=== PATIENT | male | born 1965 | race Caucasian/White ===

== ENCOUNTER 2017-03-09 18:27 | Emergency (ER) | payer SELFPAY ==
[~2017-03-09] VITALS: Ht 180.3 cm; Wt 82.6 kg
[2017-03-09] MEDS ORDERED: DOXY100T2 PO (20:11)
--- NOTE | 2017-03-09 20:11 | ED Integumentary General ---
General Chief Complaint: Skin/Wound Problems Stated Complaint: POSS INSECT BITE ON BACK Nursing Triage Note: PT TO ED W/ C/O POSS BITE W/ LOCALIZED ERYTHEMA TO BACK. PT REPORTS HE WAS SEEN AT HIS PCP TODAY ET DX W/ FLU B BUT DENIES HAVING SITE EVALUATED AT THAT TIME. STATES HE THOUGHT IT WAS MUSCULAR IN NATURE. NOTICED THE AREA OF IRRITATION THIS AFTERNOON. NO OTHER C/O VOICED Source: patient Exam Limitations: no limitations History of Present Illness Time seen by provider: 20:00 Initial Comments This 51-year-old gentleman presents to the emergency room with complaints of a lesion on the back that is painful and ecchymotic. He tested positive for influenza earlier in the day and is febrile as a result. He did not have his back evaluated when he was in the clinic for influenza screening. He does not recall being bitten by anything but the lesion has the appearance of a spider bite. Allergies and Home Medications Allergies Coded Allergies: No Known Drug Allergies (Unverified , 03/09/17) Home Medications Doxycycline Hyclate 100 Mg Tablet, 100 MG PO BID, #20 Prescribed by: TOM JIMENEZ on 03/09/172010 Constitutional: see HPI EENTM: see HPI Respiratory: see HPI Cardiovascular: no symptoms reported Gastrointestinal: vomiting Genitourinary: no symptoms reported Musculoskeletal: no symptoms reported Skin: see HPI Psychiatric/Neurological: No Symptoms Reported Past Qojfizn-Qhchsg-Dbgjmk Hx Patient Social History Alcohol Use: Occasionally Uses Recreational Drug Use: No Smoking Status: Never a Smoker 2nd Hand Smoke Exposure: No Recent Foreign Travel: No Contact w/Someone Who Travel: No Recent Infectious Disease Expo: No Recent Hopitalizations: No Seasonal Allergies Seasonal Allergies: No Surgeries HX Surgeries: No Respiratory Hx Respiratory Disorders: No Cardiovascular Hx Cardiac Disorders: Yes Cardiac Disorders: Hypertension Neurological Hx Neurological Disorders: No Reproductive System Hx Reproductive Disorders: No Genitourinary Hx Genitourinary Disorders: Yes (chronic urinary frequency) Gastrointestinal Hx Gastrointestinal Disorders: No Musculoskeletal Hx Musculoskeletal Disorders: No Endocrine Hx Endocrine Disorders: Yes Endocrine Disorders: Diabetes, Non-Insulin dep HEENT HX ENT Disorders: No Cancer Hx Cancer: No Psychosocial Hx Psychiatric Problems: No Integumentary HX Skin/Integumentary Disorder: No Blood Transfusions Hx Blood Disorders: No Physical Exam Vital Signs Vital Sign - Last 12Hours 03/09/17 19:38 Temp 101.1 Pulse 110 Resp 20 B/P (MAP) 127/90 Pulse Ox 97 O2 Delivery Room Air Capillary Refill : Less Than 3 Seconds General Appearance: WD/WN, no apparent distress HEENT: PERRL/EOMI, normal ENT inspection Neck: normal inspection Cardiovascular: no edema, no murmur, tachycardia Respiratory: lungs clear, normal breath sounds, no respiratory distress, no accessory muscle use Neurologic/Psychiatric: 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, no motor/sensory deficits, alert, normal mood/affect, oriented x 3 Skin: warm/dry, other (there is a blistering lesion on the left upper back with a dusky ecchymotic center and petechial erythema surrounding.) Progress/Results/Core Measures Results/Orders My Orders Orders - TOM GUADARRAMA MD Doxycycline Hyclate Tablet (Vibramycin T (03/09/17 20:15) Rx-Ondansetron Po (Rx-Zofran Po) (03/09/17 20:15) Medications Given in ED Current Medications Medications Dose Ordered Sig/Josi Route Start Time Stop Time Status Last Admin Dose Admin Doxycycline Hyclate 100 mg ONCE ONCE PO 03/09/17 20:15 03/09/17 20:16 DC 03/09/17 20:20 100 MG Ondansetron HCl 4 mg Q4HR PRN SL 03/09/17 20:15 03/09/17 20:21 DC 03/09/17 20:20 4 MG Vital Signs/I&O Vital Sign - Last 12Hours 03/09/17 03/09/17 19:38 20:23 Temp 101.1 100.0 Pulse 110 101 Resp 20 20 B/P (MAP) 127/90 Pulse Ox 97 98 O2 Delivery Room Air Blood Pressure Mean: 102 Progress Note : Progress Note Lesion was cleaned with alcohol. Blister was ruptured with a scalpel. Wound culture was collected. Patient was started on doxycycline. Margins of the erythema were marked with a skin marker. A take-home packet of Zofran was dispensed for nausea related to the influenza B. Departure Impression Impression: Primary Impression: Spider bite Qualified Codes: T63.301A - Toxic effect of unspecified spider venom, accidental (unintentional), initial encounter Additional Impression: Influenza B Disposition: 01 HOME, SELF-CARE Condition: Improved Departure-Patient Inst. Decision time for Depature: 20:09 Referrals: [facility] (PCP/Family) Primary Care Physician Patient Instructions: Spider Bites Add. Discharge Instructions: Drink plenty of clear liquids. You may take Tylenol and/or ibuprofen for pain and fever. Monitor the progression of the wound on your back with a skin marker and daily digital photography. Follow-up with your primary care provider toward the end of this week. Wound culture should be resulted in about 48 hours. Return to care if symptoms worsen. Complete your antibiotics as prescribed. All discharge instructions reviewed with patient and/or family. Voiced understanding. Scripts Doxycycline Hyclate (Doxycycline Hyclate) 100 Mg Tablet 100 MG PO BID, #20 TAB Prov: TOM GUADARRAMA MD 03/09/17 TOM GUADARRAMA MD Mar 09, 2017 20:11
[2017-03-09] MEDS ORDERED: DOXYCYCLINE 100 MG (VIBRAMYCIN) TABLET PO ONE (20:15)
[2017-03-09] MEDS ORDERED: RX-ONDANSETRON 4 MG ODT (ZOFRAN) PPK #4 SL PRN (20:15)
[2017-03-09 20:23] VITALS: BP 120/87
== END 2017-03-09 20:21 | disposition home or self-care (01) ==
LOC: ER 18:30
DX: T63.391A Toxic effect of venom of other spider, accidental (unintentional), initial encounter (principal); J10.1 Influenza due to other identified influenza virus with other respiratory manifestations; I10 Essential (primary) hypertension; E11.9 Type 2 diabetes mellitus without complications
CPT/HCPCS: 87070; 87205; 99283

== ENCOUNTER 2017-04-02 21:24 | Emergency (ER) | payer SELFPAY ==
[~2017-04-02] VITALS: Ht 180.3 cm; Wt 79.4 kg
[~2017-04-02 21:24] MED LIST: DOXY100T2 PO
--- NOTE | 2017-04-02 21:43 | ED Upper Extremity ---
General Stated Complaint: R SHOULDER PAIN Source: patient Exam Limitations: no limitations History of Present Illness Time seen by provider: 21:42 Initial Comments To ER with right shoulder pain. The pain is in the anterior portion of the right shoulder and chest worsened by adducting the right arm at the shoulder. 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 Pain is brought about by any movement that brings the hand from outward inward position. 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 He states that he was not going to come to the emergency room but his and son insisted. Pain is been intermittent for one month and is relieved by taking IBProfen and rest. Tonight while the pain was so severe he was unable to abduct the arm at the shoulder Onset: just prior to arrival Severity: moderate Pain/Injury Location: right shoulder Method of Injury: other Modifying Factors: Worse With Movement Allergies and Home Medications Allergies Coded Allergies: No Known Drug Allergies (Unverified , 03/09/17) Home Medications Doxycycline Hyclate 100 Mg Tablet, 100 MG PO BID, #20 Prescribed by: TOM JIMENEZ on 03/09/172010 Constitutional: see HPI EENTM: see HPI Respiratory: no symptoms reported Cardiovascular: no symptoms reported Genitourinary: no symptoms reported Musculoskeletal: no symptoms reported Skin: no symptoms reported Past Vbbylnf-Pxzoqd-Arcoyn Hx Patient Social History 2nd Hand Smoke Exposure: No Recent Foreign Travel: No Contact w/Someone Who Travel: No Recent Hopitalizations: No Seasonal Allergies Seasonal Allergies: No Surgeries HX Surgeries: No Respiratory Hx Respiratory Disorders: No Cardiovascular Hx Cardiac Disorders: Yes Cardiac Disorders: Hypertension Neurological Hx Neurological Disorders: No Reproductive System Hx Reproductive Disorders: No Genitourinary Hx Genitourinary Disorders: Yes (chronic urinary frequency) Gastrointestinal Hx Gastrointestinal Disorders: No Musculoskeletal Hx Musculoskeletal Disorders: No Endocrine Hx Endocrine Disorders: Yes Endocrine Disorders: Diabetes, Non-Insulin dep HEENT HX ENT Disorders: No Cancer Hx Cancer: No Psychosocial Hx Psychiatric Problems: No Integumentary HX Skin/Integumentary Disorder: No Blood Transfusions Hx Blood Disorders: No Physical Exam Vital Signs Capillary Refill : General Appearance: WD/WN, no apparent distress HEENT: PERRL/EOMI, normal ENT inspection Neck: non-tender, full range of motion Cardiovascular: regular rate, rhythm, no murmur Respiratory: lungs clear, normal breath sounds, no respiratory distress, no accessory muscle use Gastrointestinal: normal bowel sounds, non tender, soft Shoulder: normal inspection, limited ROM, soft tissue tenderness (there is minimal soft tissue tenderness over the pectoralis muscle over the anterior shoulder and lateral chest. Shoulder joint itself is without deformity erythema or ecchymosis.) Elbow/Forearm: normal inspection, non-tender, Right Wrist: Yes normal inspection, Yes non-tender Departure Impression Impression: Primary Impression: Pectoralis muscle strain Disposition: 01 HOME, SELF-CARE Condition: Stable Departure-Patient Inst. Decision time for Depature: 21:45 Referrals: [facility] (PCP/Family) Primary Care Physician Patient Instructions: Muscle Strain Add. Discharge Instructions: 1. Return to ER for any concerns 2. Follow-up with occupational health 3. Scripts Cyclobenzaprine HCl (Cyclobenzaprine HCl) 5 Mg Tablet 5 MG PO TID Y for PAIN-MODERATE, #20 TAB Prov: CECY WOLFF APRN 04/02/17 CECY WOLFF APRN April 02, 2017 21:43
[2017-04-02] MEDS ORDERED: CYCL5TAB PO (21:46)
[2017-04-02 21:54] VITALS: BP 138/87
== END 2017-04-02 21:49 | disposition home or self-care (01) ==
LOC: EDUNIT# 21:24 → ER 21:26
DX: S46.901A Unspecified injury of unspecified muscle, fascia and tendon at shoulder and upper arm level, right arm, initial encounter (principal); E11.9 Type 2 diabetes mellitus without complications; I10 Essential (primary) hypertension; X50.0XXA Overexertion from strenuous movement or load, initial encounter; Y92.69 Other specified industrial and construction area as the place of occurrence of the external cause; Y99.0 Civilian activity done for income or pay
CPT/HCPCS: 99282

== ENCOUNTER 2019-02-12 01:17 | Emergency (ER) | payer SELFPAY ==
[~2019-02-12] VITALS: Ht 177.8 cm; Wt 88.5 kg
[~2019-02-12 01:17] MED LIST changes: +CYCL5TAB PO
[2019-02-12] MEDS ORDERED: RX-HYDROXYZINE PAMOATE 25 MG CAP #4 PO STA (01:35)
[2019-02-12] MEDS ORDERED: METF-397 PO (01:36)
[2019-02-12] MEDS ORDERED: LISI10TA2 PO (01:36)
--- NOTE | 2019-02-12 01:42 | ED General ---
General Chief Complaint: Psych/Social Disorder Stated Complaint: SOB Source of Information: Patient Exam Limitations: No Limitations History of Present Illness Date Seen by Provider: Feb 12, 2019 Time Seen by Provider: 01:26 Initial Comments The patient presents to ER by private conveyance with chief complaint of shortness of breath when he lays down flat to sleep. He says when he gets back up it's okay. When he lays down though he is doing okay just starts thinking about all problems of the day including his xpwjnt-nq-dwz recently and he's been working to get her house cleaned out and is trying to get his father to move back in with him. His definition of shortness of breath as he says he just takes big deep breaths but is not panting. He says his heart is not racing denies any chest pain nausea vomiting fevers chills cough. Does not smoke cigarettes has no history of COPD or asthma. Does not have stridor or wheezing. He does have a history of prediabetes on metformin and lisinopril for blood pressure. He says he is not very good about remembering to take his medications and was wondering if maybe by missing his medicines of those are hurting to his shortness of breath. This is the first night it's happened. He denies any swelling around his hands or feet or history of heart failure/heart attack. Allergies and Home Medications Allergies Coded Allergies: No Known Drug Allergies (Unverified , 03/09/17) Home Medications Cyclobenzaprine HCl 5 Mg Tablet, 5 MG PO TID PRN for PAIN-MODERATE Prescribed by: CECY WOLFF on 04/02/172145 Doxycycline Hyclate 100 Mg Tablet, 100 MG PO BID Prescribed by: TOM JIMENEZ on 03/09/172010 Patient Home Medication List Home Medication List Reviewed: Yes Review of Systems Review of Systems Constitutional: No chills, No diaphoresis EENTM: No ear discharge, No ear pain Respiratory: No cough, No hemoptysis, No phlegm; short of breath (not presently ); No wheezing Cardiovascular: No chest pain, No edema, No Hx of Intervention, No palpitations , No syncope, No vascular heart diseas Gastrointestinal: No abdominal pain, No constipation, No diarrhea, No nausea, No vomiting Genitourinary: No discharge, No dysuria Musculoskeletal: No back pain, No joint pain Past Itsnkxw-Xxdxco-Zegfra Hx Patient Social History Alcohol Use: Denies Use Recreational Drug Use: No Smoking Status: Never a Smoker 2nd Hand Smoke Exposure: No Recent Foreign Travel: No Contact w/Someone Who Travel: No Recent Hopitalizations: No Seasonal Allergies Seasonal Allergies: No Past Medical History Hypertension Reproductive Disorders: No Diabetes, Non-Insulin dep Physical Exam Vital Signs Capillary Refill : Height, Weight, BMI Height: 5'11.00" Weight: 175lbs. oz. 79.538976qd; BMI Method:Stated General Appearance: No Apparent Distress, WD/WN, Anxious Eyes: Bilateral Eye Normal Inspection, Bilateral Eye PERRL, Bilateral Eye EOMI HEENT: PERRL/EOMI, TMs Normal, Normal ENT Inspection, Pharynx Normal, Moist Mucous Membranes Neck: Full Range of Motion, Normal Inspection, Non Tender, Supple; No JVD Respiratory: Chest Non Tender, Lungs Clear, Normal Breath Sounds, No Accessory Muscle Use, No Respiratory Distress Cardiovascular: Regular Rate, Rhythm, No Edema, No Gallop, No JVD, No Murmur, Normal Peripheral Pulses Gastrointestinal: Normal Bowel Sounds, Non Tender, Soft Extremity: Normal Capillary Refill, Normal Inspection, Non Tender, No Pedal Edema Neurologic/Psychiatric: Alert, Oriented x3, No Motor/Sensory Deficits Skin: Normal Color, Warm/Dry Progress/Results/Core Measures Suspected Sepsis SIRS Temperature: Pulse: Respiratory Rate: Blood Pressure / Mean: Results/Orders My Orders Orders - TABITHA DERAS Rx-Hydroxyzine Pamoate (Rx-Vistaril) (02/12/19 01:35) Vital Signs/I&O Capillary Refill : Progress Note : Time: 01:40 Progress Note The patient's sister describes orthopnea however his description of shortness of breath sounds most like he is just yawning or gasping and his affect and demeanor is more of anxiety. His clinical exam is unremarkable and there is no evidence of any heart failure, fluid overload, COPD or asthma. His heart rate is in the 80s to 90s and his oxygen saturation is 100% which would make a pulmonary embolism unlikely. He is not having any chest pain. We've offered to do an EKG, chest x-ray and blood but he has declined. We've offered us trial some Vistaril to see if this is more anxiety related and follow up Juan with his primary care provider and he would prefer to do that. He says he just wanted to come in to make sure that missing a few doses of his metformin and lisinopril was not the source of his shortness of breath. I don't see any connection with his missing medications and his shortness of breath however what he describes as shortness of breath does not appear to be classic short of breath. He says he short of breath now but has no clinical examination consistent with being objectively short of breath. No increased work of breathing, retractions, accessory muscle use, etc. Departure Impression Primary Impression: Anxiety Additional Impression: Shortness of breath at rest Disposition: HOME, SELF-CARE Condition: Stable Departure-Patient Inst. Decision time for Depature: 01:42 Referrals: [facility]/ (PCP/Family) Primary Care Physician Patient Instructions: Anxiety, Adult (DC) Add. Discharge Instructions: Take a dose of Vistaril 1 tablet every 6 hours as needed for anxiety-like symptoms such as feeling short of breath. If this does not improve your symptoms then you should follow-up with your primary care doctor on Thursday. If you're having significant chest pain or other worrisome symptoms you can return to the ER for further evaluation. All discharge instructions reviewed with patient and/or family. Voiced understanding. Scripts Hydroxyzine Pamoate (Vistaril) 25 Mg Capsule 25 MG PO Q6H PRN for ANXIETY, #20 CAP 0 Refills Prov: TABITHA DERAS 02/12/19 TABITHA DERAS Feb 12, 2019 01:42
[2019-02-12] MEDS ORDERED: HYDR25CA PO (01:44)
--- OUTSIDE RECORDS SUMMARY | 2019-02-12 01:44 | XMS REPORT ---
Author Author FRIEDA CORONA Organization [facility] Address [address] [place] [address] Care Team Providers Care Community Relations Liaison Name Role Phone FRIEDA CORONA Unavailable PROBLEMS Type Condition ICD9-CM Code TXV53-HC Code Onset Dates Condition Status SNOMED Code Problem Essential hypertension I10 Active 69137055 Problem Diabetes E11.9 Active 917566903 Problem Hypertriglyceridemia E78.1 Active 677727055 Problem Eye exam normal Z01.00 Active 366060693 ALLERGIES No Known Allergies ENCOUNTERS Encounter Location Date Diagnosis [place] [id number] [address] Jun, Hypertriglyceridemia E78.1 and Diabetes E11.9 [facility] [address] [address] Jun, Diabetes E11.9 ; Essential hypertension I10 ; Cough R05 ; Nocturia R35.1 ; Hypertriglyceridemia E78.1 and Snores R06.[address] [address] March, [facility] [address] [address] Jan, Acute bronchitis, unspecified organism J20.9 and Acute effusion of both middle ears H65.193 [facility] [address] [address] Dec, Viral URI J06.9 [facility] [address] [address] Dec, Gastroenteritis K52.[address] [address] 28 Jul, 2017 Acute pain of right shoulder M25.511 [facility] [address] [address] 20 Jul, 2017 Essential hypertension I10 [place] [address] [address] 18 Jun, 2017 Hypertriglyceridemia E78.1 [place] [address] [address] 16 Jun, 2017 Diabetes E11.9 ; Essential hypertension I10 and Acute pain of right shoulder M25.511 [place] [address] [address] 13 Feb, 2017 Brown magdielluse spider bite, accidental or unintentional, initial encounter T63.331A [place] [address] [address] Feb, Cough R05 and Influenza B J10.1 [place] [address] [address] Nov, Diabetes E11.9 and Essential hypertension I10 [place] [address] [address] Oct, [place] [address] [address] Oct, [place] [address] [address] Apr, Diabetes E11.9 [facility] [address] [address] Apr, Diabetes E11.9 and Nocturia R35.1 [place] [address] [address] 06 Mar, 2016 [facility] [address] [address] 14 Jan, 2016 Fever R50.9 and Influenza J11.1 [place] [address] [address] 10 Oct, 2015 Diabetes E11.9 [facility] [address] [place] [id number] [place] [address], [place] [address] 11 Sep, 2015 Encounter for immunization Z23 [facility] [address] [address] 03 Apr, 2015 Sports physical V70.3 [facility] [address] [facility] [id number] [place] [address] 14 Feb, 2015 [facility] [address] [place] [id number] [place] [address] Feb, [facility] [id number] [place] [address] Jan, [facility] [id number] [place] [address] Jan, [facility] [address], [place] [address] Jan, [facility] [address], [place] [address] Jan, [facility] [address], [place] [address] Jan, [facility] [address], [place] [address] Jan, [facility] [address], [place] [address] Dec, [facility] [address] [place] [id number] [address] Dec, [facility] [address] [address] Sep, [facility] [address], [place] [address] Sep, [facility] [address] [place] [id number] [place] [address] Aug, [facility] [place] [facility] [address] [id number] [place] [address] Aug, [facility] [place] [facility] [address] [id number] [place] [address] Aug, [facility] [place] [facility] [address] [id number] [place] [address] Aug, [facility] [place] [facility] [address] [id number] [place] [address] Jun, [facility] [place] [facility] [address] [id number] [place] [address] Jun, [facility] [place] [facility] [address] [id number] [place] [address] May, [facility] [place] [facility] [address] [id number] [place] [address] May, [facility] [place] [facility] [address] [id number] [place] [address] March, [facility] [place] [facility] [address] [id number] [place] [address] March, [facility] [place] [facility] [address] [id number] [place] [address] Feb, [facility] [place] [facility] [address] [id number] [place] [address] Feb, [facility] [place] [facility] [address] [id number] [place] [address] Jan, [facility] [place] [facility] [address] [id number] [place] [address] Jan, [facility] [place] [facility] [address] [id number] [place] [address] Jan, [facility] [place] [facility] [address] [id number] [place] [address] Jan, [facility] [address] [facility] [id number] [address] Jan, [facility] [address] [facility] [id number], [place] [address] Jan, [facility] [address] [facility] [id number], [place] [address] Dec, [facility] [address] [place] [id number] [address] Dec, [facility] [address] [facility] [id number], [place] [address] Nov, [facility] [address] [facility] [id number] Nov, IMMUNIZATIONS No Known Immunizations SOCIAL HISTORY Never Assessed REASON FOR VISIT Diabetes-PHYLICIA crandall PLAN OF CARE Activity Details Follow Up 3 Months Reason:DM VITAL SIGNS Height 70 in 2018-07-05 Weight 189.4 lbs 2018-07-05 Temperature 97.4 degrees Fahrenheit 2018-07-05 Heart Rate 92 bpm 2018-07-05 Respiratory Rate 20 2018-07-05 Oximetry on room air:98 % 2018-07-05 BMI 27.17 kg/m2 2018-07-05 Blood pressure systolic 110 mmHg 2018-07-05 Blood pressure diastolic 82 mmHg 2018-07-05 MEDICATIONS Medication Instructions Dosage Frequency Start Date End Date Duration Status MetFORMIN HCl ER 500 mg Orally Once a day TAKE ONE TABLET BY MOUTH ONCE DAILY WITH A MEAL 24h 90 Active Cardura 1 MG Orally Once a day at hs 1 tablet Apr, Active Lisinopril 20 MG Orally Once a day 1 tablet 24h 90 days Active RESULTS Name Result Date Reference Range A1C (IN HOUSE) 2018-07-05 A1C IN HOUSE 6.4 4.3 - 5.6 % Previous A1c 6.2 Lot [id number] Exp date 01/2020 MICROALBUMIN, URINE (IN HOUSE) 2018-07-05 MICROALBUMIN normal Lot # [id number] Exp date 02/2019 Clarity clear Color yellow ALB 30 CRE 300 A:C (IN HOUSE) <30 Control + Control Lot # Exp date PROCEDURES Procedure Date Ordered Result Body Site GLYCATED HEMOGLOBIN TEST Jul 05, 2018 MICROALBUMIN, SEMIQUANT Jul 05, 2018 INSTRUCTIONS MEDICATIONS ADMINISTERED No Known Medications MEDICAL (GENERAL) HISTORY Type Description Date Medical History Hypertension Medical History Diabetes Mellitus type 2
--- OUTSIDE RECORDS SUMMARY | 2019-02-12 01:44 | XMS REPORT ---
Author Author FRIEDA CORONA Organization [facility] Address [address] [place] [address] Care Team Providers Care Room Designer Name Role Phone FRIEDA CORONA Unavailable PROBLEMS Type Condition ICD9-CM Code HDH83-UN Code Onset Dates Condition Status SNOMED Code Problem Essential hypertension I10 Active 77201993 Problem Diabetes E11.9 Active 319084353 Problem Hypertriglyceridemia E78.1 Active 990125206 Problem Eye exam normal Z01.00 Active 235660780 ALLERGIES No Information ENCOUNTERS Encounter Location Date Diagnosis [place] [id number] [address] Jun, Hypertriglyceridemia E78.1 and Diabetes E11.9 [facility] [address] [address]- 3[address] Jun, Diabetes E11.9 ; Essential hypertension I10 ; Cough R05 ; Nocturia R35.1 ; Hypertriglyceridemia E78.1 and Snores R06.83 [place] [id number] [place] [address]84- 3083 March, [facility] [address] [place] [id number] [place] [address] 7[address]32 -6838 Jan, Acute bronchitis, unspecified organism J20.9 and Acute effusion of both middle ears H65.193 [facility] [address] [address] Dec, Viral URI J06.9 [facility] [place] [id number] [place] [address]85 -8515 Dec, Gastroenteritis K52.[address] [address]- [address]48 28 Jul, 2017 Acute pain of right shoulder M25.511 [facility] [address] 822[address]- 0966 20 Jul, 2017 Essential hypertension I10 [facility] [address] 31597- 7090 18 Jun, 2017 Hypertriglyceridemia E78.1 [place] [address] [address]- 2977 16 Jun, 2017 Diabetes E11.9 ; Essential hypertension I10 and Acute pain of right shoulder M25.511 [place] [address] 84480- 5137 13 Feb, 2017 Brown magdiellu spider bite, accidental or unintentional, initial encounter T63.331A [place] [address] 39192- 8635 Feb, Cough R05 and Influenza B J10.1 [place] [address] 60072- 2427 Nov, Diabetes E11.9 and Essential hypertension I10 [place] [address] 13366- 3264 Oct, [place] [address] 48516- 6448 Oct, [place] [address] 46220- 5275 Apr, Diabetes E11.9 [facility] [address] [place] [id number] [place] [address] 95047- 9501 Apr, Diabetes E11.9 and Nocturia R35.1 [place] [address] 787[address]- 7566 March, [facility] [address] [place] [id number] [place] [address] 70264 -1046 14 Jan, 2016 Fever R50.9 and Influenza J11.1 [facility] [address] [address] 0212 10 Oct, 2015 Diabetes E11.9 [facility] [address] [place] [id number] [place] [address] 95783- 1130 11 Sep, 2015 Encounter for immunization Z23 [facility] [address] [address]- 7178 03 Apr, 2015 Sports physical V70.3 [facility] [address] [place] [id number] [place] [address] 25605- 7452 14 Feb, 2015 [facility] [address] [place] [address] 74531- 1911 Feb, [facility] [address] [place] [address] 67904- 4165 Jan, [facility] [address], [place] [address]- 3547 Jan, [facility] [address], [place] [address]- 5608 Jan, [facility] [address], [place] [address]- 7698 Jan, [facility] [address], [place] [address]- 8225 Jan, [facility] [address], [place] [address]- 3204 Jan, [facility] [address], [place] [address]- 2192 Dec, [facility] [address] [place] [id number] [address]- 4933 Dec, [facility] [address], [place] [address]- 4635 Sep, [facility] [address], [place] [address]- 4542 Sep, [facility] [address] [place] [address] 8751 Aug, [facility] [address] [id number] [place] [address]- 5308 Aug, [facility] [place] [facility] [address] [id number] [place] [address]- 6506 Aug, [facility] [place] [facility] [address] [id number] [place] [address]- 4216 Aug, [facility] [place] [facility] [address] [id number] [place] [address]- 2460 Jun, [facility] [place] [facility] [address] [id number] [place] [address]- 1782 Jun, [facility] [place] [facility] [address] [id number] [place] [address]- 8274 May, [facility] [place] [facility] [address] [id number] [place] [address]- 5657 May, [facility] [place] [facility] [address] [id number] [place] [address]- 6910 March, [facility] [place] [facility] [address] [id number] [place] [address]- 3407 March, [facility] [place] [facility] [address] [facility] [id number] [place] [address]- 9049 Feb, [facility] [place] [facility] [address] [id number] [place] [address]- 7662 Feb, [facility] [place] [facility] [address] [id number] [place] [address]- 5889 Jan, [facility] [place] [facility] [address] [id number] [place] [address]- 5589 Jan, [facility] [place] [facility] [address] [id number] [place] [address]- 7567 Jan, [facility] [place] [facility] [address] [id number] [place] [address]- 7275 Jan, [facility] [address] [facility] [id number], [place] [address]- 4028 Jan, [facility] [address] [facility] [id number], [place] [address]- 8990 Jan, [facility] [address] [facility] [id number], [place] [address]- 6053 Dec, [facility] [address] [place] [id number] [address]- 0566 Dec, [facility] [address] [place] [id number] [address]- 2155 Nov, [facility] [address] [place] [id number] [address]- 5432 Nov, IMMUNIZATIONS No Known Immunizations SOCIAL HISTORY Never Assessed REASON FOR VISIT Lab (walk-in) PLAN OF CARE VITAL SIGNS MEDICATIONS Unknown Medications RESULTS No Results PROCEDURES Procedure Date Ordered Result Body Site LIPID PANEL Jul 06, 2018 COMPREHEN METABOLIC PANEL Jul 06, 2018 VENIPUNCT, ROUTINE* Jul 06, 2018 INSTRUCTIONS MEDICATIONS ADMINISTERED No Known Medications MEDICAL (GENERAL) HISTORY Type Description Date Medical History Hypertension Medical History Diabetes Mellitus type 2
--- OUTSIDE RECORDS SUMMARY | 2019-02-12 01:45 | XMS REPORT ---
Author Author FRIEDA CORONA Organization [facility] Address [address] [place] [address] Care Team Providers Care Microbiology Instructor Name Role Phone FRIEDA CORONA Unavailable PROBLEMS Type Condition ICD9-CM Code UXS19-NL Code Onset Dates Condition Status SNOMED Code Problem Essential hypertension I10 Active 85998743 Problem Diabetes E11.9 Active 228172355 Problem Hypertriglyceridemia E78.1 Active 886190295 Problem Eye exam normal Z01.00 Active 214238984 ALLERGIES No Information ENCOUNTERS Encounter Location Date Diagnosis [place] [address] [address] Jun, Hypertriglyceridemia E78.1 and Diabetes E11.9 [facility] [address] [address]- 0284 Jun, Diabetes E11.9 ; Essential hypertension I10 ; Cough R05 ; Nocturia R35.1 ; Hypertriglyceridemia E78.1 and Snores R06.83 [place] [id number] [place] [address]172- 3106 March, [facility] [address] [place] [id number] [place] [address] 94973 -4259 Jan, Acute bronchitis, unspecified organism J20.9 and Acute effusion of both middle ears H65.193 [facility] [address] [address]83 Dec, Viral URI J06.9 [facility] [place] [id number] [place] [address]334 -6832 Dec, Gastroenteritis K52.[address] 64858- 0666 28 Jul, 2017 Acute pain of right shoulder M25.511 [facility] [address] 27769- 9666 20 Jul, 2017 Essential hypertension I10 [facility] [address] 12990- 1211 18 Jun, 2017 Hypertriglyceridemia E78.1 [place] [address] 38243- 9736 16 Jun, 2017 Diabetes E11.9 ; Essential hypertension I10 and Acute pain of right shoulder M25.511 [place] [address] 71312- 6952 13 Feb, 2017 Brown magdiellu spider bite, accidental or unintentional, initial encounter T63.331A [place] [address] 65158- 5986 Feb, Cough R05 and Influenza B J10.1 [place] [address] 60682- 4962 Nov, Diabetes E11.9 and Essential hypertension I10 [place] [address] 68554- 9988 Oct, [place] [address] 44868- 6092 Oct, [place] [address] 15336- 5037 Apr, Diabetes E11.9 [facility] [address] [place] [id number] [place] [address] 91169- 9651 Apr, Diabetes E11.9 and Nocturia R35.1 [place] [address] 33090- 6386 March, [facility] [address] [place] [id number] [place] [address] 12155 -4149 14 Jan, 2016 Fever R50.9 and Influenza J11.1 [facility] [address] [address]- 1892 10 Oct, 2015 Diabetes E11.9 [facility] [address] [place] [id number] [place] [address] 70470- 4423 11 Sep, 2015 Encounter for immunization Z23 [facility] [address] [address]- 5510 03 Apr, 2015 Sports physical V70.3 [facility] [address] [place] [id number] [place] [address] 05705- 6918 14 Feb, 2015 [facility] [id number] [place] [address] 33308- 6996 Feb, [facility] [id number] [place] [address] 49770- 6510 Jan, [facility] [address] [address]- 3722 Jan, [facility] [address], [place] [address]- 1209 Jan, [facility] [address] [address]- 3005 Jan, [facility] [address], [place] [address]- 9137 Jan, [facility] [address], [place] [address]- 8726 Jan, [facility] [address], [place] [address]- 7471 Dec, [facility] [address] [place] [id number] [address]- 8993 Dec, [facility] [address] [address]- 5412 Sep, [facility] [address], [place] [address]- 8001 Sep, [facility] [address] [place] [address]- 0199 Aug, [facility] [address] [id number] [place] [address]- 7904 Aug, [facility] [place] [facility] [address] [id number] [place] [address]- 4146 Aug, [facility] [place] [facility] [address] [id number] [place] [address]- 3506 Aug, [facility] [place] [facility] [address] [id number] [place] [address]- 4972 Jun, [facility] [place] [facility] [address] [id number] [place] [address]- 7918 Jun, [facility] [place] [facility] [address] [id number] [place] [address]- 9507 May, [facility] [place] [facility] [address] [id number] [place] [address]- 9201 May, [facility] [place] [facility] [address] [id number] [place] [address]- 5162 March, [facility] [place] [facility] [address] [id number] [place] [address]- 1102 March, [facility] [place] [facility] [address] [facility] [id number] [place] [address]- 5413 Feb, [facility] [place] [facility] [address] [id number] [place] [address]- 5861 Feb, [facility] [place] [facility] [address] [id number] [place] [address]- 3921 Jan, [facility] [place] [facility] [address] [id number] [place] [address]- 6659 Jan, [facility] [place] [facility] [address] [id number] [place] [address]- 2801 Jan, [facility] [place] [facility] [address] [id number] [place] [address]- 4372 Jan, [facility] [address] [facility] [id number] [address]- 4167 Jan, [facility] [address] [place] [id number] [address]- 8769 Jan, [facility] [address] [place] [id number] [address]- 4729 Dec, [facility] [address] [place] [id number], [place] [address]- 4727 Dec, [facility] [address] [place] [id number] [address]- 3417 Nov, [facility] [address] [place] [id number] 6189 Nov, IMMUNIZATIONS No Known Immunizations SOCIAL HISTORY Never Assessed REASON FOR VISIT eye exam PLAN OF CARE VITAL SIGNS MEDICATIONS Unknown Medications RESULTS No Results PROCEDURES No Known procedures INSTRUCTIONS MEDICATIONS ADMINISTERED No Known Medications MEDICAL (GENERAL) HISTORY Type Description Date Medical History Hypertension Medical History Diabetes Mellitus type 2
--- OUTSIDE RECORDS SUMMARY | 2019-02-12 01:45 | XMS REPORT ---
Author Author MAYRA BABCOCK Organization [facility] Address [address] [place] [address] Care Team Providers Care Sales Representative Adding Machines Name Role Phone MAYRA BABCOCK Unavailable PROBLEMS Type Condition ICD9-CM Code LDL51-GP Code Onset Dates Condition Status SNOMED Code Problem Essential hypertension I10 Active 59377109 Problem Diabetes E11.9 Active 046368473 Problem Hypertriglyceridemia E78.1 Active 428005752 Problem Eye exam normal Z01.00 Active 687404567 ALLERGIES No Known Allergies ENCOUNTERS Encounter Location Date Diagnosis [place] [address] [address]- [address]308 Jun, [facility] [address] [address]- 4722 March, [facility] [address] [address]54 -0184 Jan, Acute bronchitis, unspecified organism J20.9 and Acute effusion of both middle ears H65.193 [facility] [address] [place] [id number] [place] [address]750 -1254 17 Dec, 2017 Viral URI J06.9 [facility] [address] [address] -3097 Dec, Gastroenteritis K52.9 [facility] [address] 58237- 1168 Jul, Acute pain of right shoulder M25.511 [place] [address] 28007- 9572 Jul, Essential hypertension I10 [place] [address] 70920- 1097 Jun, Hypertriglyceridemia E78.1 [facility] [address] [place] [id number] [place] [address] 99749- 8549 16 Jun, 2017 Diabetes E11.9 ; Essential hypertension I10 and Acute pain of right shoulder M25.511 [place] [address] 53973- 1015 13 Feb, 2017 Brown recluse spider bite, accidental or unintentional, initial encounter T63.331A [place] [address] 31017- 8417 Feb, Cough R05 and Influenza B J10.1 [place] [address] 40085- 5268 23 Nov, 2016 Diabetes E11.9 and Essential hypertension I10 [place] [address] 56328- 3072 30 Oct, 2016 [place] [address] 54557- 5190 Oct, [place] [address] 34163- 6283 24 Apr, 2016 Diabetes E11.9 [place] [address] 24512- 4733 Apr, Diabetes E11.9 and Nocturia R35.1 [place] [address] 54652- 3648 06 Mar, 2016 [facility] [address] 27919 -5543 14 Jan, 2016 Fever R50.9 and Influenza J11.1 [place] [address] 37563- 0493 10 Oct, 2015 Diabetes E11.9 [facility] [address] 75[address]- 7735 11 Sep, 2015 Encounter for immunization Z23 [place] [address] [place] [facility] [address]- 6581 Apr, Sports physical V70.3 [facility] [place] [facility] [address] [id number] [place] [address]- 1956 14 Feb, 2015 [facility] [place] [facility] [address] [id number] [place] [address]- 2809 Feb, [facility] [place] [facility] [address] [id number] [place] [address]- 1047 Jan, [facility] [place] [facility] [address] [id number] [place] [address]- 6008 Jan, [facility] [place] [facility] [address] [id number] [place] [address]- 4407 Jan, [facility] [place] [facility] [address] [facility] [id number] [place] [address]- 2112 Jan, [facility] [place] [facility] [address] [facility] [id number] [place] [address]- 0797 Jan, [facility] [place] [facility] [address] [facility] [id number] [place] [address]- 7970 Jan, [facility] [place] [facility] [address] [facility] [id number] [place] [address]- 2764 Dec, [facility] [place] [facility] [address] [facility] [id number] [place] [address]- 8425 Dec, [facility] [place] [facility] [address] [facility] [id number] [address]- 9600 Sep, [facility] [place] [facility] [address] [facility] [id number] [place] 0135 Sep, [facility] [place] [facility] [address] [facility] [id number] [place] [address]- 0939 Aug, [facility] [place] [facility] [address] [facility] [id number] [place] [address]- 9088 Aug, [facility] [place] [facility] [address] [facility] [id number] [address]- 0088 Aug, [facility] [place] [facility] [address] [id number] [place] [address]- 2183 Aug, [facility] [place] [facility] [address] [id number] [place] [address]- 8396 Jun, [facility] [place] [facility] [address] [id number] [place] [address]- 6586 Jun, [facility] [place] [facility] [address] [id number] [place] [address]- 2196 May, [facility] [place] [facility] [address] [id number] [place] [address]- 5243 May, [facility] [place] [facility] [address] [id number] [place] [address]- 8442 March, [facility] [place] [facility] [address] [id number] [place] [address]- 1719 March, [facility] [place] [facility] [address] [id number] [place] [address]- 1697 Feb, [facility] [place] [facility] [address] [id number] [place] [address]- 7190 Feb, [facility] [place] [facility] [address] [id number] [place] [address]- 5601 Jan, [facility] [place] [facility] [address] [id number] [address]- 9463 Jan, [facility] [place] [facility] [address] [id number] [address]- 2352 Jan, [facility] [place] [facility] [address] [id number] [place] [address]- 5900 Jan, [facility] [place] [facility] [address] [id number] [place] [address]- 8406 Jan, [facility] [place] [facility] [address] [id number] [place] [address]- 2659 Jan, [facility] [place] [facility] [address] [facility] [id number] [place] [address]- 5148 Dec, [facility] [address] [facility] [id number] [address]- 7969 Dec, [facility] [address] [facility] [id number] [place] 2843 Nov, [facility] [address] [facility] [id number] [address]- 0824 Nov, IMMUNIZATIONS No Known Immunizations SOCIAL HISTORY Never Assessed REASON FOR VISIT cough/sore throat for 3 days. mireille pt was in here last thursday for stomach ache. states he missed a lot of work. PLAN OF CARE Activity Details Follow Up prn Reason: VITAL SIGNS Height 70 in 2018-01-16 Weight 192.4 lbs 2018-01-16 Temperature 98.4 degrees Fahrenheit 2018-01-16 Heart Rate 88 bpm 2018-01-16 Respiratory Rate 20 2018-01-16 BMI 27.60 kg/m2 2018-01-16 Blood pressure systolic 126 mmHg 2018-01-16 Blood pressure diastolic 74 mmHg 2018-01-16 MEDICATIONS Medication Instructions Dosage Frequency Start Date End Date Duration Status Benzonatate 200 MG Orally Three times a day 1 capsule 8h Dec, Dec, 7 days Active Cardura 1 MG Orally Once a day at hs 1 tablet Apr, Active Lisinopril 20 MG Orally Once a day 1 tablet 24h 90 days Active MetFORMIN HCl ER 500 MG TAKE ONE TABLET BY MOUTH ONCE DAILY WITH A MEAL 90 Active RESULTS No Results PROCEDURES No Known procedures INSTRUCTIONS MEDICATIONS ADMINISTERED No Known Medications MEDICAL (GENERAL) HISTORY Type Description Date Medical History Hypertension Medical History Diabetes Mellitus type 2
--- OUTSIDE RECORDS SUMMARY | 2019-02-12 01:45 | XMS REPORT ---
Author Author FRIEDA CORONA Organization [facility] Address [address] [place] [address] Care Team Providers Care Crap Game Box Person Name Role Phone FRIEDA CORONA Unavailable PROBLEMS Type Condition ICD9-CM Code [id number] Code Onset Dates Condition Status SNOMED Code Problem Essential hypertension I10 Active 71072446 Problem Diabetes E11.9 Active 357609990 Problem Hypertriglyceridemia E78.1 Active 680831469 Problem Eye exam normal Z01.00 Active 796306283 ALLERGIES No Information ENCOUNTERS Encounter Location Date Diagnosis [place] [id number] [address] March, [facility] [address] [address] Jan, Acute bronchitis, unspecified organism J20.9 and Acute effusion of both middle ears H65.193 [facility] [address] [place] [address] 17 Dec, 2017 Viral URI J06.9 [facility] [address] [place] [address] Dec, Gastroenteritis K52.9 [facility] [address] [address] Jul, Acute pain of right shoulder M25.[address] [address] Jul, Essential hypertension I10 [place] [address] [address] Jun, Hypertriglyceridemia E78.1 [facility] [address] [address] Jun, Diabetes E11.9 ; Essential hypertension I10 and Acute pain of right shoulder M25.511 [place] [address] [place] [id number] [place] [address]- 2474 13 Feb, 2017 Brown magdiellu spider bite, accidental or unintentional, initial encounter T63.331A [place] [address] [address] Feb, Cough R05 and Influenza B J10.1 [place] [address] [address] Nov, Diabetes E11.9 and Essential hypertension I10 [place] [address] [address]- [address] 30 Oct, 2016 [place] [address] [address]- [address] Oct, [place] [address] [address]- 2416 24 Apr, 2016 Diabetes E11.9 [place] [address] [place] [id number] [place] [address]- 9474 Apr, Diabetes E11.9 and Nocturia R35.1 [place] [address] [place] [id number] [place] [address]69- [address]698 March, [facility] [address] [place] [id number] [place] [address]2441 14 Jan, 2016 Fever R50.9 and Influenza J11.1 [facility] [address] [place] [id number] [place] [address]45- 8246 10 Oct, 2015 Diabetes E11.9 [place] [address] [place] [id number] [place] [address]- 3215 11 Sep, 2015 Encounter for immunization Z23 [place] [address] [place] [id number] [place] [address]2350- 1118 03 Apr, 2015 Sports physical V70.3 [facility] [place] [facility] [address] [id number] [place] [address] 7501 14 Feb, 2015 [facility] [place] [facility] [address] [id number] [place] [address]- 8208 13 Feb, 2015 [facility] [place] [facility] [address] [id number] [place] [address]- 3723 27 Jan, 2015 [facility] [place] [facility] [address] [id number] [place] [address]- 1229 Jan, [facility] [place] [facility] [address] [id number] [place] [address]- 2009 Jan, [facility] [place] [facility] [address] [id number] [place] [address]- 4736 Jan, [facility] [place] [facility] [address] [id number] [place] [address]- 0879 Jan, [facility] [place] [facility] [address] [id number] [place] [address]- 0655 Jan, [facility] [place] [facility] [address] [id number] [place] [address]- 8133 Dec, [facility] [place] [facility] [address] [id number] [place] [address]- 7240 Dec, [facility] [place] [facility] [address] [id number] [place] [address]- 1677 Sep, [facility] [place] [facility] [address] [id number] [place] [address]- 0094 Sep, [facility] [place] [facility] [address] [id number] [place] [address] Aug, [facility] [place] [facility] [address] [id number] [place] [address]- 1581 Aug, [facility] [place] [facility] [address] [id number] [place] [address]- 6077 Aug, [facility] [place] [facility] [address] [id number] [place] [address]- 4039 Aug, [facility] [place] [facility] [address] [id number] [place] [address]- 3532 Jun, [facility] [place] [facility] [address] [id number] [place] [address]- 4686 Jun, [facility] [place] [facility] [address] [id number] [place] [address]- 3821 May, [facility] [place] [facility] [address] [id number] [place] [address]- 1277 May, [facility] [place] [facility] [address] [id number] [place] [address]- 9535 March, [facility] [place] [facility] [address] [id number] [place] [address]- 1734 March, [facility] [place] [facility] [address] [id number] [place] [address]- 8794 Feb, [facility] [place] [facility] [address] [id number] [place] [address]- 2700 Feb, [facility] [place] [facility] [address] [id number] [place] [address]- 9875 Jan, [facility] [place] [facility] [address] [id number] [place] [address]- 5476 Jan, [facility] [place] [facility] [address] [id number] [place] [address]- 4884 Jan, [facility] [place] [facility] [address] [id number] [place] [address]- 4558 Jan, [facility] [place] [facility] [address] [id number] [place] [address]- 9373 Jan, [facility] [place] [facility] [address] [id number] [place] [address]- 1223 Jan, [facility] [place] [facility] [address] [id number] [place] [address]- 3161 Dec, [facility] [place] [facility] [address] [facility] [id number] [place] [address]- 7822 Dec, [facility] [address] [facility] [id number] [place] [address]- 2779 Nov, [facility] [address] [facility] [id number] [place] [id number] [address] Nov, IMMUNIZATIONS No Known Immunizations SOCIAL HISTORY Never Assessed REASON FOR VISIT Lisinopril Clarification and Refill PLAN OF CARE VITAL SIGNS MEDICATIONS Medication Instructions Dosage Frequency Start Date End Date Duration Status Lisinopril 20 MG Orally Once a day 1 tablet 24h 90 days Active RESULTS No Results PROCEDURES No Known procedures INSTRUCTIONS MEDICATIONS ADMINISTERED No Known Medications MEDICAL (GENERAL) HISTORY Type Description Date Medical History Hypertension Medical History Diabetes Mellitus type 2
--- OUTSIDE RECORDS SUMMARY | 2019-02-12 01:45 | XMS REPORT ---
Author Author RAMONA VICKERS Organization [facility] Address [address] [place] [address] Care Team Providers Care Setter Helper Name Role Phone RAMONA VICKESR Unavailable PROBLEMS Type Condition ICD9-CM Code URP91-AU Code Onset Dates Condition Status SNOMED Code Problem Essential hypertension I10 Active 35713145 Problem Diabetes E11.9 Active 539699538 Problem Hypertriglyceridemia E78.1 Active 298519449 Problem Eye exam normal Z01.00 Active 138421159 ALLERGIES No Information ENCOUNTERS Encounter Location Date Diagnosis [place] [address] [address] Apr, [address] [address] March, [facility] [address] [address] Jan, Acute bronchitis, unspecified organism J20.9 and Acute effusion of both middle ears H65.193 [facility] [address] [address] 17 Dec, 2017 Viral URI J06.9 [facility] [address] [address] Dec, Gastroenteritis K52.9 [facility] [address] [address]- [address] Jul, Acute pain of right shoulder M25.511 [place] [address] [address] Jul, Essential hypertension I10 [place] [address] [address] 27[address] Jun, Hypertriglyceridemia E78.1 [facility] [address] [address]- 9977 16 Jun, 2017 Diabetes E11.9 ; Essential hypertension I10 and Acute pain of right shoulder M25.511 [facility] [address] [address]- 5158 13 Feb, 2017 Brown recluse spider bite, accidental or unintentional, initial encounter T63.331A [place] [address] [address]- 6772 10 Feb, 2017 Cough R05 and Influenza B J10.1 [place] [address] [address]- 3403 23 Nov, 2016 Diabetes E11.9 and Essential hypertension I10 [place] [address] [address]- 0794 30 Oct, 2016 [facility] [address] [address]- 49[address] Oct, [place] [address] [address]- 9578 24 Apr, 2016 Diabetes E11.9 [place] [address] [address]89- 9060 Apr, Diabetes E11.9 and Nocturia R35.1 [place] [address] [address]74- 6[address] 06 Mar, 2016 [facility] [address] [address] 14 Jan, 2016 Fever R50.9 and Influenza J11.1 [place] [address] [address]53- 9511 10 Oct, 2015 Diabetes E11.9 [facility] [address] 18[address]- 9130 11 Sep, 2015 Encounter for immunization Z23 [place] [address] [place] [address]- 7798 Apr, Sports physical V70.3 [facility] [address] [id number] [place] [address]- 4647 14 Feb, 2015 [facility] [place] [facility] [address] [id number] [place] [address]- 8743 Feb, [facility] [address] [id number] [place] [address]- 2500 Jan, [facility] [place] [facility] [address] [id number] [place] [address]- 2843 Jan, [facility] [address] [id number] [place] [address] Jan, [facility] [place] [facility] [address] [facility] [id number] [place] [address]- 5496 Jan, [facility] [address] [facility] [id number] [place] [address]- 5571 Jan, [facility] [address] [id number] [place] [address]- 5712 Jan, [facility] [address] [facility] [id number] [place] [address]- 8546 Dec, [facility] [address] [facility] [id number] [place] [address]- 1441 Dec, [facility] [place] [facility] [address] [facility] [id number] [place] [address]- 1439 Sep, [facility] [place] [facility] [address] [id number] [place] [address]- 1368 Sep, [facility] [place] [facility] [address] [facility] [id number] [place] [address]- 3240 Aug, [facility] [place] [facility] [address] [facility] [id number] [place] [address]- 2546 Aug, [facility] [place] [facility] [address] [facility] [id number], [place] [address]- 2611 Aug, [facility] [place] [facility] [address] [id number] [place] [address]- 0835 Aug, [facility] [place] [facility] [address] [id number] [place] [address]- 3357 Jun, [facility] [place] [facility] [address] [id number] [place] [address]- 7465 Jun, [facility] [place] [facility] [address] [id number] [place] [address]- 7202 May, [facility] [place] [facility] [address] [id number] [place] [address]- 8693 May, [facility] [place] [facility] [address] [id number] [place] [address]- 7616 March, [facility] [place] [facility] [address] [id number] [place] [address]- 7923 March, [facility] [place] [facility] [address] [id number] [place] [address]- 3653 Feb, [facility] [place] [facility] [address] [id number] [place] [address]- 1791 Feb, [facility] [place] [facility] [address] [id number] [place] [address]- 7160 Jan, [facility] [place] [facility] [address] [id number] [place] [address]- 8149 Jan, [facility] [place] [facility] [address] [id number], [place] [address]- 9151 Jan, [facility] [place] [facility] [address] [id number] [place] [address]- 9902 Jan, [facility] [place] [facility] [address] [id number] [place] [address]- 7595 Jan, [facility] [place] [facility] [address] [id number] [place] [address]- 1648 Jan, [facility] [place] [facility] [address] [facility] [id number] [place] [address]- 7467 Dec, [facility] [address] [facility] [id number], [place] [address]- 1180 Dec, [facility] [address] [facility] [id number], [place] [address]- 4598 Nov, [facility] [address] [facility] [id number], [place] [address]- 8121 Nov, IMMUNIZATIONS No Known Immunizations SOCIAL HISTORY Never Assessed REASON FOR VISIT right shoulder pain-xray done. Consult Ramona Vickers;Wendy RT(R) PLAN OF CARE Activity Details Follow Up prn Reason: VITAL SIGNS Height 70 in 2017-08-27 Blood pressure systolic 124 mmHg 2017-08-27 Blood pressure diastolic 76 mmHg 2017-08-27 MEDICATIONS Unknown Medications RESULTS No Results PROCEDURES No Known procedures INSTRUCTIONS MEDICATIONS ADMINISTERED No Known Medications MEDICAL (GENERAL) HISTORY Type Description Date Medical History Hypertension Medical History Diabetes Mellitus type 2
--- OUTSIDE RECORDS SUMMARY | 2019-02-12 01:45 | XMS REPORT ---
Author Author FRIEDA CORONA [facility] Address [address] [place] [address] Care Team Providers Care Account [employer] Name Role Phone FRIEDA CORONA Unavailable PROBLEMS Type Condition ICD9-CM Code GME38-EV Code Onset Dates Condition Status SNOMED Code Problem Essential hypertension I10 Active 73350962 Problem Diabetes E11.9 Active 489473461 Problem Eye exam normal Z01.00 Active 849018373 Problem Hypertriglyceridemia E78.1 Active 010546749 ALLERGIES Unknown Allergies SOCIAL HISTORY No smoking Hx information available PLAN OF CARE VITAL SIGNS MEDICATIONS Unknown Medications RESULTS No Results PROCEDURES No Known procedures IMMUNIZATIONS No Known Immunizations
--- OUTSIDE RECORDS SUMMARY | 2019-02-12 01:45 | XMS REPORT ---
Author Author ROMERO SAWYER [facility] Address [address] [place] [address] Care Team Providers Care Autocad Name Role Phone SAWYERROMERO Unavailable PROBLEMS Type Condition ICD9-CM Code WCT24-FV Code Onset Dates Condition Status SNOMED Code Problem Essential hypertension I10 Active 07845019 Problem Diabetes E11.9 Active 779707751 Problem Hypertriglyceridemia E78.1 Active 992323793 Problem Eye exam normal Z01.00 Active 505607064 ALLERGIES No Known Allergies ENCOUNTERS Encounter Location Date Diagnosis [place] [address] [address] Jun, [place] [address] [address] March, [facility] [address] [address] Jan, Acute bronchitis, unspecified organism J20.9 and Acute effusion of both middle ears H65.193 [facility] [place] [address] [address] 17 Dec, 2017 Viral URI J06.9 [facility] [address] [address] Dec, Gastroenteritis K52.9 [place] [address] [address] Jul, Acute pain of right shoulder M25.511 [place] [address] [address] Jul, Essential hypertension I10 [place] [address] [address]- 9520 Jun, Hypertriglyceridemia E78.1 [facility] [address] [place] [id number] [place] [address]- 5535 16 Jun, 2017 Diabetes E11.9 ; Essential hypertension I10 and Acute pain of right shoulder M25.511 [facility] [address] [address]- 6[address] 13 Feb, 2017 Brown recluse spider bite, accidental or unintentional, initial encounter T63.331A [place] [address] [address]- 6430 Feb, Cough R05 and Influenza B J10.1 [place] [address] [address]- 20[address] 23 Nov, 2016 Diabetes E11.9 and Essential hypertension I10 [place] [address] [address]- 5583 30 Oct, 2016 [place] [address] [address]- 56[address] Oct, [place] [address] 699[address]- 4351 24 Apr, 2016 Diabetes E11.9 [place] [address] [address]- 4313 Apr, Diabetes E11.9 and Nocturia R35.1 [place] [address] [address]- [address] March, [facility] [address] [address] 14 Jan, 2016 Fever R50.9 and Influenza J11.1 [place] [address] [address]- 30[address] 10 Oct, 2015 Diabetes E11.9 [place] [address] [address]- 5202 11 Sep, 2015 Encounter for immunization Z23 [place] [address] [address]- 9969 Apr, Sports physical V70.3 [facility] [address] [id number] [place] [address]- 5096 14 Feb, 2015 [facility] [address] [id number] [place] [address]- 3389 Feb, [facility] [address] [id number], [place] [address]- 7917 Jan, [facility] [place] [facility] [address] [id number] [place] [address]- 8999 Jan, [facility] [address] [facility] [id number] [place] [address]- 0458 Jan, [facility] [address] [facility] [id number] [place] [address]- 0061 Jan, [facility] [address] [facility] [id number] [place] [address]- 7602 Jan, [facility] [address] [facility] [id number], [place] [address]- 3153 Jan, [facility] [address] [facility] [id number] [place] [address]- 9708 Dec, [facility] [address] [facility] [id number], [place] [address]- 5677 Dec, [facility] [address] [facility] [id number], [place] [address]- 6720 Sep, [facility] [address] [facility] [id number][place] 8595 Sep, [facility] [place] [facility] [address] [facility] [id number] [place] [address]- 8047 Aug, [facility] [place] [facility] [address] [facility] [id number] [place] [address] Aug, [facility] [address] [facility] [id number], [place] [address]- 5786 Aug, [facility] [place] [facility] [address] [id number] [place] [address]- 2545 Aug, [facility] [place] [facility] [address] [id number] [place] [address]- 6956 Jun, [facility] [place] [facility] [address] [id number] [place] [address]- 5740 Jun, [facility] [place] [facility] [address] [id number] [place] [address]- 8452 May, [facility] [place] [facility] [address] [id number] [place] [address]- 4399 May, [facility] [place] [facility] [address] [id number] [place] [address]- 4744 March, [facility] [place] [facility] [address] [id number] [place] [address]- 6977 March, [facility] [place] [facility] [address] [id number] [place] [address]- 7259 Feb, [facility] [place] [facility] [address] [id number] [place] [address]- 3761 Feb, [facility] [place] [facility] [address] [id number] [place] [address]- 7699 Jan, [facility] [place] [facility] [address] [id number] [place] [address]- 1005 Jan, [facility] [place] [facility] [address] [id number], [place] [address]- 1376 Jan, [facility] [place] [facility] [address] [id number] [place] [address]- 4771 Jan, [facility] [place] [facility] [address] [id number] [place] [address]- 2496 Jan, [facility] [place] [facility] [address] [id number] [place] [address]- 9906 Jan, [facility] [place] [facility] [address] [id number] [place] [address]- 5316 Dec, [facility] [address] [facility] [id number] [place] [address]- 8306 Dec, [facility] [address] [facility] [id number], [place] [address]- 5836 Nov, [facility] [address] [facility] [id number] [place] [address]- 0916 Nov, IMMUNIZATIONS No Known Immunizations SOCIAL HISTORY Never Assessed REASON FOR VISIT Nausea, fatigue and vomiting started yesterday JStrasserRN PLAN OF CARE Activity Details Follow Up prn Reason: VITAL SIGNS Height 70 in 2018-01-11 Weight 196 lbs 2018-01-11 Temperature 98.3 degrees Fahrenheit 2018-01-11 Heart Rate 116 bpm 2018-01-11 Respiratory Rate 18 2018-01-11 BMI 28.12 kg/m2 2018-01-11 Blood pressure systolic 110 mmHg 2018-01-11 Blood pressure diastolic 70 mmHg 2018-01-11 MEDICATIONS Medication Instructions Dosage Frequency Start Date End Date Duration Status Cardura 1 MG Orally Once a day at hs 1 tablet Apr, Active MetFORMIN HCl ER 500 MG TAKE ONE TABLET BY MOUTH ONCE DAILY WITH A MEAL 90 Active Lisinopril 20 MG Orally Once a day 1 tablet 24h 90 days Active RESULTS No Results PROCEDURES No Known procedures INSTRUCTIONS MEDICATIONS ADMINISTERED No Known Medications MEDICAL (GENERAL) HISTORY Type Description Date Medical History Hypertension Medical History Diabetes Mellitus type 2
--- OUTSIDE RECORDS SUMMARY | 2019-02-12 01:45 | XMS REPORT ---
Author Author MAYRA BABCOCK Organization [facility] Address [address] [place] [address] Care Team Providers Care Last Putter Away Name Role Phone MAYRA BABCOCK Unavailable PROBLEMS Type Condition ICD9-CM Code TYP00-EQ Code Onset Dates Condition Status SNOMED Code Problem Essential hypertension I10 Active 05946725 Problem Diabetes E11.9 Active 171476912 Problem Hypertriglyceridemia E78.1 Active 598474926 Problem Eye exam normal Z01.00 Active 882438498 ALLERGIES No Known Allergies ENCOUNTERS Encounter Location Date Diagnosis [place] [id number] [address] Jun, [facility] [address] [address] March, [facility] [address] [address] Jan, Acute bronchitis, unspecified organism J20.9 and Acute effusion of both middle ears H65.193 [facility] [address] [place] [id number] [place] [address] 17 Dec, 2017 Viral URI J06.9 [facility] [address] [address] Dec, Gastroenteritis K52.9 [facility] [address] [address] Jul, Acute pain of right shoulder M25.511 [place] [address] [address] Jul, Essential hypertension I10 [place] [address] [address] Jun, Hypertriglyceridemia E78.1 [facility] [address] [place] [id number] [place] [address] 16 Jun, 2017 Diabetes E11.9 ; Essential hypertension I10 and Acute pain of right shoulder M25.511 [place] [address] [address] 13 Feb, 2017 Brown recluse spider bite, accidental or unintentional, initial encounter T63.331A [place] [address] [address] Feb, Cough R05 and Influenza B J10.1 [place] [address] [address] 23 Nov, 2016 Diabetes E11.9 and Essential hypertension I10 [place] [address] [address] 30 Oct, 2016 [place] [address] [address] Oct, [place] [address] [address] 24 Apr, 2016 Diabetes E11.9 [place] [address] [address] Apr, Diabetes E11.9 and Nocturia R35.1 [place] [address] [address] 06 Mar, 2016 [facility] [address] [address] 14 Jan, 2016 Fever R50.9 and Influenza J11.1 [place] [address] [address] 10 Oct, 2015 Diabetes E11.9 [facility] [address] [address] 11 Sep, 2015 Encounter for immunization Z23 [place] [address] [address] [place] [address] [place] [address] Apr, Sports physical V70.3 [facility] [place] [facility] [address] [id number] [place] [address] 14 Feb, 2015 [facility] [place] [facility] [address] [id number] [place] [address] Feb, [facility] [place] [facility] [address] [id number] [place] [address] Jan, [facility] [place] [facility] [address] [id number] [place] [address] Jan, [facility] [place] [facility] [address] [id number] [place] [address] Jan, [facility] [place] [facility] [address] [facility] [id number] [place] [address] Jan, [facility] [place] [facility] [address] [facility] [id number] [place] [address] Jan, [facility] [place] [facility] [address] [facility] [id number] [place] [address] Jan, [facility] [place] [facility] [address] [facility] [id number] [place] [address] Dec, [facility] [place] [facility] [address] [facility] [id number] [place] [address] Dec, [facility] [place] [facility] [address] [facility] [id number], [place] [address] Sep, [facility] [place] [facility] [address] [facility] [id number] [place] Sep, [facility] [place] [facility] [address] [facility] [id number] [place] [address] Aug, [facility] [place] [facility] [address] [facility] [id number] [place] [address] Aug, [facility] [place] [facility] [address] [facility] [id number], [place] [address] Aug, [facility] [place] [facility] [address] [id number] [place] [address] Aug, [facility] [place] [facility] [address] [id number] [place] [address] Jun, [facility] [place] [facility] [address] [id number] [place] [address] Jun, [facility] [place] [facility] [address] [id number] [place] [address] May, [facility] [place] [facility] [address] [id number] [place] [address] May, [facility] [place] [facility] [address] [id number] [place] [address] March, [facility] [place] [facility] [address] [id number] [place] [address] March, [facility] [place] [facility] [address] [id number] [place] [address] Feb, [facility] [place] [facility] [address] [id number] [place] [address] Feb, [facility] [place] [facility] [address] [id number] [place] [address] Jan, [facility] [place] [facility] [address] [id number], [place] [address] Jan, [facility] [place] [facility] [address] [id number], [place] [address] Jan, [facility] [place] [facility] [address] [id number] [place] [address] Jan, [facility] [place] [facility] [address] [id number] [place] [address] Jan, [facility] [place] [facility] [address] [id number] [place] [address] Jan, [facility] [place] [facility] [address] [facility] [id number] [place] [address] Dec, [facility] [address] [facility] [id number], [place] [address] Dec, [facility] [address] [facility] [id number], [place] [address] Nov, [facility] [address] [facility] [id number], [place] [address] Nov, IMMUNIZATIONS No Known Immunizations SOCIAL HISTORY Never Assessed REASON FOR VISIT cough/congestion JStrasserRN PLAN OF CARE Activity Details Follow Up prn Reason: VITAL SIGNS Height 70 in 2018-02-18 Weight 183.4 lbs 2018-02-18 Temperature 98.5 degrees Fahrenheit 2018-02-18 Heart Rate 80 bpm 2018-02-18 Respiratory Rate 20 2018-02-18 BMI 26.31 kg/m2 2018-02-18 Blood pressure systolic 100 mmHg 2018-02-18 Blood pressure diastolic 60 mmHg 2018-02-18 MEDICATIONS Medication Instructions Dosage Frequency Start Date End Date Duration Status Lisinopril 20 MG Orally Once a day 1 tablet 24h 90 days Active PredniSONE 20 MG Orally Once a day 2 tablet 24h Jan, Jan, 5 days Active MetFORMIN HCl ER 500 MG TAKE ONE TABLET BY MOUTH ONCE DAILY WITH A MEAL 90 Active Flonase 50 MCG/ACT Nasally Once a day 1 spray in each nostril 24h Jan, 30 day(s) Active Cardura 1 MG Orally Once a day at hs 1 tablet Apr, Active ProAir HFA 108 (90 Base) MCG/ACT Inhalation every 6 hrs 2 puffs as needed 6h Jan, 7 days Active Zyrtec Allergy 10 MG Orally Once a day 1 tablet 24h Jan, Feb, 30 day(s) Active RESULTS No Results PROCEDURES No Known procedures INSTRUCTIONS MEDICATIONS ADMINISTERED No Known Medications MEDICAL (GENERAL) HISTORY Type Description Date Medical History Hypertension Medical History Diabetes Mellitus type 2
--- OUTSIDE RECORDS SUMMARY | 2019-02-12 01:46 | XMS REPORT ---
Author Author FRIEDA CORONA [facility] Address [address] [place] [address] Care Team Providers Care Anesthetic Assistant Name Role Phone FRIEDA CORONA Unavailable PROBLEMS Type Condition ICD9-CM Code OEV51-PH Code Onset Dates Condition Status SNOMED Code Problem Essential hypertension I10 Active 20018791 Problem Diabetes E11.9 Active 490251749 Problem Hypertriglyceridemia E78.1 Active 109048647 Problem Eye exam normal Z01.00 Active 422536639 ALLERGIES Substance Reaction Event Type Date Status N.K.D.A. Unknown Non Drug Allergy Nov, Unknown SOCIAL HISTORY No smoking Hx information available PLAN OF CARE Activity Details Follow Up 6 Months Reason:BP and fasting labs VITAL SIGNS Height 70 in 2016-12-22 Weight 176.8 lbs 2016-12-22 Temperature 97.8 degrees Fahrenheit 2016-12-22 Heart Rate 82 bpm 2016-12-22 Respiratory Rate 20 2016-12-22 BMI 25.37 kg/m2 2016-12-22 Blood pressure systolic 130 mmHg 2016-12-22 Blood pressure diastolic 96 mmHg 2016-12-22 MEDICATIONS Medication Instructions Dosage Frequency Start Date End Date Duration Status Lisinopril 5 MG Orally Once a day 1 tablet 24h Active Cardura 1 MG Orally Once a day at hs 1 tablet Apr, Active MetFORMIN HCl ER 500 MG Orally Once a day 1 tablet with meals 24h Feb, Active RESULTS Name Result Date Reference Range A1C (IN HOUSE) 2016-12-22 A1C IN HOUSE 5.2 4.3 - 5.6 % Previous A1c 5.3 Lot [id number] Exp date 09/2018 MICROALBUMIN, URINE (IN HOUSE) 2016-12-22 MICROALBUMIN normal Lot # [id number] Exp date 11/2017 Clarity clear Color yellow ALB 10 CRE 200 A:C (IN HOUSE) <30 Control + Control Lot # Exp date PROCEDURES Procedure Date Ordered Related Diagnosis Body Site GLYCATED HEMOGLOBIN TEST Dec 22, 2016 MICROALBUMIN, SEMIQUANT Dec 22, 2016 Office Visit, Est Pt., Level 3 Dec 22, 2016 IMMUNIZATIONS No Known Immunizations
[2019-02-12 01:48] VITALS: BP 117/92
== END 2019-02-12 01:47 | disposition home or self-care (01) ==
LOC: EDUNIT# 01:17 → ER 01:20
DX: F41.9 Anxiety disorder, unspecified (principal); R06.02 Shortness of breath; I10 Essential (primary) hypertension; E11.9 Type 2 diabetes mellitus without complications; Z79.84 Long term (current) use of oral hypoglycemic drugs
CPT/HCPCS: 99283

== ENCOUNTER 2019-04-25 10:43 | Emergency (ER) | payer SELFPAY ==
[~2019-04-25] VITALS: Ht 180.3 cm; Wt 89.4 kg
[~2019-04-25 10:43] MED LIST changes: +HYDR25CA PO; +LISI10TA2 PO; +METF-397 PO
--- NOTE | 2019-04-25 11:15 | ED General ---
General Chief Complaint: Chest Wall Stated Complaint: FALL/RIB PAIN Nursing Triage Note: PT AMB TO RM 3 WITH COMPLAINT OF LEFT SIDED RIB PAIN. STATES HE TRIPPED OFF SIDEWALK AND LANDED ON LEFT SIDE. STATES PAIN HAS INCREASED OVER THE LAST FEW DAYS. Nursing Sepsis Screen: No Definite Risk Source of Information: Patient Exam Limitations: No Limitations History of Present Illness Date Seen by Provider: April 25, 2019 Time Seen by Provider: 11:00 Initial Comments 53-year-old male who presents to the emergency room with complaints of left- sided rib pain after tripping and falling on the sidewalk landing onto his left side 2 days ago. He reports increasing pain over the past 2 days. Denies loss of consciousness or hitting his head with the fall. Timing/Duration: 2-3 Days Associated Systoms: Denies Symptoms Allergies and Home Medications Allergies Coded Allergies: No Known Drug Allergies (Unverified , 03/09/17) Home Medications Hydroxyzine Pamoate 25 Mg Capsule, 25 MG PO Q6H PRN for ANXIETY Prescribed by: TABITHA DERAS on 02/12/19 0144 Lisinopril 10 Mg Tablet, Unknown Dose PO DAILY, (Reported) Patient Home Medication List Home Medication List Reviewed: Yes Review of Systems Review of Systems Constitutional: see HPI; No chills, No fever Musculoskeletal: see HPI, other (left-sided rib pain) All Other Systems Reviewed Negative Unless Noted: Yes Past Xlalqrj-Rnmtru-Zjynot Hx Past Med/Social Hx: Reviewed Nursing Past Med/Soc Hx Patient Social History Alcohol Use: Denies Use Recreational Drug Use: No Smoking Status: Never a Smoker 2nd Hand Smoke Exposure: No Recent Foreign Travel: No Contact w/Someone Who Travel: No Recent Infectious Disease Expo: No Recent Hopitalizations: No Immunizations Up To Date Tetanus Booster (TDap): Unknown Seasonal Allergies Seasonal Allergies: No Past Medical History Surgeries: No Respiratory: No Cardiac: Yes Hypertension Neurological: No Reproductive Disorders: No Genitourinary: No Gastrointestinal: No Musculoskeletal: No Endocrine: Yes Diabetes, Non-Insulin dep HEENT: No Cancer: No Psychosocial: No Integumentary: No Blood Disorders: No Family Medical History Reviewed Nursing Family Hx Physical Exam Vital Signs Vital Signs - First Documented 04/25/19 10:51 Temp 98.6 Pulse 107 Resp 20 B/P (MAP) 131/103 (112) Pulse Ox 96 O2 Delivery Room Air Capillary Refill : Less Than 3 Seconds Height, Weight, BMI Height: 5'11.00" Weight: 197lbs. oz. 89.348759ty; BMI Method:Stated General Appearance: No Apparent Distress, WD/WN Neck: Full Range of Motion, Normal Inspection, Non Tender, Supple Respiratory: Lungs Clear, Normal Breath Sounds, No Accessory Muscle Use, No Respiratory Distress, Other (left-sided chest wall tenderness no ecchymosis noted.) Cardiovascular: Regular Rate, Rhythm, No Edema, No Gallop, No JVD, No Murmur, Normal Peripheral Pulses Neurologic/Psychiatric: Alert, Oriented x3, Normal Mood/Affect Skin: Normal Color, Warm/Dry Progress/Results/Core Measures Suspected Sepsis Recent Fever Within 48 Hours: No Infection Criteria Present: None New/Unexplained Altered Menta: No Sepsis Screen: No Definite Risk SIRS Temperature:98.6 Pulse: 107 Respiratory Rate: 20 Blood Pressure 131 /103 Mean: 112 Results/Orders My Orders Orders - DONYA MCCABE Ribs/Unilateral With Chest (04/25/19 11:04) Vital Signs/I&O 04/25/19 10:51 Temp 98.6 Pulse 107 Resp 20 B/P (MAP) 131/103 (112) Pulse Ox 96 O2 Delivery Room Air Capillary Refill : Less Than 3 Seconds Blood Pressure Mean: 112 Diagnostic Imaging Diagonstic Imaging: Xray Plain Films/CT/US/NM/MRI: chest Comments NAME: SHITAL SMITH [facility] REC#: [id number] PT STATUS: REG ER : 1965 PHYSICIAN: DONYA MCCABE [facility] ADMIT DATE: 04/25/19/ER Signed Date of Exam: 04/25/19 RIBS/UNILATERAL WITH CHEST INDICATION: Fall, left rib injury. COMPARISON: None. FINDINGS: Single view of the chest and multiple views of the left ribs demonstrate no osseous lesion or fracture. There is no pneumothorax or effusion. There is no pulmonary infiltrate. IMPRESSION: Negative chest and left rib series. Dictated by: Dictated on workstation # [id number] Dict: 04/25/19 1128 Trans: 04/25/19 1142 Interpreted by: GONZALEZ VASQUEZ Electronically signed by: GONZALEZ VASQUEZ 04/25/19 1142 Departure Impression Primary Impression: Chest wall contusion Disposition: 01 HOME, SELF-CARE Condition: Stable/Unchanged Departure-Patient Inst. Decision time for Depature: 11:44 Referrals: [facility] (PCP/Family) Primary Care Physician Patient Instructions: Bruised Rib (DC) Add. Discharge Instructions: Ice to the sore areas at 20 minute intervals. You may use ibuprofen and Tylenol as directed by the bottle for pain relief. Be sure that you are taking frequent deep breaths to help expand her lungs all the way and prevent pneumonia. Return back to the emergency room for worsening symptoms or concerns as needed. Follow- up with your primary care provider within 1 week if no improvement. All discharge instructions reviewed with patient and/or family. Voiced understanding. DONYA MCCABE April 25, 2019 11:15
--- NOTE | 2019-04-25 11:31 | Diagnostic Imaging Report ---
INDICATION: Fall, left rib injury. COMPARISON: None. FINDINGS: Single view of the chest and multiple views of the left ribs demonstrate no osseous lesion or fracture. There is no pneumothorax or effusion. There is no pulmonary infiltrate. IMPRESSION: Negative chest and left rib series. Dictated by: Dictated on workstation # [id number]
[2019-04-25 11:57] VITALS: BP 112/88
== END 2019-04-25 11:57 | disposition home or self-care (01) ==
LOC: EDUNIT# 10:43 → ER 10:44
DX: S20.212A Contusion of left front wall of thorax, initial encounter (principal); I10 Essential (primary) hypertension; E11.9 Type 2 diabetes mellitus without complications; W01.0XXA Fall on same level from slipping, tripping and stumbling without subsequent striking against object, initial encounter; Y92.480 Sidewalk as the place of occurrence of the external cause
CPT/HCPCS: 71101

== ENCOUNTER 2019-05-09 20:06 | Inpatient (IN) | payer SELFPAY ==
[~2019-05-09] VITALS: Ht 180.3 cm; Wt 81.3 kg
--- NOTE | 2019-05-09 20:10 | NUR ---
lungs were anterially.
--- NOTE | 2019-05-09 20:10 | NUR ---
pt here with per . pt alert gcs 15. pt relates been here few times recently for same c/o sob. in [place] pt same time. pt has had recent in family this yr. skin joseph/ pale warm dry. pt relates dyspnea since beginning of the yr. pt appears anxious and is loud voice and hyper talkative. says hes been having "anxiety attacks". pt curently denies chest and abd pain. pt does describe nonspecific pain as " panic attacks". none now. pt relates n/v last week none since and denies diarrhea. lungs equal cta bilaterally. abd soft nonditended neg pain with palpation neg pulsating massess. tele applied by me shows sr 92. tech doing ekg. another nurse doing iv and labs. done aliyah pt at 2018.
--- NOTE | 2019-05-09 20:10 | NUR ---
pt with no acute sighns of dyspnea noted. no accessory muscle use noted. no duskiness or cyanosis noted.
[2019-05-09] MEDS ORDERED: ASPIRIN 81 MG CHEW (CHILDREN'S ASA) PO ONE (20:15)
[2019-05-09] MEDS ORDERED: LORazepam INJ 2 MG/ML (ATIVAN) VIAL IVP PRN (20:15)
--- NOTE | 2019-05-09 20:21 | ED Dyspnea ---
General Stated Complaint: SOB Source of Information: Patient Exam Limitations: No Limitations History of Present Illness Date Seen by Provider: May 09, 2019 Time Seen by Provider: 20:17 Initial Comments To ER with reports of shortness of breath. States that he was unable to sleep last night because he was anxious and felt like the room was "closing in on me." He denies chest pain. These episodes of anxiety and shortness of breath for been ongoing beginning of this year. He's been here in the emergency room 3 times for similar symptoms. He is scheduled to see his primary care provider on the of this month. He relates this to anxiety secondary to the of his mother and father earlier this year. Has had intermittent uncontrollable twitching of the right leg for several months as well. Timing/Duration: Waxing and Waning Severity: Moderate Associated Symptoms: Anxiety Allergies and Home Medications Allergies Coded Allergies: No Known Drug Allergies (Unverified , 03/09/17) Home Medications Hydroxyzine Pamoate 25 Mg Capsule, 25 MG PO Q6H PRN for ANXIETY Prescribed by: TABITHA DERAS on 02/12/19 0144 Lisinopril 10 Mg Tablet, Unknown Dose PO DAILY, (Reported) Patient Home Medication List Home Medication List Reviewed: Yes Review of Systems Review of Systems Constitutional: see HPI; No chills, No diaphoresis, No dizziness, No fever, No weakness EENTM: see HPI Respiratory: see HPI; No cough, No dyspnea on exertion, No hemoptysis, No orthopnea, No phlegm; short of breath Cardiovascular: no symptoms reported Genitourinary: no symptoms reported Musculoskeletal: no symptoms reported Skin: no symptoms reported Psychiatric/Neurological: No Symptoms Reported Endocrine: No Symptoms Reported Hematologic/Lymphatic: No Symptoms Reported Past Dzqohjc-Tkqrpd-Qmtktq Hx Patient Social History 2nd Hand Smoke Exposure: No Recent Foreign Travel: No Contact w/Someone Who Travel: No Recent Hopitalizations: No Immunizations Up To Date Tetanus Booster (TDap): Unknown Seasonal Allergies Seasonal Allergies: No Past Medical History Surgeries: No Respiratory: No Cardiac: Yes Hypertension Neurological: No Reproductive Disorders: No Genitourinary: No Gastrointestinal: No Musculoskeletal: No Endocrine: Yes Diabetes, Non-Insulin dep HEENT: No Cancer: No Psychosocial: No Integumentary: No Blood Disorders: No Physical Exam Vital Signs Vital Signs - First Documented 05/09/19 05/09/19 20:10 21:13 Temp 97.7 Pulse 92 Resp 20 B/P (MAP) 122/100 (107) Pulse Ox 100 O2 Delivery Room Air O2 Flow Rate 3.00 Capillary Refill : Height, Weight, BMI Height: 5'11.00" Weight: 197lbs. oz. 89.051284gd; BMI Method:Stated General Appearance: No Apparent Distress, WD/WN, Anxious (talks extensively and continuously.) HEENT: PERRL/EOMI, TMs Normal Neck: Full Range of Motion, Normal Inspection, JVD Respiratory: Normal Breath Sounds, No Accessory Muscle Use, No Respiratory Distress Cardiovascular: Regular Rate, Rhythm, No Edema, Normal Peripheral Pulses Gastrointestinal: Normal Bowel Sounds, Non Tender, Soft Neurologic/Psychiatric: Alert, Oriented x3 Skin: Normal Color, Warm/Dry Progress/Results/Core Measures Results/Orders Lab Results Laboratory Tests Test 05/09/19 20:20 Range/Units White Blood Count 11.0 4.3-11.0 10^3/uL Red Blood Count 5.36 4.35-5.85 10^6/uL Hemoglobin 16.9 13.3-17.7 G/DL Hematocrit 48 40-54 % Mean Corpuscular Volume 90 80-99 FL Mean Corpuscular Hemoglobin 32 25-34 PG Mean Corpuscular Hemoglobin Concent 35 32-36 G/DL Red Cell Distribution Width 14.4 10.0-14.5 % Platelet Count 243 130-400 10^3/uL Mean Platelet Volume 9.3 7.4-10.4 FL Neutrophils (%) (Auto) 80 H 42-75 % Lymphocytes (%) (Auto) 13 12-44 % Monocytes (%) (Auto) 6 0-12 % Eosinophils (%) (Auto) 1 0-10 % Basophils (%) (Auto) 0 0-10 % Neutrophils # (Auto) 8.8 H 1.8-7.8 X 10^3 Lymphocytes # (Auto) 1.4 1.0-4.0 X 10^3 Monocytes # (Auto) 0.7 0.0-1.0 X 10^3 Eosinophils # (Auto) 0.1 0.0-0.3 10^3/uL Basophils # (Auto) 0.0 0.0-0.1 10^3/uL D-Dimer 4.25 H 0.00-0.49 UG/ML Sodium Level 137 135-145 MMOL/L Potassium Level 4.1 3.6-5.0 MMOL/L Chloride Level 101 98-107 MMOL/L Carbon Dioxide Level 22 21-32 MMOL/L Anion Gap 14 5-14 MMOL/L Blood Urea Nitrogen 22 H 7-18 MG/DL Creatinine 1.27 0.60-1.30 MG/DL Estimat Glomerular Filtration Rate 59 BUN/Creatinine Ratio 17 Glucose Level 137 H 70-105 MG/DL Calcium Level 9.0 8.5-10.1 MG/DL Corrected Calcium 8.9 8.5-10.1 MG/DL Total Bilirubin 2.3 H 0.1-1.0 MG/DL Aspartate Amino Transf (AST/SGOT) 45 H 5-34 U/L Alanine Aminotransferase (ALT/SGPT) 80 H 0-55 U/L Alkaline Phosphatase 128 40-136 U/L Troponin I 0.060 H <0.028 NG/ML B-Type Natriuretic Peptide 1850.1 H <100.0 PG/ML Total Protein 6.9 6.4-8.2 GM/DL Albumin 4.1 3.2-4.5 GM/DL My Orders Orders - CECY WOLFF APRN Cbc With Automated Diff (05/09/19 20:14) Comprehensive Metabolic Panel (05/09/19 20:14) Fibrin Degradation Products (05/09/19 20:14) Troponin I (05/09/19 20:14) BNP (05/09/19 20:14) Chest 1 View, Ap/Pa Only (05/09/19 20:14) Ed Iv/Invasive Line Start (05/09/19 20:14) Ekg Tracing (05/09/19 20:14) Continuous Ekg Monitoring (05/09/19 20:14) Lorazepam Injection (Ativan Injection) (05/09/19 20:15) Aspirin Chewable Tablet (Baby Aspirin Ch (05/09/19 20:15) Ct Angio Chest W (05/09/19 20:59) Furosemide Injection (Lasix Injection) (05/09/19 21:00) Ct Head Wo (05/09/19 21:12) Iohexol Injection (Omnipaque 350 Mg/Ml 1 (05/09/19 21:30) Received Contrast (Hold Metformin- Contr (05/09/19 21:30) Ns (Ivpb) (Sodium Chloride 0.9% Ivpb Bag (05/09/19 21:30) Medications Given in ED Current Medications Medications Dose Ordered Sig/Josi Route Start Time Stop Time Status Last Admin Dose Admin Aspirin 324 mg ONCE ONCE PO 05/09/19 20:15 05/09/19 20:17 DC 05/09/19 20:24 324 MG Furosemide 40 mg ONCE ONCE IVP 05/09/19 21:00 05/09/19 21:01 DC 05/09/19 21:08 40 MG Iohexol 100 ml ONCE ONCE IV 05/09/19 21:30 05/09/19 21:31 DC 05/09/19 21:31 100 ML Lorazepam 1 mg ONCE PRN IVP 05/09/19 20:15 05/09/19 20:25 1 MG Sodium Chloride 100 ml ONCE ONCE IV 05/09/19 21:30 05/09/19 21:31 DC 05/09/19 21:31 80 ML Vital Signs/I&O 05/09/19 05/09/19 05/09/19 20:10 21:13 21:41 Temp 97.7 97.8 97.7 Pulse 92 100 104 Resp 20 16 28 B/P (MAP) 122/100 (107) 116/94 (101) 108/95 (99) Pulse Ox 100 97 99 O2 Delivery Room Air Nasal Cannula Nasal Cannula O2 Flow Rate 3.00 3.00 Diagnostic Imaging Diagonstic Imaging: Xray Plain Films/CT/US/NM/MRI: chest Comments NAME: [facility]ITAL [facility] REC#: [id number] PT STATUS: REG ER : 1965 PHYSICIAN: CECY WOLFF APRN ADMIT DATE: 05/09/19/ER Draft Date of Exam:05/09/19 CHEST 1 VIEW, AP/PA ONLY INDICATION: Dyspnea. TECHNIQUE: Single view chest 8:33 PM. CORRELATION STUDY: Chest radiograph 04/25/2019 FINDINGS: Heart size remains enlarged. Vasculature overall within normal limits. No definitive consolidating infiltrate. IMPRESSION: 1. Cardiac enlargement without evidence for overt failure. Dictated on workstation # [id number] Dict: 05/09/192048 Trans: 05/09/192051 [id number] Interpreted by: THEODORA FIGUEREDO DO Electronically signed by: Departure Communication (Admissions) Time/Spoke to Admitting Phy: 22:[address] Silva. We will admit, consult cardiology. N spoke with Dr. Gresham. Agrees to consult. We will do treatment dose Lovenox until the venous ultrasound lower extremity in the morning, depending on the results of this will either continue treatment dose Lovenox or switch to prophylactic dose Lovenox. Continue with Lasix 40 mg twice a day 1-blood pressure is 108/95. Heart rate is 96 sinus no ectopy oxygen sa turation is 95% on 2 L. 2 L of oxygen was applied because of the administration of lorazepam he went to sleep and oxygen saturation dropped. He is currently sitting up on the edge of the bed talking to his in no respiratory distress. Impression Primary Impression: CHF exacerbation Additional Impression: Dyspnea Qualified Codes: R06.00 - Dyspnea, unspecified Disposition: ADMITTED INPATIENT Condition: Stable Admissions Decision to Admit Reason: Admit from ER (General) Decision to Admit/Date: May 09, 2019 Time/Decision to Admit Time: 22:01 Departure-Patient Inst. Referrals: [facility] (PCP/Family) Primary Care Physician CECY WOLFF APRN May 09, 2019 20:21
[2019-05-09 20:28] LABS: BASOPHILS % (AUTO) 0 % (0-10); EOSINOPHILS # (AUTO) 0.1 10^3/uL (0.0-0.3); EOSINOPHILS % (AUTO) 1 % (0-10); HEMATOCRIT 48 % (40-54); HEMOGLOBIN 16.9 G/DL (13.3-17.7); LYMPHOCYTES # (AUTO) 1.4 X 10^3 (1.0-4.0); LYMPHOCYTES % (AUTO) 13 % (12-44); MEAN CORPUSCULAR HEMOGLOBIN 32 PG (25-34); MEAN CORPUSCULAR HGB CONC 35 G/DL (32-36); MEAN CORPUSCULAR VOLUME 90 FL (80-99); MEAN PLATELET VOLUME 9.3 FL (7.4-10.4); MONOCYTES # (AUTO) 0.7 X 10^3 (0.0-1.0); MONOCYTES % (AUTO) 6 % (0-12); NEUTROPHILS # (AUTO) 8.8 X 10^3 (1.8-7.8); NEUTROPHILS % (AUTO) 80 % (42-75); PLATELET COUNT 243 10^3/uL (130-400); RED CELL DISTRIBUTION WIDTH 14.4 % (10.0-14.5)
--- NOTE | 2019-05-09 20:42 | NUR ---
p ox 87 r/a. good tracing. pt dozing. awoke gcs 15, no acute sighns of dyspnea noted. applied 3/n/c v/o
[2019-05-09 20:51] LABS: POTASSIUM 4.1 MMOL/L (3.6-5.0)
[2019-05-09 20:52] LABS: ALBUMIN 4.1 GM/DL (3.2-4.5); BILIRUBIN,TOTAL 2.3 MG/DL (0.1-1.0); TOTAL PROTEIN 6.9 GM/DL (6.4-8.2)
--- NOTE | 2019-05-09 20:52 | NUR ---
p ox 96 3/n/c. pt snoring/ sleeping.
--- NOTE | 2019-05-09 20:52 | Diagnostic Imaging Report ---
INDICATION: Dyspnea. TECHNIQUE: Single view chest 8:33 PM. CORRELATION STUDY: Chest radiograph 04/25/2019 FINDINGS: Heart size remains enlarged. Vasculature overall within normal limits. No definitive consolidating infiltrate. IMPRESSION: 1. Cardiac enlargement without evidence for overt failure. Dictated by: Dictated on workstation # [id number]
[2019-05-09] MEDS ORDERED: FUROSEMIDE 40 MG/4 ML INJ (LASIX) IVP ONE (21:00)
[2019-05-09 21:11] LABS: CREATININE SERUM 1.27 MG/DL (0.60-1.30)
[2019-05-09 21:13] VITALS: BP 116/94
--- NOTE | 2019-05-09 21:13 | NUR ---
pt remains alert gcs 15. remains in the room. pt denies chest pain. c/o legs shaking. denies abd pain. denies nausea and no v/d noted in er visit thus far. despite pt denies dyspnea pt no longer appears anxious and now i see pt appears dyspneic with resp shallow nonlabored. pt only able to say few words then needs to take breath. skin unchanged. no new acute sighns of dyspnea noted. tele shows sr 98.
--- NOTE | 2019-05-09 21:17 | NUR ---
pt to ct
[2019-05-09] MEDS ORDERED: NS 100 ML (IVPB) BAG IV ONE (21:30)
[2019-05-09] MEDS ORDERED: HOLD METFORMIN - RECEIVED CONTRAST 20 ML VIAL IV SCH (21:30)
[2019-05-09] MEDS ORDERED: IOHEXOL 350 MG/ML 100 ML (OMNIPAQUE 350) VIAL IV ONE (21:30)
[2019-05-09 21:41] VITALS: BP 108/95
--- NOTE | 2019-05-09 21:42 | NUR ---
pt back from ct. alert gcs 15. in the room. resp now shallow nonlabored to shallow slightly labored with slight use accessory muscles. no duskiness or cyanosis. skin dry. tele shows st 104. lungs posterially decreased aeration [place] with crackles right base.
--- NOTE | 2019-05-09 21:43 | Diagnostic Imaging Report ---
PROCEDURE: CT head without contrast. TECHNIQUE: Multiple contiguous axial images were obtained through the brain without the use of intravenous contrast. Auto Exposure Controls were utilized during the CT exam to meet ALARA standards for radiation dose reduction. INDICATION: Dyspnea, right leg twitching. COMPARISON: None FINDINGS: There is no midline shift or mass effect. The ventricles and sulci are unremarkable. No evidence for acute intracranial hemorrhage, abnormal extra-axial fluid collections or cerebral edema is present. The basilar cisterns are unremarkable. The bony calvarium is intact. The visualized paranasal sinuses and mastoid air cells are clear. There is suggestion very slight asymmetric thinning of the inferior right frontal sinus wall. IMPRESSION: Negative appearing noncontrast CT of the head. Dictated by: Dictated on workstation # [id number]
--- NOTE | 2019-05-09 21:45 | NUR ---
i let know of pt. condition.
--- NOTE | 2019-05-09 22:04 | Diagnostic Imaging Report ---
PROCEDURE: CT angiography of the chest with contrast. TECHNIQUE: Multiple contiguous axial images were obtained through the chest after uneventful bolus administration of intravenous contrast. 2D reconstructed CTA MIP acquisitions were also performed. Auto Exposure Controls were utilized during the CT exam to meet ALARA standards for radiation dose reduction. INDICATION: Dyspnea. CORRELATION STUDY: None FINDINGS: Rather marked severity cardiac enlargement. No disproportionate right heart strain. The pulmonary arteries demonstrate no definitive filling defect to suggest pulmonary embolism. The more peripheral branches are somewhat suboptimally opacified. The thoracic aorta is relatively normal in contour. There is significant reflux of contrast into the inferior vena cava and hepatic veins suggesting right heart failure or perhaps tricuspid insufficiency. No definitive pathologically enlarged mediastinal or hilar lymph nodes with a few shotty lymph nodes present. Gastroesophageal junction with very small hiatal hernia. There is presence of trace pleural effusions. Slight groundglass opacities suggest mild edema. Additionally, there is mildly prominent interstitial markings. Visualized portion of the upper abdomen demonstrate no definitive acute abnormality. Osseous structures without acute findings. IMPRESSION: 1. No CTA evidence for pulmonary embolism. 2. Rather significant severity cardiac enlargement. Reflux of contrast into the inferior vena cava and hepatic veins likely owing to right heart failure or perhaps tricuspid insufficiency. Given the severity of cardiac dilatation, if not recently performed, consideration for echocardiography would be recommended. 3. Likely component of underlying fluid overload or failure. Trace effusions. Dictated by: Dictated on workstation # [id number]
--- OUTSIDE RECORDS SUMMARY | 2019-05-09 22:25 | XMS REPORT ---
Author Author Migration, Doctor Organization [facility] Address Unknown Phone Unavailable Care Team Providers Care Archaeology Professor Name Role Phone Migration, Doctor Unavailable Unavailable PROBLEMS Type Condition ICD9-CM Code [id number] Code Onset Dates Condition Status SNOMED Code Problem Diabetes E11.9 Active 187435278 Problem Essential hypertension I10 Active 57941930 Problem Eye exam normal Z01.00 Active 210924435 Problem Hypertriglyceridemia E78.1 Active 047340346 ALLERGIES No Information ENCOUNTERS Encounter Location Date Diagnosis [place] [address] [address] Apr, [address] [address] Jun, Hypertriglyceridemia E78.1 and Diabetes E11.[address] [address] Jun, Diabetes E11.9 ; Essential hypertension I10 ; Cough R05 ; Nocturia R35.1 ; Hypertriglyceridemia E78.1 and Snores R06.83 [place] [address] [address] March, [facility] [address] [place] [address] Jan, Acute bronchitis, unspecified organism J20.9 and Acute effusion of both middle ears H65.193 [facility] [address] [address] Dec, Viral URI J06.9 [facility] [address] [address] Dec, Gastroenteritis K52.9 [place] [address] [address] 28 Jul, 2017 Acute pain of right shoulder M25.511 [place] [id number] [address] 20 Jul, 2017 Essential hypertension I10 [place] [address] [address] 18 Jun, 2017 Hypertriglyceridemia E78.1 [place] [address] [address] 16 Jun, 2017 Diabetes E11.9 ; Essential hypertension I10 and Acute pain of right shoulder M25.511 [place] [address] [address] 13 Feb, 2017 Brown magdielluse spider bite, accidental or unintentional, initial encounter T63.331A [place] [address] [address] 10 Feb, 2017 Cough R05 and Influenza B J10.1 [place] [address] [address] Nov, Diabetes E11.9 and Essential hypertension I10 [place] [address] [address] 30 Oct, 2016 [place] [address] [address] Oct, [place] [address] [address] Apr, Diabetes E11.9 [place] [address] [address] Apr, Diabetes E11.9 and Nocturia R35.1 [place] [address] [address] 06 Mar, 2016 [facility] [address] [address] 14 Jan, 2016 Fever R50.9 and Influenza J11.1 [place] [address], [place] [address] 10 Oct, 2015 Diabetes E11.9 [facility] [address] [place] [id number] [place] [address] 11 Sep, 2015 Encounter for immunization Z23 [facility] [address], [place] [address] 03 Apr, 2015 Sports physical V70.3 [facility] [address] [place] [id number] [place] [address] 14 Feb, 2015 [facility] [address] [place] [address] Feb, [facility] [address] [place] [address] Jan, [facility] [address] [place] [id number] [place] [address] Jan, [facility] [address], [place] [address] Jan, [facility] [address], [place] [address] Jan, [facility] [address], [place] [address] Jan, [facility] [address], [place] [address] Jan, [facility] [address], [place] [address] Dec, [facility] [address], [place] [address] Dec, [facility] [address], [place] [address] Sep, [facility] [address], [place] [address] Sep, [facility] [place] [facility] [address] [place] [id number] [place] [address] Aug, [facility] [place] [facility] [address] [id number] [place] [address] Aug, [facility] [place] [facility] [address] [id number] [place] [address] Aug, [facility] [place] [facility] [address] [id number] [place] [address] Aug, [facility] [place] [facility] [address] [id number] [place] [address] Jun, [facility] [place] [facility] [address] [id number] [place] [address] Jun, [facility] [place] [facility] [address] [id number] [place] [address] May, [facility] [place] [facility] [address] [id number] [place] [address] May, [facility] [place] [facility] [address] [id number] [place] [address] March, [facility] [place] [facility] [address] [id number] [place] [address] March, [facility] [place] [facility] [address] [id number] [place] [address] Feb, [facility] [place] [facility] [address] [id number] [place] [address] Feb, [facility] [place] [facility] [address] [id number] [place] [address] Jan, [facility] [place] [facility] [address] [id number] [place] [address] Jan, [facility] [place] [facility] [address] [id number] [place] [address] Jan, [facility] [place] [facility] [address] [id number] [place] [address] Jan, [facility] [address] [facility] [id number] [address] Jan, [facility] [address], [place] [address] Jan, [facility] [address], [place] [address] Dec, [facility] [address], [place] [address] Dec, [facility] [address] [place] [id number], [place] [address] Nov, [facility] [address] [place] [id number] [address] Nov, IMMUNIZATIONS No Known Immunizations SOCIAL HISTORY Never Assessed REASON FOR VISIT [facility] PLAN OF CARE VITAL SIGNS MEDICATIONS Unknown Medications RESULTS No Results PROCEDURES No Known procedures INSTRUCTIONS MEDICATIONS ADMINISTERED No Known Medications MEDICAL (GENERAL) HISTORY Type Description Date Medical History Hypertension Medical History Diabetes Mellitus type 2
--- OUTSIDE RECORDS SUMMARY | 2019-05-09 22:25 | XMS REPORT ---
Author Author Migration, Doctor Organization [facility] Address Unknown Phone Unavailable Care Team Providers Care Vegetable Canner Name Role Phone Migration, Doctor Unavailable Unavailable PROBLEMS Type Condition ICD9-CM Code [id number] Code Onset Dates Condition Status SNOMED Code Problem Diabetes E11.9 Active 427825527 Problem Essential hypertension I10 Active 98532872 Problem Eye exam normal Z01.00 Active 923692971 Problem Hypertriglyceridemia E78.1 Active 627240073 ALLERGIES No Information ENCOUNTERS Encounter Location Date Diagnosis [place] [address] [address] Jun, Hypertriglyceridemia E78.1 and Diabetes E11.9 [place] [address] [address] Jun, Diabetes E11.9 ; Essential hypertension I10 ; Cough R05 ; Nocturia R35.1 ; Hypertriglyceridemia E78.1 and Snores R06.83 [place] [address] [address] March, [facility] [place] [address] [address] Jan, Acute bronchitis, unspecified organism J20.9 and Acute effusion of both middle ears H65.193 [facility] [address] [address] Dec, Viral URI J06.9 [facility] [place] [address] [address] Dec, Gastroenteritis K52.9 [place] [address] [address] Jul, Acute pain of right shoulder M25.511 [place] [address] [address] 20 Jul, 2017 Essential hypertension I10 [place] [address] [address] Jun, Hypertriglyceridemia E78.1 [place] [address] [address] 16 Jun, 2017 Diabetes E11.9 ; Essential hypertension I10 and Acute pain of right shoulder M25.511 [place] [address] [address] 13 Feb, 2017 Brown magdiellu spider bite, accidental or unintentional, initial encounter T63.331A [place] [address] [address] Feb, Cough R05 and Influenza B J10.1 [place] [address] [address] Nov, Diabetes E11.9 and Essential hypertension I10 [place] [address] [address] 30 Oct, 2016 [place] [address] [address] Oct, [place] [address] [address] 24 Apr, 2016 Diabetes E11.9 [place] [address] [address] Apr, Diabetes E11.9 and Nocturia R35.1 [place] [address] [address] March, [facility] [address] [address] 14 Jan, 2016 Fever R50.9 and Influenza J11.1 [place] [address] [address] 10 Oct, [address] [facility] [address] [place] [id number] [address] 11 Sep, 2015 Encounter for immunization Z23 [facility] [address] [place] [id number] [place] [address] Apr, Sports physical V70.3 [facility] [address] [address] [address], [address] [facility] [address] [place] [id number] [place] [address] Feb, [facility] [address] [address] Jan, [facility] [address] [place] [address] Jan, [facility] [address] [place] [id number] [place] [address] Jan, [facility] [address] [place] [address] Jan, [facility] [address]65[address] [address] Jan, [facility] [address]65[address] [address] Jan, [facility] [address]65[address] [address] Dec, [facility] [address]65[address] [address] Dec, [facility] [address]65[address] [address] Sep, [facility] [address], [place] [address] Sep, [facility] [address], [place] [address] Aug, [facility] [place] [facility] [address] [place] [id number] [place] [address] Aug, [facility] [place] [facility] [address] [id number] [place] [address] Aug, [facility] [place] [facility] [address] [id number] [place] [address] Aug, [facility] [place] [facility] [address] [id number] [place] [address] Jun, [facility] [place] [facility] [address] [id number] [place] [address] Jun, [facility] [place] [facility] [address] [id number] [place] [address] May, [facility] [place] [facility] [address] [id number] [place] [address] May, [facility] [place] [facility] [address] [id number] [place] [address] March, [facility] [place] [facility] [address] [id number] [place] [address] March, [facility] [place] [facility] [address] [id number] [place] [address] Feb, [facility] [place] [facility] [address] [id number] [place] [address] Feb, [facility] [place] [facility] [address] [id number] [place] [address] Jan, [facility] [place] [facility] [address] [id number] [place] [address] Jan, [facility] [place] [facility] [address] [id number] [place] [address] Jan, [facility] [place] [facility] [address] [id number] [place] [address] Jan, [facility] [place] [facility] [address] [id number] [place] [address] Jan, [facility] [address] [facility] [id number] [address] Jan, [facility] [address] [facility] [id number] [address] Dec, [facility] [address] [facility] [id number] [address] Dec, [facility] [address], [place] [address] Nov, [facility] [address] [facility] [id number] [address] Nov, IMMUNIZATIONS No Known Immunizations SOCIAL HISTORY Never Assessed REASON FOR VISIT [facility] PLAN OF CARE VITAL SIGNS MEDICATIONS Medication Instructions Dosage Frequency Start Date End Date Duration Status metformin 500 mg 1 Tablet by Oral route 2 times per day LAST REFILL PT MUST HAVE AN APPT Jan, Active RESULTS No Results PROCEDURES No Known procedures INSTRUCTIONS MEDICATIONS ADMINISTERED No Known Medications MEDICAL (GENERAL) HISTORY Type Description Date Medical History Hypertension Medical History Diabetes Mellitus type 2
--- OUTSIDE RECORDS SUMMARY | 2019-05-09 22:26 | XMS REPORT | Continuity of Care Document ---
Author Organization Unknown Address Unknown Allergies Active Description Code Type Severity Reaction Onset Reported/Identified Relationship to Patient Clinical Status Yes No Known Drug Allergies [id number] Drug Allergy Unknown N/A 03/09/2017 Medications There is no data. Problems Date Dx Coded Attending Type Code Diagnosis Diagnosed By 12/20/2013 NOEL MUIR DO V04.81 FLU SHOT 12/20/2013 LUCIEN CORONA APRNA S V04.81 FLU SHOT 12/20/2013 LUCIEN CORONA APRNA S V04.81 FLU SHOT 12/20/2013 V04.81 FLU SHOT 12/20/2013 LUCIEN CORONA APRNA S V04.81 FLU SHOT 12/20/2013 LUCIEN CORONA APRNA S V04.81 FLU SHOT 01/25/2014 LUCIEN CORONA APRNA S 401.1 HYPERTENSION, BENIGN ESSENTIAL 01/25/2014 LUCIEN CORONA APRNA S 788.43 NOCTURIA 01/25/2014 LUCIEN CORONA APRNA S V18.0 FAMILY HISTORY OF DIABETES MELLITUS 01/25/2014 LUCIEN CORONA APRNA S V70.0 EXAM - ROUTINE H&P 01/25/2014 LUCIEN CORONA APRNA S 401.1 HYPERTENSION, BENIGN ESSENTIAL 01/25/2014 BRENDA CORONA APRNNDA S 788.43 NOCTURIA 01/25/2014 BRENDA CORONA APRNNDA S V18.0 FAMILY HISTORY OF DIABETES MELLITUS 01/25/2014 LUCIEN CORONA APRNA S V70.0 EXAM - ROUTINE H&P 01/25/2014 401.1 HYPERTENSION, BENIGN ESSENTIAL 01/25/2014 788.43 NOCTURIA 01/25/2014 V18.0 FAMILY HISTORY OF DIABETES MELLITUS 01/25/2014 V70.0 EXAM - ROUTINE H&P 01/25/2014 LUCIEN CORONA APRNA S 401.1 HYPERTENSION, BENIGN ESSENTIAL 01/25/2014 CJ WHELAN, FRIEDA S 788.43 NOCTURIA 01/25/2014 CJ WHELAN, FRIEDA S V18.0 FAMILY HISTORY OF DIABETES MELLITUS 01/25/2014 CJ NIN, FRIEDA S V70.0 EXAM - ROUTINE H&P 01/25/2014 CJ NIN, FRIEDA S 401.1 HYPERTENSION, BENIGN ESSENTIAL 01/25/2014 CJ NIN, FRIEDA S 788.43 NOCTURIA 01/25/2014 CJ NIN, FRIEDA S V18.0 FAMILY HISTORY OF DIABETES MELLITUS 01/25/2014 CJ NIN, FRIEDA S V70.0 EXAM - ROUTINE H&P 06/06/2014 CJ WHELAN, FRIEDA S 250.00 DIABETES II CONTROLLED (UNCOMPLICATED) 06/06/2014 250.00 DIABETES II CONTROLLED (UNCOMPLICATED) 06/06/2014 CJSHAD NIDiane FRIEDA S 250.00 DIABETES II CONTROLLED (UNCOMPLICATED) 06/06/2014 CJSHAD NIDiane FRIEDA S 250.00 DIABETES II CONTROLLED (UNCOMPLICATED) 03/09/2017 TOM GUADARRAMA MD Ot E11.9 TYPE 2 DIABETES MELLITUS WITHOUT COMPLIC 03/09/2017 TOM GUADARRAMA MD Ot I10 ESSENTIAL (PRIMARY) HYPERTENSION 03/09/2017 TOM GUADARRAMA MD Ot J10.1 FLU DUE TO OTH IDENT INFLUENZA VIRUS W O 03/09/2017 TOM GUADARRAMA MD Ot T63.391A TOXIC EFFECT OF VENOM OF SPIDER, ACCIDEN 03/12/2017 TOM GUADARRAMA MD Ot E11.9 TYPE 2 DIABETES MELLITUS WITHOUT COMPLIC 03/12/2017 TOM GUADARRAMA MD Ot I10 ESSENTIAL (PRIMARY) HYPERTENSION 03/12/2017 TOM GUADARRAMA MD Ot J10.1 FLU DUE TO OTH IDENT INFLUENZA VIRUS W O 03/12/2017 TOM GUADARRAMA MD Ot T63.391A TOXIC EFFECT OF VENOM OF SPIDER, ACCIDEN 04/02/2017 CECY WOLFF APRN Ot E11.9 TYPE 2 DIABETES MELLITUS WITHOUT COMPLIC 04/02/2017 WOLFF, PETER J WEB PRESS OPERATOR HELPER OFFSET Ot I10 ESSENTIAL (PRIMARY) HYPERTENSION 04/02/2017 CECY WOLFF WEB PRESS OPERATOR HELPER OFFSET Ot M25.511 PAIN IN RIGHT SHOULDER 04/02/2017 CECY WOLFF WEB PRESS OPERATOR HELPER OFFSET Ot S46.901A UNSP INJ UNSP MUSC/FASC/TEND AT SHLDR/UP 04/02/2017 CECY WOLFF WEB PRESS OPERATOR HELPER OFFSET Ot X50.0XXA OVEREXERTION FROM STRENUOUS MOVEMENT OR 04/02/2017 CECY WOLFF WEB PRESS OPERATOR HELPER OFFSET Ot Y92.69 OTH INDUSTRIAL AND CONSTRUCTION AREA 04/02/2017 CECY WOLFF APRN Ot Y99.0 CIVILIAN ACTIVITY DONE FOR INCOME OR PAY Procedures Code [place] [address] ROUTINE VENIPUNCTURE 01/25/2014 88935 A1C (IN-HOUSE) 01/25/2014 48512 UA LONG DIP 01/25/2014 64562 CBC 01/25/2014 71736 CMP 01/25/2014 23764 LIPID PANEL 01/25/2014 6798966 GFR CALC (RESULT ONLY) 01/25/2014 66972 TSH 01/25/2014 94176 A1C (IN-HOUSE) 06/06/2014 39237 MICRO ALBUMIN-IN HOUSE 06/06/2014 03944 A1C (IN-HOUSE) 02/15/2015 52106 A1C (IN-HOUSE) 02/15/2015 07998 ROUTINE VENIPUNCTURE 02/23/2015 66314 CBC 02/23/2015 6750608 GFR CALC (RESULT ONLY) 02/23/2015 93769 CMP 02/23/2015 57618 LIPID PANEL 02/23/2015 Results Test Result Range Gram stain microscopy - 03/09/17 19:58 GRAM STAIN RESULT FEW WBC'S, NO BACTERIA OBSERVED NRG Bacteria identification in wound by culture - 03/09/17 19:58 Bacteria identification in wound by culture [id number] NRG FREE TEXT EXTERNAL NO FURTHER TESTING UNLESS REQUESTED NRG QUANTITY OF GROWTH Moderate Growth NRG [facility] - 07/06/18 10:26 GLUCOSE 109 mg/dL 65-99 UREA NITROGEN (BUN) 12 mg/dL 7-25 CREATININE 1.16 mg/dL 0.70-1.33 eGFR NON-AFR. SAMMARINESE 72 mL/min/1.73m2 > OR=60 eGFR 83 mL/min/1.73m2 > OR=60 BUN/CREATININE RATIO NOT APPLICABLE (calc) 6-22 SODIUM 142 mmol/L 135-146 POTASSIUM 4.0 mmol/L 3.5-5.3 CHLORIDE 106 mmol/L 98-110 CARBON DIOXIDE 27 mmol/L 20-32 CALCIUM 9.1 mg/dL 8.6-10.3 PROTEIN, TOTAL 7.2 g/dL 6.1-8.1 ALBUMIN 4.4 g/dL 3.6-5.1 GLOBULIN 2.8 g/dL (calc) 1.9-3.7 ALBUMIN/GLOBULIN RATIO 1.6 (calc) 1.0-2.5 BILIRUBIN, TOTAL 1.1 mg/dL 0.2-1.2 ALKALINE PHOSPHATASE 74 U/L 40-115 AST 21 U/L 10-35 ALT 21 U/L - CMP - 05/03/19 17:26 GLUCOSE 130 mg/dL 65-99 UREA NITROGEN (BUN) 19 mg/dL 7-25 CREATININE 1.38 mg/dL 0.70-1.33 eGFR NON-AFR. SAMMARINESE 58 mL/min/1.73m2 > OR=60 eGFR 67 mL/min/1.73m2 > OR=60 BUN/CREATININE RATIO 14 (calc) 6-22 SODIUM 140 mmol/L 135-146 POTASSIUM 4.6 mmol/L 3.5-5.3 CHLORIDE 103 mmol/L 98-110 CARBON DIOXIDE 26 mmol/L 20-32 CALCIUM 9.6 mg/dL 8.6-10.3 PROTEIN, TOTAL 6.9 g/dL 6.1-8.1 ALBUMIN 4.6 g/dL 3.6-5.1 GLOBULIN 2.3 g/dL (calc) 1.9-3.7 ALBUMIN/GLOBULIN RATIO 2.0 (calc) 1.0-2.5 BILIRUBIN, TOTAL 2.2 mg/dL 0.2-1.2 ALKALINE PHOSPHATASE 91 U/L 40-115 AST 25 U/L 10-35 ALT 29 U/L - CBC - 05/03/19 17:26 WHITE BLOOD CELL COUNT 11.9 Thousand/uL 3.8-10.8 RED BLOOD CELL COUNT 5.64 Million/uL 4.20-5.80 HEMOGLOBIN 17.5 g/dL 13.2-17.1 HEMATOCRIT 52.1 % 38.5-50.0 MCV 92.4 fL 80.0-100.0 MCH 31.0 pg 27.0-33.0 MCHC 33.6 g/dL 32.0-36.0 RDW 12.9 % 11.0-15.0 PLATELET COUNT 299 Thousand/uL 140-400 MPV 9.2 fL 7.5-12.5 ABSOLUTE NEUTROPHILS 8354 cells/uL 8540-0462 ABSOLUTE LYMPHOCYTES 2666 cells/uL 850-3900 ABSOLUTE MONOCYTES 714 cells/uL 200-950 ABSOLUTE EOSINOPHILS 95 cells/uL 15-500 ABSOLUTE BASOPHILS 71 cells/uL 0-200 NEUTROPHILS 70.2 % NRG LYMPHOCYTES 22.4 % NRG MONOCYTES 6.0 % NRG EOSINOPHILS 0.8 % NRG BASOPHILS 0.6 % NRG BNP - 05/03/19 17:26 B TYPE NATRIURETIC PEPTIDE (BNP) 1446 pg/mL <100 Complete blood count (CBC) with automated white blood cell (WBC) differential - 05/09/19 20:20 Blood leukocytes automated count (number/volume) 11.0 10*3/uL 4.3-11.0 Blood erythrocytes automated count (number/volume) 5.36 10*6/uL 4.35-5.85 Venous blood hemoglobin measurement (mass/volume) 16.9 g/dL 13.3-17.7 Blood hematocrit (volume fraction) 48 % 40-54 Automated erythrocyte mean corpuscular volume 90 [foz_us] 80-99 Automated erythrocyte mean corpuscular hemoglobin (mass per erythrocyte) 32 pg 25-34 Automated erythrocyte mean corpuscular hemoglobin concentration measurement (mass/volume) 35 g/dL 32-36 Automated erythrocyte distribution width ratio 14.4 % 10.0- 14.5 Automated blood platelet count (count/volume) 243 10*3/uL 130-400 Automated blood platelet mean volume measurement 9.3 [foz_us] 7.4-10.4 Automated blood neutrophils/100 leukocytes 80 % 42-75 Automated blood lymphocytes/100 leukocytes 13 % 12-44 Blood monocytes/100 leukocytes 6 % 0-12 Automated blood eosinophils/100 leukocytes 1 % 0-10 Automated blood basophils/100 leukocytes 0 % 0-10 Blood neutrophils automated count (number/volume) 8.8 10*3 1.8-7.8 Blood lymphocytes automated count (number/volume) 1.4 10*3 1.0-4.0 Blood monocytes automated count (number/volume) 0.7 10*3 0.0- 1.0 Automated eosinophil count 0.1 10*3/uL 0.0-0.3 Automated blood basophil count (count/volume) 0.0 10*3/uL 0.0-0.1 Comprehensive metabolic panel - 05/09/19 20:20 Serum or plasma sodium measurement (moles/volume) 137 mmol/L 135-145 Serum or plasma potassium measurement (moles/volume) 4.1 mmol/L 3.6-5.0 Serum or plasma chloride measurement (moles/volume) 101 mmol/L 98-107 Carbon dioxide 22 mmol/L 21-32 Serum or plasma anion gap determination (moles/volume) 14 mmol/L 5-14 Serum or plasma urea nitrogen measurement (mass/volume) 22 mg/dL 7-18 Serum or plasma creatinine measurement (mass/volume) 1.27 mg/dL 0.60-1.30 Serum or plasma urea nitrogen/creatinine mass ratio 17 NRG Serum or plasma creatinine measurement with calculation of estimated glomerular filtration rate 59 NRG Serum or plasma glucose measurement (mass/volume) 137 mg/dL 70-105 Serum or plasma calcium measurement (mass/volume) 9.0 mg/dL 8.5-10.1 Serum or plasma total bilirubin measurement (mass/volume) 2.3 mg/dL 0.1-1.0 Serum or plasma alkaline phosphatase measurement (enzymatic activity/volume) 128 U/L 40-136 Serum or plasma aspartate aminotransferase measurement (enzymatic activity/volume) 45 U/L 5-34 Serum or plasma alanine aminotransferase measurement (enzymatic activity/volume) 80 U/L 0-55 Serum or plasma protein measurement (mass/volume) 6.9 g/dL 6.4-8.2 Serum or plasma albumin measurement (mass/volume) 4.1 g/dL 3.2-4.5 CALCIUM CORRECTED 8.9 mg/dL 8.5-10.1 Fibrin D-dimer FEU measurement in platelet poor plasma (mass/volume) - 05/09/19 20:20 Fibrin D-dimer FEU measurement in platelet poor plasma (mass/volume) 4.25 ug/mL 0.00-0.49 Serum or plasma troponin i.cardiac measurement (mass/volume) - 05/09/19 20:20 Serum or plasma troponin i.cardiac measurement (mass/volume) 0.060 ng/mL <0.028 Serum or plasma lithium measurement (moles/volume) - 05/09/19 20:20 BNP level 1850.1 pg/mL <100.0 Encounters ACCT No. Visit Date/Time Discharge Status Pt. Type Provider Facility Loc./Unit Complaint [id number] 02/23/2015 10:55:00 02/23/2015 23:59:59 CLS Outpatient FRIEDA CROONA APRN [id number] 02/15/2015 15:45:00 02/15/2015 23:59:59 CLS Outpatient FRIEDA CORONA APRN [id number] 08/30/2014 00:00:00 08/30/2014 23:59:59 CLS Outpatient [id number] 06/06/2014 15:49:00 06/06/2014 23:59:59 CLS Outpatient FRIEDA CORONA APRN [id number] 01/25/2014 10:55:00 01/25/2014 23:59:59 CLS Outpatient FRIEDA CORONA APRN [id number] 12/20/2013 18:08:00 12/20/2013 23:59:59 CLS Outpatient NOEL MUIR DO [id number] 04/25/2019 10:44:00 04/25/2019 11:57:00 DIS Emergency DONYA MCCABE [facility] ER FALL/RIB PAIN [id number] 02/12/2019 01:20:00 02/12/2019 01:47:00 DIS Emergency TABITHA DERAS MD [facility] ER SOB [id number] 04/02/2017 21:26:00 04/02/2017 21:49:00 DIS Emergency CECY WOLFF WEB PRESS OPERATOR HELPER OFFSET [facility] ER R SHOULDER PAIN [id number] 03/09/2017 18:30:00 03/09/2017 20:21:00 DIS Emergency CHIARA FRIAS, TOM Hughse [facility] ER POSS INSECT BITE ON BACK [id number] 05/09/2019 22:12:00 ACT Inpatient RUTHIE FRIAS, NATHANIEL Mabry [facility] [address] [id number] 05/03/2019 16:10:00 05/03/2019 23:59:59 CLS Outpatient FRIEDA CORONA APRN [facility] [id number] 05/03/2019 16:10:00 Document Registration [id number] 07/06/2018 10:00:00 Document Registration
--- NOTE | 2019-05-09 22:32 | NUR ---
pt remains alert gcs 15. remains in the room. pt denies chest pain. denies dyspnea and no acute sighns of dyspnea noted. resp shallow nonlabored. tele shows sr 91. bp machine is 120/98 ausc hr 96 reg ausc resp 28. recheck temp 98.2 p ox 3/n/c is 96. pt has 550 output after lasix thus far.
--- NOTE | 2019-05-09 22:50 | NUR ---
i tried to call report to admit nurse bobbi. no answer.
--- NOTE | 2019-05-09 23:04 | NUR ---
i just called report to admit nurse bobbi. she says admit is coming to er to see pt 1st. i or someone will take pt to admit room mauro. o2 will continue to floor.
--- NOTE | 2019-05-09 23:12 | NUR ---
i am taking pt to admit room now.
--- NOTE | 2019-05-09 23:18 | Consultation-Cardiology ---
HPI-Cardiology Cardiology Consultation Date of Consultation 05/09/19 Date of Admission Time Seen by Provider: 23:14 Indication: shortness of breath HPI 53 years old gentleman with history of diabetes mellitus, hypertension. Was in his usual state of health until about 5 months ago when he started having increasing shortness of breath, reporting worsening orthopnea, felt like anxiety that he is unable to lay down, having episode of PND and orthopnea which has been worsening, has been in the emergency room multiple times over the past month, currently came in for increasing shortness of breath and noted to be in congestive heart failure. He denied any chest pain. Denied any palpitation, syncope or near syncopal episodes. No claudications. Home Medications & Allergies Allergies: Coded Allergies: No Known Drug Allergies (Unverified , 03/09/17) Home Medication List Reviewed: Yes NDL-Hhrkxq-Uhprtl Hx Patient Social History Marital Status: Employed/Student: employed Alcohol Use: Denies Use Recreational Drug Use: No Smoking Status: Never a Smoker 2nd Hand Smoke Exposure: No Recent Foreign Travel: No Recent Infectious Disease Expo: No Recent Hopitalizations: No Immunizations Up To Date Tetanus Booster (TDap): Unknown Past Medical History discussed below Family Medical History Family Medical Hx strong family history of heart disease and diabetes Review of Systems-General Review of Systems Constitutional: see HPI; No chills, No diaphoresis, No dizziness, No fever; malaise; No weakness EENTM: no symptoms reported Respiratory: see HPI; No cough; dyspnea on exertion; No hemoptysis; orthopnea; No phlegm; short of breath Cardiovascular: see HPI; No chest pain, No edema, No Hx of Intervention, No palpitations, No syncope, No vascular heart diseas, No other Gastrointestinal: no symptoms reported, see HPI Genitourinary: see HPI Musculoskeletal: see HPI Skin: see HPI Psychiatric/Neurological: See HPI, Anxiety Reviewed Test Results Reviewed Test Results Lab Laboratory Tests Test 05/09/19 20:20 Range/Units White Blood Count 11.0 4.3-11.0 10^3/uL Red Blood Count 5.36 4.35-5.85 10^6/uL Hemoglobin 16.9 13.3-17.7 G/DL Hematocrit 48 40-54 % Mean Corpuscular Volume 90 80-99 FL Mean Corpuscular Hemoglobin 32 25-34 PG Mean Corpuscular Hemoglobin Concent 35 32-36 G/DL Red Cell Distribution Width 14.4 10.0-14.5 % Platelet Count 243 130-400 10^3/uL Mean Platelet Volume 9.3 7.4-10.4 FL Neutrophils (%) (Auto) 80 H 42-75 % Lymphocytes (%) (Auto) 13 12-44 % Monocytes (%) (Auto) 6 0-12 % Eosinophils (%) (Auto) 1 0-10 % Basophils (%) (Auto) 0 0-10 % Neutrophils # (Auto) 8.8 H 1.8-7.8 X 10^3 Lymphocytes # (Auto) 1.4 1.0-4.0 X 10^3 Monocytes # (Auto) 0.7 0.0-1.0 X 10^3 Eosinophils # (Auto) 0.1 0.0-0.3 10^3/uL Basophils # (Auto) 0.0 0.0-0.1 10^3/uL D-Dimer 4.25 H 0.00-0.49 UG/ML Sodium Level 137 135-145 MMOL/L Potassium Level 4.1 3.6-5.0 MMOL/L Chloride Level 101 98-107 MMOL/L Carbon Dioxide Level 22 21-32 MMOL/L Anion Gap 14 5-14 MMOL/L Blood Urea Nitrogen 22 H 7-18 MG/DL Creatinine 1.27 0.60-1.30 MG/DL Estimat Glomerular Filtration Rate 59 BUN/Creatinine Ratio 17 Glucose Level 137 H 70-105 MG/DL Calcium Level 9.0 8.5-10.1 MG/DL Corrected Calcium 8.9 8.5-10.1 MG/DL Total Bilirubin 2.3 H 0.1-1.0 MG/DL Aspartate Amino Transf (AST/SGOT) 45 H 5-34 U/L Alanine Aminotransferase (ALT/SGPT) 80 H 0-55 U/L Alkaline Phosphatase 128 40-136 U/L Troponin I 0.060 H <0.028 NG/ML B-Type Natriuretic Peptide 1850.1 H <100.0 PG/ML Total Protein 6.9 6.4-8.2 GM/DL Albumin 4.1 3.2-4.5 GM/DL Physical Exam Physical Exam Vital Signs Vital Signs - First Documented 05/09/19 05/09/19 20:10 21:13 Temp 97.7 Pulse 92 Resp 20 B/P (MAP) 122/100 (107) Pulse Ox 100 O2 Delivery Room Air O2 Flow Rate 3.00 Capillary Refill : Less Than 3 Seconds Height, Weight, BMI Height: 5'11.00" Weight: 200lbs. oz. 90.377722pg; BMI Method:Stated General Appearance: WD/WN, Anxious (talks extensively and continuously.), Mild Distress HEENT: PERRL/EOMI, TMs Normal Neck: Full Range of Motion, Normal Inspection, JVD Respiratory: No Accessory Muscle Use, No Respiratory Distress, Crackles, Decreased Breath Sounds Cardiovascular: Regular Rate, Rhythm, No Edema, Normal Peripheral Pulses, Systolic Murmur (at the left sternal border), Gallop/S3 Gastrointestinal: Normal Bowel Sounds, Non Tender, Soft Back: Normal Inspection Extremity: Normal Capillary Refill, Normal Inspection, No Pedal Edema Neurologic/Psychiatric: Alert, Oriented x3 Skin: Normal Color, Warm/Dry A/P-Cardiology Admission Diagnosis Congestive heart failure Hypertension Diabetes mellitus Shortness of breath Assessment/Plan Congestive heart failure, acute episode, appear to be acute left ventricular systolic dysfunction, could be ischemic in nature, patient is admitted to telemetry and started on IV Lasix in addition to aspirin and Lovenox. Will monitor cardiac enzymes and evaluate 2-D echocardiogram Hypertension, maintained on lisinopril, monitor blood pressure Passive hepatic congestion with elevated liver enzymes. Continue to monitor Diabetes mellitus, followed and managed by primary care physician TRACE Munson MD May 09, 2019 23:18
[2019-05-09 23:20] VITALS: BP 110/79
--- NOTE | 2019-05-09 23:20 | NUR ---
SHITAL SMITH admitted to room 404-1, with an admitting diagnosis of CHF EXACERBATION, on 05/09/19 from ED via , accompanied by ED STAFF.SHITAL SMITH introduced to surroundings, call light, bed controls, phone, TV, temperature control, lights, meal times, smoking policy, visitor policy, side rail policy, bathrooms and showers. Patient Rights given to patient in the handbook.SHITAL SMITH verbalizes understanding that [facility] is not responsible for the loss or damage to any personal effects or valuables that are kept in the patients posession during their hospitalization.
--- NOTE | 2019-05-09 23:24 | NUR ---
TECH TAKING PT TO ADMIT ROOM AND PT HAD ANOTHER 400 URINAKL OUTPUT FOR TOTAL OF 950. TECH WILL TELL ADMIT NURSE.
[2019-05-10] VITALS (13 sets, daily range): BP systolic 107–128; BP diastolic 72–97
[2019-05-10] MEDS: ENOXAPARIN 100 MG/1 ML (LOVENOX) SYR SC SCH ×3 (00:34→16:55)
[2019-05-10] MEDS: FUROSEMIDE 40 MG/4 ML INJ (LASIX) IVP SCH ×2 (06:30→18:22)
[2019-05-10 06:36] LABS: BASOPHILS % (AUTO) 0 % (0-10); EOSINOPHILS % (AUTO) 0 % (0-10); HEMATOCRIT 47 % (40-54); HEMOGLOBIN 16.4 G/DL (13.3-17.7); LYMPHOCYTES # (AUTO) 2.1 X 10^3 (1.0-4.0); LYMPHOCYTES % (AUTO) 18 % (12-44); MEAN CORPUSCULAR HEMOGLOBIN 31 PG (25-34); MEAN CORPUSCULAR HGB CONC 35 G/DL (32-36); MEAN CORPUSCULAR VOLUME 91 FL (80-99); MEAN PLATELET VOLUME 9.5 FL (7.4-10.4); MONOCYTES # (AUTO) 0.8 X 10^3 (0.0-1.0); MONOCYTES % (AUTO) 7 % (0-12); NEUTROPHILS # (AUTO) 9.2 X 10^3 (1.8-7.8); NEUTROPHILS % (AUTO) 76 % (42-75); PLATELET COUNT 229 10^3/uL (130-400); RED CELL DISTRIBUTION WIDTH 14.3 % (10.0-14.5); WHITE BLOOD COUNT 12.2 10^3/uL (4.3-11.0)
[2019-05-10 07:03] LABS: ALANINE AMINOTRANSFERASE 73 U/L (0-55); ALBUMIN 3.9 GM/DL (3.2-4.5); ALKALINE PHOSPHATASE 132 U/L (40-136); BILIRUBIN,TOTAL 2.7 MG/DL (0.1-1.0); BUN/CREATININE RATIO 16; CALCIUM 8.7 MG/DL (8.5-10.1); CARBON DIOXIDE 25 MMOL/L (21-32); CHLORIDE 99 MMOL/L (98-107); CHOLESTEROL 107 MG/DL (< 200); CREATININE SERUM 1.24 MG/DL (0.60-1.30); GFR ESTIMATED > 60; GLUCOSE 97 MG/DL (70-105); HDL CHOLESTEROL 26 MG/DL (40-60); SODIUM 139 MMOL/L (135-145); TOTAL PROTEIN 6.6 GM/DL (6.4-8.2); TRIGLYCERIDES 67 MG/DL (<150); VLDL CHOLESTEROL 13 MG/DL (5-40)
[2019-05-10] MEDS: ASPIRIN E.C. 81 MG (ECOTRIN) TAB PO SCH (08:10)
[2019-05-10] MEDS ORDERED: METF-478 PO (09:24)
[2019-05-10] MEDS ORDERED: LISI-552 PO (09:24)
--- NOTE | 2019-05-10 09:25 | NUR ---
PATIENT STATES HE TAKES LISINOPRIL AND METFORMIN ONCE DAILY IN THE MORNING HOWEVER HE DOES NOT KNOW THE STRENGTHS. HE DOES NOT TAKE ANYTHING OTC. HE WAS PRESCRIBED HYDROXYZINE FROM THE ED IN JANUARY HOWEVER IT WAS NOT PICKED UP. [facility] FILLED: 04-11-19 METFORMIN ER 500MG DAILY 02-03-19 LISINOPRIL 20MG DAILY #90
--- NOTE | 2019-05-10 11:34 | History & Physicial (CHS) ---
HPI History of Present Illness: 53 yo M that presented with increasing shortness of breath. States that he has been having breathing problems on and off for the last year but he has not been to the doctor much because of alot of stress. States that he lost his step mother and father earlier this year. States that in the last few weeks it has become very difficult for him to ambulate due to shortness of breath. Denies any chest pain. States that he takes meds for PreDM and HTN only. Denies any other symptoms. Source: patient, spouse Exam Limitations: no limitations Date seen by provider: May 10, 2019 Time Seen by Provider: 09:40 Attending Physician Deann Silva MD PCP [facility] [place] Consult Date of Admission May 09, 2019 at 22:12 Home Medications Home Medications Reviewed patient Home Medication Reconciliation performed by pharmacy medication reconciliations bioinformatics technician and/or nursing. Patients Allergies have been reviewed. Allergies Coded Allergies: No Known Drug Allergies (Unverified , 03/09/17) [id number] Hx Patient Social History Marrital Status: Employed/Student: employed Alcohol Use: Denies Use Recreational Drug Use: No Smoking Status: Never a Smoker 2nd Hand Smoke Exposure: No Recent Foreign Travel: No Contact w/other who traveled: No Recent Hopitalizations: No Recent Infectious Disease Expo: No Physical Abuse Screen: No Sexual Abuse: No Immunizations Up To Date Tetanus Booster (TDap): Unknown Past Medical History Pre DM HTN Review of Systems (CHC) Constitutional: No chills, No fever; malaise, weakness EENTM: no symptoms reported Respiratory: cough, dyspnea on exertion, orthopnea, short of breath Cardiovascular: No chest pain; edema; No palpitations Gastrointestinal: no symptoms reported; No constipation, No diarrhea, No loss of appetite, No nausea, No vomiting Genitourinary: no symptoms reported Musculoskeletal: no symptoms reported Skin: no symptoms reported Psychiatric/Neurological: Anxiety Reviewed Test Results Reviewed Test Results Lab Laboratory Tests Test 05/09/19 20:20 05/10/19 05:28 Range/Units White Blood Count 11.0 12.2 H 4.3-11.0 10^3/uL Red Blood Count 5.36 5.22 4.35-5.85 10^6/uL Hemoglobin 16.9 16.4 13.3-17.7 G/DL Hematocrit 48 47 40-54 % Mean Corpuscular Volume 90 91 80-99 FL Mean Corpuscular Hemoglobin 32 31 25-34 PG Mean Corpuscular Hemoglobin Concent 35 35 32-36 G/DL Red Cell Distribution Width 14.4 14.3 10.0-14.5 % Platelet Count 243 229 130-400 10^3/uL Mean Platelet Volume 9.3 9.5 7.4-10.4 FL Neutrophils (%) (Auto) 80 H 76 H 42-75 % Lymphocytes (%) (Auto) 13 18 12-44 % Monocytes (%) (Auto) 6 7 0-12 % Eosinophils (%) (Auto) 1 0 0-10 % Basophils (%) (Auto) 0 0 0-10 % Neutrophils # (Auto) 8.8 H 9.2 H 1.8-7.8 X 10^3 Lymphocytes # (Auto) 1.4 2.1 1.0-4.0 X 10^3 Monocytes # (Auto) 0.7 0.8 0.0-1.0 X 10^3 Eosinophils # (Auto) 0.1 0.0 0.0-0.3 10^3/uL Basophils # (Auto) 0.0 0.0 0.0-0.1 10^3/uL D-Dimer 4.25 H 0.00-0.49 UG/ML Sodium Level 137 139 135-145 MMOL/L Potassium Level 4.1 4.0 3.6-5.0 MMOL/L Chloride Level 101 99 98-107 MMOL/L Carbon Dioxide Level 22 25 21-32 MMOL/L Anion Gap 14 15 H 5-14 MMOL/L Blood Urea Nitrogen 22 H 20 H 7-18 MG/DL Creatinine 1.27 1.24 0.60-1.30 MG/DL Estimat Glomerular Filtration Rate 59 > 60 BUN/Creatinine Ratio 17 16 Glucose Level 137 H 97 70-105 MG/DL Calcium Level 9.0 8.7 8.5-10.1 MG/DL Corrected Calcium 8.9 8.8 8.5-10.1 MG/DL Total Bilirubin 2.3 H 2.7 H 0.1-1.0 MG/DL Aspartate Amino Transf (AST/SGOT) 45 H 47 H 5-34 U/L Alanine Aminotransferase (ALT/SGPT) 80 H 73 H 0-55 U/L Alkaline Phosphatase 128 132 40-136 U/L Troponin I 0.060 H 0.112 H <0.028 NG/ML B-Type Natriuretic Peptide 1850.1 H <100.0 PG/ML Total Protein 6.9 6.6 6.4-8.2 GM/DL Albumin 4.1 3.9 3.2-4.5 GM/DL Triglycerides Level 67 <150 MG/DL Cholesterol Level 107 < 200 MG/DL LDL Cholesterol Direct 81 1-129 MG/DL VLDL Cholesterol 13 5-40 MG/DL HDL Cholesterol 26 L 40-60 MG/DL Thyroid Stimulating Hormone (TSH) 1.86 0.35-4.94 UIU/ML Physical Exam-(CHC) Physical Exam Vital Signs VS - Last 72 Hours, by Label 05/09/19 05/09/19 05/09/19 05/09/19 20:10 21:13 21:41 23:06 Temp 97.7 97.8 97.7 98.2 Pulse 92 100 104 96 Resp 20 16 28 28 B/P (MAP) 122/100 (107) 116/94 (101) 108/95 (99) 120/98 (105) Pulse Ox 100 97 99 96 O2 Delivery Room Air Nasal Cannula Nasal Cannula Nasal Cannula O2 Flow Rate 3.00 3.00 3.00 05/09/19 05/09/19 05/09/19 05/10/19 23:20 23:20 23:55 00:31 Temp 97.7 97.7 Pulse 92 92 84 Resp 18 18 B/P (MAP) 110/79 110/79 (89) Pulse Ox 95 95 O2 Delivery Nasal Cannula Nasal Cannula Nasal Cannula O2 Flow Rate 2.00 2.00 3.00 05/10/19 05/10/19 05/10/19 05/10/19 01:00 04:00 07:00 08:00 Temp 97.4 Pulse 101 89 93 Resp 16 B/P (MAP) 111/79 (90) Pulse Ox 93 96 O2 Delivery Nasal Cannula Room Air O2 Flow Rate 2.00 05/10/19 08:01 Temp 97.6 Pulse 99 Resp 22 B/P (MAP) 124/96 (105) Pulse Ox 96 O2 Delivery Room Air O2 Flow Rate 0.00 Capillary Refill : Less Than 3 Seconds General Appearance: WD/WN, no apparent distress HEENT: PERRL/EOMI Neck: non-tender, full range of motion, supple Respiratory: chest non-tender, lungs clear, normal breath sounds, no respirat ory distress, no accessory muscle use Cardiovascular: regular rate, rhythm, systolic murmur Gastrointestinal: normal bowel sounds, non tender, soft Back: no CVA tenderness, no vertebral tenderness Extremities: normal capillary refill, pedal edema (1+) Neurologic/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, no motor/sensory deficits, alert, normal mood/affect, oriented x 3 Skin: normal color, warm/dry Lymphatic: no adenopathy Assessment/Plan Assessment/Plan Admission Status: Inpatient Order (span 2 midnights) Reason for Inpatient Admission: New diag CHF (1) Acute CHF (congestive heart failure) Status: Acute Assessment & Plan: - Echo pending, Cardiology consulted, will likely go to chemistry laboratory technician, will likely need to be started on BB, statin and increased ACEI Qualifiers: Qualified Codes: I50.9 - Heart failure, unspecified (2) Cardiomegaly Status: Chronic (3) Pre-diabetes Status: Chronic Assessment & Plan: - A1c pending, Hold metformin (4) HTN (hypertension) Status: Chronic Assessment & Plan: - Ok to continue Lisinopril Qualifiers: Qualified Codes: I10 - Essential (primary) hypertension (5) DVT prophylaxis Status: Acute Clinical Quality Measures DVT/VTE Risk/Contraindication: Risk Factor Score Per Nursin RFS Level Per Nursing on Admit: 1=Low/No VTE PPX Copy Copies To 1: Brigette SALDVIAR APRN GAULT, HOLLY R MD May 10, 2019 11:34
--- NOTE | 2019-05-10 12:25 | Diagnostic Imaging Report ---
PROCEDURE: US Venous Lower Ext Gideon. TECHNIQUE: Multiple real-time grayscale images were obtained over the lower extremities in various projections, bilaterally. Additional duplex Doppler and color Doppler images were also obtained. INDICATION: Leg pain and swelling. There are no prior studies available for comparison. FINDINGS: There is generally good blood flow and compressibility at all levels of both lower extremities. There is no evidence for a deep venous thrombosis. IMPRESSION: There is no evidence for a deep venous thrombosis of either lower extremity. Dictated by: Dictated on workstation # [id number]
--- NOTE | 2019-05-10 12:26 | Cardiology Progress Note ---
Subjective Date Seen by Provider: May 10, 2019 Time Seen by Provider: 12:24 Subjective/Events-last exam patient is laying down in bed, still complaining of fatigue and loss of energy. No chest pain Review of Systems General: No Chills, No Night Sweats, No Fatigue, No Malaise, No Appetite, No Other HEENT: No Head Aches, No Visual Changes, No Eye Pain, No Ear Pain, No Dysphasia, No Sinus Congestion, No Post Nasal Drip, No Sore Throat, No Other Pulmonary: Dyspnea; No Cough, No Pleuritic Chest Pain, No Other Cardiovascular: No: Chest Pain, Palpitations, Orthopnea, Paroxysmal Noc. Dyspnea, Edema, Lt Headedness, Other Objective-Cardiology Exam Last Set of Vital Signs Vital Signs 05/10/19 05/10/19 08:01 12:00 Temp 97.6 Pulse 80 Resp 22 B/P (MAP) 124/96 (105) Pulse Ox 96 O2 Delivery Room Air O2 Flow Rate 0.00 Capillary Refill : Less Than 3 Seconds I&O Intake and Output 05/10/19 00:00 Daily Weight Change No General: Alert, Oriented X3, Cooperative HEENT: Atraumatic, PERRLA Neck: Supple, No JVD, No Thyromegaly Lungs: Clear to Auscultation, Normal Air Movement Heart: Regular Rate, Normal S1, Normal S2, No Murmurs, Other (S3 is present) Abdomen: Normal Bowel Sounds, Soft, No Tenderness, No Hepatosplenomegaly, No Masses Extremities: No Clubbing, No Cyanosis, No Edema, Normal Pulses, No Tendernes s/Swelling Skin: No Rashes, No Breakdown, No Significant Lesion Neuro: Normal Gait, Normal Speech, Strength at 5/5 X4 Ext, Normal Tone, Sensation Intact Psych/Mental Status: Mental Status NL, Mood NL Results Lab Laboratory Tests 05/09/19 20:20 05/10/19 05:28 A/P-Cardiology Admission Diagnosis Congestive heart failure Hypertension Diabetes mellitus Shortness of breath Assessment/Plan Congestive heart failure, acute left ventricular systolic dysfunction, severe cardiomyopathy with ejection fraction 10-15 percent, echogenic density in the left ventricle most probably representing a thrombus. I will proceed with coronary angiogram and evaluate his anatomy then maximize medical therapy and continue on aggressive anticoagulation Hypertension, maintained on lisinopril, monitor blood pressure Passive hepatic congestion with elevated liver enzymes. Continue to monitor Diabetes mellitus, followed and managed by primary care physician Anxiety Clinical Quality Measures DVT/VTE Risk/Contraindication: Risk Factor Score Per Nursin RFS Level Per Nursing on Admit: 1=Low/No VTE PPX TRACE BERMAN MD May 10, 2019 12:26
[2019-05-10] MEDS ORDERED: NS IV 1000 ML 1,000 ML IV SCH (12:30)
--- NOTE | 2019-05-10 12:49 | NUR ---
LOVENOX NOT GIVEN. PATIENT IS GOING FOR A HEART CATH AT 1600
--- NOTE | 2019-05-10 13:52 | NUR ---
Pt is [employer]an and declines sacraments but would like Fr Chiang contacted. Painter Bottom will make contact.
[2019-05-10] MEDS ORDERED: LIDOCAINE 1% INJ 20 ML 20 ML VIAL ONE (13:56)
[2019-05-10] MEDS ORDERED: MIDAZOLAM 5 MG/5 ML (VERSED) VIAL ONE (13:56)
[2019-05-10] MEDS ORDERED: NS IV 1000 ML 0 ML ONE (13:57)
[2019-05-10] MEDS ORDERED: fentaNYL INJECTION 100 MCG/2 ML AMP ONE (13:57)
[2019-05-10] MEDS ORDERED: HEParin (CATH LAB) 2,000 ML IV ONE (13:57)
--- NOTE | 2019-05-10 15:20 | NUR ---
PATIENT LEFT FLOOR VIA BED FOR HEART CATH
[2019-05-10] MEDS ORDERED: PATIENT MAY USE OWN MEDS, ALL PO SCH (16:00)
--- NOTE | 2019-05-10 16:07 | Cardiac Cath Report ---
Cardiac Cath Report Physician (s)/National Sales Representative (s) Physician TRACE BERMAN MD Pre-Procedure Diagnosis Pre-Procedure Diagnosis: CHF Post-Procedure Note Procedure Start Date: May 10, 2019 Name of Procedure: Coronary angiogram Findings/Procedure Note PROCEDURE NOTE: 53 years old gentleman admitted with congestive heart failure, has severe cardiomyopathy, apical infarction, thrombus on left anterior wall and lateral wall of the left ventricle. After explaining the procedure to the patient, all pros and cons were explained, all questions were answered. The patient signed the consent and then he was placed on the cardiac catheterization laboratory. Groin was prepped SL fashion local anesthesia was used. Sheath placed in the right femoral artery. Rebekah right and left catheter were used to access the coronary system. At the end of the procedure the sheath was removed. Closure device was used FINDINGS: Hemodynamics Aorta 101/79 mean of 64 ANATOMY: Left Main has no obstructive disease Left Anterior Descending is large artery totally occluded at its ostium, receiving collateral from the right system Left Circumflex has mild disease nonobstructive disease Right Coronory Artery is dominant artery giving collateral filling the LAD CONCLUSION: 1. Totally occluded LAD with collateral filling the LAD from the right coronary system,. To be chronic total occlusion 2. Mild disease in the circumflex artery nonobstructive disease 3. Patient is known to have severely dilated left ventricle with akinetic anterior wall and apex with ejection fraction 10-15 percent and thrombus on the anterior wall and lateral wall DISCUSSION AND RECOMMENDATION: continue with medical therapy, evaluate viability study, aggressive anticoagulation, start Coumadin today and continue on Lovenox and aspirin and initiate low-dose beta blockers and continue ELLIS inhibitor Anesthesia Type: Conscious Sedation Estimated blood loss (mL): 20 ml Contrast Amount: 29 ml Total Radiation Dose: 395 mGy Post-Procedure Diagnosis Post-operative diagnosis: Coronary artery disease Congestive heart failure Shortness of breath Hypertension TRACE BERMAN MD May 10, 2019 16:07
[2019-05-10] MEDS: NS IV 1000 ML 1,000 ML IV SCH (16:56)
--- NOTE | 2019-05-10 16:56 | NUR ---
LOVENOX HELD AT THIS TIME R/T POST CATH ET LARGE DOSE OF BLOOD THINNER GIVEN DURING CATH.
--- NOTE | 2019-05-10 17:31 | NUR ---
Support provided to pt's , brother in law, children, and a family friend in the consolation room. Pt's shared about multiple deaths in their family over the past 5 years, and in recent months. His expressed concerns for her 's recovery.
[2019-05-10] MEDS: warFARin 5 MG (COUMADIN) TAB PO SCH (18:26)
[2019-05-11] VITALS (9 sets, daily range): BP systolic 100–118; BP diastolic 70–93
[2019-05-11] MEDS: NS IV 1000 ML 1,000 ML IV SCH ×2 (02:09→13:30)
--- NOTE | 2019-05-11 02:39 | NUR ---
Patient having 10+ second periods of apnea while sleeping. Oxygen saturation level falling into the 70's. Improvement with oxygen saturation into the 90's when awake. Patient stated that he is like this every night and has very long periods of apnea. Patient stated that he has an appointment with his primary care provider on the of this month to address this issue.
[2019-05-11 03:55] LABS: BASOPHILS % (AUTO) 0 % (0-10); EOSINOPHILS % (AUTO) 0 % (0-10); HEMATOCRIT 50 % (40-54); HEMOGLOBIN 17.2 G/DL (13.3-17.7); LYMPHOCYTES # (AUTO) 1.6 X 10^3 (1.0-4.0); LYMPHOCYTES % (AUTO) 14 % (12-44); MEAN CORPUSCULAR HEMOGLOBIN 31 PG (25-34); MEAN CORPUSCULAR HGB CONC 34 G/DL (32-36); MEAN CORPUSCULAR VOLUME 89 FL (80-99); MEAN PLATELET VOLUME 9.3 FL (7.4-10.4); MONOCYTES # (AUTO) 0.9 X 10^3 (0.0-1.0); MONOCYTES % (AUTO) 7 % (0-12); NEUTROPHILS % (AUTO) 78 % (42-75); PLATELET COUNT 261 10^3/uL (130-400); RED CELL DISTRIBUTION WIDTH 14.4 % (10.0-14.5); WHITE BLOOD COUNT 11.5 10^3/uL (4.3-11.0)
[2019-05-11 04:18] LABS: BILIRUBIN,TOTAL 2.7 MG/DL (0.1-1.0); CALCIUM 8.7 MG/DL (8.5-10.1); CREATININE SERUM 1.25 MG/DL (0.60-1.30); POTASSIUM 3.7 MMOL/L (3.6-5.0)
[2019-05-11] MEDS: ENOXAPARIN 100 MG/1 ML (LOVENOX) SYR SC SCH ×2 (04:33→17:15)
[2019-05-11] MEDS: FUROSEMIDE 40 MG/4 ML INJ (LASIX) IVP SCH ×2 (07:00→17:15)
[2019-05-11] MEDS: ASPIRIN E.C. 81 MG (ECOTRIN) TAB PO SCH (08:03)
--- NOTE | 2019-05-11 08:14 | Cardiac Procedure Note-CS/ASA ---
Pre-Procedure Note Pre-Op Procedure Note H&P Reviewed The H&P was reviewed, patient examined and no changes noted. Date H&P Reviewed: May 10, 2019 Time H&P Reviewed: 13:00 Conscious Sedation Pre-Proced Time 13:00 ASA Score 3 For ASA 3 and 4: Consider anesthesia and medical clearance. Also, for patients with a history of failed moderate sedation consider anesthesia. Airway Lungs Heart ASA score ASA 1: a normal healthy patient ASA 2: a patient with a mild systemic disease (mid diabetes, controlled hypertension, obesity x ASA 3: a patient with a severe systemic disease that limits activity (angina, COPD, prior Myocardial infarction) ASA 4: a patient with an incapacitating disease that is a constant threat to life (CHF, renal failure) ASA 5: a moribund patient not expected to survive 24 hrs. (ruptured aneurysm) ASA 6: a declared brain- patient whose organs are being harvested. For emergent operations, add the letter E after the classification Mallampati Classification Grade 3 Sedation Plan Analgesia, Amnesia, Plan communicated to team members, Discussed options with patient/fam, Discussed risks with patient/fam The patient is an appropriate candidate to undergo the planned procedure, sedation, and anesthesia. The patient immediately re-assessed prior to indication. TRACE BERMAN MD May 11, 2019 08:14
--- NOTE | 2019-05-11 09:17 | Cardiology Progress Note ---
Subjective Date Seen by Provider: May 11, 2019 Time Seen by Provider: 09:16 Subjective/Events-last exam patient is laying down in bed, complaint of fatigue and loss of energy. No chest pain Review of Systems General: No Chills, No Night Sweats; Fatigue, Malaise; No Appetite, No Other HEENT: No Head Aches, No Visual Changes, No Eye Pain, No Ear Pain, No Dysphasia, No Sinus Congestion, No Post Nasal Drip, No Sore Throat, No Other Pulmonary: Dyspnea; No Cough, No Pleuritic Chest Pain, No Other Cardiovascular: No: Chest Pain, Palpitations, Orthopnea, Paroxysmal Noc. Dyspnea, Edema, Lt Headedness, Other Objective-Cardiology Exam Last Set of Vital Signs Vital Signs 05/11/19 07:45 Temp 97.2 Pulse 90 Resp 18 B/P (MAP) 116/93 (101) Pulse Ox 96 O2 Delivery Nasal Cannula O2 Flow Rate 2.00 Capillary Refill : Less Than 3 Seconds I&O Intake and Output 05/11/19 00:00 Intake Total 3245 ml Output Total 2675 ml Balance 570 ml Intake Oral 2245 ml IV Total 1000 ml Output Urine Total 2675 ml # Voids 1 # Bowel Movements 1 Daily Weight Change No General: Alert, Oriented X3, Cooperative HEENT: Atraumatic, PERRLA Neck: Supple, No JVD, No Thyromegaly Lungs: Clear to Auscultation, Normal Air Movement Heart: Regular Rate, Normal S1, Normal S2, No Murmurs, Other (S3 is present) Abdomen: Normal Bowel Sounds, Soft, No Tenderness, No Hepatosplenomegaly, No Masses Extremities: No Clubbing, No Cyanosis, No Edema, Normal Pulses, No Tenderness/Swelling Skin: No Rashes, No Breakdown, No Significant Lesion Neuro: Normal Gait, Normal Speech, Strength at 5/5 X4 Ext, Normal Tone, Sensation Intact Psych/Mental Status: Mental Status NL, Mood NL Results Lab Laboratory Tests 05/11/19 03:25 A/P-Cardiology Admission Diagnosis Congestive heart failure Hypertension Diabetes mellitus Shortness of breath Assessment/Plan Congestive heart failure, acute left ventricular systolic dysfunction, severe cardiomyopathy with ejection fraction 10-15 percent, echogenic density in the left ventricle most probably representing a thrombus. ischemic cardiomyopathy. Continue with maximizing medical therapy Thrombus in the left ventricle, large, aneurysmal apex and anterior wall, starting on Coumadin in addition to aspirin and monitor tolerance and response. Will evaluate viability study. Next Coronary artery disease, totally occluded LAD proximally, getting collaterals from the right system, I will evaluate viability study. Hypertension, maintained on lisinopril, monitor blood pressure Passive hepatic congestion with elevated liver enzymes. Continue to monitor Diabetes mellitus, followed and managed by primary care physician Anxiety Clinical Quality Measures DVT/VTE Risk/Contraindication: Risk Factor Score Per Nursin RFS Level Per Nursing on Admit: 1=Low/No VTE PPX TRACE BERMAN MD May 11, 2019 09:17
[2019-05-11] MEDS ORDERED: REGADENOSON 0.4 MG/5 ML SYR (LEXISCAN) IV ONE (09:30)
[2019-05-11] MEDS: warFARin 5 MG (COUMADIN) TAB PO SCH (17:15)
--- NOTE | 2019-05-11 18:20 | Progress Note (SOAP) ---
Subjective Subjective/Events-last exam Patient resting comfortably. denies any chest pain. tolerating ambulation and PO diet. Review of Systems Date Seen by Provider: May 11, 2019 Time Seen by Provider: 10:35 Pulmonary: Dyspnea, Cough Cardiovascular: No: Chest Pain, Palpitations Gastrointestinal: No: Nausea, Vomiting, Abdominal Pain Neurological: Weakness Objective Exam Last Set of Vital Signs Vital Signs Date Time Temp Pulse Resp B/P (MAP) Pulse Ox O2 Delivery O2 Flow Rate FiO2 05/11/19 16:25 96.8 89 20 109/76 (87) 92 Room Air 05/11/19 11:06 2.00 Capillary Refill : Less Than 3 Seconds I&O Intake and Output 05/11/19 00:00 Intake Total 3245 ml Output Total 2675 ml Balance 570 ml Intake Oral 2245 ml IV Total 1000 ml Output Urine Total 2675 ml # Voids 1 # Bowel Movements 1 Daily Weight Change No General: Alert, Oriented X3 Lungs: Clear to Auscultation, Normal Air Movement Heart: Regular Rate, Gallops, Other (systolic murmur) Abdomen: Normal Bowel Sounds, Soft, No Tenderness, No Masses Extremities: No Tenderness/Swelling, Other (1+ pitting) Results/Procedures Lab Laboratory Tests 05/11/19 03:25: White Blood Count 11.5H, Red Blood Count 5.60, Hemoglobin 17.2, Hematocrit 50, Mean Corpuscular Volume 89, Mean Corpuscular Hemoglobin 31, Mean Corpuscular Hemoglobin Concent 34, Red Cell Distribution Width 14.4, Platelet Count 261, Mean Platelet Volume 9.3, Neutrophils (%) (Auto) 78H, Lymphocytes (%) (Auto) 14, Monocytes (%) (Auto) 7, Eosinophils (%) (Auto) 0, Basophils (%) (Auto) 0, Neutrophils # (Auto) 9.0H, Lymphocytes # (Auto) 1.6, Monocytes # (Auto) 0.9, Eosinophils # (Auto) 0.0, Basophils # (Auto) 0.0, Sodium Level 138, Potassium Level 3.7, Chloride Level 97L, Carbon Dioxide Level 25, Anion Gap 16H, Blood Urea Nitrogen 20H, Creatinine 1.25, Estimat Glomerular Filtration Rate 60, BUN/Creatinine Ratio 16, Glucose Level 114H, Calcium Level 8.7, Corrected Calcium 8.7, Total Bilirubin 2.7H, Aspartate Amino Transf (AST/SGOT) 39H, Alanine Aminotransferase (ALT/SGPT) 69H, Alkaline Phosphatase 128, Total Protein 7.0, Albumin 4.0 Microbiology 05/10/19 MRSA Screen - Final, Complete MRSA not isolated Assessment/Plan Assessment/Plan (1) Acute CHF (congestive heart failure) Status: Acute Assessment & Plan: - Echo pending, Cardiology consulted, 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, will likely need to be started on BB, statin and increased ACEI 05/11: Echo 10-15%, cath w/o intervention, Will f/u with [facility], Will start entresto tomorrow and get lifevest Qualifiers: Qualified Codes: I50.21 - Acute systolic (congestive) heart failure (2) Cardiomegaly Status: Chronic (3) Pre-diabetes Status: Chronic Assessment & Plan: - A1c pending, Hold metformin 05/11 A1c 6.7, will restart metformin at discharge (4) HTN (hypertension) Status: Chronic Assessment & Plan: - Ok to continue Lisinopril 05/11: d/c ACEI, Will start entresto Qualifiers: Qualified Codes: I10 - Essential (primary) hypertension (5) DVT prophylaxis Status: Acute Clinical Quality Measures DVT/VTE Risk/Contraindication: Risk Factor Score Per Nursin RFS Level Per Nursing on Admit: 1=Low/No VTE PPX NATHANIEL HENDRICKS MD May 11, 2019 18:20
[2019-05-11] MEDS: CARVEDILOL 3.125 MG (COREG) TABLET PO SCH (21:00)
[2019-05-12] VITALS: BP 107/70
[2019-05-12 04:00] VITALS: BP 98/64
[2019-05-12] MEDS: NS IV 1000 ML 1,000 ML IV SCH ×2 (04:07→21:41)
[2019-05-12] MEDS: ENOXAPARIN 100 MG/1 ML (LOVENOX) SYR SC SCH ×2 (05:11→16:32)
[2019-05-12 06:04] LABS: BASOPHILS % (AUTO) 0 % (0-10); EOSINOPHILS # (AUTO) 0.1 10^3/uL (0.0-0.3); EOSINOPHILS % (AUTO) 1 % (0-10); HEMATOCRIT 50 % (40-54); HEMOGLOBIN 17.4 G/DL (13.3-17.7); LYMPHOCYTES # (AUTO) 1.8 X 10^3 (1.0-4.0); LYMPHOCYTES % (AUTO) 16 % (12-44); MEAN CORPUSCULAR HEMOGLOBIN 31 PG (25-34); MEAN CORPUSCULAR HGB CONC 35 G/DL (32-36); MEAN CORPUSCULAR VOLUME 89 FL (80-99); MEAN PLATELET VOLUME 9.5 FL (7.4-10.4); MONOCYTES # (AUTO) 0.8 X 10^3 (0.0-1.0); MONOCYTES % (AUTO) 7 % (0-12); NEUTROPHILS # (AUTO) 8.2 X 10^3 (1.8-7.8); NEUTROPHILS % (AUTO) 76 % (42-75); PLATELET COUNT 244 10^3/uL (130-400); RED CELL DISTRIBUTION WIDTH 14.1 % (10.0-14.5); WHITE BLOOD COUNT 10.9 10^3/uL (4.3-11.0)
[2019-05-12] MEDS: FUROSEMIDE 40 MG/4 ML INJ (LASIX) IVP SCH ×2 (06:13→17:14)
[2019-05-12 06:33] LABS: ALBUMIN 3.9 GM/DL (3.2-4.5); BILIRUBIN,TOTAL 2.6 MG/DL (0.1-1.0); CALCIUM 8.9 MG/DL (8.5-10.1); CREATININE SERUM 1.27 MG/DL (0.60-1.30); POTASSIUM 3.5 MMOL/L (3.6-5.0); TOTAL PROTEIN 6.9 GM/DL (6.4-8.2)
[2019-05-12 06:44] LABS: INR 1.2 (0.8-1.4); PROTHROMBIN TIME PATIENT 15.4 SEC (12.2-14.7)
[2019-05-12 07:56] VITALS: BP 102/75
[2019-05-12] MEDS: ASPIRIN E.C. 81 MG (ECOTRIN) TAB PO SCH (08:34)
[2019-05-12] MEDS: CARVEDILOL 3.125 MG (COREG) TABLET PO SCH ×2 (08:34→20:23)
--- NOTE | 2019-05-12 08:44 | Cardiology Progress Note ---
Subjective Date Seen by Provider: May 12, 2019 Time Seen by Provider: 08:41 Subjective/Events-last exam Patient is sitting up in chair, no new complaints. Denies any chest pain or dyspnea. Objective-Cardiology Exam Last Set of Vital Signs Vital Signs 05/11/19 05/12/19 11:06 07:56 Temp 98.8 Pulse 97 Resp 18 B/P (MAP) 102/75 (84) Pulse Ox 93 O2 Delivery Room Air O2 Flow Rate 2.00 Capillary Refill : Less Than 3 Seconds I&O Intake and Output 05/12/19 00:00 Intake Total 2400 ml Output Total 2575 ml Balance -175 ml Intake Oral 2400 ml Output Urine Total 2575 ml General: Alert, Oriented X3 HEENT: Atraumatic, PERRLA Neck: Supple, No JVD, No Thyromegaly Lungs: Clear to Auscultation, Normal Air Movement Heart: Regular Rate, Gallops, Other (systolic murmur) Abdomen: Normal Bowel Sounds, Soft, No Tenderness, No Masses Extremities: No Tenderness/Swelling, Other (1+ pitting) Skin: No Rashes, No Breakdown, No Significant Lesion Neuro: Normal Gait, Normal Speech, Strength at 5/5 X4 Ext, Normal Tone, Sensation Intact Psych/Mental Status: Mental Status NL, Mood NL Results Lab Laboratory Tests 05/12/19 05:22 A/P-Cardiology Admission Diagnosis Congestive heart failure Hypertension Diabetes mellitus Shortness of breath Assessment/Plan Congestive heart failure, acute left ventricular systolic dysfunction, severe cardiomyopathy with ejection fraction 10-15 percent, echogenic density in the left ventricle most probably representing a thrombus. ischemic cardiomyopathy. Continue with maximizing medical therapy Thrombus in the left ventricle, large, aneurysmal apex and anterior wall, starting on Coumadin in addition to aspirin and monitor tolerance and response. Will evaluate viability study. Coronary artery disease, totally occluded LAD proximally, getting collaterals from the right system, evaluate viability study. Hypertension, maintained on lisinopril, monitor blood pressure Passive hepatic congestion with elevated liver enzymes. Continue to monitor Diabetes mellitus, followed and managed by primary care physician Anxiety Clinical Quality Measures DVT/VTE Risk/Contraindication: Risk Factor Score Per Nursin RFS Level Per Nursing on Admit: 1=Low/No VTE PPX ARUN OREILLY May 12, 2019 08:44
--- NOTE | 2019-05-12 11:37 | NUR ---
Follow up visit with pt's , friend Juan Luis and pt. He said he anticipates being transferred to for cardiac care. Pt's encouraged him to also ask about his sleep apnea; he expressed not feeling inclined to do so because "it must not be that bad." e said no staff have mentioned sleep apnea as a problem, however his said a nurse in ICU recommended he have a sleep study. Pt is a member of the [facility]. He described strong supportive relationships with Fr. Chiang and Fr. Jin of [facility]. The pt met these priests when he lived in [place].
[2019-05-12 11:44] VITALS: BP 108/76
[2019-05-12 16:05] VITALS: BP 101/81
--- NOTE | 2019-05-12 16:16 | Progress Note (SOAP) ---
Subjective Subjective/Events-last exam Patient states that he is doing well this AM. He is very anxious. Denies any palpitations or chest pain. Review of Systems Date Seen by Provider: May 12, 2019 Time Seen by Provider: 09:45 Pulmonary: Dyspnea; No Cough Cardiovascular: Edema; No: Chest Pain, Palpitations, Orthopnea Gastrointestinal: No: Nausea, Vomiting Neurological: Weakness Objective Exam Last Set of Vital Signs Vital Signs Date Time Temp Pulse Resp B/P (MAP) Pulse Ox O2 Delivery O2 Flow Rate FiO2 05/12/19 16:05 97.6 89 20 101/81 (88) 97 Room Air 05/11/19 11:06 2.00 Capillary Refill : Less Than 3 Seconds I&O Intake and Output 05/12/19 00:00 Intake Total 2400 ml Output Total 2575 ml Balance -175 ml Intake Oral 2400 ml Output Urine Total 2575 ml General: Alert, Oriented X3, Cooperative, No Acute Distress HEENT: Mucous Memb Moist/[place] Lungs: Clear to Auscultation, Normal Air Movement Heart: Regular Rate, Other (systolic murmur) Abdomen: Normal Bowel Sounds, Soft, No Tenderness, No Masses Extremities: No Tenderness/Swelling, Other (1+ bilaterally) Skin: No Rashes, No Breakdown Neuro: Normal Speech, Strength at 5/5 X4 Ext, Sensation Intact, Cranial Nerves 3-12 NL Psych/Mental Status: Other (anxious) Results/Procedures Lab Laboratory Tests 05/12/19 05:22: White Blood Count 10.9, Red Blood Count 5.61, Hemoglobin 17.4, Hematocrit 50, Mean Corpuscular Volume 89, Mean Corpuscular Hemoglobin 31, Mean Corpuscular Hemoglobin Concent 35, Red Cell Distribution Width 14.1, Platelet Count 244, Mean Platelet Volume 9.5, Neutrophils (%) (Auto) 76H, Lymphocytes (%) (Auto) 16, Monocytes (%) (Auto) 7, Eosinophils (%) (Auto) 1, Basophils (%) (Auto) 0, Neutrophils # (Auto) 8.2H, Lymphocytes # (Auto) 1.8, Monocytes # (Auto) 0.8, Eosinophils # (Auto) 0.1, Basophils # (Auto) 0.0, Prothrombin Time 15.4H, INR C omment 1.2, Sodium Level 137, Potassium Level 3.5L, Chloride Level 94L, Carbon Dioxide Level 31, Anion Gap 12, Blood Urea Nitrogen 19H, Creatinine 1.27, Estimat Glomerular Filtration Rate 59, BUN/Creatinine Ratio 15, Glucose Level 89, Calcium Level 8.9, Corrected Calcium 9.0, Total Bilirubin 2.6H, Aspartate Amino Transf (AST/SGOT) 29, Alanine Aminotransferase (ALT/SGPT) 51, Alkaline Phosphatase 118, Total Protein 6.9, Albumin 3.9 Microbiology 05/10/19 MRSA Screen - Final, Complete MRSA not isolated Assessment/Plan Assessment/Plan (1) Acute CHF (congestive heart failure) Status: Acute Assessment & Plan: - Echo pending, Cardiology consulted, will likely go to laboratory asst, will likely need to be started on BB, statin and increased ACEI 05/11: Echo 10-15%, cath w/o intervention, Will f/u with [facility], Will sta rt entresto tomorrow and get lifevest 05/12: Viability study tomorrow then plan to d/c, will need lifevest at discharge Qualifiers: Qualified Codes: I50.21 - Acute systolic (congestive) heart failure (2) Left ventricular thrombosis Status: Acute Assessment & Plan: 05/12: Started on Coumadin, repeat PT/INR in AM (3) Cardiomegaly Status: Chronic (4) Pre-diabetes Status: Chronic Assessment & Plan: - A1c pending, Hold metformin 05/11 A1c 6.7, will restart metformin at discharge (5) HTN (hypertension) Status: Chronic Assessment & Plan: - Ok to continue Lisinopril 05/11: d/c ACEI, Will start entresto Qualifiers: Qualified Codes: I10 - Essential (primary) hypertension (6) DVT prophylaxis Status: Acute Clinical Quality Measures DVT/VTE Risk/Contraindication: Risk Factor Score Per Nursin RFS Level Per Nursing on Admit: 1=Low/No VTE PPX NATHANIEL HENDRICKS MD May 12, 2019 16:16
[2019-05-12] MEDS: warFARin 5 MG (COUMADIN) TAB PO SCH (17:14)
--- NOTE | 2019-05-12 17:28 | Cardiology Progress Note ---
Subjective Date Seen by Provider: May 12, 2019 Time Seen by Provider: 17:27 Subjective/Events-last exam patient is laying down in bed. Feeling better. No new complaint Review of Systems General: No Chills, No Night Sweats, No Fatigue, No Malaise, No Appetite, No Other HEENT: No Head Aches, No Visual Changes, No Eye Pain, No Ear Pain, No Dysphasia, No Sinus Congestion, No Post Nasal Drip, No Sore Throat, No Other Pulmonary: No Dyspnea, No Cough, No Pleuritic Chest Pain, No Other Cardiovascular: No: Chest Pain, Palpitations, Orthopnea, Paroxysmal Noc. Dyspnea, Edema, Lt Headedness, Other Objective-Cardiology Exam Last Set of Vital Signs Vital Signs 05/11/19 05/12/19 11:06 16:05 Temp 97.6 Pulse 89 Resp 20 B/P (MAP) 101/81 (88) Pulse Ox 97 O2 Delivery Room Air O2 Flow Rate 2.00 Capillary Refill : Less Than 3 Seconds I&O Intake and Output 05/12/19 00:00 Intake Total 2400 ml Output Total 2575 ml Balance -175 ml Intake Oral 2400 ml Output Urine Total 2575 ml General: Alert, Oriented X3, Cooperative, No Acute Distress HEENT: Mucous Memb Moist/[place] Neck: Supple, No JVD, No Thyromegaly Lungs: Clear to Auscultation, Normal Air Movement Heart: Regular Rate, Normal S1, Normal S2, Other (systolic murmur) Abdomen: Normal Bowel Sounds, Soft, No Tenderness, No Masses Extremities: No Tenderness/Swelling, Other (1+ bilaterally) Skin: No Rashes, No Breakdown Neuro: Normal Speech, Strength at 5/5 X4 Ext, Sensation Intact, Cranial Nerves 3-12 NL Psych/Mental Status: Other (anxious) Results Lab Laboratory Tests 05/12/19 05:22 A/P-Cardiology Admission Diagnosis Congestive heart failure Hypertension Diabetes mellitus Shortness of breath Assessment/Plan Congestive heart failure, acute left ventricular systolic dysfunction, severe cardiomyopathy with ejection fraction 10-15 percent, echogenic density in the left ventricle most probably representing a thrombus. ischemic cardiomyopathy. Continue with maximizing medical therapy Thrombus in the left ventricle, large, aneurysmal apex and anterior wall, starting on Coumadin in addition to aspirin and monitor tolerance and response, continue with viability study and evaluate tolerance and response Coronary artery disease, totally occluded LAD proximally, getting collaterals from the right system, evaluate viability study, discussed with Dr. Ernst at who will see him next week as an outpatient Hypertension, maintained on lisinopril, monitor blood pressure Passive hepatic congestion with elevated liver enzymes. Continue to monitor Diabetes mellitus, followed and managed by primary care physician Anxiety Clinical Quality Measures DVT/VTE Risk/Contraindication: Risk Factor Score Per Nursin RFS Level Per Nursing on Admit: 1=Low/No VTE PPX TRACE BERMAN MD May 12, 2019 17:28
[2019-05-12 19:43] VITALS: BP 104/74
[2019-05-13 00:05] VITALS: BP 101/77
[2019-05-13 04:41] VITALS: BP 102/70
[2019-05-13] MEDS: ENOXAPARIN 100 MG/1 ML (LOVENOX) SYR SC SCH ×2 (04:51→16:15)
[2019-05-13] MEDS: FUROSEMIDE 40 MG/4 ML INJ (LASIX) IVP SCH ×2 (05:45→17:13)
[2019-05-13 07:13] LABS: BASOPHILS % (AUTO) 0 % (0-10); EOSINOPHILS # (AUTO) 0.1 10^3/uL (0.0-0.3); EOSINOPHILS % (AUTO) 1 % (0-10); HEMATOCRIT 53 % (40-54); HEMOGLOBIN 18.9 G/DL (13.3-17.7); LYMPHOCYTES # (AUTO) 1.8 X 10^3 (1.0-4.0); LYMPHOCYTES % (AUTO) 17 % (12-44); MEAN CORPUSCULAR HEMOGLOBIN 31 PG (25-34); MEAN CORPUSCULAR HGB CONC 36 G/DL (32-36); MEAN CORPUSCULAR VOLUME 88 FL (80-99); MEAN PLATELET VOLUME 9.2 FL (7.4-10.4); MONOCYTES # (AUTO) 0.8 X 10^3 (0.0-1.0); MONOCYTES % (AUTO) 8 % (0-12); NEUTROPHILS # (AUTO) 7.9 X 10^3 (1.8-7.8); NEUTROPHILS % (AUTO) 74 % (42-75); PLATELET COUNT 278 10^3/uL (130-400); RED CELL DISTRIBUTION WIDTH 14.8 % (10.0-14.5); WHITE BLOOD COUNT 10.6 10^3/uL (4.3-11.0)
[2019-05-13 07:32] LABS: INR 1.2 (0.8-1.4); PROTHROMBIN TIME PATIENT 15.5 SEC (12.2-14.7)
[2019-05-13 07:40] LABS: ALANINE AMINOTRANSFERASE 40 U/L (0-55); ALKALINE PHOSPHATASE 108 U/L (40-136); BILIRUBIN,TOTAL 2.1 MG/DL (0.1-1.0); BUN/CREATININE RATIO 16; CARBON DIOXIDE 30 MMOL/L (21-32); CHLORIDE 94 MMOL/L (98-107); CREATININE SERUM 1.16 MG/DL (0.60-1.30); GFR ESTIMATED > 60; GLUCOSE 106 MG/DL (70-105); MAGNESIUM 2.1 MG/DL (1.8-2.4); POTASSIUM 3.4 MMOL/L (3.6-5.0); SODIUM 136 MMOL/L (135-145); TOTAL PROTEIN 7.2 GM/DL (6.4-8.2)
[2019-05-13 07:58] VITALS: BP 92/68
--- NOTE | 2019-05-13 08:42 | Cardiology Progress Note ---
Subjective Date Seen by Provider: May 13, 2019 Time Seen by Provider: 08:37 Subjective/Events-last exam patient is feeling better, had mild dyspnea but overall reporting improvement in his symptoms. Review of Systems General: No Chills, No Night Sweats, No Fatigue, No Malaise, No Appetite, No Other HEENT: No Head Aches, No Visual Changes, No Eye Pain, No Ear Pain, No Dysphasia, No Sinus Congestion, No Post Nasal Drip, No Sore Throat, No Other Pulmonary: Dyspnea; No Cough, No Pleuritic Chest Pain, No Other Cardiovascular: No: Chest Pain, Palpitations, Orthopnea, Paroxysmal Noc. Dyspnea, Edema, Lt Headedness, Other Objective-Cardiology Exam Last Set of Vital Signs Vital Signs 05/13/19 05/13/19 00:05 07:58 Temp 97.9 Pulse 94 Resp 18 B/P (MAP) 92/68 (76) Pulse Ox 96 O2 Delivery Room Air O2 Flow Rate 3.00 Capillary Refill : Less Than 3 Seconds I&O Intake and Output 05/13/19 00:00 Intake Total 1470 ml Output Total 2825 ml Balance -1355 ml Intake Oral 1470 ml Output Urine Total 2825 ml General: Alert, Oriented X3, Cooperative, No Acute Distress HEENT: Mucous Memb Moist/[place] Neck: Supple, No JVD, No Thyromegaly Lungs: Clear to Auscultation, Normal Air Movement Heart: Regular Rate, Normal S1, Normal S2, Other (systolic murmur) Abdomen: Normal Bowel Sounds, Soft, No Tenderness, No Masses Extremities: No Tenderness/Swelling, Other (1+ bilaterally) Skin: No Rashes, No Breakdown Neuro: Normal Speech, Strength at 5/5 X4 Ext, Sensation Intact, Cranial Nerves 3-12 NL Psych/Mental Status: Other (anxious) Results Lab Laboratory Tests 05/13/19 06:42 A/P-Cardiology Admission Diagnosis Congestive heart failure Hypertension Diabetes mellitus Shortness of breath Assessment/Plan Congestive heart failure, acute left ventricular systolic dysfunction, severe cardiomyopathy with ejection fraction 10-15 percent, echogenic density in the left ventricle most probably representing a thrombus. ischemic cardiomyopathy. Continue with maximizing medical therapy, maintained on Coreg, I will add Entresto High risk of sudden , planning to put the LifeVest Thrombus in the left ventricle, large, aneurysmal apex and anterior wall, continue on Lovenox and Coumadin until his INR is over 2 Coronary artery disease, totally occluded LAD proximally, getting collaterals from the right system, evaluate viability study, discussed with Dr. Ernst at who will see him next week as an outpatient Hypertension, was on lisinopril, it was stopped on admission, has been off ELLIS inhibitor for over 48 hours, will start Entresto Passive hepatic congestion with elevated liver enzymes. Continue to monitor Diabetes mellitus, followed and managed by primary care physician Anxiety Clinical Quality Measures DVT/VTE Risk/Contraindication: Risk Factor Score Per Nursin RFS Level Per Nursing on Admit: 1=Low/No VTE PPX TRACE BERMAN MD May 13, 2019 08:42
[2019-05-13] MEDS ORDERED: SACU1TAB PO (08:44)
[2019-05-13] MEDS ORDERED: WARF5TAB PO (08:44)
[2019-05-13] MEDS ORDERED: FURO-124 PO (08:44)
[2019-05-13] MEDS ORDERED: ASPI-983 PO (08:44)
[2019-05-13] MEDS ORDERED: CARV3.122 PO (08:44)
[2019-05-13] MEDS ORDERED: ENOX100D4 SC (08:44)
[2019-05-13] MEDS ORDERED: POTA10TA PO (08:44)
[2019-05-13] MEDS: ASPIRIN E.C. 81 MG (ECOTRIN) TAB PO SCH (09:29)
[2019-05-13] MEDS: CARVEDILOL 3.125 MG (COREG) TABLET PO SCH (09:29)
--- NOTE | 2019-05-13 10:45 | NUR ---
CM/SS spoke with [facility] Rep, they were inquiring about if patient would qualify for Medicaid. Attempted to check with our financial services and was referred to Financial services in [place]. They [facility] with [facility]
--- NOTE | 2019-05-13 11:16 | Discharge Summary ---
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, will likely need to be started on BB, statin and increased ACEI 05/11: Echo 10-15%, cath w/o intervention, Will f/u with [facility], Will start entresto tomorrow and get lifevest 05/12: Viability study tomorrow then plan to d/c, will need lifevest at discharge Qualifiers: Qualified Codes: I50.21 - Acute systolic (congestive) heart failure Status: Acute (2) Left ventricular thrombosis Assessment & Plan: 05/12: Started on Coumadin, repeat PT/INR in AM Status: Acute (3) Cardiomegaly Status: Chronic (4) Pre-diabetes Assessment & Plan: - A1c pending, Hold metformin 05/11 A1c 6.7, will restart metformin at discharge Status: Chronic (5) HTN (hypertension) Assessment & Plan: - Ok to continue Lisinopril 05/11: d/c ACEI, Will start entresto Qualifiers: Qualified Codes: I10 - Essential (primary) hypertension Status: Chronic (6) DVT prophylaxis Status: Acute Chief Complaint/HPI Chief Complaint/HPI 53 yo M that presented with increasing shortness of breath. States that he has been having breathing problems on and off for the last year but he has not been to the doctor much because of alot of stress. States that he lost his step mother and father earlier this year. States that in the last few weeks it has become very difficult for him to ambulate due to shortness of breath. Denies any chest pain. States that he takes meds for PreDM and HTN only. Denies any other symptoms. Discharge Summary-Simple/Stand Consultations Discharge Physical Examination Allergies: Coded Allergies: No Known Drug Allergies (Unverified , 03/09/17) Vitals & I&Os Vital Sign - Last 12Hours Date Time Temp Pulse Resp B/P (MAP) Pulse Ox O2 Delivery O2 Flow Rate FiO2 05/13/19 08:00 93 Room Air 05/13/19 07:58 97.9 94 18 92/68 (76) 05/13/19 00:05 3.00 Intake and Output 05/13/19 00:00 Intake Total 1470 ml Output Total 2525 ml Balance -1055 ml Hospital Course See final discharge diagnosis. Discharge Instructions to patient/family Please see electronic discharge instructions given to patient. Discharge Medications Reviewed and agree with Discharge Medication list on patient's Discharge Instruction sheet Clinical Quality Measures DVT/VTE Risk/Contraindication: Risk Factor Score Per Nursin RFS Level Per Nursing on Admit: 1=Low/No VTE PPX NATHANIEL HENDRICKS MD May 13, 2019 11:16
--- NOTE | 2019-05-13 11:26 | Discharge Instructions ---
Discharge Inst-[facility] Discharge Medications New, Converted or Re-Newed RX: Other (Some at repository and some at pharm) New Medications: PENDING: Furosemide (Lasix) 40 Mg Tablet 40 MG PO DAILY, #30 TAB 3 Refills PENDING: Potassium Chloride (K-Tab ER) 10 Meq Tablet.er 10 MEQ PO DAILY, #30 TAB 3 Refills PENDING: Sacubitril/Valsartan (Entresto 24 mg-26 mg Tablet) 1 Each Tablet 1 TAB PO BID, #60 TAB 2 Refills PENDING: Aspirin (Aspirin EC) 81 Mg Tablet.dr 81 MG PO DAILY, #100 TAB 2 Refills PENDING: Carvedilol (Carvedilol) 3.125 Mg Tablet 3.125 MG PO BID, #60 TAB 2 Refills PENDING: Enoxaparin Sodium (Enoxaparin Sodium) 100 Mg/1 Ml Syringe 90 MG SC Q12H, #10 SYRINGE PENDING: Warfarin Sodium (Coumadin) 5 Mg Tablet 5 MG PO DAILY@1800, #30 TAB 2 Refills Discontinued Medications: Lisinopril (Lisinopril) 20 Mg Tablet 20 MG PO DAILY, TAB Metformin HCl (Metformin HCl ER) 500 Mg Tab.er.24 500 MG PO DAILY, TAB Patient Instructions Goal/Follow Up Appt: You have a f.u appt with Brigette Tate on 05/18 @940 AM You need to come in to [facility] lab on Thursday for PT/INR Patient Instructions: - 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
[2019-05-13 11:40] VITALS: BP 111/82
--- NOTE | 2019-05-13 13:01 | NUR ---
CM/SS financial services did not feel that the patient would qualify for Medicaid. The [facility] will assist with the $500 down payment for the LifeVest. We will use the PALS program to help with the Lovenox cost as the [facility] does not have this medication.
[2019-05-13] MEDS ORDERED: ENOX120D SQ (13:16)
--- NOTE | 2019-05-13 15:28 | NUR ---
Pt shared that he began the year by cleaning out his step-mother's home, which was emotionally and physically taxing due to years of hoarding behaviors. During which time he was stressed and neglected his personal health. Pt describes some felt guilt about not taking care of himself better, sooner. Fr. Chiang blessed him with sacrament of the sick yesterday. Offered active listening for stressors, encouraged reflection and positive coping.
[2019-05-13 16:00] VITALS: BP 102/68
--- NOTE | 2019-05-13 16:05 | NUR ---
worked with dr granda on getting enoxaparin injections covered via PALS program. was able to get cost to $44 for a 5 day course at [facility] with PALS program. ok to do enoxaparin 1.5mg/kg sq daily (120mg) x 5 days.
--- NOTE | 2019-05-13 17:13 | STRESS TEST ---
DATE OF SERVICE: 05/12/2019 PROCEDURE: Viability study with thallium and 24-hour redistribution study. PROCEDURE NOTE: The patient was injected with 3.14 mCi of thallium-201 and the resting images were obtained, returned 24 hours later and a stress dose of 1.05 mCi of thallium-201 and redistribution images were acquired. The resting and redistribution images were acquired and reviewed in the short axis, horizontal long axis, and vertical long axis views. Review of the images showed significant lung uptake affecting the quality of the images. There is decreased uptake at the anterior wall, patchy uptake, slight improvement in the anterior wall suggestive of viable myocardium. CONCLUSION: 1. Overall, challenging study with increased pulmonary uptake and patchy uptake. 2. Questionable viable myocardium involving the anterior wall. 3. Dilated left ventricle. Job ID: [id number] DocumentID: [id number] Dictated Date: 05/13/2019 14:35:37 Termite Exterminator Helper Date: 05/13/2019 17:13:00 Dictated By: TRACE BERMAN MD
[2019-05-13 17:49] VITALS: BP 102/68
[2019-05-13] MEDS: warFARin 5 MG (COUMADIN) TAB PO SCH (17:59)
== END 2019-05-13 18:15 | disposition home or self-care (01) | DRG 286 ==
LOC: EDUNIT# 20:06 → ER 20:07 → 4TH 22:12 → ICU 05-10 16:15 → 4TH 05-11 11:05
PROVIDERS: ADMIT Family Medicine; ATTEND Family Medicine
PROC: B2111ZZ Fluoroscopy of Multiple Coronary Arteries using Low Osmolar Contrast (ICD-10-PCS; principal; 2019-05-10)
DX: I11.0 Hypertensive heart disease with heart failure (principal); I50.21 Acute systolic (congestive) heart failure; I24.0 Acute coronary thrombosis not resulting in myocardial infarction; I25.5 Ischemic cardiomyopathy; I25.10 Atherosclerotic heart disease of native coronary artery without angina pectoris; I25.82 Chronic total occlusion of coronary artery; R73.03 Prediabetes; K76.1 Chronic passive congestion of liver; F41.9 Anxiety disorder, unspecified; R25.3 Fasciculation
CPT/HCPCS: 36415; 70450; 71045; 71275; 78452; 80053; 80061; 83036; 83735; 83880; 84443; 84484; 85025; 85027; 85379; 85610; 87081; 93005; 93017; 93306; 93454; 93970; 94640; 96374; 96375

== ENCOUNTER 2019-12-21 07:48 | Day surgery (SDC) | payer MEDICAID ==
[2019-12-21] VITALS (15 sets, daily range): BP systolic 87–166; BP diastolic 60–85
[~2019-12-21] VITALS: Ht 177.8 cm; Wt 74.3 kg
[~2019-12-21 07:48] MED LIST changes: +ASPI-983 PO; +CARV3.122 PO; +ENOX100D4 SC; +ENOX120D SQ; +FURO-124 PO; +LISI-552 PO; +METF-478 PO; +POTA10TA PO; +SACU1TAB2 PO; +WARF5TAB PO
[2019-12-21] MEDS ORDERED: NS IV 1000 ML 1,000 ML IV ONE (07:50)
[2019-12-21] MEDS ORDERED: LIDOCAINE 1% INJ 20 ML 20 ML VIAL ONE (07:52)
[2019-12-21] MEDS ORDERED: NS IV 1000 ML 1,000 ML ONE (07:52)
[2019-12-21] MEDS ORDERED: HEParin (CATH LAB) 1,000 ML IV ONE (07:52)
[2019-12-21] MEDS ORDERED: ceFAZolin INJECTION 1,000 MG ONE (07:52)
[2019-12-21] MEDS ORDERED: BACITRACIN INJECTION 50,000 UNIT, SODIUM CHLORIDE 0.9% IRRIGATIO 500 ML IR ONE ×2 (08:00)
[2019-12-21] MEDS ORDERED: ceFAZolin INJECTION 1,000 MG VIAL IV ONE (08:00)
[2019-12-21 08:25] LABS: BILIRUBIN,URINE NEGATIVE (NEGATIVE); CLARITY,URINE CLEAR; COLOR,URINE YELLOW; GLUCOSE, URINE (UA) NEGATIVE (NEGATIVE); KETONES,URINE NEGATIVE (NEGATIVE); LEUKOCYTE ESTERASE ,URINE NEGATIVE (NEGATIVE); NITRITE,URINE NEGATIVE (NEGATIVE); PROTEIN,URINE NEGATIVE (NEGATIVE)
[2019-12-21 08:28] LABS: HEMOGLOBIN 15.2 G/DL (13.3-17.7); MEAN PLATELET VOLUME 9.3 FL (7.4-10.4); RED CELL DISTRIBUTION WIDTH 13.9 % (10.0-14.5); WHITE BLOOD COUNT 6.5 10^3/uL (4.3-11.0)
[2019-12-21 08:34] LABS: BACTERIA,URINE NEGATIVE /HPF; SQUAMOUS EPITHELIAL CELL,UR RARE /HPF
[2019-12-21 08:40] LABS: INR 1.8 (0.8-1.4); PROTHROMBIN TIME PATIENT 21.2 SEC (12.2-14.7)
[2019-12-21 08:45] LABS: ALANINE AMINOTRANSFERASE 12 U/L (0-55); ALBUMIN 4.5 GM/DL (3.2-4.5); ALKALINE PHOSPHATASE 72 U/L (40-136); BILIRUBIN,TOTAL 0.7 MG/DL (0.1-1.0); BUN/CREATININE RATIO 10; CALCIUM 9.6 MG/DL (8.5-10.1); CARBON DIOXIDE 25 MMOL/L (21-32); CHLORIDE 104 MMOL/L (98-107); CREATININE SERUM 1.13 MG/DL (0.60-1.30); GFR ESTIMATED > 60; GLUCOSE 79 MG/DL (70-105); POTASSIUM 4.2 MMOL/L (3.6-5.0); SODIUM 141 MMOL/L (135-145); TOTAL PROTEIN 7.4 GM/DL (6.4-8.2)
--- NOTE | 2019-12-21 08:48 | Diagnostic Imaging Report ---
INDICATION: Preop for ICD placement. TIME OF EXAM: 08:21 a.m. COMPARISON: Correlation is made with prior chest from 05/09/2019. FINDINGS: Heart is enlarged but stable. The lungs appear clear. No infiltrates are seen. There is no effusion or pneumothorax. IMPRESSION: No acute cardiopulmonary process is detected. Dictated by: Dictated on workstation # [id number]
[2019-12-21] MEDS ORDERED: METF500T19 PO (08:52)
[2019-12-21] MEDS ORDERED: LISI2.5T PO (08:52)
[2019-12-21] MEDS ORDERED: SPIR25TA PO (08:52)
[2019-12-21] MEDS ORDERED: WARF-48 PO (08:52)
[2019-12-21] MEDS ORDERED: POTA10CA43 PO (08:52)
[2019-12-21] MEDS ORDERED: MTP25TSR PO (08:52)
[2019-12-21] MEDS ORDERED: ASPI-999 PO (08:52)
[2019-12-21] MEDS ORDERED: FURO-125 PO (08:59)
--- NOTE | 2019-12-21 09:00 | NUR ---
SPOKE WITH THE PT (HE HAD HIS MED BOTTLES) WELL CALLING [facility] TO COMPLETE THE MED REC. PT WAS ABLE TO TELL ME ALL HIS MEDS WELL HOW/WHEN HE TAKES EACH. WARFARIN 5MG: PT SAID DUE TO HIS INR HIS DOSE WAS RECENTLY CHANGED, HE WAS TAKING 5MG DAILY BUT NOW IS TAKING 7.5MG EVERY OTHER DAY (HE TAKES 1 & OF A 5MG TAB) THE FOLLOWING ARE FILL DATES ACCORDING TO [facility]: 11-05-2019 FUROSEMIDE #30 11-05-2019 WARFARIN 5MG #30 11-12-2019 LISINOPRIL #30/30DS 11-18-2019 METFORMIN ER #60/30DS 11-19-2019 METOPROLOL ER 25MG #15/30DS 11-29-2019 SPIRONOLACTONE #30/30DS 12-05-2019 POTASSIUM #30/30DS OTC MEDS: ASPIRIN
[2019-12-21] MEDS ORDERED: fentaNYL INJECTION 100 MCG/2 ML AMP ONE (10:00)
[2019-12-21] MEDS ORDERED: MIDAZOLAM 5 MG/5 ML (VERSED) VIAL ONE (10:00)
--- NOTE | 2019-12-21 10:05 | Cardiac Procedure Note-CS/ASA ---
Pre-Procedure Note Pre-Op Procedure Note H&P Reviewed The H&P was reviewed, patient examined and no changes noted. Date H&P Reviewed: Dec 21, 2019 Time H&P Reviewed: 10:05 Conscious Sedation Pre-Proced Time 10:05 ASA Score 3 For ASA 3 and 4: Consider anesthesia and medical clearance. Also, for patients with a history of failed moderate sedation consider anesthesia. Airway Lungs Heart ASA score ASA 1: a normal healthy patient ASA 2: a patient with a mild systemic disease (mid diabetes, controlled hypertension, obesity x ASA 3: a patient with a severe systemic disease that limits activity (angina, COPD, prior Myocardial infarction) ASA 4: a patient with an incapacitating disease that is a constant threat to life (CHF, renal failure) ASA 5: a moribund patient not expected to survive 24 hrs. (ruptured aneurysm) ASA 6: a declared brain- patient whose organs are being harvested. For emergent operations, add the letter E after the classification Mallampati Classification Grade 3 Sedation Plan Analgesia, Amnesia, Plan communicated to team members, Discussed options with patient/fam, Discussed risks with patient/fam The patient is an appropriate candidate to undergo the planned procedure, sedation, and anesthesia. The patient immediately re-assessed prior to indication. TRACE BERMAN MD Dec 21, 2019 10:05
[2019-12-21] MEDS ORDERED: NS IV 1000 ML 1,000 ML IV SCH (11:50)
--- NOTE | 2019-12-21 11:50 | ICD Implantation ---
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 PROCEDURE PERFORMED: 1. Single-chamber ICD implantation. 2. Implantable loop recorder explantation. 3. Venogram. 4. DFT testing. COMPLICATIONS: None. ESTIMATED BLOOD LOSS: 20 mL. SPECIMENS: None. ANESTHESIA: Conscious sedation. ORAL ANTICOAGULATION: None. FLUOROSCOPY TIME: 2.12 FLUOROSCOPY DOSE: 12 mGy PROCEDURE DETAILS: After all the questions were answered, an informed consent was taken. All the risks and complication were explained in detail. The patient was brought to the EP lab. The patient's right and left chest was prepped and draped in the usual sterile fashion. A 2-inch horizontal incision was made 1 cm below the clavicle and dissection carried down to the pectoralis fascia. IV antibiotics were administered prior to first incision. Under fluoroscopic guidance, access was gained in the axillary vein and a regular J-wire was placed. We then introduced a sheath into the axillary vein. A ICD lead was inserted. This is a single- coiled ICD lead. The RV lead was inserted across the tricuspid valve to an apical septal portion of the RV. The lead position was checked in STARR and HURLEY view. The screw was deployed and lead connected to the clinical programmer. Good sensing and pacing thresholds were obtained. Diaphragmatic pacing was ruled out. The lead was secured with 2-0 Vicryl nonabsorbable sutures. The lead was secured to the underlying muscle and fascia. We then took an ICD generator and the lead was connected to the device in a hermetic fashion. The device and it was placed in the pocket. Aggressive irrigation with normal saline solution was done. Interrogation of the device revealed good integrity of the leads and connection. The wound was closed using 2 layers. The first layer was an interrupted 2-0 Vicryl. The second layer was an uninterrupted 4-0 Vicryl suture. Half inch Steri-Strips and a small dressing was then applied to the wound. No DFT testing was done due to to left ventricular apical thrombus. DEVICE INFORMATION: [employer] MRI Serial [id number] Lead Serial [id number] DEVICE INTERROGATION IMMEDIATELY POSTOP: R-wave 11.5 mV, pacing impedance 589, HVB impedance 63, HBX impedance 60, the pacing 0.5 V at 0.4 ms PLAN: The patient will be observed for 23 hours. We will continue with two more dosages of IV antibiotics. We will check a chest x-ray and interrogate the device in the morning. An EKG will be done as well. If everything checks out, the patient will be discharged tomorrow. CONCLUSION: Implantation of single chamber ICD with no complication No DFT testing due to left ventricular apical thrombus FINAL DIAGNOSIS: congestive heart failure, chronic compensated left ventricular systolic dysfunction, nonischemic cardiomyopathy TRACE GRESHAM MD Dec 21, 2019 11:50
[2019-12-21] MEDS ORDERED: PATIENT MAY USE OWN MEDS, ALL PO SCH (12:00)
--- NOTE | 2019-12-21 13:12 | Diagnostic Imaging Report ---
INDICATION: Post pacemaker. FINDINGS: Battery for the device overlies the left chest. There is no pneumothorax or pneumomediastinum. There is no failure pattern or pneumonia. IMPRESSION: Clear, well-expanded lungs. No pneumothorax, hemorrhage, or other pleural pathology. Dictated by: Dictated on workstation # [id number]
[2019-12-21] MEDS: ceFAZolin INJECTION 1,000 MG in WATER (STERILE) FOR INJECTION 10 ML IV SCH (17:23)
[2019-12-21] MEDS ORDERED: ACETAMINOPHEN 325 MG TABLET ONE (19:48)
[2019-12-21] MEDS ORDERED: ACETAMINOPHEN 325 MG TABLET PO PRN (20:00)
[2019-12-22] VITALS: BP 87/62
[2019-12-22] MEDS: ceFAZolin INJECTION 1,000 MG in WATER (STERILE) FOR INJECTION 10 ML IV SCH ×2 (02:55→08:48)
[2019-12-22 04:00] VITALS: BP 87/63
[2019-12-22 08:00] VITALS: BP 101/75
[2019-12-22] MEDS ORDERED: CEPH-507 PO (08:03)
--- NOTE | 2019-12-22 08:05 | Cardiology Progress Note ---
Subjective Date Seen by Provider: Dec 22, 2019 Time Seen by Provider: 08:04 Subjective/Events-last exam Patient is laying down in bed, no complaint Review of Systems General: No Chills, No Night Sweats, No Fatigue, No Malaise, No Appetite, No Other HEENT: No Head Aches, No Visual Changes, No Eye Pain, No Ear Pain, No Dysphasia, No Sinus Congestion, No Post Nasal Drip, No Sore Throat, No Other Pulmonary: No Dyspnea, No Cough, No Pleuritic Chest Pain, No Other Cardiovascular: No: Chest Pain, Palpitations, Orthopnea, Paroxysmal Noc. Dyspnea, Edema, Lt Headedness, Other Objective-Cardiology Exam Last Set of Vital Signs Vital Signs Capillary Refill : Less Than 3 Seconds I&O Intake and Output 12/22/19 00:00 Intake Total 1550 ml Output Total 900 ml Balance 650 ml Intake Oral 1550 ml Output Urine Total 900 ml Daily Weight Change No General: Alert, Oriented X3, Cooperative HEENT: Atraumatic, PERRLA Neck: Supple, No JVD, No Thyromegaly Lungs: Clear to Auscultation, Normal Air Movement Heart: Regular Rate, Normal S1, Normal S2, No Murmurs Abdomen: Normal Bowel Sounds, Soft, No Tenderness, No Hepatosplenomegaly, No Masses Extremities: No Clubbing, No Cyanosis, No Edema, Normal Pulses, No Tenderness/Swelling Skin: No Rashes, No Breakdown, No Significant Lesion Neuro: Normal Gait, Normal Speech, Strength at 5/5 X4 Ext, Normal Tone, Sensation Intact Psych/Mental Status: Mental Status NL, Mood NL Results Lab Laboratory Tests 12/21/19 08:16 A/P-Cardiology Admission Diagnosis Congestive heart failure, chronic compensated left ventricular systolic dysfunction, ischemic cardiomyopathy Coronary artery disease Cardiac pacemaker Hypotension Assessment/Plan Congestive heart failure, chronic compensated left ventricular systolic dysfunction, ischemic cardiomyopathy, ejection fraction 20 percent Status post single-chamber ICD implant for primary prevention Coronary artery disease, chronic total occlusion of the LAD Apical thrombus noted on echo Borderline hypotension secondary to medication Clinical Quality Measures DVT/VTE Risk/Contraindication: Risk Factor Score Per Nursin RFS Level Per Nursing on Admit: 4+=Very High TRACE BERMAN MD Dec 22, 2019 08:05
--- NOTE | 2019-12-22 08:10 | NUR ---
DR BERMAN ORDERED NURSE TO CHANGE PT ICD DRESSING BEFORE DC.
--- NOTE | 2019-12-22 10:45 | NUR ---
THIS NURSE EDUCATED PT AND FAMILY ON DISCHARGE INSTRUCTIONS AND HOME MEDICATION. PT AND FAMILY STATED UNDERSTANDING. PT TAKEN DOWN TO CAR VIA WHEELCHAIR WITH BELONGINGS.
[2019-12-22 11:38] VITALS: BP 101/75
== END 2019-12-22 11:00 | disposition home or self-care (01) ==
LOC: CATH 07:48 → ICU 12:43 → CATH 12-22 11:00
PROVIDERS: ATTEND Internal Medicine Cardiovascular Disease
DX: I11.0 Hypertensive heart disease with heart failure (principal); I50.22 Chronic systolic (congestive) heart failure; I42.8 Other cardiomyopathies; I08.1 Rheumatic disorders of both mitral and tricuspid valves; I25.10 Atherosclerotic heart disease of native coronary artery without angina pectoris; F41.9 Anxiety disorder, unspecified; E11.9 Type 2 diabetes mellitus without complications; Z79.899 Other long term (current) drug therapy; Z79.84 Long term (current) use of oral hypoglycemic drugs; Z83.3 Family history of diabetes mellitus; Z82.49 Family history of ischemic heart disease and other diseases of the circulatory system
CPT/HCPCS: 33249; 36415; 71045; 80053; 81000; 82962; 85027; 85610; 85730; 87081; 93005

== ENCOUNTER 2020-01-06 18:09 | Emergency (ER) | payer MEDICAID ==
[~2020-01-06] VITALS: Ht 167 cm; Wt 73.0 kg
[~2020-01-06 18:09] MED LIST changes: +ASPI-999 PO; +CEPH-507 PO; +FURO-125 PO; +LISI2.5T PO; +METF500T19 PO; +MTP25TSR PO; +POTA10CA43 PO; +SPIR25TA PO; +WARF-48 PO
--- NOTE | 2020-01-06 18:51 | ED Upper Extremity ---
General Chief Complaint: Upper Extremity Stated Complaint: LEFT SHOULDER PAIN Nursing Triage Note: patient states had an ICD implanted left side Nov. states last night slept on left side, now complaint of left shouder and left arm pain. Nursing Sepsis Screen: No Definite Risk Source: patient Exam Limitations: no limitations History of Present Illness Date Seen by Provider: Jan 06, 2020 Time Seen by Provider: 18:48 Initial Comments To ER with left shoulder pain, this began this morning upon awakening after he slept on his left side last night, he had an ICD placed a few weeks ago here by Dr. Gresham. He denies any shortness of breath or cough. Severity: moderate Pain/Injury Location: left shoulder Method of Injury: unknown Modifying Factors: Worse With Movement Allergies and Home Medications Allergies Coded Allergies: No Known Drug Allergies (Unverified , 03/09/17) Home Medications Aspirin 81 Mg Tab.chew, 81 MG PO DAILY, (Reported) Cephalexin 500 Mg Capsule, 500 MG PO BID Prescribed by: TRACE GRESHAM on 12/22/19 0803 Furosemide 20 Mg Tablet, 20 MG PO DAILY PRN for FLUID RETENTION , (Reported) USE IF THERE IS MORE THEN 2LB WEIGHT GAIN OVER 48 HOURS Lisinopril 2.5 Mg Tablet, 2.5 MG PO DAILY, (Reported) Metformin HCl 500 Mg Tab.er.24h, 500 MG PO BID, (Reported) Metoprolol Succinate 25 Mg Tab.er.24h, 12.5 MG PO DAILY, (Reported) TAKES OF A 25MG TAB Potassium Chloride 10 Meq Capsule.er, 10 MEQ PO DAILY, (Reported) Spironolactone 25 Mg Tablet, 25 MG PO DAILY, (Reported) Warfarin Sodium 5 Mg Tablet, 7.5 MG PO Q48H, (Reported) TAKES 1 & OF A 5MG TAB TO EQUAL 7.5MG EVERY 48 HOURS TAKES IN THE EVENING Patient Home Medication List Home Medication List Reviewed: Yes Review of Systems Constitutional: see HPI EENTM: see HPI Respiratory: no symptoms reported Cardiovascular: no symptoms reported Genitourinary: no symptoms reported Musculoskeletal: no symptoms reported Skin: no symptoms reported Past Qjregkq-Adtaem-Shzlgc Hx Patient Social History 2nd Hand Smoke Exposure: No Recent Foreign Travel: No Contact w/Someone Who Travel: No Recent Infectious Disease Expo: No Recent Hopitalizations: No Immunizations Up To Date Tetanus Booster (TDap): Unknown Date of Pneumonia Vaccine: Nov 04, 2019 Date of Influenza Vaccine: Oct 05, 2019 Seasonal Allergies Seasonal Allergies: No Past Medical History Surgeries: No Respiratory: No Cardiac: Yes Cardiomyopathy, Coronary Artery Disease Neurological: No Reproductive Disorders: No Genitourinary: No Gastrointestinal: No Musculoskeletal: No Endocrine: Yes Diabetes, Non-Insulin dep HEENT: No Cancer: No Psychosocial: No Integumentary: No Blood Disorders: No Adverse Reaction/Blood Tranf: No Physical Exam Vital Signs Vital Signs - First Documented 01/06/20 18:27 Temp 36.9 Pulse 85 Resp 20 B/P (MAP) 96/66 (76) Pulse Ox 100 Capillary Refill : Less Than 3 Seconds Height, Weight, BMI Height: 5'11.00" Weight: 179lbs. 5.0oz. 81.396577nj; 26.00 BMI Method:Stated General Appearance: WD/WN, no apparent distress HEENT: PERRL/EOMI, normal ENT inspection Respiratory: no respiratory distress, no accessory muscle use Gastrointestinal: normal bowel sounds Shoulder: normal inspection, no evidence of injury Elbow/Forearm: normal inspection, non-tender Neurologic/Psychiatric: alert, oriented x 3 Skin: normal color, warm/dry There is a dressing in place over the anterior left chest wall without surrounding cellulitis or erythema, there is some minor yellowish ecchymosis at the inferior aspect of the wound. His shoulder pain is worsened by certain positions and by movement. Progress/Results/Core Measures Results/Orders My Orders Orders - CECY WOLFF APRN Chest 1 View, Ap/Pa Only (01/06/20 18:46) Shoulder, Left, 3 Views (01/06/20 18:46) Vital Signs/I&O 01/06/20 18:27 Temp 36.9 Pulse 85 Resp 20 B/P (MAP) 96/66 (76) Pulse Ox 100 Blood Pressure Mean: 76 Departure Impression Primary Impression: Left shoulder pain Qualified Codes: M25.512 - Pain in left shoulder Disposition: 01 HOME, SELF-CARE Condition: Stable Departure-Patient Inst. Decision time for Depature: 18:50 Referrals: [facility] (PCP/Family) Primary Care Physician Patient Instructions: Shoulder Pain (DC) Add. Discharge Instructions: 1. Return to ER for any concerns 2. Follow-up with your doctor next week 3. All discharge instructions reviewed with patient and/or family. Voiced understanding. CECY WOLFF APRN Jan 06, 2020 18:50
--- NOTE | 2020-01-06 19:17 | Diagnostic Imaging Report ---
PA chest is compared with prior study from December 21, 2019. INDICATION: Left shoulder pain since pacemaker placement. FINDINGS: Positioning of the patient's implantable defibrillator appears appropriate and unchanged. There is no lead discontinuity. There are no findings of pneumothorax. Lungs are clear. There is no effusion. There is stable size of the cardiac silhouette with no current findings of failure. No suspicious osseous abnormality evident. IMPRESSION: Stable positioning of the patient's implantable cardiac defibrillator. No complicating features evident. Lungs clear. There is no pneumothorax. There is no pleural collection. No osseous abnormality is demonstrated. There are no findings to suggest edema or failure. Dictated by: Dictated on workstation # [id number]
--- NOTE | 2020-01-06 19:18 | Diagnostic Imaging Report ---
INDICATION: Shoulder pain after pacemaker placement. FINDINGS: Glenohumeral joint and acromioclavicular joint alignment appear appropriate. There are mild arthritic changes at the AC joint. There are no findings of an acute fracture or suspicious bone lesion. Visualized left lung clear without pneumothorax. IMPRESSION: Mild AC joint osteoarthritic changes. Otherwise negative radiographs of left shoulder. Patient's implantable defibrillator is noted. Visualized portion of left lung demonstrates no abnormality. Dictated by: Dictated on workstation # [id number]
[2020-01-06 19:20] VITALS: BP 96/66
== END 2020-01-06 19:20 | disposition home or self-care (01) ==
LOC: EDUNIT# 18:09 → ER 18:10
DX: M25.512 Pain in left shoulder (principal); I25.10 Atherosclerotic heart disease of native coronary artery without angina pectoris; E11.9 Type 2 diabetes mellitus without complications; Z79.82 Long term (current) use of aspirin; Z79.84 Long term (current) use of oral hypoglycemic drugs; Z79.01 Long term (current) use of anticoagulants
CPT/HCPCS: 71045; 73030

== ENCOUNTER 2020-01-10 13:46 | Inpatient (IN) | payer MEDICAID ==
[~2020-01-10] VITALS: Ht 177.8 cm; Wt 76.3 kg
[2020-01-10] VITALS (12 sets, daily range): BP systolic 88–101; BP diastolic 56–65
[2020-01-10] MEDS ORDERED: NS IV 1000 ML 1,000 ML ONE (13:53)
[2020-01-10] MEDS ORDERED: HEParin (CATH LAB) 1,000 ML IV ONE (13:53)
[2020-01-10] MEDS ORDERED: ceFAZolin INJECTION 1,000 MG ONE (13:53)
[2020-01-10] MEDS ORDERED: LIDOCAINE 1% INJ 20 ML 20 ML VIAL ONE (13:53)
[2020-01-10] MEDS ORDERED: NS (IVPB) 50 ML ONE (13:55)
[2020-01-10] MEDS ORDERED: ceFAZolin 1,000 MG/SWFI 10 ML IV PUSH IV SCH ×2 (14:00)
[2020-01-10] MEDS ORDERED: VANCOMYCIN 1 GM/NS 250 ML IVPB IV SCH ×2 (14:15)
[2020-01-10] MEDS ORDERED: CATHETER FLUSH 10 ML SYR IV PRN (14:15)
[2020-01-10] MEDS ORDERED: NS IV 1000 ML 1,000 ML IV SCH ×2 (14:15→16:07)
[2020-01-10] MEDS: NS IV 1000 ML 1,000 ML IV SCH (14:16)
[2020-01-10 14:33] LABS: HEMOGLOBIN 15.7 G/DL (13.3-17.7); MEAN PLATELET VOLUME 9.9 FL (7.4-10.4); RED CELL DISTRIBUTION WIDTH 14.3 % (10.0-14.5); WHITE BLOOD COUNT 10.6 10^3/uL (4.3-11.0)
[2020-01-10] MEDS ORDERED: WARF-48 PO (14:41)
--- NOTE | 2020-01-10 14:42 | NUR ---
SPOKE WITH THE AND CALLED [facility] TO COMPLETE THE MED REC. WARFARIN: PT ALTERNATES BETWEEN TAKING 5MG AND 7.5MG (HE TAKES 1 & TABS OF THE 5MG) THE FOLLOWING ARE FILL DATES FROM [facility]: 11-05-2019 LASIX 20MG #30/ONLY TAKES PRN 11-19-2019 METOPROLOL ER 25 #15/30DS (I NOTED THIS PAST DUE FILL ON THE MED REC) 12-05-2019 LISINOPRIL 2.5MG #30/30DS 12-26-2019 WARFARIN 5MG #30 12-26-2019 SPIRONOLACTONE 25MG #30/30DS 12-26-2019 METFORMIN ER 500 #60/30DS 01-09-2020 POTASSIUM CHLO 10 MEQ #30/30DS OTC MEDS: ASPIRIN 81MG
[2020-01-10 14:54] LABS: PROTHROMBIN TIME PATIENT 23.2 SEC (12.2-14.7)
[2020-01-10] MEDS ORDERED: fentaNYL INJECTION 100 MCG/2 ML AMP ONE (14:56)
[2020-01-10] MEDS ORDERED: MIDAZOLAM 5 MG/5 ML (VERSED) VIAL ONE (14:56)
[2020-01-10] MEDS ORDERED: BACITRACIN INJECTION 50,000 UNIT, SODIUM CHLORIDE 0.9% IRRIGATIO 500 ML IR ONE ×2 (15:00)
--- NOTE | 2020-01-10 15:00 | Cardiac Procedure Note-CS/ASA ---
Pre-Procedure Note Pre-Op Procedure Note H&P Reviewed The H&P was reviewed, patient examined and no changes noted. Date H&P Reviewed: Jan 10, 2020 Time H&P Reviewed: 15:00 Conscious Sedation Pre-Proced Time 15:00 ASA Score 3 For ASA 3 and 4: Consider anesthesia and medical clearance. Also, for patients with a history of failed moderate sedation consider anesthesia. Airway Lungs Heart ASA score ASA 1: a normal healthy patient ASA 2: a patient with a mild systemic disease (mid diabetes, controlled hypertension, obesity x ASA 3: a patient with a severe systemic disease that limits activity (angina, COPD, prior Myocardial infarction) ASA 4: a patient with an incapacitating disease that is a constant threat to life (CHF, renal failure) ASA 5: a moribund patient not expected to survive 24 hrs. (ruptured aneurysm) ASA 6: a declared brain- patient whose organs are being harvested. For emergent operations, add the letter E after the classification Mallampati Classification Grade 3 Sedation Plan Analgesia, Amnesia, Plan communicated to team members, Discussed options with patient/fam, Discussed risks with patient/fam The patient is an appropriate candidate to undergo the planned procedure, sedation, and anesthesia. The patient immediately re-assessed prior to indication. TRACE BERMAN MD Jan 10, 2020 3:00 pm
[2020-01-10 15:04] LABS: ALANINE AMINOTRANSFERASE 57 U/L (0-55); ALBUMIN 4.3 GM/DL (3.2-4.5); ALKALINE PHOSPHATASE 119 U/L (40-136); BILIRUBIN,TOTAL 2.2 MG/DL (0.1-1.0); BUN/CREATININE RATIO 14; CALCIUM 9.8 MG/DL (8.5-10.1); CARBON DIOXIDE 23 MMOL/L (21-32); CHLORIDE 96 MMOL/L (98-107); CHOLESTEROL 145 MG/DL (< 200); CREATININE SERUM 1.07 MG/DL (0.60-1.30); GFR ESTIMATED > 60; GLUCOSE 114 MG/DL (70-105); HDL CHOLESTEROL 48 MG/DL (40-60); POTASSIUM 3.7 MMOL/L (3.6-5.0); SODIUM 133 MMOL/L (135-145); TOTAL PROTEIN 8.2 GM/DL (6.4-8.2); TRIGLYCERIDES 94 MG/DL (<150); VLDL CHOLESTEROL 19 MG/DL (5-40)
[2020-01-10] MEDS ORDERED: BACITRACIN 50000 UNITS/500 ML NS IR ONE ×2 (15:15)
[2020-01-10] MEDS ORDERED: FUROSEMIDE 20 MG (LASIX) TAB PO PRN (16:15)
[2020-01-10] MEDS ORDERED: PATIENT MAY USE OWN MEDS, ALL PO SCH (16:15)
--- NOTE | 2020-01-10 16:15 | Cardiac Procedure Note ---
Cardiology Procedures Date of Procedure 01/10/20 extraction of single-chamber ICD and extraction of pacemaker lead 54 years old gentleman with history of severe cardiomyopathy, underwent single- chamber ICD implantation on December 21, 2019, return for office visit today and noted to have significant pain at the pacemaker site and there was pus discha rge. I decided to admit him immediately and started empiric antibiotic and proceeded with extraction of the device. After explaining the procedure to the patient on Prozac causes were explained patient was placed on the cardiac catheterization laboratory, conscious sedation achieved with Versed and fentanyl, local anesthesia applied and skin incision was made, significant amount of pus came out. I took a small piece of tissue and fluid from the pocket for culture then the [employer]onic device with serial num morales [id number] was removed and the lead with serial number [id number] were removed and sent for culture, the pocket was irrigated with antibiotic solution and antibiotic gauze was placed in the pocket then it was retrieved and repeat irrigation was made. Iodoform packing strip was placed in the pocket and the pocket was left open. Conclusion: Successful retrieval of single-chamber ICD and an ICD lead without complication Pocket packing with iodoform strip TRACE BERMAN MD Jan 10, 2020 16:14
--- NOTE | 2020-01-10 17:54 | Diagnostic Imaging Report ---
INDICATION: Infected ICD site, with the ICD removed. Defibrillator pads in place. EXAMINATION: Chest 01/10/2020 COMPARISON: 01/06/2020 FINDINGS: A single portable frontal view of the chest demonstrates a linear density overlying the left chest likely a defibrillator pad, as described. Correlate clinically. The previously noted left-sided pacemaker has been removed in the interval. There is a vague heterogeneity or densities with interposed lucencies in the region of the previous device, most likely along the overlying skin. A definite pneumothorax is not seen. No significant effusions. Right lung unremarkable. IMPRESSION: 1. Findings in the left upper chest which are described above, likely all postoperative in nature. Remaining chest unremarkable. Dictated by: Dictated on workstation # [id number]
[2020-01-10] MEDS: ACETAMINOPHEN 325 MG TABLET PO PRN (18:01)
[2020-01-10] MEDS: metFORMIN XR 500 MG (GLUCOPHAGE XR) TAB PO SCH (18:02)
[2020-01-10] MEDS: warFARin 5 MG (COUMADIN) TAB PO SCH (18:58)
--- NOTE | 2020-01-10 20:56 | Consultation - Surgery ---
History of Present Illness History of Present Illness Patient Consulted On(sandy/time) 01/10/20 20:51 Date Seen by Provider: Jan 10, 2020 Time Seen by Provider: 16:51 History of Present Illness Consult requested by Dr. Gresham for infected pacemaker. 54 years old male who underwent placement of pacemaker on December 21, 2019, saw Dr. Gresham today and noted to have significant pain at the pacemaker site and there was purulent discharge. Patient states pain at the site. No radiation of pain. Moderate pain. Notice to be red and purulent material coming from pocket. Nothing made better and nothing made worse. Patient went to chemical lab supervisor and had device and lead removed. Purulent material was cultured. He states he is feeling well. He has no other compliants at this time. Denies n/v fever sweats chills shortness of breath or chest pain. Allergies and Home Medications Allergies Coded Allergies: No Known Drug Allergies (Unverified , 03/09/17) Home Medications Aspirin 81 Mg Tab.chew, 81 MG PO DAILY, (Reported) Furosemide 20 Mg Tablet, 20 MG PO DAILY PRN for FLUID RETENTION , (Reported) USE IF THERE IS MORE THEN 2LB WEIGHT GAIN OVER 48 HOURS Lisinopril 2.5 Mg Tablet, 2.5 MG PO DAILY, (Reported) Metformin HCl 500 Mg Tab.er.24h, 500 MG PO BID, (Reported) Metoprolol Succinate 25 Mg Tab.er.24h, 12.5 MG PO DAILY, (Reported) TAKES OF A 25MG TAB LAST FILLED 11-19-2019 #15/ 30 DAY SUPPLY Potassium Chloride 10 Meq Capsule.er, 10 MEQ PO DAILY, (Reported) Spironolactone 25 Mg Tablet, 25 MG PO DAILY, (Reported) Warfarin Sodium 5 Mg Tablet, 5 MG PO Q48H, (Reported) ALTERNATES BETWEEN 5MG AND 7.5MG EVERY OTHER DAY Warfarin Sodium 5 Mg Tablet, 7.5 MG PO Q48H, (Reported) TAKES 1 & OF THE 5MG TO EQUAL 7.5MG EVERY OTHER DAY. ALTERNATES BETWEEN 5MG AND 7.5MG Patient Home Medication List Home Medication List Reviewed: Yes Past Apdghue-Ivykje-Vfkpyg Hx Patient Social History Alcohol Use: Denies Use Recreational Drug Use: No Smoking Status: Never a Smoker 2nd Hand Smoke Exposure: No Recent Foreign Travel: No Contact w/Someone Who Travel: No Recent Infectious Disease Expo: No Recent Hopitalizations: Yes (ICD 12/21/19) Physical Abuse Screen: No Sexual Abuse: No Immunizations Up To Date Tetanus Booster (TDap): Unknown PED Vaccines UTD: No Date of Pneumonia Vaccine: Oct 30, 2019 Date of Influenza Vaccine: Oct 05, 2019 Seasonal Allergies Seasonal Allergies: No Surgeries History of Surgeries: Yes Respiratory History of Respiratory Disorde: No Cardiovascular History of Cardiac Disorders: Yes Cardiac Disorders: Cardiomyopathy, Coronary Artery Disease Neurological History of Neurological Disord: No Reproductive System Hx Reproductive Disorders: No Sexually Transmitted Disease: No HIV/AIDS: No Genitourinary History of Genitourinary Disor: No Gastrointestinal History of Gastrointestinal Di: No Musculoskeletal History of Musculoskeletal Dis: No Endocrine History of Endocrine Disorders: Yes Endocrine Disorders: Diabetes, Non-Insulin dep HEENT History of HEENT Disorders: No Cancer History of Cancer: No Psychosocial History of Psychiatric Problem: No Integumentary History of Skin or Integumenta: No Blood Transfusions History of Blood Disorders: No Adverse Reaction to a Blood Tr: No Reviewed Nursing Assessment Reviewed/Agree w Nursing PMH: Yes Family Medical History Significant Family History: No Pertinent Family Hx Review of Systems-General Constitutional: No chills, No diaphoresis EENTM: No hearing loss, No blurred vision, No double vision Respiratory: No cough, No dyspnea on exertion Cardiovascular: chest pain (pacemaker site) Gastrointestinal: No abdominal pain, No constipation, No hematemesis Genitourinary: No decreased output, No discharge Musculoskeletal: No back pain, No joint pain Skin: change in color Psychiatric/Neurological: Denies Anxiety, Denies Depressed Physical Exam-General Problems Physical Exam Vital Signs Vital Signs - First Documented 01/10/20 14:03 Temp 39.0 Pulse 128 Resp 16 B/P (MAP) 101/57 (72) Pulse Ox 97 O2 Delivery Room Air Capillary Refill : General Appearance: no apparent distress HEENT: PERRL/EOMI Neck: supple, normal inspection Respiratory: chest non-tender, no respiratory distress, no accessory muscle use Cardiovascular: regular rate, rhythm Gastrointestinal: non tender, soft, no organomegaly Rectal: deferred Back: no CVA tenderness, no vertebral tenderness Extremities: non-tender, normal inspection Neurologic/Psychiatric: territory service representative II-XII nml as tested, no motor/sensory deficits, alert, normal mood/affect, oriented x 3 Skin: other (open pocket left upper chest, clean, packed with iodoform) Lymphatic: no adenopathy Data Review Labs Laboratory Tests 01/10/20 14:15: White Blood Count 10.6, Red Blood Count 5.07, Hemoglobin 15.7, Hematocrit 44, Mean Corpuscular Volume 87, Mean Corpuscular Hemoglobin 31, Mean Corpuscular Hemoglobin Concent 35, Red Cell Distribution Width 14.3, Platelet Count 287, Mean Platelet Volume 9.9, Erythrocyte Sedimentation Rate 27, Prothrombin Time 23.2H, INR Comment 2.0H, Activated Partial Thromboplast Time 44H, Sodium Level 133L, Potassium Level 3.7, Chloride Level 96L, Carbon Dioxide Level 23, Anion Gap 14, Blood Urea Nitrogen 15, Creatinine 1.07, Estimat Glomerular Filtration Rate > 60, BUN/Creatinine Ratio 14, Glucose Level 114H, Lactic Acid Level 2.89*H , Calcium Level 9.8, Corrected Calcium 9.6, Total Bilirubin 2.2H, Aspartate Amino Transf (AST/SGOT) 45H, Alanine Aminotransferase (ALT/SGPT) 57H, Alkaline Phosphatase 119, Total Protein 8.2, Albumin 4.3, Triglycerides Level 94, Cholesterol Level 145, LDL Cholesterol Direct 85, VLDL Cholesterol 19, HDL Cholesterol 48 01/10/20 19:53: Lactic Acid Level 1.01 Microbiology 01/10/20 Gram Stain, Resulted Pending 01/10/20 Anaerobic Culture, Resulted Pending 01/10/20 Surgical Culture - Preliminary, Resulted 01/10/20 Gram Stain, Resulted Pending 01/10/20 Anaerobic Culture, Resulted Pending 01/10/20 Surgical Culture - Preliminary, Resulted Assessment/Plan Assessment/Plan Assessment/Plan infected pacemaker pocket, s/p removal await cultures continue antibiotics irrigate and pack daily with iodoform guaze will follow. Clinical Quality Measures DVT/VTE Risk/Contraindication: Risk Factor Score Per Nursin RFS Level Per Nursing on Admit: 4+=Very High AURELIO LOVE DO Jan 10, 2020 20:56
[2020-01-10] MEDS: ceFAZolin INJECTION 1,000 MG in WATER (STERILE) FOR INJECTION 10 ML IV SCH (22:08)
[2020-01-11] VITALS: BP 96/73
[2020-01-11] MEDS: ACETAMINOPHEN 325 MG TABLET PO PRN (02:21)
[2020-01-11 04:00] VITALS: BP 96/67
[2020-01-11 04:01] LABS: HEMOGLOBIN 12.9 G/DL (13.3-17.7); MEAN PLATELET VOLUME 9.3 FL (7.4-10.4); RED CELL DISTRIBUTION WIDTH 14.5 % (10.0-14.5); WHITE BLOOD COUNT 8.1 10^3/uL (4.3-11.0)
[2020-01-11 04:18] LABS: INR 2.2 (0.8-1.4); PROTHROMBIN TIME PATIENT 25.3 SEC (12.2-14.7)
[2020-01-11 04:25] LABS: ALANINE AMINOTRANSFERASE 35 U/L (0-55); ALBUMIN 3.5 GM/DL (3.2-4.5); ALKALINE PHOSPHATASE 92 U/L (40-136); BILIRUBIN,TOTAL 1.3 MG/DL (0.1-1.0); BUN/CREATININE RATIO 17; CALCIUM 8.7 MG/DL (8.5-10.1); CARBON DIOXIDE 23 MMOL/L (21-32); CHLORIDE 102 MMOL/L (98-107); CREATININE SERUM 0.84 MG/DL (0.60-1.30); GFR ESTIMATED > 60; GLUCOSE 99 MG/DL (70-105); POTASSIUM 4.2 MMOL/L (3.6-5.0); SODIUM 135 MMOL/L (135-145); TOTAL PROTEIN 6.4 GM/DL (6.4-8.2)
[2020-01-11] MEDS: ceFAZolin INJECTION 1,000 MG in WATER (STERILE) FOR INJECTION 10 ML IV SCH (06:24)
[2020-01-11] MEDS: metFORMIN XR 500 MG (GLUCOPHAGE XR) TAB PO SCH ×2 (06:33→17:01)
[2020-01-11] MEDS: KCL 10 MEQ TAB (MICRO K) PO SCH (06:33)
[2020-01-11] MEDS ORDERED: GENTAMICIN 40 MG/ML 2 ML INJ SDV IV SCH (08:15)
--- NOTE | 2020-01-11 08:20 | NUR ---
PTD VANCOMYCIN AND GENTAMYCIN LABS: SCR 0.84 (CRCL ~ 100) CULTURES: STAPH PLAN: GENTAMICIN 1MG/KG IV Q 8 HOURS (SYNERGY DOSING) VANCOMYCIN 1,000MG IV Q 12 HOURS (NEXT DOSE @ 0900) FIRST DOSE GIVEN PREOP 01/10 @ 1400, PLAN FOR TROUGH LEVEL ON 01/12 @ 0800.
[2020-01-11 08:30] VITALS: BP 113/77
[2020-01-11] MEDS: SPIRONOLACTONE 25 MG (ALDACTONE) TAB PO SCH (08:43)
[2020-01-11] MEDS: lisINopril 5 MG (PRINIVIL) TABLET PO SCH (08:43)
[2020-01-11] MEDS: GENTAMICIN 80 MG/NS 100 ML IVPB IV SCH ×4 (08:43→17:01)
[2020-01-11] MEDS: ASPIRIN 81 MG CHEW (CHILDREN'S ASA) PO SCH (08:43)
[2020-01-11] MEDS ORDERED: VANCOMYCIN INJECTION 1,000 MG in NS (IVPB) 250 ML IV SCH (09:00)
[2020-01-11] MEDS ORDERED: NON-FORMULARY MEDICATION 1 EA EA (Lisinopril 2.5 MG) PO SCH (09:00)
[2020-01-11] MEDS ORDERED: NON-FORMULARY MEDICATION 1 EA EA (Potassium Chloride 10 MEQ) PO SCH (09:00)
--- NOTE | 2020-01-11 10:04 | Diagnostic Imaging Report ---
INDICATION: Pacemaker removal with staph infection. Comparison made with prior examination 01/10/2020. FINDINGS: There is mild cardiomegaly. Mediastinum is unremarkable. There is no pleural effusion or pneumothorax. There appears to be a surgical drain overlying the left chest. This is presumably in the subcutaneous tissues. IMPRESSION: No acute cardiopulmonary abnormality. Mild cardiomegaly. Surgical drain overlying the left upper chest presumably within subcutaneous tissues. Dictated by: Dictated on workstation # [id number]
[2020-01-11] MEDS: VANCOMYCIN INJECTION 1,000 MG in NS (IVPB) 250 ML IV SCH ×2 (10:18→21:46)
--- NOTE | 2020-01-11 12:53 | Progress Note - Surgery ---
Subjective Date Seen by a Provider: Jan 11, 2020 Time Seen by a Provider: 12:47 Subjective/Events-last exam No new complaints. No drainage. Pain minimal. Denies n/v fever sweats chills shortness of breath or chest pain. Focused Exam Lactate Level 01/10/20 14:15: Lactic Acid Level 2.89*H 01/10/20 19:53: Lactic Acid Level 1.01 Objective Exam Vital Signs Date Time Temp Pulse Resp B/P (MAP) Pulse Ox O2 Delivery O2 Flow Rate FiO2 01/11/20 08:30 37.2 114 16 113/77 (89) 99 Room Air 01/11/20 08:00 Room Air 01/11/20 08:00 Room Air 01/11/20 06:49 93 01/11/20 04:00 37.2 105 16 96/67 (77) 94 Room Air 01/11/20 04:00 92 Room Air 01/11/20 01:18 87 01/11/20 00:00 92 Room Air 01/11/20 00:00 36.6 85 16 96/73 (81) 97 Room Air 01/10/20 22:00 78 94/63 (73) 97 Room Air 01/10/20 21:00 92 Room Air 01/10/20 21:00 85 92/60 (71) 93 Room Air 01/10/20 20:00 36.7 99 16 89/56 (67) 91 Room Air 01/10/20 20:00 92 Room Air 01/10/20 19:21 36.8 01/10/20 19:03 101 01/10/20 18:45 98 18 92/57 (69) 96 Room Air 01/10/20 18:15 103 18 91/59 (70) 01/10/20 18:01 37.8 01/10/20 17:45 104 18 92/60 (71) 01/10/20 17:15 38.4 111 18 98/65 (76) 01/10/20 16:45 37.6 109 18 93/61 (72) 01/10/20 16:30 37.6 109 18 88/60 (69) 01/10/20 16:20 110 18 100/57 (71) 96 Room Air 01/10/20 16:05 114 18 98/65 (76) 94 Room Air 01/10/20 14:30 94 Room Air 01/10/20 14:03 39.0 128 16 101/57 (72) 97 Room Air I & O 01/11/20 07:00 Intake Total 1000 ml Output Total 1425 ml Balance -425 ml Capillary Refill : Less Than 3 Seconds General Appearance: No Apparent Distress, WD/WN HEENT: PERRL/EOMI, Normal ENT Inspection Neck: Full Range of Motion, Non Tender Respiratory: Chest Non Tender, No Accessory Muscle Use Cardiovascular: Regular Rate, Rhythm Gastrointestinal: non tender, soft, no organomegaly Extremity: Normal Capillary Refill, Normal Range of Motion, Non Tender, No Calf Tenderness Neurologic/Psychiatric: Alert, Oriented x3, loop tender II-XII Norm as Tested Skin: Warm/Dry (minimal erythema) Lymphatic: No Adenopathy Results Lab Laboratory Tests 01/10/20 14:15: White Blood Count 10.6, Red Blood Count 5.07, Hemoglobin 15.7, Hematocrit 44, Mean Corpuscular Volume 87, Mean Corpuscular Hemoglobin 31, Mean Corpuscular Hemoglobin Concent 35, Red Cell Distribution Width 14.3, Platelet Count 287, Mean Platelet Volume 9.9, Erythrocyte Sedimentation Rate 27, Prothrombin Time 23.2H, INR Comment 2.0H, Activated Partial Thromboplast Time 44H, Sodium Level 133L, Potassium Level 3.7, Chloride Level 96L, Carbon Dioxide Level 23, Anion Gap 14, Blood Urea Nitrogen 15, Creatinine 1.07, Estimat Glomerular Filtration Rate > 60, BUN/Creatinine Ratio 14, Glucose Level 114H, Lactic Acid Level 2.89*H , Calcium Level 9.8, Corrected Calcium 9.6, Total Bilirubin 2.2H, Aspartate Amino Transf (AST/SGOT) 45H, Alanine Aminotransferase (ALT/SGPT) 57H, Alkaline Phosphatase 119, Total Protein 8.2, Albumin 4.3, Triglycerides Level 94, Nelly sterol Level 145, LDL Cholesterol Direct 85, VLDL Cholesterol 19, HDL Cholesterol 48 01/10/20 19:53: Lactic Acid Level 1.01 01/11/20 03:50: White Blood Count 8.1, Red Blood Count 4.11L, Hemoglobin 12.9L, Hematocrit 37L, Mean Corpuscular Volume 89, Mean Corpuscular Hemoglobin 31, Mean Corpuscular Hemoglobin Concent 35, Red Cell Distribution Width 14.5, Platelet Count 183, Mean Platelet Volume 9.3, Prothrombin Time 25.3H, INR Comment 2.2H, Sodium Level 135, Potassium Level 4.2, Chloride Level 102, Carbon Dioxide Level 23, Anion Gap 10, Blood Urea Nitrogen 14, Creatinine 0.84, Estimat Glomerular Filtration Rate > 60, BUN/Creatinine Ratio 17, Glucose Level 99, Calcium Level 8.7, Corrected Calcium 9.1, Total Bilirubin 1.3H, Aspartate Amino Transf (AST/SGOT) 28, Alanine Aminotransferase (ALT/SGPT) 35, Alkaline Phosphatase 92, Total Protein 6.4, Albumin 3.5 Microbiology 01/10/20 Gram Stain, Resulted Pending 01/10/20 Anaerobic Culture, Resulted Pending 01/10/20 Surgical Culture - Preliminary, Resulted 01/10/20 Gram Stain, Resulted Pending 01/10/20 Anaerobic Culture, Resulted Pending 01/10/20 Surgical Culture - Preliminary, Resulted Staphylococcus aureus 01/10/20 Blood Culture - Preliminary, Resulted Staphylococcus aureus Assessment/Plan Assessment/Plan Assessment/Plan infected pacemaker pocket, s/p removal staph aureus- await sensitivities continue antibiotics irrigate and pack daily with iodoform guaze will follow. Clinical Quality Measures DVT/VTE Risk/Contraindication: Risk Factor Score Per Nursin RFS Level Per Nursing on Admit: 4+=Very High AURELIO LOVE DO Jan 11, 2020 12:53
[2020-01-11 13:00] VITALS: BP 132/81
--- NOTE | 2020-01-11 13:15 | Consultation - Hospitalist ---
JOSE CARLOS MUHAMMAD,MED STUDENT 01/11/20 1315: HPI History of Present Illness: HPI/Chief Complaint CC: Infected Pacemaker pocket HPI: Mr. Montoya is S/P placemaker placement on 12/21/19. He states he had an extensive cariac workup in October through [facility]. At that time he states his civil engineer helper there and Dr. Gresham decided an ICD placement was his best option until the patient could have an LVAD placed. He was previously wearing a lifevest since [facility]. Mr. Montoya states he developed pain on 01/06 at the pacemaker site. He was seen in the ER on that day. Xrays showed good placement of the device. He began to notice an increase in pain and some purulent discharge and blood from the site yesterday 01/10. He was seen in the office by Dr. Gresham and admitted to the hospital following the removal of the ICD and lead. Today, he states the pain is mostly located in his left upper chest and left arm. He denies any fevers, chills, nausea, vomiting, sweats, SOB, or other chest pain. Source: patient Exam Limitations: no limitations Date Seen 01/11/20 Attending Physician Adis Gresham MD PCP Center/[facility] Referring Physician Date of Admission Jan 10, 2020 at 13:48 Home Medications & Allergies Home Medications Reviewed patient Home Medication Reconciliation performed by pharmacy medication reconciliations lock technician and/or nursing. Patients Allergies have been reviewed. Allergies Allergies Coded Allergies No Known Drug Allergies (Unverified03/09/17) Past Vfgbluk-Pvtetz-Ctyuer Hx Patient Social History Marrital Status: Alcohol Use: Denies Use Recreational Drug Use: No Smoking Status: Never a Smoker 2nd Hand Smoke Exposure: No Physical Abuse Screen: No Sexual Abuse: No Recent Foreign Travel: No Contact w/other who traveled: No Recent Hopitalizations: Yes (ICD 12/21/19) Recent Infectious Disease Expo: No Immunizations Up To Date Tetanus Booster (TDap): Unknown Pediatric: No Date of Pneumonia Vaccine: Oct 30, 2019 Date of Influenza Vaccine: Oct 05, 2019 Seasonal Allergies Seasonal Allergies: No Past Medical History Currently Using CPAP: No Currently Using BIPAP: No Cardiac: Cardiomyopathy, Coronary Artery Disease, Hypertension Reproductive: No Sexually Transmitted Disease: No HIV/AIDS: No Endocrine: Diabetes, Non-Insulin dep Are Your Blood Sugars Over 250: No History of Blood Disorders: No Adverse Reaction to Blood Bravo: No Family History No Pertinent Family Hx Review of Systems Constitutional: No chills, No fever, No malaise EENTM: No blurred vision, No double vision Respiratory: No cough, No dyspnea on exertion, No short of breath Cardiovascular: chest pain (at area of pacemaker site); No palpitations, No syn cope Gastrointestinal: No nausea, No vomiting Genitourinary: No dysuria, No frequency Musculoskeletal: joint pain (left shoulder pain); No muscle pain Skin: other (open incision from pacemaker removal) Psychiatric/Neurological: Denies Headache, Denies Weakness Physical Exam Physical Exam Vital Signs Vital Signs - First Documented 01/10/20 14:03 Temp 39.0 Pulse 128 Resp 16 B/P (MAP) 101/57 (72) Pulse Ox 97 O2 Delivery Room Air Capillary Refill : Less Than 3 Seconds Height, Weight, BMI Height: 5'11.00" Weight: 179lbs. 5.0oz. 81.699309bs; 22.42 BMI Method:Stated General Appearance: No Apparent Distress, WD/WN Eyes: Bilateral Eye PERRL, Bilateral Eye EOMI HEENT: PERRL/EOMI, Normal ENT Inspection Neck: Full Range of Motion, Non Tender Respiratory: Chest Non Tender, Lungs Clear, Normal Breath Sounds, No Accessory Muscle Use, No Respiratory Distress Cardiovascular: Regular Rate, Rhythm, No Murmur Gastrointestinal: Normal Bowel Sounds, Non Tender, Soft Extremity: No Calf Tenderness, No Pedal Edema Neurologic/Psychiatric: Alert, Oriented x3 Skin: Warm/Dry, Other (dry, clean dressing over left chest) Lymphatic: No Adenopathy Results Results/Procedures Labs Laboratory Tests 01/10/20 14:15 01/11/20 03:50 Patient resulted labs reviewed. Imaging CXR 01/11/20 FINDINGS: There is mild cardiomegaly. Mediastinum is unremarkable. There is no pleural effusion or pneumothorax. There appears to be a surgical drain overlying the left chest. This is presumably in the subcutaneous tissues. IMPRESSION: No acute cardiopulmonary abnormality. Assessment/Plan Assessment and Plan Assess & Plan/Chief Complaint Assessment: Infected ICD pocket - S/P removal Bacteremia with Presumed Endocarditis CAD Plan: Continue IV antibiotics, course of 6 weeks with endocarditis presumed Discussed need for more permanent IV site due to duration of IV antibiotics needed Continue home medications Wound care daily as directed - irrigate and pack daily with iodoform final cultures pending Clinical Quality Measures DVT/VTE Risk/Contraindication: Risk Factor Score Per Nursin RFS Level Per Nursing on Admit: 4+=Very High SYLVIA RICCI DO 01/11/201920: HPI History of Present Illness: HPI/Chief Complaint CC: Staph bacteremia HPI: This is a 54yoWM known to me from prior hospital stay who has a low ejection fraction who had an ICD placed a few weeks ago, came in with pustular drainage from the area and ling-cultured, placed on Vancomycin and Ancef empirically and found to have bacteremia of Staph. I initiated a dose of Gentamicin combined with Vanc, discontinued the Ancef and noted that even the leads of the ICD was contaminated with staph. At this current time Pt denies any pain. Past Tplehfn-Ynxcyn-Wfcvjl Hx Past Med/Social Hx: Reviewed Nursing Past Med/Soc Hx, Reviewed and Corrections made Patient Social History Marrital Status: Employed/Student: unemployed Alcohol Use: Denies Use Smoking Status: Never a Smoker Past Medical History Cardiac: Cardiomyopathy, Coronary Artery Disease, Hypertension Review of Systems Constitutional: see HPI Cardiovascular: chest pain (at area of pacemaker site) Physical Exam Physical Exam General Appearance: No Apparent Distress, WD/WN, Chronically ill Eyes: Bilateral Eye Normal Inspection, Bilateral Eye PERRL HEENT: PERRL/EOMI, Normal ENT Inspection, Pharynx Normal Neck: Full Range of Motion, Normal Inspection, Non Tender, Supple, Carotid Bruit Respiratory: Chest Non Tender, Lungs Clear, Normal Breath Sounds, No Accessory Muscle Use, No Respiratory Distress Cardiovascular: Regular Rate, Rhythm, No Edema, No Gallop, No JVD, No Murmur, Normal Peripheral Pulses Gastrointestinal: Normal Bowel Sounds, No Organomegaly, No Pulsatile Mass, Non Tender, Soft Back: Normal Inspection, No CVA Tenderness, No Vertebral Tenderness Extremity: Normal Capillary Refill, Normal Inspection, Normal Range of Motion, Non Tender, No Calf Tenderness, No Pedal Edema Neurologic/Psychiatric: Alert, Oriented x3, No Motor/Sensory Deficits, Normal Mood/Affect Skin: Normal Color, Warm/Dry Lymphatic: No Adenopathy Assessment/Plan Assessment and Plan Assess & Plan/Chief Complaint Await sensitivity Empiric abx in meantime Diagnosis/Problems Diagnosis/Problems (1) Pacemaker infection (2) Cardiomyopathy (3) Bacteremia (4) History of Coumadin therapy (5) Diabetes Supervisory-Addendum Brief Verification & Attestation Participated in pt care: history, MDM, physical Personally performed: exam, history, MDM, supervision of care Care discussed with: Medical Student Procedures: n/a Results interpretation: Verified all documentation Verification and Attestation of Medical Student E/M Service A medical student performed and documented this service in my presence. I reviewed and verified all information documented by the medical student and made modifications to such information, when appropriate. I personally performed the physical exam and medical decision making. Sylvia Ricci, Jan 11, 2020,19:21 JOSE CARLOS MUHAMMAD MED STUDENT Jan 11, 2020 13:15 SYLVIA RICCI DO Jan 11, 2020 19:21
--- NOTE | 2020-01-11 14:34 | Cardiology History & Physical ---
HPI-Cardiology Cardiology Consultation Date of Consultation 01/11/20 Date of Admission Time Seen by Provider: 14:00 Indication: Infected ICD pocket HPI Patient is a 54 y/o male with history of ischemic cardiomyopathy with EF 10-15%. Underwent ICD implantation on 12/21/2019. Called to our office yesterday with c/o pain and discharge from implantation site. Upon seeing patient in clinic, he was noted to have purulent drainage from ICD implantation site. C/o associated generalized fatigue. Denies any F/C/NS. Upon seeing patient in our office, he was immediately admitted to hospital for retrieval of ICD. PMH-Cardiology Immunizations Up To Date Tetanus Booster (DTap): Unknown Date of Pneumonia Vaccine: Oct 30, 2019 Date of Influenza Vaccine: Oct 05, 2019 Seasonal Allergies Seasonal Allergies: No Surgeries Yes Respiratory No Cardiovascular Yes Heart Attack, Cardiomyopathy, Congestive Heart Failure Neurological No Reproductive System Hx Reproductive Disorders: No Sexually Transmitted Disease: No HIV/AIDS: No Genitourinary No Gastrointestinal No Musculoskeletal No Endocrine Yes Diabetes, Non-Insulin dep HEENT No Cancer No Psychosocial No Integumentary No Blood Transfusions No Adverse Rxn to Transfusion: No Social History Patient Social History Marrital Status: Alcohol Use: Denies Use Recreational Drug Use: No Recent Foreign Travel: No Contact w/other who traveled: No Recent Infectious Disease Expo: No Family Hx Significant Family History: No Pertinent Family Hx ROS-Cardiology Review of Systems General: No Chills, No Night Sweats; Fatigue, Malaise; No Appetite HEENT: No Head Aches, No Visual Changes, No Dysphasia, No Sore Throat Pulmonary: No Dyspnea, No Cough Cardiovascular: No: Chest Pain, Palpitations, Paroxysmal Noc. Dyspnea, Edema Gastrointestinal: No: Nausea, Vomiting, Abdominal Pain Genitourinary: No Dysuria, No Hematuria Musculoskeletal: shoulder pain (left shoulder pain); No: neck pain, back pain Neurological: No: Weakness, Numbness, Change in speech, Confusion Home Medications & Allergies Allergies: Coded Allergies: No Known Drug Allergies (Unverified , 03/09/17) Home Medication List Reviewed: Yes Exam-Cardiology Vital Signs Vital Signs Date Time Temp Pulse Resp B/P (MAP) Pulse Ox O2 Delivery O2 Flow Rate FiO2 01/11/20 16:00 Room Air 01/11/20 13:00 37.5 108 18 132/81 (98) 95 Exam General Appearance: Alert, Oriented X3, Cooperative, No Acute Distress HEENT: Atraumatic, PERRLA Respiratory: Clear to Auscultation, Normal Air Movement Cardiovascular: Regular Rate, Normal S1, Normal S2, No Murmurs Abdominal: Normal Bowel Sounds, Soft, No Tenderness, No Hepatosplenomegaly, No Masses Extremities: No Clubbing, No Cyanosis, No Edema, Normal Pulses, No Tenderness/Swelling Skin: Other (C/D/I dressing at ICD retrieval site) Neuro: Normal Speech, Cranial Nerves 3-12 NL Psych/Mental Status: Mental Status NL, Mood NL Results Labs Labs Laboratory Tests 01/10/20 19:53: Lactic Acid Level 1.01 01/11/20 03:50: White Blood Count 8.1, Red Blood Count 4.11L, Hemoglobin 12.9L, Hematocrit 37L, Mean Corpuscular Volume 89, Mean Corpuscular Hemoglobin 31, Mean Corpuscular Hemoglobin Concent 35, Red Cell Distribution Width 14.5, Platelet Count 183, Mean Platelet Volume 9.3, Prothrombin Time 25.3H, INR Comment 2.2H, Sodium Level 135, Potassium Level 4.2, Chloride Level 102, Carbon Dioxide Level 23, Anion Gap 10, Blood Urea Nitrogen 14, Creatinine 0.84, Estimat Glomerular Filtration Rate > 60, BUN/Creatinine Ratio 17, Glucose Level 99, Calcium Level 8.7, Corrected Calcium 9.1, Total Bilirubin 1.3H, Aspartate Amino Transf (AST/SGOT) 28, Alanine Aminotransferase (ALT/SGPT) 35, Alkaline Phosphatase 92, Total Protein 6.4, Albumin 3.5 Microbiology 01/10/20 Gram Stain - Final, Resulted 01/10/20 Anaerobic Culture, Resulted Pending 01/10/20 Surgical Culture - Preliminary, Resulted Staphylococcus aureus 01/10/20 Gram Stain - Final, Resulted 01/10/20 Anaerobic Culture, Resulted Pending 01/10/20 Surgical Culture - Preliminary, Resulted Staphylococcus aureus 01/10/20 Blood Culture - Preliminary, Resulted Staphylococcus aureus A/P-Cardiology Admission Diagnosis Infected ICD pocket CHF CAD HTN Admission Status: Inpatient Order (span 2 midnights) Reason for Inpatient Admission: Patient with sepsis and bacteremia, requiring IV antibiotic and close monitoring. Assessment/Plan Infected ICD pocket- patient underwent single-chamber ICD implant for primary prevention, [employer] with [employer] with serial number [id number], done 12/21/2019. Was evaluated in our office yesterday, site had pus discharge, had significant pain at the site. Patient was admitted to the hospital where her underwent immediate retrieval of device. Patient was given broad spectrum IV antibiotic prior to extraction Septic workup was initiated. Preliminary culture reveals staph aureus, awaiting sensitivity. Dr. Vernon consulted, will continue with daily irrigation and packing of site. Sepsis, gram (+) bacteremia- initial lactic acid level was elevated, blood cultures and wound culture (+) for staph aureus, awaiting sensitivities, continue IV antibiotics. Will obtain echo to r/o endocarditis. Congestive heart failure, left ventricular systolic dysfunction, severe cardiomyopathy with ejection fraction 10-15 percent. Echogenic density in the left ventricle most probably representing thrombus. Ischemic cardiomyopathy. Following with Dr. Smith at at this time. Had a right heart catheterization showing normal pressures. Still having low systolic function with EF 20 percent. 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 Coronary artery disease, underwent cardiac catheterization April 2019 revealing totally occluded LAD proximally, getting collaterals from the right system, patient was evaluated at , managed by heart failure team in Hypertension, controlled, continue to monitor. Passive hepatic congestion with elevated LFTs, continue to monitor Diabetes mellitus, managed by primary care physician Anxiety This is Fátima Hadley PA-C, as a scribe for Dr. Gresham. Patient was seen and evaluated with Fátima, examination performed, management plan was discussed, agree with the current scribed note, I made few changes to the note using Italic font Patient was seen at bedside, this is a 54-year-old gentleman admitted directly from my office with pus discharge from his pacemaker site, I proceeded with extraction of the ICD device and the lead. Significant pus was noted within the pocket. Started empirically on anti biotics. Had low-grade fever last night, this morning is feeling better, reporting improvement in his symptoms. Blood culture and culture from the pocket were positive for staph aureus I changed her antibiotic, currently on vancomycin and gentamicin. Continue with aggressive treatment and monitor Consulted hospitalist and Dr. Vernon for management I will place him back on life vest at this time and evaluate 2-D echo Awaiting sensitivity of the culture Clinical Quality Measures DVT/VTE Risk/Contraindication: Risk Factor Score Per Nursin RFS Level Per Nursing on Admit: 4+=Very High FÁTIMA OREILLY Jan 11, 2020 2:34 pm TRACE GRESHAM MD Jan 11, 2020 5:02 pm
--- NOTE | 2020-01-11 14:47 | NUR ---
Pt is [employer]. Science Instructor provided prayer and Communion.
[2020-01-11 16:30] VITALS: BP 110/69
[2020-01-11] MEDS: warFARin 5 MG (COUMADIN) TAB PO SCH (19:25)
[2020-01-11] MEDS: NS IV 1000 ML 1,000 ML IV SCH (19:29)
[2020-01-11 19:49] VITALS: BP 97/67
[2020-01-12] VITALS (15 sets, daily range): BP systolic 86–109; BP diastolic 62–85
[2020-01-12] MEDS: GENTAMICIN 80 MG/NS 100 ML IVPB IV SCH ×8 (01:09→23:01)
[2020-01-12 04:11] LABS: BASOPHILS % (AUTO) 0 % (0-10); EOSINOPHILS % (AUTO) 0 % (0-10); HEMATOCRIT 37 % (40-54); HEMOGLOBIN 13.2 G/DL (13.3-17.7); LYMPHOCYTES # (AUTO) 1.2 X 10^3 (1.0-4.0); LYMPHOCYTES % (AUTO) 12 % (12-44); MEAN CORPUSCULAR HEMOGLOBIN 31 PG (25-34); MEAN CORPUSCULAR HGB CONC 35 G/DL (32-36); MEAN CORPUSCULAR VOLUME 88 FL (80-99); MEAN PLATELET VOLUME 9.4 FL (7.4-10.4); MONOCYTES # (AUTO) 0.6 X 10^3 (0.0-1.0); MONOCYTES % (AUTO) 6 % (0-12); NEUTROPHILS # (AUTO) 8.3 X 10^3 (1.8-7.8); NEUTROPHILS % (AUTO) 82 % (42-75); PLATELET COUNT 202 10^3/uL (130-400); RED CELL DISTRIBUTION WIDTH 14.4 % (10.0-14.5); WHITE BLOOD COUNT 10.1 10^3/uL (4.3-11.0)
[2020-01-12 04:23] LABS: INR 1.8 (0.8-1.4); PROTHROMBIN TIME PATIENT 21.5 SEC (12.2-14.7)
[2020-01-12 04:39] LABS: ALANINE AMINOTRANSFERASE 40 U/L (0-55); ALBUMIN 3.5 GM/DL (3.2-4.5); ALKALINE PHOSPHATASE 119 U/L (40-136); BILIRUBIN,TOTAL 1.3 MG/DL (0.1-1.0); BUN/CREATININE RATIO 17; CALCIUM 8.4 MG/DL (8.5-10.1); CARBON DIOXIDE 21 MMOL/L (21-32); CHLORIDE 98 MMOL/L (98-107); CREATININE SERUM 0.78 MG/DL (0.60-1.30); GFR ESTIMATED > 60; GLUCOSE 99 MG/DL (70-105); POTASSIUM 3.5 MMOL/L (3.6-5.0); SODIUM 130 MMOL/L (135-145); TOTAL PROTEIN 6.7 GM/DL (6.4-8.2)
--- NOTE | 2020-01-12 07:57 | Cardiology Progress Note ---
Subjective Date Seen by Provider: Jan 12, 2020 Time Seen by Provider: 07:54 Subjective/Events-last exam Patient is laying down in bed, complaining of fatigue and shortness of breath on minimal exertion Review of Systems General: No Chills, No Night Sweats; Fatigue, Malaise; No Appetite, No Other HEENT: No Head Aches, No Visual Changes, No Eye Pain, No Ear Pain, No D ysphasia, No Sinus Congestion, No Post Nasal Drip, No Sore Throat, No Other Pulmonary: Dyspnea; No Cough, No Pleuritic Chest Pain, No Other Cardiovascular: No: Chest Pain, Palpitations, Orthopnea, Paroxysmal Noc. Dyspnea, Edema, Lt Headedness, Other Focused Exam Lactate Level 01/10/20 14:15: Lactic Acid Level 2.89*H 01/10/20 19:53: Lactic Acid Level 1.01 Objective-Cardiology Exam Last Set of Vital Signs Vital Signs 01/12/20 01/12/20 01/12/20 12:11 15:00 16:00 Temp 36.7 Pulse 93 Resp 16 B/P (MAP) 99/62 (74) Pulse Ox 90 O2 Delivery Room Air Capillary Refill : Less Than 3 Seconds I&O Intake and Output 01/12/20 00:00 Intake Total 2420 ml Output Total 2425 ml Balance -5 ml Intake Oral 1420 ml IV Total 1000 ml Output Urine Total 2425 ml General: Alert, Oriented X3, Cooperative, No Acute Distress HEENT: Atraumatic, PERRLA Lungs: Clear to Auscultation, Normal Air Movement Heart: Regular Rate, Normal S1, Normal S2, No Murmurs Abdomen: Normal Bowel Sounds, Soft, No Tenderness, No Hepatosplenomegaly, No Masses Extremities: No Clubbing, No Cyanosis, No Edema, Normal Pulses, No Tenderness/Swelling Skin: Other (C/D/I dressing at ICD retrieval site) Neuro: Normal Speech, Cranial Nerves 3-12 NL Psych/Mental Status: Mental Status NL, Mood NL Results Lab Laboratory Tests 01/12/20 03:50 A/P-Cardiology Admission Diagnosis Infected ICD pocket CHF CAD HTN Assessment/Plan Infected ICD pocket, single chamber ICD was extracted on January 10, 2020, culture grew Staphylococcus aureus. Receiving antibiotic, continue to monitor Staph aureus sepsis, echocardiogram did not show any vegetation. Receiving antibiotic. Continue to monitor Congestive heart failure, left ventricular systolic dysfunction, severe cardiomyopathy with ejection fraction 10 percent. Ischemic cardiomyopathy. Following with Dr. Smith at at this time. Had a right heart c atheterization showing normal pressures. 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 Passive hepatic congestion with elevated LFTs, continue to monitor Diabetes mellitus, managed by primary care physician Anxiety Addendum Patient was noted to be hypotensive, echocardiogram showed severe left ventricular systolic dysfunction, I'll transfer him to the ICU and started on dobutamine drip for 24 hours and evaluate tolerance and response Clinical Quality Measures DVT/VTE Risk/Contraindication: Risk Factor Score Per Nursin RFS Level Per Nursing on Admit: 4+=Very High TRACE BERMAN MD Jan 12, 2020 07:56
[2020-01-12] MEDS: KCL 10 MEQ TAB (MICRO K) PO SCH (08:44)
[2020-01-12] MEDS: SPIRONOLACTONE 25 MG (ALDACTONE) TAB PO SCH (08:44)
[2020-01-12] MEDS: ASPIRIN 81 MG CHEW (CHILDREN'S ASA) PO SCH (08:44)
[2020-01-12] MEDS: metFORMIN XR 500 MG (GLUCOPHAGE XR) TAB PO SCH ×2 (08:44→17:23)
--- NOTE | 2020-01-12 09:47 | NUR ---
THIS RN SPOKE WITH DR BERMAN REGARDING PT BLOOD PRESSURE AND AM MEDICATIONS. DR BERMAN STATED PT NEEDED TO TRANSFER TO ICU BED AND TO START ON A DOBUTAMINE GTT AT 5MCG NON TITRATE AND THAT AM MEDS COULD BE GIVEN ONCE PT WAS IN ICU ON THE GTT. THIS RN INFORMED PT AND FAMILY OF CHANGE IN PLAN OF CARE.
[2020-01-12] MEDS: VANCOMYCIN INJECTION 1,000 MG in NS (IVPB) 250 ML IV SCH (10:06)
--- NOTE | 2020-01-12 11:11 | NUR ---
Anointed by Fr Hicks.
--- NOTE | 2020-01-12 11:34 | Pulmonary Consultation ---
History of Present Illness History of Present Illness Date Seen by Provider: Jan 12, 2020 Time Seen by Provider: 11:28 Date of Admission Reason for Visit: Infected ICD pocket History of Present Illness 54yo with hx of severe ischemic cardiomyopathy EF 10-15% s/p ICD 12/21/19 pt was directly admitted secondary to finding purulent drainage from ICD site. PT was admitted to cardiac stepdown for ICD retrievel. Allergies and Home Medications Allergies Coded Allergies: No Known Drug Allergies (Unverified , 03/09/17) Home Medications Aspirin 81 Mg Tab.chew, 81 MG PO DAILY, (Reported) Furosemide 20 Mg Tablet, 20 MG PO DAILY PRN for FLUID RETENTION , (Reported) USE IF THERE IS MORE THEN 2LB WEIGHT GAIN OVER 48 HOURS Lisinopril 2.5 Mg Tablet, 2.5 MG PO DAILY, (Reported) Metformin HCl 500 Mg Tab.er.24h, 500 MG PO BID, (Reported) Metoprolol Succinate 25 Mg Tab.er.24h, 12.5 MG PO DAILY, (Reported) TAKES OF A 25MG TAB LAST FILLED 11-19-2019 #15/ 30 DAY SUPPLY Potassium Chloride 10 Meq Capsule.er, 10 MEQ PO DAILY, (Reported) Spironolactone 25 Mg Tablet, 25 MG PO DAILY, (Reported) Warfarin Sodium 5 Mg Tablet, 5 MG PO Q48H, (Reported) ALTERNATES BETWEEN 5MG AND 7.5MG EVERY OTHER DAY Warfarin Sodium 5 Mg Tablet, 7.5 MG PO Q48H, (Reported) TAKES 1 & OF THE 5MG TO EQUAL 7.5MG EVERY OTHER DAY. ALTERNATES BETWEEN 5MG AND 7.5MG Past Tgjdbtr-[id number]-[id number] Hx Past Med/Social Hx: Reviewed Nursing Past Med/Soc Hx, Reviewed and Corrections made Patient Social History Alcohol Use: Denies Use Recreational Drug Use: No Smoking Status: Never a Smoker 2nd Hand Smoke Exposure: No Recent Foreign Travel: No Contact w/Someone Who Travel: No Recent Infectious Disease Expo: No Recent Hopitalizations: Yes (ICD 12/21/19) Immunizations Up To Date Tetanus Booster (TDap): Unknown PED Vaccines UTD: No Date of Pneumonia Vaccine: Oct 30, 2019 Date of Influenza Vaccine: Oct 05, 2019 Seasonal Allergies Seasonal Allergies: No Past Medical History Surgeries: Yes Respiratory: No Currently Using CPAP: No Currently Using BIPAP: No Cardiac: Yes Cardiomyopathy, Coronary Artery Disease, Hypertension Neurological: No Reproductive Disorders: No Sexually Transmitted Disease: No HIV/AIDS: No Genitourinary: No Gastrointestinal: No Musculoskeletal: No Endocrine: Yes Diabetes, Non-Insulin dep Are Your Blood Sugars Over 250: No HEENT: No Cancer: No Psychosocial: No Integumentary: No Blood Disorders: No Adverse Reaction/Blood Tranf: No Family Medical History No Pertinent Family Hx Review of Systems Time Seen by Provider: 11:31 Constitutional: Fever, Chills, Sweats, Weakness, Malaise, Other Eyes: No: Pain, Vision change, Conjunctivae inflammation, Eyelid inflammation, Other, Redness ENT: No: Ear pain, Ear discharge, Nose pain, Nose discharge, Nose congestion, Mouth pain, Mouth swelling, Throat pain, Throat swelling, Other Respiratory: Shortness of breath, SOB with excertion; No: Cough, Dry, Wheezing, Hemoptysis, Pleuritic Pain, Sputum, Wheezing, Other Cardiovascular: Chest Pain; No: Palpitations, Orthopnea, Paroxysmal Noc. Dyspnea, Edema, Lt Headedness, Other Sepsis Event Evaluation Height, Weight, BMI Height: 5'11.00" Weight: 179lbs. 5.0oz. 81.732818zd; 22.42 BMI Method:Stated Exam Exam Vital Signs Date Time Temp Pulse Resp B/P (MAP) Pulse Ox O2 Delivery O2 Flow Rate FiO2 01/12/20 08:00 36.9 108 16 92/63 (73) 93 Room Air 01/12/20 08:00 Room Air 01/12/20 08:00 Room Air 01/12/20 07:00 111 01/12/20 04:56 37.8 108 18 93/65 (74) 92 Room Air 01/12/20 04:00 Room Air 01/12/20 01:09 38.0 118 16 103/71 (82) 90 Room Air 01/12/20 01:00 115 01/12/20 00:00 Room Air 01/11/20 21:00 Room Air 01/11/20 20:00 Room Air 01/11/20 19:49 38.2 118 18 97/67 (77) 95 Room Air 01/11/20 19:00 126 01/11/20 16:30 37.4 110 16 110/69 (83) 95 Room Air 01/11/20 16:00 Room Air 01/11/20 13:00 37.5 108 18 132/81 (98) 95 Room Air 01/11/20 12:50 113 01/11/20 12:00 Room Air I & O 01/12/20 07:00 Intake Total 2070 ml Output Total 2500 ml Balance -430 ml Height & Weight Height: 5'11.00" Weight: 179lbs. 5.0oz. 81.504912mg; 22.42 BMI Method:Stated General Appearance: No Apparent Distress, WD/WN, Chronically ill HEENT: PERRL/EOMI, Normal ENT Inspection, Pharynx Normal Neck: Full Range of Motion, Normal Inspection, Non Tender, Supple, Carotid Bruit Respiratory: Chest Non Tender, Lungs Clear, Normal Breath Sounds, No Accessory Muscle Use, No Respiratory Distress Cardiovascular: Regular Rate, Rhythm, No Edema, No Gallop, No JVD, No Murmur, Normal Peripheral Pulses Capillary Refill: Less Than 3 Seconds Gastrointestinal: non tender, soft, no organomegaly Extremity: Normal Capillary Refill, Normal Inspection, Normal Range of Motion, Non Tender, No Calf Tenderness, No Pedal Edema Neurologic/Psychiatric: Alert, Oriented x3, No Motor/Sensory Deficits, Normal Mood/Affect Skin: Normal Color, Warm/Dry Lymphatic: No Adenopathy Results Lab Laboratory Tests 01/10/20 14:15 01/11/20 03:50 01/12/20 03:50 Assessment/Plan Assessment/Plan Infected ICD pocket with Staphylococcus aureus -Continue Vanco, and gent Ischemic cardiomyopathy/ CHF EF 5 -10% -PT is being transferred to ICU for dobutamine gtt CAD HTN SUZY ALBRECHT DO Jan 12, 2020 11:34
--- NOTE | 2020-01-12 11:50 | NUR ---
ROOM IN ICU AVAILABLE FOR PT AND PT TRANSFERRED TO ICU 11 VIA BED. PERSONAL BELONGINGS SENT WITH PT TO NEW ROOM. PT AT BEDSIDE AND THIS RN ACCOMPANIED PT. PT CONNECTED TO BEDSIDE MONITOR AND INTRODUCED TO SURROUNDINGS.
[2020-01-12] MEDS: DOBUTamine DRIP 250 ML IV SCH ×3 (11:55→23:34)
[2020-01-12] MEDS: lisINopril 5 MG (PRINIVIL) TABLET PO SCH (12:45)
[2020-01-12] MEDS: ceFAZolin 2 GM/50 ML NS 50 ML IV SCH ×2 (12:45→21:33)
[2020-01-12] MEDS: ACETAMINOPHEN 325 MG TABLET PO PRN (12:50)
--- NOTE | 2020-01-12 13:03 | Progress Note - Hospitalist ---
JOSE CARLOS MUHAMMAD,MED STUDENT 01/12/20 1303: Subjective HPI/CC On Admission Date Seen by Provider: Jan 12, 2020 Time Seen by Provider: 09:00 CC: Staph bacteremia HPI: This is a 54yoWM known to me from prior hospital stay who has a low ejection fraction who had an ICD placed a few weeks ago, came in with pustular d rainage from the area and ling-cultured, placed on Vancomycin and Ancef empirically and found to have bacteremia of Staph. I initiated a dose of Gentamicin combined with Vanc, discontinued the Ancef and noted that even the leads of the ICD was contaminated with staph. At this current time Pt denies any pain. Subjective/Events-last exam Today Jan Gee complains of worsening fatigue and shortness of breath. He denies any chills, nausea, vomiting. He notes minimal pain over the left upper chest and into the left shoulder Review of Systems General: No Chills, No Night Sweats; Fatigue HEENT: No Head Aches Pulmonary: Dyspnea; No Cough Cardiovascular: Lt Headedness; No: Chest Pain Gastrointestinal: No: Nausea, Vomiting, Abdominal Pain Neurological: No: Weakness Focused Exam Lactate Level 01/10/20 14:15: Lactic Acid Level 2.89*H 01/10/20 19:53: Lactic Acid Level 1.01 Objective Exam Vital Signs Vital Signs Date Time Temp Pulse Resp B/P (MAP) Pulse Ox O2 Delivery O2 Flow Rate FiO2 01/12/20 12:25 99 01/12/20 11:55 86/65 Room Air 01/12/20 11:50 24 98 01/12/20 08:00 36.9 Capillary Refill : Less Than 3 Seconds General Appearance: No Apparent Distress, WD/WN, Chronically ill HEENT: PERRL/EOMI, Moist Mucous Membranes Respiratory: Chest Non Tender, Lungs Clear, Normal Breath Sounds, No Accessory Muscle Use, No Respiratory Distress Cardiovascular: Regular Rate, Rhythm, No Murmur Gastrointestinal: Normal Bowel Sounds, Non Tender, Soft Extremity: No Calf Tenderness, Pedal Edema Neurologic/Psychiatric: Alert, Oriented x3, Normal Mood/Affect Skin: Warm/Dry, Other (dry and clean dressing over left chest) Results/Procedures Lab Laboratory Tests 01/12/20 03:50 Patient resulted labs reviewed. Assessment/Plan Assessment and Plan Assess & Plan/Chief Complaint Assessment: Infected ICD pocket - S/P removal Bacteremia - Staph aureus Cardiomyopathy Plan: Continue IV antibiotics - culture MSSA, narrow vanc to cephazolin Echocardiogram showed EF 0-10% and no vegetations Wound care daily as directed - irrigate and pack daily with iodoform Clinical Quality Measures DVT/VTE Risk/Contraindication: Risk Factor Score Per Nursin RFS Level Per Nursing on Admit: 4+=Very High SYLVIA RICCI DO 01/12/202053: Subjective Subjective/Events-last exam Admitting to ICU for Dobutamine drip Ejection fraction is anywhere from 0-5% Hypotension also noted Staph appears to be MSSA will change to Cefazolin and DC the Vanc and Gent Review of Systems General: Fatigue Cardiovascular: Chest Pain Objective Exam General Appearance: No Apparent Distress, WD/WN, Chronically ill, Thin Respiratory: Lungs Clear Cardiovascular: Regular Rate, Rhythm Assessment/Plan Assessment and Plan Assess & Plan/Chief Complaint DC Gent and Vanc Cefazolin since MSSA ICU Dobutamine Diagnosis/Problems Diagnosis/Problems (1) Pacemaker infection (2) Bacteremia (3) Acute CHF (congestive heart failure) Status: Acute (4) Cardiomyopathy Supervisory-Addendum Brief Verification & Attestation Participated in pt care: history, MDM, physical Personally performed: exam, history, MDM, supervision of care Care discussed with: Medical Student Procedures: n/a Results interpretation: Verified all documentation Verification and Attestation of Medical Student E/M Service A medical student performed and documented this service in my presence. I reviewed and verified all information documented by the medical student and made modifications to such information, when appropriate. I personally performed the physical exam and medical decision making. Sylvia Ricci, Jan 12, 2020,20:54 JOSE CARLOS MUHAMMAD,MED STUDENT Jan 12, 2020 13:03 SYLVIA RICCI DO Jan 12, 2020 20:54
[2020-01-12] MEDS: warFARin 5 MG (COUMADIN) TAB PO SCH (17:23)
--- NOTE | 2020-01-12 21:08 | Progress Note - Surgery ---
Subjective Date Seen by a Provider: Jan 12, 2020 Time Seen by a Provider: 17:19 Subjective/Events-last exam Has been transferred to ICU Patient states wound doing okay. Pain in left chest pocket tolerable. Wound changed earlier today. Denies n/v fever sweats chills shortness of breath or chest pain at this time. Focused Exam Lactate Level 01/10/20 14:15: Lactic Acid Level 2.89*H 01/10/20 19:53: Lactic Acid Level 1.01 Objective Exam Vital Signs Date Time Temp Pulse Resp B/P (MAP) Pulse Ox O2 Delivery O2 Flow Rate FiO2 01/12/20 19:20 36.7 01/12/20 18:00 97 19 91/65 (74) 95 Room Air 01/12/20 17:00 97 15 90/64 (73) 95 Room Air 01/12/20 16:00 Room Air 01/12/20 16:00 107 13 97/71 (80) 97 Room Air 01/12/20 15:48 36.3 01/12/20 15:00 93 16 99/62 (74) 90 Room Air 01/12/20 14:00 99 18 105/67 (80) 91 Room Air 01/12/20 13:00 102 16 98/69 (79) 95 Room Air 01/12/20 12:25 99 01/12/20 12:11 36.7 01/12/20 12:00 Room Air 01/12/20 11:55 93 86/65 Room Air 01/12/20 11:50 97 24 86/65 (72) 98 Room Air 01/12/20 08:00 36.9 108 16 92/63 (73) 93 Room Air 01/12/20 08:00 Room Air 01/12/20 08:00 Room Air 01/12/20 07:00 111 01/12/20 04:56 37.8 108 18 93/65 (74) 92 Room Air 01/12/20 04:00 Room Air 01/12/20 01:09 38.0 118 16 103/71 (82) 90 Room Air 01/12/20 01:00 115 01/12/20 00:00 Room Air I & O 01/12/20 07:00 Intake Total 2070 ml Output Total 2500 ml Balance -430 ml Capillary Refill : Less Than 3 Seconds General Appearance: No Apparent Distress, WD/WN, Chronically ill, Thin HEENT: PERRL/EOMI, Moist Mucous Membranes Neck: Full Range of Motion, Normal Inspection, Non Tender, Supple, Carotid Bruit Respiratory: Chest Non Tender, No Accessory Muscle Use, No Respiratory Distress Cardiovascular: Regular Rate, Rhythm Gastrointestinal: non tender, soft, no organomegaly Extremity: No Calf Tenderness, Pedal Edema Neurologic/Psychiatric: Alert, Oriented x3, Normal Mood/Affect Skin: Warm/Dry, Other (no skin erythema, subcuaneous tissue minimal purulent material, no necrotic appearing tissue) Lymphatic: No Adenopathy Results Lab Laboratory Tests 01/12/20 03:50: White Blood Count 10.1, Red Blood Count 4.24L, Hemoglobin 13.2L, Hematocrit 37L, Mean Corpuscular Volume 88, Mean Corpuscular Hemoglobin 31, Mean Corpuscular Hemoglobin Concent 35, Red Cell Distribution Width 14.4, Platelet Count 202, Mean Platelet Volume 9.4, Neutrophils (%) (Auto) 82H, Lymphocytes (%) (Auto) 12, Monocytes (%) (Auto) 6, Eosinophils (%) (Auto) 0, Basophils (%) (Auto) 0, Neutrophils # (Auto) 8.3H, Lymphocytes # (Auto) 1.2, Monocytes # (Auto) 0.6, Eosinophils # (Auto) 0.0, Basophils # (Auto) 0.0, Prothrombin Time 21.5H, INR Comment 1.8H, Sodium Level 130L, Potassium Level 3.5L, Chloride Level 98, Carbon Dioxide Level 21, Anion Gap 11, Blood Urea Nitrogen 13, Creatinine 0.78, Estimat Glomerular Filtration Rate > 60, BUN/Creatinine Ratio 17, Glucose Level 99, Calcium Level 8.4L, Corrected Calcium 8.8, Total Bilirubin 1.3H, Aspartate Amino Transf (AST/SGOT) 30, Alanine Aminotransferase (ALT/SGPT) 40, Alkaline Phosp hatase 119, Total Protein 6.7, Albumin 3.5 Microbiology 01/10/20 Gram Stain - Final, Resulted 01/10/20 Anaerobic Culture, Resulted Pending 01/10/20 Surgical Culture - Final, Resulted Staphylococcus aureus 01/10/20 Gram Stain - Final, Resulted 01/10/20 Anaerobic Culture, Resulted Pending 01/10/20 Surgical Culture - Final, Resulted Staphylococcus aureus 01/10/20 Blood Culture - Preliminary, Resulted Staphylococcus aureus 2/11/20 MRSA Screen - Final, Complete MRSA not isolated Assessment/Plan Assessment/Plan Assessment/Plan infected pacemaker pocket, s/p removal staph aureus- sensitivities back continue antibiotics has been switchted to Gent/Cefazolin irrigate and pack daily-bid with iodoform guaze will follow. Clinical Quality Measures DVT/VTE Risk/Contraindication: Risk Factor Score Per Nursin RFS Level Per Nursing on Admit: 4+=Very High AURELIO LOVE DO Jan 12, 2020 21:08
[2020-01-13] VITALS (24 sets, daily range): BP systolic 83–112; BP diastolic 49–77
[2020-01-13 04:10] LABS: INR 2.3 (0.8-1.4); PROTHROMBIN TIME PATIENT 26.4 SEC (12.2-14.7)
[2020-01-13] MEDS: ceFAZolin 2 GM/50 ML NS 50 ML IV SCH (04:37)
[2020-01-13 05:12] LABS: BASOPHILS # (AUTO) 0.1 10^3/uL (0.0-0.1); BASOPHILS % (AUTO) 1 % (0-10); EOSINOPHILS # (AUTO) 0.2 10^3/uL (0.0-0.3); EOSINOPHILS % (AUTO) 3 % (0-10); HEMATOCRIT 36 % (40-54); HEMOGLOBIN 12.7 G/DL (13.3-17.7); LYMPHOCYTES # (AUTO) 1.5 X 10^3 (1.0-4.0); LYMPHOCYTES % (AUTO) 20 % (12-44); MEAN CORPUSCULAR HEMOGLOBIN 31 PG (25-34); MEAN CORPUSCULAR HGB CONC 35 G/DL (32-36); MEAN CORPUSCULAR VOLUME 89 FL (80-99); MEAN PLATELET VOLUME 9.8 FL (7.4-10.4); MONOCYTES # (AUTO) 0.9 X 10^3 (0.0-1.0); MONOCYTES % (AUTO) 11 % (0-12); NEUTROPHILS # (AUTO) 4.9 X 10^3 (1.8-7.8); NEUTROPHILS % (AUTO) 65 % (42-75); PLATELET COUNT 191 10^3/uL (130-400); RED CELL DISTRIBUTION WIDTH 14.6 % (10.0-14.5); WHITE BLOOD COUNT 7.5 10^3/uL (4.3-11.0)
[2020-01-13 05:24] LABS: BUN/CREATININE RATIO 16; CALCIUM 8.9 MG/DL (8.5-10.1); CARBON DIOXIDE 28 MMOL/L (21-32); CHLORIDE 101 MMOL/L (98-107); CREATININE SERUM 0.75 MG/DL (0.60-1.30); GFR ESTIMATED > 60; GLUCOSE 102 MG/DL (70-105); MAGNESIUM 2.1 MG/DL (1.6-2.4); PHOSPHORUS 2.3 MG/DL (2.3-4.7); POTASSIUM 3.5 MMOL/L (3.6-5.0); SODIUM 138 MMOL/L (135-145)
[2020-01-13] MEDS ORDERED: KCL 20 MEQ TAB (K-DUR) PO SCH (06:00)
[2020-01-13] MEDS ORDERED: MAGNESIUM 1 GM/100 ML IVPB 100 ML IV SCH (06:00)
[2020-01-13] MEDS ORDERED: POTASSIUM CL 10MEQ/50ML IVPB 50 ML IV SCH (06:00)
--- NOTE | 2020-01-13 06:19 | Pulmonary Progress Note ---
Subjective Time Seen by a Provider: 06:18 Subjective/Events-last exam No complications noted. Sepsis Event Evaluation Height, Weight, BMI Height: 5'11.00" Weight: 179lbs. 5.0oz. 81.700604an; 22.42 BMI Method:Stated Focused Exam Lactate Level 01/10/20 14:15: Lactic Acid Level 2.89*H 01/10/20 19:53: Lactic Acid Level 1.01 Exam Exam Vital Signs Date Time Temp Pulse Resp B/P (MAP) Pulse Ox O2 Delivery O2 Flow Rate FiO2 01/13/20 05:00 87 12 101/72 (82) 99 Nasal Cannula 2.00 01/13/20 04:00 Nasal Cannula 2.00 01/13/20 04:00 89 13 102/70 (81) 99 Nasal Cannula 2.00 01/13/20 04:00 36.2 01/13/20 03:00 85 16 105/77 (86) 99 Nasal Cannula 2.00 01/13/20 02:00 84 16 96/71 (79) 99 Nasal Cannula 2.00 01/13/20 01:00 90 01/13/20 01:00 87 14 104/68 (80) 95 Nasal Cannula 2.00 01/13/20 00:15 Nasal Cannula 2.00 01/13/20 00:00 99 15 102/63 (76) 96 Nasal Cannula 2.00 01/12/20 23:34 36.27384 95 19 91/65 95 Nasal Cannula 2.00 01/12/20 23:05 36.0 Nasal Cannula 2.00 01/12/20 23:00 93 18 102/64 (77) 96 Nasal Cannula 2.00 01/12/20 22:22 Nasal Cannula 2.00 01/12/20 22:00 93 15 109/85 (93) 96 Room Air 01/12/20 21:00 81 13 94/71 (79) 96 Room Air 01/12/20 20:15 Room Air 01/12/20 20:15 Room Air 01/12/20 20:00 90 14 97/75 (82) 97 Room Air 01/12/20 19:20 36.7 01/12/20 19:00 95 01/12/20 19:00 93 19 93/65 (74) 96 Room Air 01/12/20 18:00 97 19 91/65 (74) 95 Room Air 01/12/20 17:00 97 15 90/64 (73) 95 Room Air 01/12/20 16:00 Room Air 01/12/20 16:00 107 13 97/71 (80) 97 Room Air 01/12/20 15:48 36.3 01/12/20 15:00 93 16 99/62 (74) 90 Room Air 01/12/20 14:00 99 18 105/67 (80) 91 Room Air 01/12/20 13:00 102 16 98/69 (79) 95 Room Air 01/12/20 12:25 99 01/12/20 12:11 36.7 01/12/20 12:00 Room Air 01/12/20 11:55 93 86/65 Room Air 01/12/20 11:50 97 24 86/65 (72) 98 Room Air 01/12/20 08:00 36.9 108 16 92/63 (73) 93 Room Air 01/12/20 08:00 Room Air 01/12/20 08:00 Room Air 01/12/20 07:00 111 I & O 01/13/20 07:00 Intake Total 1792 ml Output Total 2750 ml Balance -958 ml Height & Weight Height: 5'11.00" Weight: 179lbs. 5.0oz. 81.297057bx; 22.42 BMI Method:Stated General Appearance: No Apparent Distress, WD/WN, Chronically ill, Thin HEENT: PERRL/EOMI, Moist Mucous Membranes Neck: Full Range of Motion, Normal Inspection, Non Tender, Supple, Carotid Bruit Respiratory: Chest Non Tender, No Accessory Muscle Use, No Respiratory Distress Cardiovascular: Regular Rate, Rhythm Capillary Refill: Less Than 3 Seconds Gastrointestinal: non tender, soft, no organomegaly Extremity: No Calf Tenderness, Pedal Edema Neurologic/Psychiatric: Alert, Oriented x3, Normal Mood/Affect Skin: Warm/Dry, Other (no skin erythema, subcuaneous tissue minimal purulent material, no necrotic appearing tissue) Lymphatic: No Adenopathy Results Lab Laboratory Tests 01/12/20 03:50 01/13/20 03:28 Assessment/Plan Assessment/Plan Infected ICD pocket with Staphylococcus aureus MSSA -Continue Ancef, and gent Ischemic cardiomyopathy/ CHF EF 5 -10% - dobutamine gtt -Cardiology is following CAD HTN SUZY ALBRECHT DO Jan 13, 2020 06:19
[2020-01-13] MEDS: metFORMIN XR 500 MG (GLUCOPHAGE XR) TAB PO SCH ×2 (06:50→17:59)
--- NOTE | 2020-01-13 07:21 | Diagnostic Imaging Report ---
CHEST 1 VIEW, AP/PA ONLY Indication: Heart failure, infected ICD. Comparison: 01/11/2020 Findings: No focal airspace disease in the visualized lungs. Please note that the posterior lower lobes are poorly evaluated by portable radiography. No pleural effusion or pneumothorax. Normal cardiomediastinal silhouette. Impression: 1. No acute cardiopulmonary process by portable radiography. Dictated by: Dictated on workstation # [id number]
[2020-01-13] MEDS ORDERED: TROUGH ORDER-PHARMACY XX NR (08:00)
[2020-01-13] MEDS ORDERED: KCL 20 MEQ TAB (K-DUR) PO ONE (09:00)
--- NOTE | 2020-01-13 09:18 | Cardiology Progress Note ---
Subjective Date Seen by Provider: Jan 13, 2020 Time Seen by Provider: 09:16 Subjective/Events-last exam Patient is laying down in bed, no new complaint Review of Systems General: No Chills, No Night Sweats, No Fatigue, No Malaise, No Appetite, No Other HEENT: No Head Aches, No Visual Changes, No Eye Pain, No Ear Pain, No Dysphasia, No Sinus Congestion, No Post Nasal Drip, No Sore Throat, No Other Pulmonary: Dyspnea; No Cough, No Pleuritic Chest Pain, No Other Cardiovascular: No: Chest Pain, Palpitations, Orthopnea, Paroxysmal Noc. Dyspnea, Edema, Lt Headedness, Other Focused Exam Lactate Level 01/10/20 14:15: Lactic Acid Level 2.89*H 01/10/20 19:53: Lactic Acid Level 1.01 Objective-Cardiology Exam Last Set of Vital Signs Vital Signs 01/13/20 01/13/20 07:25 09:00 Temp 36.0 Pulse 93 Resp 20 B/P (MAP) 101/71 (81) Pulse Ox 99 O2 Delivery Nasal Cannula O2 Flow Rate 2.00 Capillary Refill : Less Than 3 Seconds I&O Intake and Output 01/13/20 00:00 Intake Total 1444 ml Output Total 2950 ml Balance -1506 ml Intake Oral 940 ml IV Total 504 ml Output Urine Total 2950 ml General: Alert, Oriented X3, Cooperative, No Acute Distress HEENT: Atraumatic, PERRLA Lungs: Clear to Auscultation, Normal Air Movement Heart: Regular Rate, Normal S1, Normal S2, No Murmurs Abdomen: Normal Bowel Sounds, Soft, No Tenderness, No Hepatosplenomegaly, No Masses Extremities: No Clubbing, No Cyanosis, No Edema, Normal Pulses, No Tenderness/Swelling Skin: Other (C/D/I dressing at ICD retrieval site) Neuro: Normal Speech, Cranial Nerves 3-12 NL Psych/Mental Status: Mental Status NL, Mood NL Results Lab Laboratory Tests 01/13/20 03:28 A/P-Cardiology Admission Diagnosis Infected ICD pocket CHF CAD HTN Assessment/Plan Infected ICD pocket, single chamber ICD was extracted on January 10, 2020, culture grew Staphylococcus aureus. Receiving antibiotic, discussed with Dr. Smith, we will change antibiotic to nafcillin every 4 hours and possible continuous infusion, repeat blood culture and evaluate tolerance and response. Next Congestive heart failure, acute on chronic left ventricular systolic dysfunction, severe cardiomyopathy with ejection fraction 10 percent, ischemic cardiomyopathy, seen at with Dr. Smith, right heart catheterization at that time showed normal pressures. Will put LifeVest at this time. I transfer him to intensive care unit placed him on dobutamine drip which improved his cardiac output. Improved his blood pressure. Will do intermittent dobutamine drip as needed. Staph aureus sepsis, echocardiogram did not show any vegetation. Receiving antibiotic. Continue to monitor Congestive heart failure, left ventricular systolic dysfunction, severe cardiomyopathy with ejection fraction 10 percent. Ischemic cardiomyopathy. Following with Dr. Smith at at this time. Had a right heart c atheterization showing normal pressures. 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 Passive hepatic congestion with elevated LFTs, continue to monitor Diabetes mellitus, managed by primary care physician Anxiety Clinical Quality Measures DVT/VTE Risk/Contraindication: Risk Factor Score Per Nursin RFS Level Per Nursing on Admit: 4+=Very High TRACE BERMAN MD Jan 13, 2020 09:18
--- NOTE | 2020-01-13 09:57 | NUR ---
discussed with Dr Smith and Dr Marga luz nafcillin, modified entry to equal a continous infusion of nafcillin 2grams (infused over 4 hours) q4h scheduled
[2020-01-13] MEDS: KCL 10 MEQ TAB (MICRO K) PO SCH (10:04)
[2020-01-13] MEDS: SPIRONOLACTONE 25 MG (ALDACTONE) TAB PO SCH (10:05)
[2020-01-13] MEDS: lisINopril 5 MG (PRINIVIL) TABLET PO SCH (10:05)
[2020-01-13] MEDS: ASPIRIN 81 MG CHEW (CHILDREN'S ASA) PO SCH (10:06)
[2020-01-13] MEDS: NAFCILLIN INJECTION 2,000 MG in NS (IVPB) 100 ML IV SCH ×6 (10:19→22:59)
--- NOTE | 2020-01-13 11:21 | Progress Note - Hospitalist ---
JOSE CARLOS MUHAMMAD,MED STUDENT 01/13/20 1121: Subjective HPI/CC On Admission Date Seen by Provider: Jan 13, 2020 Time Seen by Provider: 08:20 CC: Staph bacteremia HPI: This is a 54yoWM known to me from prior hospital stay who has a low ejection fraction who had an ICD placed a few weeks ago, came in with pustular d rainage from the area and ling-cultured, placed on Vancomycin and Ancef empirically and found to have bacteremia of Staph. I initiated a dose of Gentamicin combined with Vanc, discontinued the Ancef and noted that even the leads of the ICD was contaminated with staph. At this current time Pt denies any pain. Subjective/Events-last exam Mr. Montoya continues to feel fatigued and weak today. He states he no longer has shortness of breath. He notes pain in his left chest into his left shoulder although he states it is minimal. He has been eating and tolerating his diet well. He had a bowel movement yesterday. No complaints at this time. Review of Systems General: No Chills; Fatigue, Malaise HEENT: No Head Aches Pulmonary: No Dyspnea, No Cough Cardiovascular: No: Chest Pain Gastrointestinal: No: Nausea, Vomiting, Abdominal Pain, Constipation Musculoskeletal: other (L shoulder pain) Neurological: Weakness Focused Exam Lactate Level 01/10/20 14:15: Lactic Acid Level 2.89*H 01/10/20 19:53: Lactic Acid Level 1.01 Objective Exam Vital Signs Vital Signs Date Time Temp Pulse Resp B/P (MAP) Pulse Ox O2 Delivery O2 Flow Rate FiO2 01/13/20 11:00 101 11 108/66 (80) 100 Nasal Cannula 2.00 01/13/20 07:25 36.0 Capillary Refill : Less Than 3 Seconds General Appearance: No Apparent Distress, Chronically ill, Thin HEENT: PERRL/EOMI, Moist Mucous Membranes Respiratory: Lungs Clear, Normal Breath Sounds, No Accessory Muscle Use, No Respiratory Distress Cardiovascular: Regular Rate, Rhythm, No Murmur Gastrointestinal: Normal Bowel Sounds, Non Tender, Soft Neurologic/Psychiatric: Alert, Oriented x3, Normal Mood/Affect Skin: Warm/Dry, Other (clean and dry dressing at ICD removal site) Results/Procedures Lab Laboratory Tests 01/13/20 03:28 Patient resulted labs reviewed. Assessment/Plan Assessment and Plan Assess & Plan/Chief Complaint Assessment: Infected ICD pocket - S/P removal Bacteremia - Staph aureus Cardiomyopathy Hypotension Plan: Continue IV antibiotics - culture MSSA, DC cefazolin and gentamycin. Begin nafcillin 2g every 4 hours Discussed PICC line placement for continued IV antibiotics Upon discharge will likely change nafcillin to continuous infusion with home health Echocardiogram showed EF 0-10% and no vegetations - home with lifevest Wound care daily as directed - irrigate and pack BID with iodoform Clinical Quality Measures DVT/VTE Risk/Contraindication: Risk Factor Score Per Nursin RFS Level Per Nursing on Admit: 4+=Very High ERENDIRA SMITH MD 01/13/20 1851: Supervisory-Addendum Brief Verification & Attestation Participated in pt care: history Personally performed: exam, history Care discussed with: Medical Student Procedures: n/a Verification and Attestation of Medical Student E/M Service A medical student performed and documented this service in my presence. I review ed and verified all information documented by the medical student and made modifications to such information, when appropriate. I personally performed the physical exam and medical decision making. Erendira Smith, Jan 13, 2020,18:51 JOSE CARLOS MUHAMMADMED STUDENT Jan 13, 2020 11:21 ERENDIRA SMITH MD Jan 13, 2020 18:51
[2020-01-13] MEDS: DOBUTamine DRIP 250 ML IV SCH (12:12)
--- NOTE | 2020-01-13 13:28 | Progress Note - Surgery ---
SAUNDRA [facility] 01/13/20 1328: Subjective Date Seen by a Provider: Jan 13, 2020 Time Seen by a Provider: 12:00 Subjective/Events-last exam Pt feeling better. denies any F or chills. No MRSA detected on cultures. Denies any other sx. Review of Systems General: No Chills, No Fatigue Pulmonary: No Dyspnea, No Cough Cardiovascular: No: Chest Pain, Palpitations Gastrointestinal: No: Nausea, Vomiting, Abdominal Pain Musculoskeletal: No: neck pain, back pain Focused Exam Lactate Level 01/10/20 14:15: Lactic Acid Level 2.89*H 01/10/20 19:53: Lactic Acid Level 1.01 Objective Exam Vital Signs Date Time Temp Pulse Resp B/P (MAP) Pulse Ox O2 Delivery O2 Flow Rate FiO2 01/13/20 12:55 97 01/13/20 12:12 112/77 01/13/20 12:00 37.0 01/13/20 12:00 Room Air 01/13/20 12:00 99 19 112/77 (89) 99 Nasal Cannula 2.00 01/13/20 11:00 101 11 108/66 (80) 100 Nasal Cannula 2.00 01/13/20 10:00 93 16 110/75 (87) 98 Nasal Cannula 2.00 01/13/20 09:00 Room Air 01/13/20 09:00 93 20 101/71 (81) 99 Nasal Cannula 2.00 01/13/20 08:00 Room Air 01/13/20 08:00 91 15 97/71 (80) 99 Nasal Cannula 2.00 01/13/20 07:25 36.0 01/13/20 07:00 99 01/13/20 07:00 83 17 102/73 (83) 99 Nasal Cannula 2.00 01/13/20 06:00 91 16 100/72 (81) 100 Nasal Cannula 2.00 01/13/20 05:00 87 12 101/72 (82) 99 Nasal Cannula 2.00 01/13/20 04:00 Nasal Cannula 2.00 01/13/20 04:00 89 13 102/70 (81) 99 Nasal Cannula 2.00 01/13/20 04:00 36.2 01/13/20 03:00 85 16 105/77 (86) 99 Nasal Cannula 2.00 01/13/20 02:00 84 16 96/71 (79) 99 Nasal Cannula 2.00 01/13/20 01:00 90 01/13/20 01:00 87 14 104/68 (80) 95 Nasal Cannula 2.00 01/13/20 00:15 Nasal Cannula 2.00 01/13/20 00:00 99 15 102/63 (76) 96 Nasal Cannula 2.00 01/12/20 23:34 36.34567 95 19 91/65 95 Nasal Cannula 2.00 01/12/20 23:05 36.0 Nasal Cannula 2.00 01/12/20 23:00 93 18 102/64 (77) 96 Nasal Cannula 2.00 01/12/20 22:22 Nasal Cannula 2.00 01/12/20 22:00 93 15 109/85 (93) 96 Room Air 01/12/20 21:00 81 13 94/71 (79) 96 Room Air 01/12/20 20:15 Room Air 01/12/20 20:15 Room Air 01/12/20 20:00 90 14 97/75 (82) 97 Room Air 01/12/20 19:20 36.7 01/12/20 19:00 95 01/12/20 19:00 93 19 93/65 (74) 96 Room Air 01/12/20 18:00 97 19 91/65 (74) 95 Room Air 01/12/20 17:00 97 15 90/64 (73) 95 Room Air 01/12/20 16:00 Room Air 01/12/20 16:00 107 13 97/71 (80) 97 Room Air 01/12/20 15:48 36.3 01/12/20 15:00 93 16 99/62 (74) 90 Room Air 01/12/20 14:00 99 18 105/67 (80) 91 Room Air I & O 01/13/20 07:00 Intake Total 1894 ml Output Total 2750 ml Balance -856 ml Capillary Refill : Less Than 3 Seconds General Appearance: No Apparent Distress, Chronically ill, Thin HEENT: PERRL/EOMI, Moist Mucous Membranes Neck: Full Range of Motion, Normal Inspection, Non Tender, Supple, Carotid Bruit Respiratory: Lungs Clear, Normal Breath Sounds, No Accessory Muscle Use, No Respiratory Distress Cardiovascular: Regular Rate, Rhythm, No Murmur Gastrointestinal: non tender, soft, no organomegaly Extremity: No Calf Tenderness, Pedal Edema Neurologic/Psychiatric: Alert, Oriented x3 Skin: Warm/Dry, Other (minimal drainage, clean and dry dressing at ICD removal site,) Lymphatic: No Adenopathy Results Lab Laboratory Tests 01/13/20 03:28: White Blood Count 7.5, Red Blood Count 4.07L, Hemoglobin 12.7L, Hematocrit 36L, Mean Corpuscular Volume 89, Mean Corpuscular Hemoglobin 31, Mean Corpuscular Hemoglobin Concent 35, Red Cell Distribution Width 14.6H, Platelet Count 191, Mean Platelet Volume 9.8, Neutrophils (%) (Auto) 65, Lymphocytes (%) (Auto) 20, Monocytes (%) (Auto) 11, Eosinophils (%) (Auto) 3, Basophils (%) (Auto) 1, Neutrophils # (Auto) 4.9, Lymphocytes # (Auto) 1.5, Monocytes # (Auto) 0.9, Eosinophils # (Auto) 0.2, Basophils # (Auto) 0.1, Prothrombin Time 26.4H, INR Comment 2.3H, Sodium Level 138, Potassium Level 3.5L, Chloride Level 101, Carbon Dioxide Level 28, Anion Gap 9, Blood Urea Nitrogen 12, Creatinine 0.75, Estimat Glomerular Filtration Rate > 60, BUN/Creatinine Ratio 16, Glucose Level 102, Calcium Level 8.9, Phosphorus Level 2.3, Magnesium Level 2.1 Microbiology 01/10/20 Gram Stain - Final, Resulted 01/10/20 Anaerobic Culture - Preliminary, Resulted No anaerobes isolated 01/10/20 Surgical Culture - Final, Resulted Staphylococcus aureus 01/10/20 Gram Stain - Final, Resulted 01/10/20 Anaerobic Culture - Preliminary, Resulted No anaerobes isolated 01/10/20 Surgical Culture - Final, Resulted Staphylococcus aureus 01/10/20 Blood Culture - Final, Complete Staphylococcus aureus 01/10/20 MRSA Screen - Final, Complete MRSA not isolated Assessment/Plan Assessment/Plan Assessment/Plan Infected pacemaker pocket, s/p removal Staph aureus-Sensitivities back Antibiotics has been switched to Nafacilin Irrigate and pack daily-bid with iodoform guaze Will follow. Clinical Quality Measures DVT/VTE Risk/Contraindication: Risk Factor Score Per Nursin RFS Level Per Nursing on Admit: 4+=Very High AURELIO VERNON DO 01/15/202020: Subjective Subjective/Events-last exam Patient doing well. Not having any new complaints. Denies n/v fever sweats chills shortness of breath or chest pain at this time. No issues with wound. Objective Exam General Appearance: No Apparent Distress, Chronically ill HEENT: PERRL/EOMI, Moist Mucous Membranes Neck: Full Range of Motion, Non Tender Respiratory: Chest Non Tender, No Accessory Muscle Use, No Respiratory Distress Cardiovascular: Regular Rate, Rhythm Gastrointestinal: non tender, soft, no organomegaly Neurologic/Psychiatric: Alert, Oriented x3 Skin: Normal Color, Warm/Dry, Other (minimal drainage at wound, granulation tissue coming in. minimal erythema) Lymphatic: No Adenopathy Assessment/Plan Assessment/Plan Assessment/Plan Infected pacemaker pocket, s/p removal by Dr. Gresham patient to have BID wound irrigated and packing with iodoform guaze conitnue abx and wound care Supervisory-Addendum Brief Verification & Attestation Participated in pt care: history, MDM, physical Personally performed: exam, history, MDM, supervision of care Care discussed with: Medical Student Procedures: n/a Results interpretation: Verified all documentation Verification and Attestation of Medical Student E/M Service A medical student performed and documented this service in my presence. I reviewed and verified all information documented by the medical student and made modifications to such information, when appropriate. I personally performed the physical exam and medical decision making. Aurelio Vernon, Jan 13, 2020,20:[address] [facility] Jan 13, 2020 13:28 AURELIO VERNON DO Jan 15, 2020 20:21
--- NOTE | 2020-01-13 14:20 | NUR ---
Follow up. Pt states he is receiving communion and continues to feel a sense of meaning in worth through his rema.
--- NOTE | 2020-01-13 15:14 | NUR ---
RD ASSESSMENT PMHx: IN; cardiomyopathy; CHF; DM PT INTERACTION: Pt was awake and pleasant during nutrition assessment. Pt states current appetite "could be better" as it has been poor for a while. Note ave PO intake of 75% x3d, per chart review. Pt states following a low-Na diet at home, and has no issues with chewing/swallowing food. Pt states no recent issues with n/v/c/d at this time, and that his last BM was 01/12. Note pt not currently on bowel regimen per chart review. Pt states no recent wt changes. Note unable to determine recent wt hx, per chart review. Pt states current DM management is pretty good but he does not regularly check his blood glucose levels d/t broken bethany. Note presence of wound on chest, per chart review. ABNORMAL NUTRITION-RELATED LAB VALUES LOW: Na 132; K 3.5; Ca 8.4 HIGH: bili 1.3 Est. kcal needs: 6700-1556 kcal | 25-30 kcal/kg Est. Pro needs: 79-92 g Pro | 1.2-1.4 g Pro/kg PES STATEMENT: Inadequate protein intake (NI-5.6.1) related to increased protein needs as evidenced by presence of wounds (chest incision) INTERVENTION: Continue with current diet order of 2000mg Na diet. Add Ensure HP (vary) to meals TID. Provides 160 kcal and 16 g Pro per serving for perceived benefit to wound healing. Will continue to follow and reassess as pt needs and status change. MONITOR/EVALUATE: PO Intake; Plan of Care; Hydration Status; Weight Status; Lab Values Vidya Zhang, MS, RD, LD
[2020-01-13] MEDS: warFARin 5 MG (COUMADIN) TAB PO SCH (17:59)
[2020-01-14] VITALS (24 sets, daily range): BP systolic 83–107; BP diastolic 63–80
[2020-01-14] MEDS: NAFCILLIN INJECTION 2,000 MG in NS (IVPB) 100 ML IV SCH ×6 (02:50→22:09)
[2020-01-14 03:32] LABS: BASOPHILS # (AUTO) 0.1 10^3/uL (0.0-0.1); BASOPHILS % (AUTO) 1 % (0-10); EOSINOPHILS # (AUTO) 0.4 10^3/uL (0.0-0.3); EOSINOPHILS % (AUTO) 6 % (0-10); HEMATOCRIT 36 % (40-54); HEMOGLOBIN 12.6 G/DL (13.3-17.7); LYMPHOCYTES # (AUTO) 1.9 X 10^3 (1.0-4.0); LYMPHOCYTES % (AUTO) 28 % (12-44); MEAN CORPUSCULAR HEMOGLOBIN 31 PG (25-34); MEAN CORPUSCULAR HGB CONC 35 G/DL (32-36); MEAN CORPUSCULAR VOLUME 89 FL (80-99); MEAN PLATELET VOLUME 9.3 FL (7.4-10.4); MONOCYTES # (AUTO) 0.5 X 10^3 (0.0-1.0); MONOCYTES % (AUTO) 7 % (0-12); NEUTROPHILS % (AUTO) 59 % (42-75); PLATELET COUNT 217 10^3/uL (130-400); RED CELL DISTRIBUTION WIDTH 14.4 % (10.0-14.5); WHITE BLOOD COUNT 6.9 10^3/uL (4.3-11.0)
[2020-01-14 03:43] LABS: INR 3.9 (0.8-1.4); PROTHROMBIN TIME PATIENT 40.4 SEC (12.2-14.7)
[2020-01-14 03:52] LABS: BUN/CREATININE RATIO 17; CALCIUM 8.7 MG/DL (8.5-10.1); CARBON DIOXIDE 24 MMOL/L (21-32); CHLORIDE 102 MMOL/L (98-107); CREATININE SERUM 0.69 MG/DL (0.60-1.30); GFR ESTIMATED > 60; GLUCOSE 94 MG/DL (70-105); MAGNESIUM 2.2 MG/DL (1.6-2.4); PHOSPHORUS 2.8 MG/DL (2.3-4.7); POTASSIUM 3.9 MMOL/L (3.6-5.0); SODIUM 137 MMOL/L (135-145)
--- NOTE | 2020-01-14 04:15 | Pulmonary Progress Note ---
Subjective Time Seen by a Provider: 04:08 Subjective/Events-last exam Pt appears to be doing better. Sepsis Event Evaluation Height, Weight, BMI Height: 5'11.00" Weight: 179lbs. 5.0oz. 81.665065cx; 22.42 BMI Method:Stated Exam Exam Vital Signs Date Time Temp Pulse Resp B/P (MAP) Pulse Ox O2 Delivery O2 Flow Rate FiO2 01/14/20 03:00 82 15 90/66 (74) 96 Room Air 01/14/20 02:00 77 12 87/64 (72) 96 Room Air 01/14/20 01:00 82 01/14/20 01:00 81 14 87/67 (74) 96 Room Air 01/14/20 00:00 92 19 87/65 (72) 95 Room Air 01/13/20 23:33 Room Air 01/13/20 23:24 36.8 01/13/20 23:00 82 15 83/64 (70) 97 Room Air 01/13/20 22:00 88 17 85/63 (70) 96 Room Air 01/13/20 21:00 89 22 91/64 (73) 96 Room Air 01/13/20 20:50 36.4 Room Air 01/13/20 20:00 92 19 86/69 (75) 96 Room Air 01/13/20 20:00 Room Air 01/13/20 20:00 Room Air 01/13/20 19:00 91 20 86/65 (72) 94 Room Air 01/13/20 19:00 95 01/13/20 18:00 90 13 100/49 (66) 97 Nasal Cannula 2.00 01/13/20 17:00 84 17 98/74 (82) 95 Nasal Cannula 2.00 01/13/20 16:00 36.9 01/13/20 16:00 95 19 86/63 (71) 91 Nasal Cannula 2.00 01/13/20 15:37 Room Air 01/13/20 15:00 87 20 96/69 (78) 95 Nasal Cannula 2.00 01/13/20 14:00 92 24 99/71 (80) 97 Nasal Cannula 2.00 01/13/20 13:00 90 23 90/67 (75) 98 Nasal Cannula 2.00 01/13/20 12:55 97 01/13/20 12:12 112/77 01/13/20 12:00 37.0 01/13/20 12:00 Room Air 01/13/20 12:00 99 19 112/77 (89) 99 Nasal Cannula 2.00 01/13/20 11:00 101 11 108/66 (80) 100 Nasal Cannula 2.00 01/13/20 10:00 93 16 110/75 (87) 98 Nasal Cannula 2.00 01/13/20 09:00 Room Air 01/13/20 09:00 93 20 101/71 (81) 99 Nasal Cannula 2.00 01/13/20 08:00 Room Air 01/13/20 08:00 91 15 97/71 (80) 99 Nasal Cannula 2.00 01/13/20 07:25 36.0 01/13/20 07:00 99 01/13/20 07:00 83 17 102/73 (83) 99 Nasal Cannula 2.00 01/13/20 06:00 91 16 100/72 (81) 100 Nasal Cannula 2.00 01/13/20 05:00 87 12 101/72 (82) 99 Nasal Cannula 2.00 I & O 01/14/20 07:00 Intake Total 1425 ml Output Total 900 ml Balance 525 ml Height & Weight Height: 5'11.00" Weight: 179lbs. 5.0oz. 81.235601xs; 22.42 BMI Method:Stated General Appearance: No Apparent Distress, Chronically ill, Thin HEENT: PERRL/EOMI, Moist Mucous Membranes Neck: Full Range of Motion, Normal Inspection, Non Tender, Supple, Carotid Bruit Respiratory: Lungs Clear, Normal Breath Sounds, No Accessory Muscle Use, No Respiratory Distress Cardiovascular: Regular Rate, Rhythm, No Murmur Capillary Refill: Less Than 3 Seconds Gastrointestinal: non tender, soft, no organomegaly Extremity: No Calf Tenderness, Pedal Edema Neurologic/Psychiatric: Alert, Oriented x3 Skin: Warm/Dry, Other (minimal drainage, clean and dry dressing at ICD removal site,) Lymphatic: No Adenopathy Results Lab Laboratory Tests 01/13/20 03:28 01/14/20 03:23 Assessment/Plan Assessment/Plan nfected ICD pocket with Staphylococcus aureus MSSA -Continue Ancef, and gent Ischemic cardiomyopathy/ CHF EF 5 -10% -Cardiology following CAD HTN DM Once pt transfers out of ICU I am going to sign off please call with any questions. SUZY MONTANA DO Jan 14, 2020 04:15
[2020-01-14] MEDS: KCL 10 MEQ TAB (MICRO K) PO SCH (06:17)
[2020-01-14] MEDS: metFORMIN XR 500 MG (GLUCOPHAGE XR) TAB PO SCH ×2 (06:17→17:18)
[2020-01-14] MEDS: SPIRONOLACTONE 25 MG (ALDACTONE) TAB PO SCH (10:00)
[2020-01-14] MEDS: lisINopril 5 MG (PRINIVIL) TABLET PO SCH (10:01)
[2020-01-14] MEDS: ASPIRIN 81 MG CHEW (CHILDREN'S ASA) PO SCH (10:03)
--- NOTE | 2020-01-14 10:50 | Progress Note - Hospitalist ---
Subjective HPI/CC On Admission Date Seen by Provider: Jan 14, 2020 Time Seen by Provider: 09:45 CC: Staph bacteremia HPI: This is a 54yoWM known to me from prior hospital stay who has a low ejection fraction who had an ICD placed a few weeks ago, came in with pustular drainage from the area and ling-cultured, placed on Vancomycin and Ancef empirically and found to have bacteremia of Staph. I initiated a dose of Gentami rossy combined with Vanc, discontinued the Ancef and noted that even the leads of the ICD was contaminated with staph. At this current time Pt denies any pain. Subjective/Events-last exam Patient is sleeping and is tired but is without complaint this morning. Blood pressure continues to run somewhat low. Discussed with Dr. Tse possibility of transferring to the floor however he may consider dobutamine drip intermittently. Review of Systems Neurological: Weakness Objective Exam Vital Signs Vital Signs Date Time Temp Pulse Resp B/P (MAP) Pulse Ox O2 Delivery O2 Flow Rate FiO2 01/16/20 12:16 84 01/16/20 12:00 36.7 20 106/73 (84) 97 Room Air 01/16/20 09:00 1.00 Capillary Refill : Less Than 3 Seconds General Appearance: Chronically ill HEENT: Normal ENT Inspection Neck: JVD Respiratory: Lungs Clear, Normal Breath Sounds, No Accessory Muscle Use Cardiovascular: Regular Rate, Rhythm, No Edema, Systolic Murmur Gastrointestinal: Normal Bowel Sounds, Non Tender, Soft Rectal: Deferred Extremity: No Pedal Edema Neurologic/Psychiatric: Alert, Oriented x3, Normal Mood/Affect Results/Procedures Lab Laboratory Tests 01/16/20 05:00 Patient resulted labs reviewed. Assessment/Plan Assessment and Plan Assess & Plan/Chief Complaint MSSA-on nafcillin, will reculture after 3 days, and if cultures are negative- will need a PICC line, then discharge for nafcillin infusion for at least 2 weeks as an outpatient Congestive heart failure systolic dysfunction EF 5-10 percent-on life vest, we'll begin intermittent dobutamine infusion per Dr. Tse Clinical Quality Measures DVT/VTE Risk/Contraindication: Risk Factor Score Per Nursin RFS Level Per Nursing on Admit: 4+=Very High ARMIDA DIAS MD Jan 14, 2020 10:50
--- NOTE | 2020-01-14 11:48 | Progress Note ---
Subjective Date Seen by a Provider: Jan 14, 2020 Time Seen by a Provider: 10:00 Subjective/Events-last exam doing well. no complaints. no fever/chills. no SOB. tolerating diet. Objective Exam Vital Signs Date Time Temp Pulse Resp B/P (MAP) Pulse Ox O2 Delivery O2 Flow Rate FiO2 01/14/20 11:00 88 19 96/67 (77) 91 Nasal Cannula 1.00 01/14/20 10:00 93 11 94/67 (76) 96 Nasal Cannula 1.00 01/14/20 09:00 Room Air 01/14/20 09:00 86 18 85/64 (71) 95 Nasal Cannula 1.00 01/14/20 08:00 87 15 89/63 (72) 95 Nasal Cannula 1.00 01/14/20 08:00 Room Air 01/14/20 07:59 36.6 01/14/20 07:00 89 01/14/20 07:00 94 16 88/66 (73) 97 Nasal Cannula 1.00 01/14/20 06:00 89 17 85/64 (71) 94 Room Air 01/14/20 05:00 80 17 83/63 (70) 95 Room Air 01/14/20 04:00 81 16 86/63 (71) 96 Room Air 01/14/20 04:00 Room Air 01/14/20 03:00 82 15 90/66 (74) 96 Room Air 01/14/20 02:00 77 12 87/64 (72) 96 Room Air 01/14/20 01:00 82 01/14/20 01:00 81 14 87/67 (74) 96 Room Air 01/14/20 00:00 92 19 87/65 (72) 95 Room Air 01/13/20 23:33 Room Air 01/13/20 23:24 36.8 01/13/20 23:00 82 15 83/64 (70) 97 Room Air 01/13/20 22:00 88 17 85/63 (70) 96 Room Air 01/13/20 21:00 89 22 91/64 (73) 96 Room Air 01/13/20 20:50 36.4 Room Air 01/13/20 20:00 92 19 86/69 (75) 96 Room Air 01/13/20 20:00 Room Air 01/13/20 20:00 Room Air 01/13/20 19:00 91 20 86/65 (72) 94 Room Air 01/13/20 19:00 95 01/13/20 18:00 90 13 100/49 (66) 97 Nasal Cannula 2.00 01/13/20 17:00 84 17 98/74 (82) 95 Nasal Cannula 2.00 01/13/20 16:00 36.9 01/13/20 16:00 95 19 86/63 (71) 91 Nasal Cannula 2.00 01/13/20 15:37 Room Air 01/13/20 15:00 87 20 96/69 (78) 95 Nasal Cannula 2.00 01/13/20 14:00 92 24 99/71 (80) 97 Nasal Cannula 2.00 01/13/20 13:00 90 23 90/67 (75) 98 Nasal Cannula 2.00 01/13/20 12:55 97 01/13/20 12:12 112/77 01/13/20 12:00 37.0 01/13/20 12:00 Room Air 01/13/20 12:00 99 19 112/77 (89) 99 Nasal Cannula 2.00 I & O 01/14/20 07:00 Intake Total 2125 ml Output Total 1900 ml Balance 225 ml Capillary Refill : Less Than 3 Seconds General Appearance: No Apparent Distress HEENT: PERRL/EOMI Neck: Full Range of Motion Respiratory: Chest Non Tender, Normal Breath Sounds Cardiovascular: Regular Rate, Rhythm Gastrointestinal: normal bowel sounds, non tender, soft Extremity: Normal Capillary Refill Neurologic/Psychiatric: Alert, Oriented x3 Skin: Normal Color Lymphatic: No Adenopathy Results Lab Laboratory Tests 01/14/20 03:23: White Blood Count 6.9, Red Blood Count 4.08L, Hemoglobin 12.6L, Hematocrit 36L, Mean Corpuscular Volume 89, Mean Corpuscular Hemoglobin 31, Mean Corpuscular Hemoglobin Concent 35, Red Cell Distribution Width 14.4, Platelet Count 217, Mean Platelet Volume 9.3, Neutrophils (%) (Auto) 59, Lymphocytes (%) (Auto) 28, Monocytes (%) (Auto) 7, Eosinophils (%) (Auto) 6, Basophils (%) (Auto) 1, Neutrophils # (Auto) 4.0, Lymphocytes # (Auto) 1.9, Monocytes # (Auto) 0.5, Eosinophils # (Auto) 0.4H, Basophils # (Auto) 0.1, Prothrombin Time 40.4H, INR Comment 3.9H, Sodium Level 137, Potassium Level 3.9, Chloride Level 102, Carbon Dioxide Level 24, Anion Gap 11, Blood Urea Nitrogen 12, Creatinine 0.69, Estimat Glomerular Filtration Rate > 60, BUN/Creatinine Ratio 17, Glucose Level 94, Calcium Level 8.7, Phosphorus Level 2.8, Magnesium Level 2.2 Microbiology 01/10/20 Gram Stain - Final, Resulted 01/10/20 Anaerobic Culture - Preliminary, Resulted No anaerobes isolated 01/10/20 Surgical Culture - Final, Resulted Staphylococcus aureus 01/10/20 Gram Stain - Final, Resulted 01/10/20 Anaerobic Culture - Preliminary, Resulted No anaerobes isolated 01/10/20 Surgical Culture - Final, Resulted Staphylococcus aureus 01/10/20 Blood Culture - Final, Complete Staphylococcus aureus 01/10/20 MRSA Screen - Final, Complete MRSA not isolated Assessment/Plan Assessment/Plan Assess & Plan/Chief Complaint s/p removal infected defibrillator. wound granulating well. minimal redness/erythema. continue IV abx and wound care. Clinical Quality Measures DVT/VTE Risk/Contraindication: Risk Factor Score Per Nursin RFS Level Per Nursing on Admit: 4+=Very High MARINA MON MD Jan 14, 2020 11:48
[2020-01-14] MEDS: warFARin 5 MG (COUMADIN) TAB PO SCH (17:01)
[2020-01-15] VITALS (15 sets, daily range): BP systolic 95–112; BP diastolic 67–83
[2020-01-15] MEDS: NAFCILLIN INJECTION 2,000 MG in NS (IVPB) 100 ML IV SCH ×6 (02:13→22:32)
[2020-01-15 04:15] LABS: BASOPHILS % (AUTO) 0 % (0-10); EOSINOPHILS # (AUTO) 0.4 10^3/uL (0.0-0.3); EOSINOPHILS % (AUTO) 5 % (0-10); HEMATOCRIT 37 % (40-54); HEMOGLOBIN 12.3 G/DL (13.3-17.7); LYMPHOCYTES # (AUTO) 2.2 X 10^3 (1.0-4.0); LYMPHOCYTES % (AUTO) 27 % (12-44); MEAN CORPUSCULAR HEMOGLOBIN 30 PG (25-34); MEAN CORPUSCULAR HGB CONC 34 G/DL (32-36); MEAN CORPUSCULAR VOLUME 89 FL (80-99); MEAN PLATELET VOLUME 9.2 FL (7.4-10.4); MONOCYTES # (AUTO) 0.6 X 10^3 (0.0-1.0); MONOCYTES % (AUTO) 7 % (0-12); NEUTROPHILS # (AUTO) 4.9 X 10^3 (1.8-7.8); NEUTROPHILS % (AUTO) 61 % (42-75); PLATELET COUNT 248 10^3/uL (130-400); RED CELL DISTRIBUTION WIDTH 14.5 % (10.0-14.5)
[2020-01-15 04:26] LABS: INR 3.9 (0.8-1.4); PROTHROMBIN TIME PATIENT 39.8 SEC (12.2-14.7)
[2020-01-15 04:37] LABS: BUN/CREATININE RATIO 22; CALCIUM 8.8 MG/DL (8.5-10.1); CARBON DIOXIDE 23 MMOL/L (21-32); CHLORIDE 101 MMOL/L (98-107); CREATININE SERUM 0.74 MG/DL (0.60-1.30); GFR ESTIMATED > 60; GLUCOSE 93 MG/DL (70-105); MAGNESIUM 2.1 MG/DL (1.6-2.4); PHOSPHORUS 3.7 MG/DL (2.3-4.7); POTASSIUM 3.6 MMOL/L (3.6-5.0); SODIUM 137 MMOL/L (135-145)
--- NOTE | 2020-01-15 05:00 | Pulmonary Progress Note ---
Subjective Time Seen by a Provider: 04:58 Sepsis Event Evaluation Height, Weight, BMI Height: 5'11.00" Weight: 179lbs. 5.0oz. 81.389285sm; 22.42 BMI Method:Stated Exam Exam Vital Signs Date Time Temp Pulse Resp B/P (MAP) Pulse Ox O2 Delivery O2 Flow Rate FiO2 01/15/20 04:00 93 Room Air 01/15/20 04:00 86 18 100/70 (80) 91 Room Air 01/15/20 03:00 85 14 95/72 (80) 96 Room Air 01/15/20 02:00 85 15 99/70 (80) 94 Room Air 01/15/20 01:00 88 01/15/20 01:00 88 16 95/70 (78) 95 Room Air 01/15/20 00:00 97 18 99/74 (82) 95 Room Air 01/15/20 00:00 94 Room Air 01/14/20 23:00 91 14 98/67 (77) 90 Room Air 01/14/20 22:00 105 11 103/74 (84) 97 Room Air 01/14/20 21:00 98 15 92/71 (78) 92 Room Air 01/14/20 21:00 Room Air 01/14/20 20:00 37.3 01/14/20 20:00 98 19 99/73 (82) 95 Room Air 01/14/20 20:00 95 Room Air 01/14/20 19:00 102 01/14/20 19:00 101 15 98/65 (76) 95 Room Air 01/14/20 18:00 96 22 93/70 (78) 92 Nasal Cannula 1.00 01/14/20 17:00 103 21 107/80 (89) 96 Nasal Cannula 1.00 01/14/20 16:09 Room Air 01/14/20 16:00 36.9 01/14/20 16:00 110 20 95/71 (79) 94 Nasal Cannula 1.00 01/14/20 15:00 93 28 97/70 (79) 95 Nasal Cannula 1.00 01/14/20 14:00 95 18 96/73 (81) 94 Nasal Cannula 1.00 01/14/20 13:00 93 18 98/71 (80) 93 Nasal Cannula 1.00 01/14/20 13:00 93 01/14/20 12:00 Room Air 01/14/20 12:00 36.9 01/14/20 12:00 107 11 98/77 (84) 94 Nasal Cannula 1.00 01/14/20 11:00 88 19 96/67 (77) 91 Nasal Cannula 1.00 01/14/20 10:00 93 11 94/67 (76) 96 Nasal Cannula 1.00 01/14/20 09:00 Room Air 01/14/20 09:00 86 18 85/64 (71) 95 Nasal Cannula 1.00 01/14/20 08:00 87 15 89/63 (72) 95 Nasal Cannula 1.00 01/14/20 08:00 Room Air 01/14/20 07:59 36.6 01/14/20 07:00 89 01/14/20 07:00 94 16 88/66 (73) 97 Nasal Cannula 1.00 01/14/20 06:00 89 17 85/64 (71) 94 Room Air 01/14/20 05:00 80 17 83/63 (70) 95 Room Air I & O 01/15/20 07:00 Intake Total 1890 ml Output Total 2100 ml Balance -210 ml Height & Weight Height: 5'11.00" Weight: 179lbs. 5.0oz. 81.307582dh; 22.42 BMI Method:Stated General Appearance: No Apparent Distress HEENT: PERRL/EOMI Neck: Full Range of Motion Respiratory: Chest Non Tender, Normal Breath Sounds Cardiovascular: Regular Rate, Rhythm Capillary Refill: Less Than 3 Seconds Gastrointestinal: normal bowel sounds, non tender, soft Extremity: Normal Capillary Refill Neurologic/Psychiatric: Alert, Oriented x3 Skin: Normal Color Lymphatic: No Adenopathy Results Lab Laboratory Tests 01/14/20 03:23 01/15/20 03:52 Assessment/Plan Assessment/Plan Infected ICD pocket with Staphylococcus aureus MSSA -Continue Nafcillin Ischemic cardiomyopathy/ CHF EF 5 -10% -Cardiology following Hypotension -Resolved CAD HTN DM Once pt transfers out of ICU I am going to sign off please call with any questions. SUZY MONTANA DO Jan 15, 2020 05:00
[2020-01-15] MEDS: metFORMIN XR 500 MG (GLUCOPHAGE XR) TAB PO SCH ×2 (06:49→18:05)
[2020-01-15] MEDS: KCL 10 MEQ TAB (MICRO K) PO SCH (06:49)
[2020-01-15] MEDS: ASPIRIN 81 MG CHEW (CHILDREN'S ASA) PO SCH (08:22)
[2020-01-15] MEDS: SPIRONOLACTONE 25 MG (ALDACTONE) TAB PO SCH (08:23)
[2020-01-15] MEDS: lisINopril 5 MG (PRINIVIL) TABLET PO SCH (08:24)
--- NOTE | 2020-01-15 09:13 | Cardiology Progress Note ---
Subjective Date Seen by Provider: Jan 15, 2020 Time Seen by Provider: 09:12 Subjective/Events-last exam Patient is then down in bed, feeling better. No new complaint Review of Systems General: No Chills, No Night Sweats, No Fatigue, No Malaise, No Appetite, No Other HEENT: No Head Aches, No Visual Changes, No Eye Pain, No Ear Pain, No Dysphasia, No Sinus Congestion, No Post Nasal Drip, No Sore Throat, No Other Pulmonary: No Dyspnea, No Cough, No Pleuritic Chest Pain, No Other Cardiovascular: No: Chest Pain, Palpitations, Orthopnea, Paroxysmal Noc. Dyspnea, Edema, Lt Headedness, Other Objective-Cardiology Exam Last Set of Vital Signs Vital Signs 01/14/20 01/15/20 01/15/20 01/15/20 01/15/20 18:00 06:00 07:00 07:55 07:56 Temp 36.0 Pulse 106 Resp 15 B/P (MAP) 96/67 (77) Pulse Ox 94 O2 Delivery Room Air O2 Flow Rate 1.00 Capillary Refill : Less Than 3 Seconds I&O Intake and Output 01/15/20 00:00 Intake Total 2590 ml Output Total 2625 ml Balance -35 ml Intake Oral 2290 ml IV Total 300 ml Output Urine Total 2625 ml # Bowel Movements 1 General: Alert, Oriented X3, Cooperative, No Acute Distress HEENT: Atraumatic, PERRLA Neck: Supple, No JVD Lungs: Clear to Auscultation, Normal Air Movement Heart: Regular Rate, Normal S1, Normal S2, No Murmurs Abdomen: Normal Bowel Sounds, Soft, No Tenderness, No Hepatosplenomegaly, No Masses Extremities: No Clubbing, No Cyanosis, No Edema, Normal Pulses, No Tenderness/Swelling Skin: Other (C/D/I dressing at ICD retrieval site) Neuro: Normal Speech, Cranial Nerves 3-12 NL Psych/Mental Status: Mental Status NL, Mood NL Results Lab Laboratory Tests 01/15/20 03:52 A/P-Cardiology Admission Diagnosis Infected ICD pocket CHF CAD HTN Assessment/Plan Infected ICD pocket, single chamber ICD was extracted on January 10, 2020, culture grew Staphylococcus aureus. Receiving antibiotic, discussed with Dr. Smith, we will change antibiotic to nafcillin every 4 hours and possible continuous infusion, repeat blood culture so far showing no growth, planning to proceed with PICC line placement and possible discharge Congestive heart failure, acute on chronic left ventricular systolic dysfunction, severe cardiomyopathy with ejection fraction 10 percent, ischemic cardiomyopathy, seen at with Dr. Smith, right heart catheterization at that time showed normal pressures. Will put LifeVest at this time. Staph aureus sepsis, echocardiogram did not show any vegetation. Receiving antibiotic. Continue to monitor Congestive heart failure, left ventricular systolic dysfunction, severe cardiomyopathy with ejection fraction 10 percent. Ischemic cardiomyopathy. Following with Dr. Smith at at this time. Had a right heart catheterization showing normal pressures. 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 Passive hepatic congestion with elevated LFTs, continue to monitor Diabetes mellitus, managed by primary care physician Anxiety Clinical Quality Measures DVT/VTE Risk/Contraindication: Risk Factor Score Per Nursin RFS Level Per Nursing on Admit: 4+=Very High TRACE BERMAN MD Jan 15, 2020 09:13
--- NOTE | 2020-01-15 09:16 | Progress Note - Hospitalist ---
Subjective HPI/CC On Admission Date Seen by Provider: Jan 15, 2020 Time Seen by Provider: 08:45 CC: Staph bacteremia HPI: This is a 54yoWM known to me from prior hospital stay who has a low ejection fraction who had an ICD placed a few weeks ago, came in with pustular drainage from the area and ling-cultured, placed on Vancomycin and Ancef empirically and found to have bacteremia of Staph. I initiated a dose of Gentami rossy combined with Vanc, discontinued the Ancef and noted that even the leads of the ICD was contaminated with staph. At this current time Pt denies any pain. Subjective/Events-last exam Patient notes that he does have discomfort with dressing changes of the ICD pocket. Has no complaints otherwise other than wishing that he could go home. Blood culture so far negative. He will require a PICC line for constant nafcillin infusion for when he stood discharged. Review of Systems Neurological: Weakness Objective Exam Vital Signs Vital Signs Date Time Temp Pulse Resp B/P (MAP) Pulse Ox O2 Delivery O2 Flow Rate FiO2 01/15/20 07:56 Room Air 01/15/20 07:55 36.0 01/15/20 07:00 106 01/15/20 06:00 15 96/67 (77) 94 01/14/20 18:00 1.00 Capillary Refill : Less Than 3 Seconds General Appearance: Chronically ill HEENT: Normal ENT Inspection Neck: Full Range of Motion, Normal Inspection, Non Tender, Supple Respiratory: Lungs Clear, Normal Breath Sounds, No Accessory Muscle Use, No Respiratory Distress Cardiovascular: Regular Rate, Rhythm, Systolic Murmur Gastrointestinal: Normal Bowel Sounds, Non Tender, Soft Extremity: Normal Capillary Refill, Normal Inspection, Normal Range of Motion, No Pedal Edema Results/Procedures Lab Laboratory Tests 01/15/20 03:52 Patient resulted labs reviewed. Assessment/Plan Assessment and Plan Assess & Plan/Chief Complaint MSSA-on nafcillin, cultures negative so far, and if cultures are negative-will need a PICC line, then discharge for nafcillin infusion for at least 2 weeks as an outpatient Congestive heart failure systolic dysfunction EF 5-10 percent-on life vest, w e'll begin intermittent dobutamine infusion per Dr. Tse Clinical Quality Measures DVT/VTE Risk/Contraindication: Risk Factor Score Per Nursin RFS Level Per Nursing on Admit: 4+=Very High SANDNESS,ARMIDA Elise MD Jan 15, 2020 09:16
[2020-01-15] MEDS: HYDROcodone/APAP 5 MG/325 MG (LORTAB) TAB PO PRN ×2 (09:54→18:05)
--- NOTE | 2020-01-15 10:36 | Progress Note ---
Subjective Date Seen by a Provider: Jan 15, 2020 Time Seen by a Provider: 10:00 Subjective/Events-last exam doing well. improved BP. no SOB or CP. wound clean/dry with minimal redness. Objective Exam Vital Signs Date Time Temp Pulse Resp B/P (MAP) Pulse Ox O2 Delivery O2 Flow Rate FiO2 01/15/20 09:19 Room Air 01/15/20 09:00 89 30 104/73 (83) 96 Room Air 01/15/20 08:00 94 100/74 (83) 93 Room Air 01/15/20 07:56 Room Air 01/15/20 07:55 36.0 01/15/20 07:00 90 12 101/77 (85) 95 Room Air 01/15/20 07:00 106 01/15/20 06:00 76 15 96/67 (77) 94 Room Air 01/15/20 05:00 79 16 100/73 (82) 94 Room Air 01/15/20 04:00 93 Room Air 01/15/20 04:00 35.9 01/15/20 04:00 86 18 100/70 (80) 91 Room Air 01/15/20 03:00 85 14 95/72 (80) 96 Room Air 01/15/20 02:00 85 15 99/70 (80) 94 Room Air 01/15/20 01:00 88 01/15/20 01:00 88 16 95/70 (78) 95 Room Air 01/15/20 00:00 97 18 99/74 (82) 95 Room Air 01/15/20 00:00 94 Room Air 01/15/20 00:00 36.1 01/14/20 23:00 91 14 98/67 (77) 90 Room Air 01/14/20 22:00 105 11 103/74 (84) 97 Room Air 01/14/20 21:00 98 15 92/71 (78) 92 Room Air 01/14/20 21:00 Room Air 01/14/20 20:00 37.3 01/14/20 20:00 98 19 99/73 (82) 95 Room Air 01/14/20 20:00 95 Room Air 01/14/20 19:00 102 01/14/20 19:00 101 15 98/65 (76) 95 Room Air 01/14/20 18:00 96 22 93/70 (78) 92 Nasal Cannula 1.00 01/14/20 17:00 103 21 107/80 (89) 96 Nasal Cannula 1.00 01/14/20 16:09 Room Air 01/14/20 16:00 36.9 01/14/20 16:00 110 20 95/71 (79) 94 Nasal Cannula 1.00 01/14/20 15:00 93 28 97/70 (79) 95 Nasal Cannula 1.00 01/14/20 14:00 95 18 96/73 (81) 94 Nasal Cannula 1.00 01/14/20 13:00 93 18 98/71 (80) 93 Nasal Cannula 1.00 01/14/20 13:00 93 01/14/20 12:00 Room Air 01/14/20 12:00 36.9 01/14/20 12:00 107 11 98/77 (84) 94 Nasal Cannula 1.00 01/14/20 11:00 88 19 96/67 (77) 91 Nasal Cannula 1.00 I & O 01/15/20 07:00 Intake Total 2140 ml Output Total 2400 ml Balance -260 ml Capillary Refill : Less Than 3 Seconds General Appearance: No Apparent Distress HEENT: PERRL/EOMI Neck: Full Range of Motion Respiratory: Chest Non Tender, Lungs Clear, Normal Breath Sounds Cardiovascular: Regular Rate, Rhythm Gastrointestinal: normal bowel sounds, non tender, soft Extremity: Normal Capillary Refill Neurologic/Psychiatric: Alert, Oriented x3 Skin: Other (chest wound clean/dry with granulation bed forming) Lymphatic: No Adenopathy Results Lab Laboratory Tests 01/14/20 11:54: Glucometer 94 01/14/20 15:51: Glucometer 114H 01/14/20 20:48: Glucometer 121H 01/15/20 03:52: White Blood Count 8.0, Red Blood Count 4.10L, Hemoglobin 12.3L, Hematocrit 37L, Mean Corpuscular Volume 89, Mean Corpuscular Hemoglobin 30, Mean Corpuscular Hemoglobin Concent 34, Red Cell Distribution Width 14.5, Platelet Count 248, Mean Platelet Volume 9.2, Neutrophils (%) (Auto) 61, Lymphocytes (%) (Auto) 27, Monocytes (%) (Auto) 7, Eosinophils (%) (Auto) 5, Basophils (%) (Auto) 0, Neutrophils # (Auto) 4.9, Lymphocytes # (Auto) 2.2, Monocytes # (Auto) 0.6, Eosinophils # (Auto) 0.4H, Basophils # (Auto) 0.0, Prothrombin Time 39.8H, INR Comment 3.9H, Sodium Level 137, Potassium Level 3.6, Chloride Level 101, Carbon Dioxide Level 23, Anion Gap 13, Blood Urea Nitrogen 16, Creatinine 0.74, Estimat Glomerular Filtration Rate > 60, BUN/Creatinine Ratio 22, Glucose Level 93, Calcium Level 8.8, Phosphorus Level 3.7, Magnesium Level 2.1 Microbiology 01/13/20 Blood Culture - Preliminary, Resulted No growth 01/10/20 Gram Stain - Final, Resulted 01/10/20 Anaerobic Culture - Preliminary, Resulted No anaerobes isolated 01/10/20 Surgical Culture - Final, Resulted Staphylococcus aureus 01/10/20 Gram Stain - Final, Resulted 01/10/20 Anaerobic Culture - Preliminary, Resulted No anaerobes isolated 01/10/20 Surgical Culture - Final, Resulted Staphylococcus aureus 01/10/20 MRSA Screen - Final, Complete MRSA not isolated Assessment/Plan Assessment/Plan Assess & Plan/Chief Complaint s/p removal infected defibrillator. wound granulating well. minimal redness/erythema. continue IV abx and wound care. transfer to floor. PICC and IV abx as OP Clinical Quality Measures DVT/VTE Risk/Contraindication: Risk Factor Score Per Nursin RFS Level Per Nursing on Admit: 4+=Very High MARINA MON MD Jan 15, 2020 10:36
--- NOTE | 2020-01-15 11:57 | NUR ---
PT REPORT GIVEN TO CAROL LEDBETTER. PT TO BE TRANSPORTED TO ROOM 426.
--- NOTE | 2020-01-15 12:03 | NUR ---
RECEIVED FROM ICU, REPORT FROM DARY LEDBETTER, DRESSING DRY AND INTACT TO LEFT CHEST, TELEMETRY ON, CALL LIGHT WITHIN REACH, SALINE LOCK WITHOUT REDNESS OR SWELLING IN BOTH AC SPACE.
--- NOTE | 2020-01-15 14:31 | NUR ---
LIFE VEST HERE TO FIT VEST
[2020-01-16 00:20] VITALS: BP 100/70
[2020-01-16] MEDS: NAFCILLIN INJECTION 2,000 MG in NS (IVPB) 100 ML IV SCH ×6 (03:03→23:11)
[2020-01-16] MEDS: HYDROcodone/APAP 5 MG/325 MG (LORTAB) TAB PO PRN ×3 (03:41→20:34)
[2020-01-16 04:00] VITALS: BP 109/79
[2020-01-16 05:07] LABS: BASOPHILS # (AUTO) 0.1 10^3/uL (0.0-0.1); BASOPHILS % (AUTO) 1 % (0-10); EOSINOPHILS # (AUTO) 0.4 10^3/uL (0.0-0.3); EOSINOPHILS % (AUTO) 4 % (0-10); HEMATOCRIT 38 % (40-54); HEMOGLOBIN 12.7 G/DL (13.3-17.7); LYMPHOCYTES # (AUTO) 2.5 X 10^3 (1.0-4.0); LYMPHOCYTES % (AUTO) 24 % (12-44); MEAN CORPUSCULAR HEMOGLOBIN 31 PG (25-34); MEAN CORPUSCULAR HGB CONC 34 G/DL (32-36); MEAN CORPUSCULAR VOLUME 93 FL (80-99); MONOCYTES # (AUTO) 0.5 X 10^3 (0.0-1.0); MONOCYTES % (AUTO) 5 % (0-12); NEUTROPHILS % (AUTO) 67 % (42-75); PLATELET COUNT 174 10^3/uL (130-400); RED CELL DISTRIBUTION WIDTH 14.6 % (10.0-14.5); WHITE BLOOD COUNT 10.4 10^3/uL (4.3-11.0)
[2020-01-16 05:15] LABS: INR 2.1 (0.8-1.4); PROTHROMBIN TIME PATIENT 24.8 SEC (12.2-14.7)
[2020-01-16 05:24] LABS: BUN/CREATININE RATIO 25; CALCIUM 8.9 MG/DL (8.5-10.1); CARBON DIOXIDE 23 MMOL/L (21-32); CHLORIDE 101 MMOL/L (98-107); CREATININE SERUM 0.76 MG/DL (0.60-1.30); GFR ESTIMATED > 60; GLUCOSE 91 MG/DL (70-105); MAGNESIUM 2.2 MG/DL (1.6-2.4); PHOSPHORUS 3.8 MG/DL (2.3-4.7); POTASSIUM 3.8 MMOL/L (3.6-5.0); SODIUM 137 MMOL/L (135-145)
[2020-01-16] MEDS: KCL 10 MEQ TAB (MICRO K) PO SCH (06:54)
[2020-01-16] MEDS: metFORMIN XR 500 MG (GLUCOPHAGE XR) TAB PO SCH ×2 (06:54→17:05)
[2020-01-16 08:00] VITALS: BP 109/74
--- NOTE | 2020-01-16 08:54 | Progress Note - Surgery ---
[facility] 01/16/20 0854: Subjective Date Seen by a Provider: Jan 16, 2020 Time Seen by a Provider: 08:34 Subjective/Events-last exam pt feeling well. reports wound pain when dressing is changed. Denies F, chills, myalgias, N/V, abd pain, or any other sx at this time. Review of Systems General: No Chills, No Night Sweats, No Fatigue Pulmonary: No Dyspnea, No Cough Cardiovascular: No: Chest Pain, Palpitations Gastrointestinal: No: Nausea, Vomiting, Abdominal Pain, Diarrhea, Constipation Genitourinary: No Dysuria, No Frequency Objective Exam Vital Signs Date Time Temp Pulse Resp B/P (MAP) Pulse Ox O2 Delivery O2 Flow Rate FiO2 01/16/20 07:00 96 Room Air 1.00 01/16/20 07:00 103 01/16/20 04:00 36.4 92 18 109/79 (89) 96 Room Air 01/16/20 01:00 84 01/16/20 00:20 36.6 82 20 100/70 (80) 95 Room Air 01/15/20 20:00 95 Room Air 01/15/20 19:01 37.2 101 22 100/68 (79) 94 Room Air 01/15/20 19:00 100 01/15/20 16:20 94 Room Air 01/15/20 15:23 36.6 99 20 104/71 (82) 95 Room Air 01/15/20 14:35 Room Air 01/15/20 13:00 89 01/15/20 12:00 108 15 112/83 (93) 95 Room Air 01/15/20 12:00 95 Room Air 01/15/20 11:23 36.4 01/15/20 11:00 101 33 102/77 (85) 92 Room Air 01/15/20 10:00 92 21 100/73 (82) 93 Room Air 01/15/20 09:19 Room Air 01/15/20 09:00 89 30 104/73 (83) 96 Room Air I & O 01/16/20 07:00 Intake Total 1540 ml Output Total 2300 ml Balance -760 ml Capillary Refill : Less Than 3 Seconds General Appearance: No Apparent Distress, Chronically ill HEENT: PERRL/EOMI, Moist Mucous Membranes Neck: Full Range of Motion, Non Tender Respiratory: Chest Non Tender, No Accessory Muscle Use, No Respiratory Distress Cardiovascular: Regular Rate, Rhythm Gastrointestinal: non tender, soft, no organomegaly Extremity: Normal Capillary Refill Neurologic/Psychiatric: Alert, Oriented x3 Skin: Normal Color, Warm/Dry, Other (minimal drainage at wound, minimal erythema) Lymphatic: No Adenopathy Results Lab Laboratory Tests 01/15/20 11:23: Glucometer 99 01/15/20 15:59: Glucometer 150H 01/15/20 23:13: Glucometer 104 01/16/20 05:00: White Blood Count 10.4, Red Blood Count 4.07L, Hemoglobin 12.7L, Hematocrit 38L, Mean Corpuscular Volume 93, Mean Corpuscular Hemoglobin 31, Mean Corpuscular Hemoglobin Concent 34, Red Cell Distribution Width 14.6H, Platelet Count 174, Mean Platelet Volume 9.0, Neutrophils (%) (Auto) 67, Lymphocytes (%) (Auto) 24, Monocytes (%) (Auto) 5, Eosinophils (%) (Auto) 4, Basophils (%) (Auto) 1, Neutrophils # (Auto) 7.0, Lymphocytes # (Auto) 2.5, Monocytes # (Auto) 0.5, E osinophils # (Auto) 0.4H, Basophils # (Auto) 0.1, Prothrombin Time 24.8H, INR Comment 2.1H, Sodium Level 137, Potassium Level 3.8, Chloride Level 101, Carbon Dioxide Level 23, Anion Gap 13, Blood Urea Nitrogen 19H, Creatinine 0.76, Estimat Glomerular Filtration Rate > 60, BUN/Creatinine Ratio 25, Glucose Level 91, Calcium Level 8.9, Phosphorus Level 3.8, Magnesium Level 2.2 Microbiology 01/13/20 Blood Culture - Preliminary, Resulted No growth 01/10/20 Gram Stain - Final, Resulted 01/10/20 Anaerobic Culture - Preliminary, Resulted No anaerobes isolated 01/10/20 Surgical Culture - Final, Resulted Staphylococcus aureus 01/10/20 Gram Stain - Final, Resulted 01/10/20 Anaerobic Culture - Preliminary, Resulted No anaerobes isolated 01/10/20 Surgical Culture - Final, Resulted Staphylococcus aureus 01/10/20 MRSA Screen - Final, Complete MRSA not isolated Assessment/Plan Assessment/Plan Assessment/Plan MSSA Infected pacemaker pocket, s/p removal by Dr. Gresham Negative blood cultures patient to have BID wound irrigated and packing with iodoform guaze continue abx and wound care Clinical Quality Measures DVT/VTE Risk/Contraindication: Risk Factor Score Per Nursin RFS Level Per Nursing on Admit: 4+=Very High AURELIO VERNON DO 01/16/201918: Subjective Subjective/Events-last exam no new complaints. tolerating wound dressing changes. denies n/v fever sweats chills shortness of breath or chest pain. Objective Exam General Appearance: No Apparent Distress, Chronically ill HEENT: PERRL/EOMI, Moist Mucous Membranes Neck: Full Range of Motion, Non Tender Respiratory: Chest Non Tender, No Accessory Muscle Use, No Respiratory Distress Cardiovascular: Regular Rate, Rhythm Gastrointestinal: non tender, soft, no organomegaly Extremity: Normal Capillary Refill Neurologic/Psychiatric: Alert, Oriented x3 Skin: Normal Color, Warm/Dry, Other (minimal drainage at wound, minimal erythema) Lymphatic: No Adenopathy Assessment/Plan Assessment/Plan Assessment/Plan MSSA Infected pacemaker pocket, s/p removal by Dr. Gresham Negative blood cultures patient to have BID wound irrigated and packing with iodoform guaze continue abx and wound care continues to improve Supervisory-Addendum Brief Verification & Attestation Participated in pt care: history, MDM, physical Personally performed: exam, history, MDM, supervision of care Care discussed with: Medical Student Procedures: n/a Results interpretation: Verified all documentation Verification and Attestation of Medical Student E/M Service A medical student performed and documented this service in my presence. I reviewed and verified all information documented by the medical student and made modifications to such information, when appropriate. I personally performed the physical exam and medical decision making. Aurelio Vernon, Jan 16, 2020,19:19 [facility] Jan 16, 2020 08:54 AURELIO VERNON DO Jan 16, 2020 19:19
[2020-01-16] MEDS: SPIRONOLACTONE 25 MG (ALDACTONE) TAB PO SCH (09:49)
[2020-01-16] MEDS: ASPIRIN 81 MG CHEW (CHILDREN'S ASA) PO SCH (09:49)
[2020-01-16] MEDS: lisINopril 5 MG (PRINIVIL) TABLET PO SCH (09:50)
--- NOTE | 2020-01-16 10:13 | Cardiology Progress Note ---
Subjective Date Seen by Provider: Jan 16, 2020 Time Seen by Provider: 10:11 Subjective/Events-last exam Patient is sitting up in bed, no new complaint. Denies any chest pain or dyspnea. Objective-Cardiology Exam Last Set of Vital Signs Vital Signs 01/16/20 08:00 Temp 35.6 Pulse 92 Resp 20 B/P (MAP) 109/74 (86) Pulse Ox 97 O2 Delivery Room Air Capillary Refill : Less Than 3 Seconds I&O Intake and Output 01/16/20 00:00 Intake Total 1590 ml Output Total 2225 ml Balance -635 ml Intake Oral 1390 ml IV Total 200 ml Output Urine Total 2225 ml General: Alert, Oriented X3, Cooperative, No Acute Distress HEENT: Atraumatic, PERRLA Neck: Supple, No JVD Lungs: Clear to Auscultation, Normal Air Movement Heart: Regular Rate, Normal S1, Normal S2, No Murmurs Abdomen: Normal Bowel Sounds, Soft, No Tenderness, No Hepatosplenomegaly, No Masses Extremities: No Clubbing, No Cyanosis, No Edema, Normal Pulses, No Tenderness/Swelling Skin: Other (C/D/I dressing at ICD retrieval site) Neuro: Normal Speech, Cranial Nerves 3-12 NL Psych/Mental Status: Mental Status NL, Mood NL Results Lab Laboratory Tests 01/16/20 05:00 A/P-Cardiology Admission Diagnosis Infected ICD pocket CHF CAD HTN Assessment/Plan Infected ICD pocket, single chamber ICD was extracted on January 10, 2020, culture grew Staphylococcus aureus. Receiving antibiotic, discussed with Dr. Smith, we will change antibiotic to nafcillin every 4 hours and possible continuous infusion, repeat blood culture so far showing no growth, planning to proceed with PICC line placement and possible discharge later today or tomorrow. Congestive heart failure, acute on chronic left ventricular systolic dysfunction, severe cardiomyopathy with ejection fraction 10 percent, ischemic cardiomyopathy, seen at with Dr. Smith, right heart catheterization at that time showed normal pressures. Patient currently wearing lifevest. Staph aureus sepsis, echocardiogram did not show any vegetation. Receiving antibiotic. Repeat blood cultures negative. Continue to monitor Congestive heart failure, left ventricular systolic dysfunction, severe cardiomyopathy with ejection fraction 10 percent. Ischemic cardiomyopathy. Following with Dr. Smith at at this time. Had a right heart ca theterization showing normal pressures. 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 Passive hepatic congestion with elevated LFTs, continue to monitor Diabetes mellitus, managed by primary care physician Anxiety Clinical Quality Measures DVT/VTE Risk/Contraindication: Risk Factor Score Per Nursin RFS Level Per Nursing on Admit: 4+=Very High ARUN OREILLY Jan 16, 2020 10:12
--- NOTE | 2020-01-16 11:00 | Diagnostic Imaging Report ---
INDICATION: Evaluate PICC line placement. Comparison made with prior examination of 01/13/2020. FINDINGS: The right upper extremity PICC line has its tip in superior vena cava. There is cardiomegaly. Lungs otherwise clear. No pleural effusion or pneumothorax. Mediastinum is unremarkable. IMPRESSION: No acute cardiopulmonary abnormality. Cardiomegaly. The PICC line is in satisfactory position. Dictated by: Dictated on workstation # [id number]
--- NOTE | 2020-01-16 11:05 | NUR ---
CM DISCHARGE PLANNING: Patient will be dismissing to home et will need a continuous infusion of IV nafcillin for 2 weeks. He has just had a picc line placed. He selected [facility] for his [facility] agency. Face sheet et scanned insurance cards faxed to [facility] Also called et spoke with Ashley at [facility] to ensure that they received the referral. Contacted primary care physician et once discharge medication orders are placed then I can send the information to the infusion company to begin with set up.
--- NOTE | 2020-01-16 11:25 | Cardiology Progress Note ---
Subjective Date Seen by Provider: Jan 16, 2020 Time Seen by Provider: 11:23 Subjective/Events-last exam Patient is laying down in bed, feeling better, no new complaint, had a PICC line Review of Systems General: No Chills, No Night Sweats, No Fatigue, No Malaise, No Appetite, No Other HEENT: No Head Aches, No Visual Changes, No Eye Pain, No Ear Pain, No Dysphasia, No Sinus Congestion, No Post Nasal Drip, No Sore Throat, No Other Pulmonary: No Dyspnea, No Cough, No Pleuritic Chest Pain, No Other Cardiovascular: No: Chest Pain, Palpitations, Orthopnea, Paroxysmal Noc. Dyspnea, Edema, Lt Headedness, Other Objective-Cardiology Exam Last Set of Vital Signs Vital Signs 01/16/20 01/16/20 08:00 09:00 Temp 35.6 Pulse 92 Resp 20 B/P (MAP) 109/74 (86) Pulse Ox 97 O2 Delivery Room Air O2 Flow Rate 1.00 Capillary Refill : Less Than 3 Seconds I&O Intake and Output 01/16/20 00:00 Intake Total 1590 ml Output Total 2225 ml Balance -635 ml Intake Oral 1390 ml IV Total 200 ml Output Urine Total 2225 ml General: Alert, Oriented X3, Cooperative, No Acute Distress HEENT: Atraumatic, PERRLA Neck: Supple, No JVD Lungs: Clear to Auscultation, Normal Air Movement Heart: Regular Rate, Normal S1, Normal S2, No Murmurs Abdomen: Normal Bowel Sounds, Soft, No Tenderness, No Hepatosplenomegaly, No Masses Extremities: No Clubbing, No Cyanosis, No Edema, Normal Pulses, No Tenderness/Swelling Skin: Other (C/D/I dressing at ICD retrieval site) Neuro: Normal Speech, Cranial Nerves 3-12 NL Psych/Mental Status: Mental Status NL, Mood NL Results Lab Laboratory Tests 01/16/20 05:00 A/P-Cardiology Admission Diagnosis Infected ICD pocket CHF CAD HTN Assessment/Plan Infected ICD pocket, single chamber ICD was extracted on January 10, 2020, culture grew Staphylococcus aureus. Receiving antibiotic, discussed with Dr. Smith, we will change antibiotic to nafcillin every 4 hours and possible continuous infusion, repeat blood culture so far showing no growth, the PICC line placed, planning to arrange for 2 weeks of IV nafcillin and then repeat blood culture as an outpatient. Congestive heart failure, acute on chronic left ventricular systolic dysfunction, severe cardiomyopathy with ejection fraction 10 percent, ischemic cardiomyopathy, seen at with Dr. Smith, right heart catheterization at that time showed normal pressures. Patient currently wearing lifevest. Staph aureus sepsis, echocardiogram did not show any vegetation. Receiving antibiotic. Repeat blood cultures negative. Continue to monitor Congestive heart failure, left ventricular systolic dysfunction, severe cardiomyopathy with ejection fraction 10 percent. Ischemic cardiomyopathy. Following with Dr. Smith at at this time. Had a right heart catheterization showing normal pressures. 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 Passive hepatic congestion with elevated LFTs, continue to monitor Diabetes mellitus, managed by primary care physician Anxiety Clinical Quality Measures DVT/VTE Risk/Contraindication: Risk Factor Score Per Nursin RFS Level Per Nursing on Admit: 4+=Very High TRACE BERMAN MD Jan 16, 2020 11:25
[2020-01-16 12:00] VITALS: BP 106/73
[2020-01-16] MEDS ORDERED: [UNRECOGNIZED DRUG - CODE] IV (15:22)
--- NOTE | 2020-01-16 15:32 | NUR ---
CM DISCHARGE PLANNING: Medication script faxed to [facility] Via [facility]. They have investigated the patient's insurance coverage et he will be covered at 100%. Olya from [facility] is contacting our [facility] at [facility] to coordinate with them. D/t my conversation with Olya I anticipate that the needed medication will be delivered to the patient's home via [employer]. The patient's will be at home between 9:15 a.m. et 1:45 p.m. to sign for the medication. This was discussed with both the infusion company et the patient. [facility] is aware that they will be needed but are awaiting [facility] orders before they can begin their authorization process.
[2020-01-16 16:11] VITALS: BP 100/67
[2020-01-16] MEDS ORDERED: NS 100 ML (IVPB) BAG IV ONE (16:45)
[2020-01-16] MEDS ORDERED: HOLD METFORMIN - RECEIVED CONTRAST 20 ML VIAL IV SCH (16:45)
[2020-01-16] MEDS ORDERED: IOHEXOL 350 MG/ML 100 ML (OMNIPAQUE 350) VIAL IV ONE (16:45)
[2020-01-16] MEDS: warFARin 5 MG (COUMADIN) TAB PO SCH (17:05)
--- NOTE | 2020-01-16 17:43 | Progress Note ---
Subjective Subjective/Events-last exam Patient feeling well this AM. States that he has some pain where ICD was removed. No bleeding or extensive bruising. Denies any fever or chills. Tolerating PO diet. Ambulating at baseline Review of Systems Pulmonary: No Dyspnea Cardiovascular: No: Chest Pain, Palpitations Gastrointestinal: No: Nausea, Vomiting, Diarrhea, Constipation Genitourinary: No Dysuria, No Frequency Neurological: No: Weakness, Incoordination Objective Exam Last Set of Vital Signs Vital Signs Date Time Temp Pulse Resp B/P (MAP) Pulse Ox O2 Delivery O2 Flow Rate FiO2 01/16/20 16:11 36.5 86 18 100/67 (78) 96 Room Air 01/16/20 09:00 1.00 Capillary Refill : Less Than 3 Seconds I&O Intake and Output 01/16/20 00:00 Intake Total 1590 ml Output Total 2225 ml Balance -635 ml Intake Oral 1390 ml IV Total 200 ml Output Urine Total 2225 ml General: Alert, Oriented X3, Cooperative, No Acute Distress Lungs: Clear to Auscultation, Normal Air Movement Heart: Regular Rate, No Murmurs Abdomen: Normal Bowel Sounds, Soft, No Tenderness, No Masses Extremities: No Edema, No Tenderness/Swelling Neuro: Strength at 5/5 X4 Ext, Sensation Intact, Cranial Nerves 3-12 NL Psych/Mental Status: Mental Status NL, Mood NL Results/Procedures Lab Laboratory Tests 01/15/20 23:13: Glucometer 104 01/16/20 05:00: White Blood Count 10.4, Red Blood Count 4.07L, Hemoglobin 12.7L, Hematocrit 38L, Mean Corpuscular Volume 93, Mean Corpuscular Hemoglobin 31, Mean Corpuscular Hemoglobin Concent 34, Red Cell Distribution Width 14.6H, Platelet Count 174, Mean Platelet Volume 9.0, Neutrophils (%) (Auto) 67, Lymphocytes (%) (Auto) 24, Monocytes (%) (Auto) 5, Eosinophils (%) (Auto) 4, Basophils (%) (Auto) 1, Neutrophils # (Auto) 7.0, Lymphocytes # (Auto) 2.5, Monocytes # (Auto) 0.5, Eosinophils # (Auto) 0.4H, Basophils # (Auto) 0.1, Prothrombin Time 24.8H, INR Comment 2.1H, Sodium Level 137, Potassium Level 3.8, Chloride Level 101, Carbon Dioxide Level 23, Anion Gap 13, Blood Urea Nitrogen 19H, Creatinine 0.76, Estimat Glomerular Filtration Rate > 60, BUN/Creatinine Ratio 25, Glucose Level 91, Calcium Level 8.9, Phosphorus Level 3.8, Magnesium Level 2.2 01/16/20 10:49: Glucometer 142H 01/16/20 15:38: Glucometer 122H Microbiology 01/13/20 Blood Culture - Preliminary, Resulted Staphylococcus aureus 01/10/20 Gram Stain - Final, Complete 01/10/20 Anaerobic Culture - Final, Complete No anaerobes isolated 01/10/20 Surgical Culture - Final, Complete Staphylococcus aureus 01/10/20 Gram Stain - Final, Complete 01/10/20 Anaerobic Culture - Final, Complete No anaerobes isolated 01/10/20 Surgical Culture - Final, Complete Staphylococcus aureus 01/10/20 MRSA Screen - Final, Complete MRSA not isolated Assessment/Plan Assessment/Plan (1) Pacemaker infection Status: Acute Assessment & Plan: ICD was removed, monitor for continued infection Qualifiers: Qualified Codes: T82.7XXA - Infection and inflammatory reaction due to other cardiac and vascular devices, implants and grafts, initial encounter (2) Bacteremia Status: Acute Assessment & Plan: - Blood culture resulted 01/16 + MSSA, repeat blood culture drawn today, Must have neg blood culture prior to d/c home, will need 6 weeks IV antibiotics (3) Pre-diabetes Status: Chronic Assessment & Plan: - Continue Metformin (4) MSSA (methicillin susceptible Staphylococcus aureus) (5) Cardiomyopathy Status: Chronic Assessment & Plan: - Patient following with cardiology and Dr Gresham Qualifiers: Qualified Codes: I42.0 - Dilated cardiomyopathy (6) HTN (hypertension) Status: Chronic Qualifiers: Qualified Codes: I10 - Essential (primary) hypertension (7) Acute CHF (congestive heart failure) Status: Acute Assessment & Plan: - Continue Lasix Qualifiers: Qualified Codes: I50.21 - Acute systolic (congestive) heart failure (8) DVT prophylaxis Status: Acute Clinical Quality Measures DVT/VTE Risk/Contraindication: Risk Factor Score Per Nursin RFS Level Per Nursing on Admit: 4+=Very High NATHANIEL HENDRICKS MD Jan 16, 2020 17:43
--- NOTE | 2020-01-16 18:11 | Diagnostic Imaging Report ---
INDICATION: Sepsis, infected ICD pocket. TECHNIQUE: CTA chest obtained with IV contrast bolus and axial slices and MIP reconstructions. CT abdomen pelvis obtained with pre and post IV contrast images. Dose-reduction protocol was used. COMPARISON: Comparison made to 05/09/2019. There is no prior CT of the abdomen and pelvis for comparison. CTA chest findings: Lung parenchymal windows demonstrate some linear atelectatic changes in the lower lobes on both sides. There is no elham consolidation or pleural fluid or pneumothorax. The pulmonary parenchymal vessels are well opacified with no CT evidence of pulmonary emboli. The thoracic aorta shows no evidence of dissection or aneurysm. There is cardiomegaly. There is no mediastinal or hilar adenopathy. There are postop changes in the left superior chest wall with soft tissue gas and packing at the presumed site of previous AICD. CT abdomen and pelvis findings: The liver, spleen, and pancreas are normal in appearance. The adrenals and kidneys are unremarkable. There is no retroperitoneal mass or adenopathy. There is no ascites or abnormal fluid collection. There is no pelvic mass or free fluid. Visualized bowel loops show no overt obstruction or focal bowel wall thickening. IMPRESSION: 1. CTA chest demonstrated no evidence of pulmonary emboli or aortic dissection or aneurysm. There is some linear atelectatic change in both lung bases. There is no significant pleural fluid. Postop changes in the left chest wall are seen, compatible with presumed site of previous AICD. There is cardiomegaly. 2. CT abdomen and pelvis showed no focal abnormalities. Dictated by: Dictated on workstation # [id number]
[2020-01-16 19:35] VITALS: BP 102/70
[2020-01-17 00:33] VITALS: BP 98/67
[2020-01-17] MEDS: NAFCILLIN INJECTION 2,000 MG in NS (IVPB) 100 ML IV SCH ×6 (02:49→23:30)
[2020-01-17 03:42] VITALS: BP 100/62
[2020-01-17 05:40] LABS: BASOPHILS % (AUTO) 0 % (0-10); EOSINOPHILS # (AUTO) 0.4 10^3/uL (0.0-0.3); EOSINOPHILS % (AUTO) 3 % (0-10); HEMATOCRIT 35 % (40-54); HEMOGLOBIN 11.9 G/DL (13.3-17.7); LYMPHOCYTES % (AUTO) 19 % (12-44); MEAN CORPUSCULAR HEMOGLOBIN 31 PG (25-34); MEAN CORPUSCULAR HGB CONC 34 G/DL (32-36); MEAN CORPUSCULAR VOLUME 92 FL (80-99); MEAN PLATELET VOLUME 8.8 FL (7.4-10.4); MONOCYTES # (AUTO) 0.6 X 10^3 (0.0-1.0); MONOCYTES % (AUTO) 5 % (0-12); NEUTROPHILS # (AUTO) 7.9 X 10^3 (1.8-7.8); NEUTROPHILS % (AUTO) 73 % (42-75); PLATELET COUNT 281 10^3/uL (130-400); WHITE BLOOD COUNT 10.9 10^3/uL (4.3-11.0)
[2020-01-17 05:44] LABS: INR 1.5 (0.8-1.4); PROTHROMBIN TIME PATIENT 18.7 SEC (12.2-14.7)
[2020-01-17 05:47] LABS: BUN/CREATININE RATIO 22; CALCIUM 8.8 MG/DL (8.5-10.1); CARBON DIOXIDE 27 MMOL/L (21-32); CHLORIDE 100 MMOL/L (98-107); CREATININE SERUM 0.76 MG/DL (0.60-1.30); GFR ESTIMATED > 60; GLUCOSE 82 MG/DL (70-105); MAGNESIUM 2.2 MG/DL (1.6-2.4); PHOSPHORUS 3.9 MG/DL (2.3-4.7); POTASSIUM 3.7 MMOL/L (3.6-5.0); SODIUM 138 MMOL/L (135-145)
[2020-01-17] MEDS: KCL 10 MEQ TAB (MICRO K) PO SCH (06:28)
--- NOTE | 2020-01-17 06:30 | Progress Note - Surgery ---
SAUNDRA PARMAR [facility] 01/17/20 0629: Subjective Date Seen by a Provider: Jan 17, 2020 Time Seen by a Provider: 06:24 Subjective/Events-last exam Seen and evaluated. Sitting up in bed. Other than mild tenderness around wound, he denies any other sx at this time. Had PICC line placed in yesterday; no complications. Review of Systems General: No Chills, No Fatigue Pulmonary: No Dyspnea, No Cough Cardiovascular: No: Chest Pain, Palpitations Gastrointestinal: No: Nausea, Vomiting Objective Exam Vital Signs Date Time Temp Pulse Resp B/P (MAP) Pulse Ox O2 Delivery O2 Flow Rate FiO2 01/17/20 03:42 36.4 87 20 100/62 (75) 94 Room Air 01/17/20 00:53 82 01/17/20 00:33 36.8 77 18 98/67 (77) 93 Room Air 01/16/20 20:32 98 Room Air 01/16/20 19:35 36.8 90 20 102/70 (81) 98 Room Air 01/16/20 18:43 93 01/16/20 16:11 36.5 86 18 100/67 (78) 96 Room Air 01/16/20 12:16 84 01/16/20 12:00 36.7 90 20 106/73 (84) 97 Room Air 01/16/20 09:00 97 Room Air 1.00 01/16/20 08:00 35.6 92 20 109/74 (86) 97 Room Air 01/16/20 07:00 96 Room Air 1.00 01/16/20 07:00 103 I & O 01/17/20 07:00 Intake Total 3419 ml Output Total 3200 ml Balance 219 ml Capillary Refill : Less Than 3 SecondsLess Than 3 Seconds General Appearance: No Apparent Distress, Chronically ill HEENT: PERRL/EOMI, Moist Mucous Membranes Neck: Full Range of Motion, Non Tender Respiratory: Chest Non Tender, No Accessory Muscle Use, No Respiratory Distress Cardiovascular: Regular Rate, Rhythm Gastrointestinal: non tender, soft, no organomegaly Extremity: Normal Capillary Refill Neurologic/Psychiatric: Alert, Oriented x3 Skin: Normal Color, Warm/Dry, Other (minimal drainage at wound, minimal erythema) Lymphatic: No Adenopathy Results Lab Laboratory Tests 01/16/20 10:49: Glucometer 142H 01/16/20 15:38: Glucometer 122H 01/16/20 20:25: Glucometer 132H 01/17/20 05:15: White Blood Count 10.9, Red Blood Count 3.85L, Hemoglobin 11.9L, Hematocrit 35L, Mean Corpuscular Volume 92, Mean Corpuscular Hemoglobin 31, Mean Corpuscular Hemoglobin Concent 34, Red Cell Distribution Width 15.0H, Platelet Count 281, Mean Platelet Volume 8.8, Neutrophils (%) (Auto) 73, Lymphocytes (%) (Auto) 19, Monocytes (%) (Auto) 5, Eosinophils (%) (Auto) 3, Basophils (%) (Auto) 0, Neutrophils # (Auto) 7.9H, Lymphocytes # (Auto) 2.0, Monocytes # (Auto) 0.6, Eosinophils # (Auto) 0.4H, Basophils # (Auto) 0.0, Prothrombin Time 18.7H, INR Comment 1.5H, Sodium Level 138, Potassium Level 3.7, Chloride Level 100, Carbon Dioxide Level 27, Anion Gap 11, Blood Urea Nitrogen 17, Creatinine 0.76, Estimat Glomerular Filtration Rate > 60, BUN/Creatinine Ratio 22, Glucose Level 82, Calcium Level 8.8, Phosphorus Level 3.9, Magnesium Level 2.2 Microbiology 01/13/20 Blood Culture - Preliminary, Resulted Staphylococcus aureus 01/10/20 Gram Stain - Final, Complete 01/10/20 Anaerobic Culture - Final, Complete No anaerobes isolated 01/10/20 Surgical Culture - Final, Complete Staphylococcus aureus 01/10/20 Gram Stain - Final, Complete 01/10/20 Anaerobic Culture - Final, Complete No anaerobes isolated 01/10/20 Surgical Culture - Final, Complete Staphylococcus aureus 01/10/20 MRSA Screen - Final, Complete MRSA not isolated Assessment/Plan Assessment/Plan Assessment/Plan MSSA Infected pacemaker pocket, s/p removal by Dr. Gresham, Improving Negative blood cultures patient to have BID wound irrigated and packing with iodoform gauze PICC line placed, no complications Abx changed to 2 weeks of IV nafcillin Q4H Planning for d/c today with continued IV ABX and outpatient f/u plan for repeat blood cultures w/ Dr. Gresham Clinical Quality Measures DVT/VTE Risk/Contraindication: Risk Factor Score Per Nursin RFS Level Per Nursing on Admit: 4+=Very High AURELIO VERNON DO 01/17/201812: Subjective Subjective/Events-last exam No change, planning on JET tomorrow. Wound no issues. continue to have packed bid. No significant drainage. Denies n/v fever sweats chills shortness of breath or chest pain. Objective Exam General Appearance: No Apparent Distress HEENT: PERRL/EOMI Neck: Full Range of Motion Respiratory: Chest Non Tender, No Accessory Muscle Use, No Respiratory Distress Cardiovascular: Regular Rate, Rhythm Gastrointestinal: non tender, soft, no organomegaly Extremity: Normal Capillary Refill Neurologic/Psychiatric: Alert, Oriented x3, No Motor/Sensory Deficits, traffic recorder II- XII Norm as Tested Skin: Normal Color, Warm/Dry, Other (good granulation in wound, wound pocket not packed all the way. no erythema) Lymphatic: No Adenopathy Assessment/Plan Assessment/Plan Assessment/Plan MSSA Infected pacemaker pocket, s/p removal by Dr. Gresham, Improving repacked wound and instructed nursing to pack whole wound patient to have BID wound irrigated and packing with iodoform gauze PICC line placed, no complications Abx changed to 2 weeks of IV nafcillin Q4H JET tomorrow Home soon Supervisory-Addendum Brief Verification & Attestation Participated in pt care: history, MDM, physical Personally performed: exam, history, MDM, supervision of care Care discussed with: Medical Student Procedures: n/a Results interpretation: Verified all documentation Verification and Attestation of Medical Student E/M Service A medical student performed and documented this service in my presence. I reviewed and verified all information documented by the medical student and made modifications to such information, when appropriate. I personally performed the physical exam and medical decision making. Aurelio Vernon, Jan 17, 2020,18:13 SAUNDRA PARMAR [facility] Jan 17, 2020 06:29 AURELIO VERNON DO Jan 17, 2020 18:13
[2020-01-17] MEDS: metFORMIN XR 500 MG (GLUCOPHAGE XR) TAB PO SCH ×2 (06:56→17:59)
[2020-01-17 08:00] VITALS: BP 119/79
--- NOTE | 2020-01-17 08:20 | NUR ---
Patient had another set of positive blood cultures come back et will not be dismissing to home today according to Dr. Silva he will need at least another three days in the hospital. Contacted [facility] to let them know that the patient will not dismiss today.
[2020-01-17] MEDS: lisINopril 5 MG (PRINIVIL) TABLET PO SCH (09:03)
[2020-01-17] MEDS: SPIRONOLACTONE 25 MG (ALDACTONE) TAB PO SCH (09:03)
[2020-01-17] MEDS: ASPIRIN 81 MG CHEW (CHILDREN'S ASA) PO SCH (09:03)
[2020-01-17 12:00] VITALS: BP 100/70
--- NOTE | 2020-01-17 12:20 | Cardiology Progress Note ---
Subjective Date Seen by Provider: Jan 17, 2020 Time Seen by Provider: 12:19 Subjective/Events-last exam Patient is laying down in bed, feeling well. No new complaint Review of Systems General: No Chills, No Night Sweats, No Fatigue, No Malaise, No Appetite, No Other HEENT: No Head Aches, No Visual Changes, No Eye Pain, No Ear Pain, No Dysphasia, No Sinus Congestion, No Post Nasal Drip, No Sore Throat, No Other Pulmonary: No Dyspnea, No Cough, No Pleuritic Chest Pain, No Other Cardiovascular: No: Chest Pain, Palpitations, Orthopnea, Paroxysmal Noc. Dyspnea, Edema, Lt Headedness, Other Objective-Cardiology Exam Last Set of Vital Signs Vital Signs 01/16/20 01/17/20 09:00 12:00 Temp 36.4 Pulse 92 Resp 18 B/P (MAP) 100/70 (80) Pulse Ox 97 O2 Delivery Room Air O2 Flow Rate 1.00 Capillary Refill : Less Than 3 SecondsLess Than 3 Seconds I&O Intake and Output 01/17/20 00:00 Intake Total 3894 ml Output Total 3050 ml Balance 844 ml Intake Oral 3594 ml IV Total 300 ml Output Urine Total 3050 ml # Voids 1 # Bowel Movements 1 General: Alert, Oriented X3, Cooperative, No Acute Distress HEENT: Atraumatic, PERRLA Neck: Supple, No JVD Lungs: Clear to Auscultation, Normal Air Movement Heart: Regular Rate, No Murmurs Abdomen: Normal Bowel Sounds, Soft, No Tenderness, No Masses Extremities: No Clubbing, No Cyanosis, No Edema, No Tenderness/Swelling Skin: No Rashes, Other (C/D/I dressing at ICD retrieval site) Neuro: Normal Gait, Normal Speech, Strength at 5/5 X4 Ext, Sensation Intact, Cranial Nerves 3-12 NL Psych/Mental Status: Mental Status NL, Mood NL Results Lab Laboratory Tests 01/17/20 05:15 A/P-Cardiology Admission Diagnosis Infected ICD pocket CHF CAD HTN Assessment/Plan Infected ICD pocket, single chamber ICD was extracted on January 10, 2020, culture grew Staphylococcus aureus. Maintained on nafcillin, PICC line placed, repeat blood culture grew staph again, CT of the chest abdomen and pelvis did n ot show any sign of embolization or abscess, I will proceed with JET to rule out any vegetation, I repeated blood culture for the third time on January 16, 2020 Congestive heart failure, acute on chronic left ventricular systolic dysfunction, severe cardiomyopathy with ejection fraction 10 percent, ischemic cardiomyopathy, seen at with Dr. Smith, right heart catheterization at that time showed normal pressures. Patient currently wearing lifevest. Staph aureus sepsis, echocardiogram did not show any vegetation. Receiving antibiotic. Repeat blood cultures negative. Continue to monitor Congestive heart failure, left ventricular systolic dysfunction, severe cardiomyopathy with ejection fraction 10 percent. Ischemic cardiomyopathy. Following with Dr. Smith at at this time. Had a right heart catheterization showing normal pressures. 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 Passive hepatic congestion with elevated LFTs, continue to monitor Diabetes mellitus, managed by primary care physician Anxiety Clinical Quality Measures DVT/VTE Risk/Contraindication: Risk Factor Score Per Nursin RFS Level Per Nursing on Admit: 4+=Very High TRACE BERMAN MD Jan 17, 2020 12:20
[2020-01-17 16:00] VITALS: BP 105/71
[2020-01-17] MEDS: warFARin 5 MG (COUMADIN) TAB PO SCH (17:59)
[2020-01-17] MEDS: HYDROcodone/APAP 5 MG/325 MG (LORTAB) TAB PO PRN (20:17)
[2020-01-17 20:30] VITALS: BP 102/62
--- NOTE | 2020-01-17 20:30 | Progress Note ---
Subjective Subjective/Events-last exam Patient doing well this AM. Denies any fever or chills. Tolerating PO diet and ambulation. Life vest on currently. Review of Systems Pulmonary: No Dyspnea, No Cough Cardiovascular: No: Chest Pain, Palpitations Gastrointestinal: No: Nausea, Vomiting, Abdominal Pain, Diarrhea, Constipation Neurological: No: Weakness, Numbness, Incoordination, Confusion Objective Exam Last Set of Vital Signs Vital Signs Date Time Temp Pulse Resp B/P (MAP) Pulse Ox O2 Delivery O2 Flow Rate FiO2 01/17/20 16:00 36.8 84 16 105/71 (82) 94 Room Air 01/16/20 09:00 1.00 Capillary Refill : Less Than 3 SecondsLess Than 3 Seconds I&O Intake and Output 01/17/20 00:00 Intake Total 3894 ml Output Total 3050 ml Balance 844 ml Intake Oral 3594 ml IV Total 300 ml Output Urine Total 3050 ml # Voids 1 # Bowel Movements 1 General: Alert, Oriented X3, Cooperative, No Acute Distress HEENT: Mucous Memb Moist/[place] Lungs: Clear to Auscultation, Normal Air Movement Heart: Regular Rate, No Murmurs Abdomen: Normal Bowel Sounds, Soft, No Tenderness, No Masses Extremities: No Edema, No Tenderness/Swelling Skin: No Rashes, No Breakdown Neuro: Strength at 5/5 X4 Ext, Sensation Intact, Cranial Nerves 3-12 NL Results/Procedures Lab Laboratory Tests 01/16/20 20:25: Glucometer 132H 01/17/20 05:15: White Blood Count 10.9, Red Blood Count 3.85L, Hemoglobin 11.9L, Hematocrit 35L, Mean Corpuscular Volume 92, Mean Corpuscular Hemoglobin 31, Mean Corpuscular Hemoglobin Concent 34, Red Cell Distribution Width 15.0H, Platelet Count 281, Mean Platelet Volume 8.8, Neutrophils (%) (Auto) 73, Lymphocytes (%) (Auto) 19, Monocytes (%) (Auto) 5, Eosinophils (%) (Auto) 3, Basophils (%) (Auto) 0, Neutrophils # (Auto) 7.9H, Lymphocytes # (Auto) 2.0, Monocytes # (Auto) 0.6, Eosinophils # (Auto) 0.4H, Basophils # (Auto) 0.0, Prothrombin Time 18.7H, INR Comment 1.5H, Sodium Level 138, Potassium Level 3.7, Chloride Level 100, Carbon Dioxide Level 27, Anion Gap 11, Blood Urea Nitrogen 17, Creatinine 0.76, Estimat Glomerular Filtration Rate > 60, BUN/Creatinine Ratio 22, Glucose Level 82, Calcium Level 8.8, Phosphorus Level 3.9, Magnesium Level 2.2 01/17/20 11:01: Glucometer 100 01/17/20 16:23: Glucometer 119H Microbiology 01/16/20 Blood Culture - Preliminary, Resulted No growth 01/10/20 Gram Stain - Final, Complete 01/10/20 Anaerobic Culture - Final, Complete No anaerobes isolated 01/10/20 Surgical Culture - Final, Complete Staphylococcus aureus 01/10/20 Gram Stain - Final, Complete 01/10/20 Anaerobic Culture - Final, Complete No anaerobes isolated 01/10/20 Surgical Culture - Final, Complete Staphylococcus aureus 01/10/20 MRSA Screen - Final, Complete MRSA not isolated Assessment/Plan Assessment/Plan (1) Pacemaker infection Status: Acute Assessment & Plan: ICD was removed, monitor for continued infection Qualifiers: Qualified Codes: T82.7XXA - Infection and inflammatory reaction due to other cardiac and vascular devices, implants and grafts, initial encounter (2) Bacteremia Status: Acute Assessment & Plan: - Blood culture resulted 01/16 + MSSA, repeat blood culture drawn today, Must have neg blood culture prior to d/c home, will need 6 weeks IV antibiotics 01/17: Repeat culture yesterday, waiting for final report prior to d/c (3) Pre-diabetes Status: Chronic Assessment & Plan: - Continue Metformin (4) MSSA (methicillin susceptible Staphylococcus aureus) (5) Cardiomyopathy Status: Chronic Assessment & Plan: - Patient following with cardiology and Dr Gresham Qualifiers: Qualified Codes: I42.0 - Dilated cardiomyopathy (6) HTN (hypertension) Status: Chronic Qualifiers: Qualified Codes: I10 - Essential (primary) hypertension (7) Acute CHF (congestive heart failure) Status: Acute Assessment & Plan: - Continue Lasix Qualifiers: Qualified Codes: I50.21 - Acute systolic (congestive) heart failure (8) DVT prophylaxis Status: Acute Assessment & Plan: - Coumadin Clinical Quality Measures DVT/VTE Risk/Contraindication: Risk Factor Score Per Nursin RFS Level Per Nursing on Admit: 4+=Very High NATHANIEL HENDRICKS MD Jan 17, 2020 20:30
[2020-01-18] VITALS (10 sets, daily range): BP systolic 92–110; BP diastolic 61–80
[2020-01-18] MEDS: NAFCILLIN INJECTION 2,000 MG in NS (IVPB) 100 ML IV SCH ×6 (02:58→22:45)
[2020-01-18 05:19] LABS: BASOPHILS % (AUTO) 1 % (0-10); EOSINOPHILS # (AUTO) 0.4 10^3/uL (0.0-0.3); EOSINOPHILS % (AUTO) 4 % (0-10); HEMATOCRIT 35 % (40-54); HEMOGLOBIN 11.3 G/DL (13.3-17.7); LYMPHOCYTES % (AUTO) 23 % (12-44); MEAN CORPUSCULAR HEMOGLOBIN 30 PG (25-34); MEAN CORPUSCULAR HGB CONC 32 G/DL (32-36); MEAN CORPUSCULAR VOLUME 94 FL (80-99); MEAN PLATELET VOLUME 9.3 FL (7.4-10.4); MONOCYTES # (AUTO) 0.6 X 10^3 (0.0-1.0); MONOCYTES % (AUTO) 6 % (0-12); NEUTROPHILS # (AUTO) 5.9 X 10^3 (1.8-7.8); NEUTROPHILS % (AUTO) 66 % (42-75); PLATELET COUNT 273 10^3/uL (130-400); RED CELL DISTRIBUTION WIDTH 15.4 % (10.0-14.5); WHITE BLOOD COUNT 8.8 10^3/uL (4.3-11.0)
[2020-01-18 05:30] LABS: INR 1.2 (0.8-1.4); PROTHROMBIN TIME PATIENT 15.9 SEC (12.2-14.7)
[2020-01-18 05:40] LABS: BUN/CREATININE RATIO 21; CALCIUM 8.7 MG/DL (8.5-10.1); CARBON DIOXIDE 25 MMOL/L (21-32); CHLORIDE 103 MMOL/L (98-107); CREATININE SERUM 0.75 MG/DL (0.60-1.30); GFR ESTIMATED > 60; GLUCOSE 77 MG/DL (70-105); MAGNESIUM 2.3 MG/DL (1.6-2.4); PHOSPHORUS 4.2 MG/DL (2.3-4.7); POTASSIUM 3.8 MMOL/L (3.6-5.0); SODIUM 141 MMOL/L (135-145)
[2020-01-18] MEDS: metFORMIN XR 500 MG (GLUCOPHAGE XR) TAB PO SCH ×2 (06:51→17:20)
[2020-01-18] MEDS: KCL 10 MEQ TAB (MICRO K) PO SCH (06:51)
--- NOTE | 2020-01-18 07:30 | Progress Note - Surgery ---
[facility]UNDRA PARMAR [facility] 01/18/20 0729: Subjective Date Seen by a Provider: Jan 18, 2020 Time Seen by a Provider: 07:25 Subjective/Events-last exam pt sitting up in bed, comfortably. Denies any c/o other than mild pain around wound and ipsilateral arm. Review of Systems General: No Chills, No Fatigue Pulmonary: No Dyspnea, No Cough Cardiovascular: No: Chest Pain, Palpitations Gastrointestinal: No: Nausea, Vomiting, Diarrhea, Constipation Genitourinary: No Dysuria, No Frequency Objective Exam Vital Signs Date Time Temp Pulse Resp B/P (MAP) Pulse Ox O2 Delivery O2 Flow Rate FiO2 01/18/20 04:00 36.6 84 18 96/61 (73) 98 Room Air 01/18/20 02:01 92 Room Air 01/18/20 01:00 76 01/18/20 00:00 36.2 94 20 110/80 (90) 92 Room Air 01/17/20 22:57 96 01/17/20 20:30 37.0 81 18 102/62 (75) 98 Room Air 01/17/20 20:00 98 Room Air 01/17/20 19:00 85 01/17/20 16:00 36.8 84 16 105/71 (82) 94 Room Air 01/17/20 12:48 83 01/17/20 12:00 36.4 92 18 100/70 (80) 97 Room Air 01/17/20 08:10 95 Room Air 01/17/20 08:00 36.6 97 16 119/79 (92) 95 Room Air I & O 01/18/20 07:00 Intake Total 2310 ml Output Total 2000 ml Balance 310 ml Capillary Refill : Less Than 3 SecondsLess Than 3 Seconds General Appearance: No Apparent Distress, WD/WN, Thin Neck: Full Range of Motion, Non Tender Respiratory: Chest Non Tender, No Accessory Muscle Use, No Respiratory Distress Cardiovascular: Regular Rate, Rhythm Gastrointestinal: non tender, soft, no organomegaly Extremity: Normal Capillary Refill Neurologic/Psychiatric: Alert, Oriented x3, Normal Mood/Affect Skin: Normal Color, Warm/Dry Lymphatic: No Adenopathy Results Lab Laboratory Tests 01/17/20 11:01: Glucometer 100 01/17/20 16:23: Glucometer 119H 01/17/20 20:09: Glucometer 118H 01/18/20 04:25: White Blood Count 8.8, Red Blood Count 3.73L, Hemoglobin 11.3L, Hematocrit 35L, Mean Corpuscular Volume 94, Mean Corpuscular Hemoglobin 30, Mean Corpuscular Hemoglobin Concent 32, Red Cell Distribution Width 15.4H, Platelet Count 273, Mean Platelet Volume 9.3, Neutrophils (%) (Auto) 66, Lymphocytes (%) (Auto) 23, Monocytes (%) (Auto) 6, Eosinophils (%) (Auto) 4, Basophils (%) (Auto) 1, Neutrophils # (Auto) 5.9, Lymphocytes # (Auto) 2.0, Monocytes # (Auto) 0.6, Eosinophils # (Auto) 0.4H, Basophils # (Auto) 0.0, Prothrombin Time 15.9H, INR Comment 1.2, Sodium Level 141, Potassium Level 3.8, Chloride Level 103, Carbon Dioxide Level 25, Anion Gap 13, Blood Urea Nitrogen 16, Creatinine 0.75, Estimat Glomerular Filtration Rate > 60, BUN/Creatinine Ratio 21, Glucose Level 77, Calcium Level 8.7, Phosphorus Level 4.2, Magnesium Level 2.3 Microbiology 01/16/20 Blood Culture - Preliminary, Resulted No growth 01/10/20 Gram Stain - Final, Complete 01/10/20 Anaerobic Culture - Final, Complete No anaerobes isolated 01/10/20 Surgical Culture - Final, Complete Staphylococcus aureus 01/10/20 Gram Stain - Final, Complete 01/10/20 Anaerobic Culture - Final, Complete No anaerobes isolated 01/10/20 Surgical Culture - Final, Complete Staphylococcus aureus 01/10/20 MRSA Screen - Final, Complete MRSA not isolated Assessment/Plan Assessment/Plan Assessment/Plan MSSA Infected pacemaker pocket, s/p removal by Dr. Gresham, Improving patient to have BID wound irrigated and packing with iodoform gauze PICC line placed, no complications Abx changed to 2 weeks of IV nafcillin Q4H Cultures from were negative, Normal WBC Restarted on Coumadin JET today Home soon Clinical Quality Measures DVT/VTE Risk/Contraindication: Risk Factor Score Per Nursin RFS Level Per Nursing on Admit: 4+=Very High AURELIO VERNON DO 01/18/20 0903: Subjective Subjective/Events-last exam Patient no new complaints. For JET today. Wound irrigated and packed bid. No drainage. Denies fever sweats chills shortness of breath. Objective Exam General Appearance: No Apparent Distress HEENT: PERRL/EOMI Neck: Full Range of Motion, Non Tender Respiratory: Chest Non Tender, No Accessory Muscle Use, No Respiratory Distress Cardiovascular: Regular Rate, Rhythm Gastrointestinal: non tender, soft Extremity: Normal Capillary Refill Neurologic/Psychiatric: Alert, Oriented x3 Skin: Normal Color, Warm/Dry, Other (wound clean and dry good granulation tissue, no purulent material) Lymphatic: No Adenopathy Assessment/Plan Assessment/Plan Assessment/Plan MSSA Infected pacemaker pocket, s/p removal by Dr. Gresham, Improving patient to have BID wound irrigated and packing with iodoform gauze PICC line placed, no complications Abx changed to 2 weeks of IV nafcillin Q4H Restarted on Coumadin JET today Will sign off, call if needed. Supervisory-Addendum Brief Verification & Attestation Participated in pt care: history, MDM, physical Personally performed: exam, history, MDM, supervision of care Care discussed with: Medical Student Procedures: n/a Results interpretation: Verified all documentation Verification and Attestation of Medical Student E/M Service A medical student performed and documented this service in my presence. I reviewed and verified all information documented by the medical student and made modifications to such information, when appropriate. I personally performed the physical exam and medical decision making. Aurelio Vernon, Jan 18, 2020,09:08 SAUNDRA PARMAR [facility] Jan 18, 2020 07:29 AURELIO VERNON DO Jan 18, 2020 09:03
--- NOTE | 2020-01-18 08:52 | NUR ---
F/U with [facility] this morning et he confirms that his received his IV medication et put it into the refrigerator. It appears that he will be having a JET today. F/U [place] [facility] [employer] et they report that they sent a 3 day supply of the IV nafcillin et that it should be stable for a while as long as it is refrigerated. They requested that we notify them when he is dismissed. F/U [place] at Home [facility] to let them know that there was a wound that needed packed BID once patient dismisses to home.
--- NOTE | 2020-01-18 10:21 | Cardiology Progress Note ---
Subjective Date Seen by Provider: Jan 18, 2020 Time Seen by Provider: 08:55 Subjective/Events-last exam Patient is sitting up in bed, denies any chest pain or dyspnea. Review of Systems General: No Chills, No Night Sweats, No Fatigue, No Malaise, No Appetite, No Other HEENT: No Head Aches, No Visual Changes, No Eye Pain, No Ear Pain, No Dysphasia, No Sinus Congestion, No Post Nasal Drip, No Sore Throat, No Other Pulmonary: No Dyspnea, No Cough, No Pleuritic Chest Pain, No Other Cardiovascular: No: Chest Pain, Palpitations, Orthopnea, Paroxysmal Noc. Dyspnea, Edema, Lt Headedness, Other Objective-Cardiology Exam Last Set of Vital Signs Vital Signs 01/18/20 01/18/20 08:00 12:40 Temp 36.6 Pulse 97 Resp 11 B/P (MAP) 97/70 (79) Pulse Ox 99 O2 Delivery Simple Mask O2 Flow Rate 5.00 Capillary Refill : Less Than 3 SecondsLess Than 3 Seconds I&O Intake and Output 01/18/20 00:00 Intake Total 2335 ml Output Total 3000 ml Balance -665 ml Intake Oral 1835 ml IV Total 500 ml Output Urine Total 3000 ml General: Alert, Oriented X3, Cooperative, No Acute Distress HEENT: Mucous Memb Moist/[place] Neck: Supple, No JVD Lungs: Clear to Auscultation, Normal Air Movement Heart: Regular Rate, No Murmurs Abdomen: Normal Bowel Sounds, Soft, No Tenderness, No Masses Extremities: No Edema, No Tenderness/Swelling Skin: No Rashes, No Breakdown Neuro: Strength at 5/5 X4 Ext, Sensation Intact, Cranial Nerves 3-12 NL Psych/Mental Status: Mental Status NL, Mood NL Results Lab Laboratory Tests 01/18/20 04:25 A/P-Cardiology Admission Diagnosis Infected ICD pocket CHF CAD HTN Assessment/Plan Infected ICD pocket, single chamber ICD was extracted on January 10, 2020, culture grew Staphylococcus aureus. Maintained on nafcillin, PICC line placed, repeat blood culture grew staph again, CT of the chest abdomen and pelvis did not show any sign of embolization or abscess, plan to proceed with JET to rule out any vegetation, repeated blood culture for the third time on January 16, 2020 Congestive heart failure, acute on chronic left ventricular systolic dysfunction, severe cardiomyopathy with ejection fraction 10 percent, ischemic cardiomyopathy, seen at with Dr. Smith, right heart catheterization at that time showed normal pressures. Patient currently wearing life vest. Staph aureus sepsis, echocardiogram did not show any vegetation. Receiving antibiotic. Repeat blood cultures negative. Continue to monitor Congestive heart failure, left ventricular systolic dysfunction, severe cardiomyopathy with ejection fraction 10 percent. Ischemic cardiomyopathy. Following with Dr. Smith at at this time. Had a right heart catheterization showing normal pressures. 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 Passive hepatic congestion with elevated LFTs, continue to monitor Diabetes mellitus, managed by primary care physician Anxiety Patient was seen and evaluated with Fátima, examination performed, management plan was discussed, agree with the current scribed note, I made few changes to the note using Italic font JET was done today showing no vegetation, no thrombus in the left ventricle Moderate mitral regurgitation, mild tricuspid regurgitation Blood cultures so far are negative, planning to discharge home tomorrow on naf cillin if the blood cultures continue to be negative. Clinical Quality Measures DVT/VTE Risk/Contraindication: Risk Factor Score Per Nursin RFS Level Per Nursing on Admit: 4+=Very High FÁTIMA OREILLY Jan 18, 2020 10:21 TRACE BERMAN MD Jan 18, 2020 12:44
[2020-01-18] MEDS: SPIRONOLACTONE 25 MG (ALDACTONE) TAB PO SCH (10:54)
[2020-01-18] MEDS: ASPIRIN 81 MG CHEW (CHILDREN'S ASA) PO SCH (10:54)
[2020-01-18] MEDS: lisINopril 5 MG (PRINIVIL) TABLET PO SCH (10:54)
[2020-01-18] MEDS ORDERED: NS IV 1000 ML 1,000 ML ONE (11:02)
[2020-01-18] MEDS ORDERED: LIDOCAINE 2% VISCOUS 15 ML UDC ONE (11:02)
[2020-01-18] MEDS ORDERED: MIDAZOLAM 5 MG/5 ML (VERSED) VIAL ONE (11:06)
[2020-01-18] MEDS ORDERED: fentaNYL INJECTION 100 MCG/2 ML AMP ONE (11:06)
--- NOTE | 2020-01-18 11:24 | NUR ---
PT OFF UNIT FOR JET.
--- NOTE | 2020-01-18 12:45 | Cardiac Procedure Note-CS/ASA ---
Pre-Procedure Note Pre-Op Procedure Note H&P Reviewed The H&P was reviewed, patient examined and no changes noted. Date H&P Reviewed: Jan 18, 2020 Time H&P Reviewed: 10:00 Conscious Sedation Pre-Proced Time 10:00 ASA Score 3 For ASA 3 and 4: Consider anesthesia and medical clearance. Also, for patients with a history of failed moderate sedation consider anesthesia. Airway Lungs Heart ASA score ASA 1: a normal healthy patient ASA 2: a patient with a mild systemic disease (mid diabetes, controlled hypertension, obesity x ASA 3: a patient with a severe systemic disease that limits activity (angina, COPD, prior Myocardial infarction) ASA 4: a patient with an incapacitating disease that is a constant threat to life (CHF, renal failure) ASA 5: a moribund patient not expected to survive 24 hrs. (ruptured aneurysm) ASA 6: a declared brain- patient whose organs are being harvested. For emergent operations, add the letter E after the classification Mallampati Classification Grade 3 Sedation Plan Analgesia, Amnesia, Plan communicated to team members, Discussed options with patient/fam, Discussed risks with patient/fam The patient is an appropriate candidate to undergo the planned procedure, sedation, and anesthesia. The patient immediately re-assessed prior to indication. TRACE BERMAN MD Jan 18, 2020 12:44
--- NOTE | 2020-01-18 13:11 | NUR ---
PATIENT BACK TO FLOOR VIA CART AT THIS TIME, ACCOMPANIED BY EXTRACTION SUPERVISOR STAFF. THIS RN WILL ASSUME CARE AT THIS TIME.
--- NOTE | 2020-01-18 14:30 | NUR ---
provided prayer and Communion.
[2020-01-18] MEDS: warFARin 5 MG (COUMADIN) TAB PO SCH (17:20)
--- NOTE | 2020-01-18 20:13 | Progress Note ---
Subjective Subjective/Events-last exam No concerns from patient. Denies shortness of breath or chest pain Review of Systems Pulmonary: No Dyspnea, No Cough Cardiovascular: No: Chest Pain, Palpitations Gastrointestinal: No: Nausea, Vomiting, Abdominal Pain, Diarrhea, Constipation Neurological: No: Weakness, Incoordination Objective Exam Last Set of Vital Signs Vital Signs Date Time Temp Pulse Resp B/P (MAP) Pulse Ox O2 Delivery O2 Flow Rate FiO2 01/18/20 16:00 36.6 89 18 98/66 (77) 98 Room Air 01/18/20 12:40 5.00 Capillary Refill : Less Than 3 SecondsLess Than 3 Seconds I&O Intake and Output 01/18/20 00:00 Intake Total 2335 ml Output Total 3000 ml Balance -665 ml Intake Oral 1835 ml IV Total 500 ml Output Urine Total 3000 ml General: Alert, Oriented X3, Cooperative, No Acute Distress HEENT: Mucous Memb Moist/Chauncey Lungs: Clear to Auscultation, Normal Air Movement Heart: Regular Rate, No Murmurs Abdomen: Normal Bowel Sounds, Soft, No Tenderness, No Masses Extremities: Other (trace swelling bilaterally) Skin: No Rashes, No Breakdown Neuro: Normal Speech, Strength at 5/5 X4 Ext, Sensation Intact, Cranial Nerves 3-12 NL Results/Procedures Lab Laboratory Tests 01/18/20 04:25: White Blood Count 8.8, Red Blood Count 3.73L, Hemoglobin 11.3L, Hematocrit 35L, Mean Corpuscular Volume 94, Mean Corpuscular Hemoglobin 30, Mean Corpuscular Hemoglobin Concent 32, Red Cell Distribution Width 15.4H, Platelet Count 273, Mean Platelet Volume 9.3, Neutrophils (%) (Auto) 66, Lymphocytes (%) (Auto) 23, Monocytes (%) (Auto) 6, Eosinophils (%) (Auto) 4, Basophils (%) (Auto) 1, Neutrophils # (Auto) 5.9, Lymphocytes # (Auto) 2.0, Monocytes # (Auto) 0.6, Eosinophils # (Auto) 0.4H, Basophils # (Auto) 0.0, Prothrombin Time 15.9H, INR Comment 1.2, Sodium Level 141, Potassium Level 3.8, Chloride Level 103, Carbon Dioxide Level 25, Anion Gap 13, Blood Urea Nitrogen 16, Creatinine 0.75, Estimat Glomerular Filtration Rate > 60, BUN/Creatinine Ratio 21, Glucose Level 77, Calcium Level 8.7, Phosphorus Level 4.2, Magnesium Level 2.3 01/18/20 14:22: Glucometer 141H 01/18/20 15:52: Glucometer 165H Microbiology 01/16/20 Blood Culture - Preliminary, Resulted Staph, Coag Neg (COYOTE HUNTER) 01/10/20 Gram Stain - Final, Complete 01/10/20 Anaerobic Culture - Final, Complete No anaerobes isolated 01/10/20 Surgical Culture - Final, Complete Staphylococcus aureus 01/10/20 Gram Stain - Final, Complete 01/10/20 Anaerobic Culture - Final, Complete No anaerobes isolated 01/10/20 Surgical Culture - Final, Complete Staphylococcus aureus 01/10/20 MRSA Screen - Final, Complete MRSA not isolated Assessment/Plan Assessment/Plan (1) Pacemaker infection Status: Acute Assessment & Plan: ICD was removed, monitor for continued infection Qualifiers: Qualified Codes: T82.7XXA - Infection and inflammatory reaction due to other cardiac and vascular devices, implants and grafts, initial encounter (2) Bacteremia Status: Acute Assessment & Plan: - Blood culture resulted 01/16 + MSSA, repeat blood culture drawn today, Must have neg blood culture prior to d/c home, will need 6 weeks IV antibiotics 01/17: Repeat culture yesterday, waiting for final report prior to d/c 01/18: Final report pending, Will start d.c plan once blood cultures are Neg (3) Pre-diabetes Status: Chronic Assessment & Plan: - Continue Metformin (4) MSSA (methicillin susceptible Staphylococcus aureus) (5) Cardiomyopathy Status: Chronic Assessment & Plan: - Patient following with cardiology and Dr Gresham Qualifiers: Qualified Codes: I42.0 - Dilated cardiomyopathy (6) HTN (hypertension) Status: Chronic Qualifiers: Qualified Codes: I10 - Essential (primary) hypertension (7) Acute CHF (congestive heart failure) Status: Acute Assessment & Plan: - Continue Lasix Qualifiers: Qualified Codes: I50.21 - Acute systolic (congestive) heart failure (8) DVT prophylaxis Status: Acute Assessment & Plan: - Coumadin Clinical Quality Measures DVT/VTE Risk/Contraindication: Risk Factor Score Per Nursin RFS Level Per Nursing on Admit: 4+=Very High NATHANIEL HENDRICKS MD Jan 18, 2020 20:13
[2020-01-18] MEDS: HYDROcodone/APAP 5 MG/325 MG (LORTAB) TAB PO PRN (20:29)
[2020-01-19] VITALS (11 sets, daily range): BP systolic 91–108; BP diastolic 61–73
[2020-01-19] MEDS: NAFCILLIN INJECTION 2,000 MG in NS (IVPB) 100 ML IV SCH ×6 (02:39→23:15)
[2020-01-19] MEDS: metFORMIN XR 500 MG (GLUCOPHAGE XR) TAB PO SCH ×2 (05:55→17:25)
[2020-01-19] MEDS: KCL 10 MEQ TAB (MICRO K) PO SCH (05:55)
[2020-01-19 06:19] LABS: BASOPHILS % (AUTO) 1 % (0-10); EOSINOPHILS # (AUTO) 0.3 10^3/uL (0.0-0.3); EOSINOPHILS % (AUTO) 3 % (0-10); HEMATOCRIT 36 % (40-54); HEMOGLOBIN 12.1 G/DL (13.3-17.7); LYMPHOCYTES # (AUTO) 2.3 X 10^3 (1.0-4.0); LYMPHOCYTES % (AUTO) 28 % (12-44); MEAN CORPUSCULAR HEMOGLOBIN 31 PG (25-34); MEAN CORPUSCULAR HGB CONC 33 G/DL (32-36); MEAN CORPUSCULAR VOLUME 93 FL (80-99); MONOCYTES # (AUTO) 0.4 X 10^3 (0.0-1.0); MONOCYTES % (AUTO) 5 % (0-12); NEUTROPHILS % (AUTO) 63 % (42-75); PLATELET COUNT 309 10^3/uL (130-400); RED CELL DISTRIBUTION WIDTH 15.4 % (10.0-14.5)
[2020-01-19 06:48] LABS: INR 1.2 (0.8-1.4); PROTHROMBIN TIME PATIENT 15.3 SEC (12.2-14.7)
[2020-01-19 06:53] LABS: BUN/CREATININE RATIO 19; CARBON DIOXIDE 26 MMOL/L (21-32); CHLORIDE 102 MMOL/L (98-107); CREATININE SERUM 0.81 MG/DL (0.60-1.30); GFR ESTIMATED > 60; GLUCOSE 79 MG/DL (70-105); MAGNESIUM 2.4 MG/DL (1.6-2.4); PHOSPHORUS 3.7 MG/DL (2.3-4.7); SODIUM 139 MMOL/L (135-145)
[2020-01-19] MEDS: ASPIRIN 81 MG CHEW (CHILDREN'S ASA) PO SCH (08:22)
[2020-01-19] MEDS: lisINopril 5 MG (PRINIVIL) TABLET PO SCH (08:22)
[2020-01-19] MEDS: SPIRONOLACTONE 25 MG (ALDACTONE) TAB PO SCH (08:22)
[2020-01-19] MEDS ORDERED: RIFAMPIN 150 MG (RIFADIN) CAP PO SCH (10:00)
--- NOTE | 2020-01-19 11:13 | Cardiology Progress Note ---
Subjective Date Seen by Provider: Jan 19, 2020 Time Seen by Provider: 09:00 Subjective/Events-last exam Patient is laying down in bed, no new complaint. Blood culture grew against staph Review of Systems General: No Chills, No Night Sweats, No Fatigue, No Malaise, No Appetite, No Other HEENT: No Head Aches, No Visual Changes, No Eye Pain, No Ear Pain, No Dysphasia, No Sinus Congestion, No Post Nasal Drip, No Sore Throat, No Other Pulmonary: No Dyspnea, No Cough, No Pleuritic Chest Pain, No Other Cardiovascular: No: Chest Pain, Palpitations, Orthopnea, Paroxysmal Noc. Dyspnea, Edema, Lt Headedness, Other Objective-Cardiology Exam Last Set of Vital Signs Vital Signs 01/18/20 01/19/20 01/19/20 12:40 08:00 09:00 Temp 36.8 Pulse 83 Resp 16 B/P (MAP) 107/71 (83) Pulse Ox 98 O2 Delivery Room Air O2 Flow Rate 5.00 Capillary Refill : Less Than 3 SecondsLess Than 3 Seconds I&O Intake and Output 01/19/20 00:00 Intake Total 1180 ml Output Total 640 ml Balance 540 ml Intake Oral 780 ml IV Total 400 ml Output Urine Total 640 ml # Voids 5 # Bowel Movements 1 General: Alert, Oriented X3, Cooperative, No Acute Distress HEENT: Atraumatic, Mucous Memb Moist/[place] Neck: Supple, No JVD Lungs: Clear to Auscultation, Normal Air Movement Heart: Regular Rate, No Murmurs Abdomen: Normal Bowel Sounds, Soft, No Tenderness, No Masses Extremities: Other (trace swelling bilaterally) Skin: No Rashes, No Breakdown Neuro: Normal Speech, Strength at 5/5 X4 Ext, Sensation Intact, Cranial Nerves 3-12 NL Psych/Mental Status: Mental Status NL, Mood NL Results Lab Laboratory Tests 01/19/20 05:55 A/P-Cardiology Admission Diagnosis Infected ICD pocket CHF CAD HTN Assessment/Plan Infected ICD pocket, single chamber ICD was extracted on January 10, 2020, culture grew Staphylococcus aureus. Maintained on nafcillin, PICC line placed, repeat blood culture grew staph again, CT of the chest abdomen and pelvis did not show any sign of embolization or abscess, JET did not show any thrombus, no vegetation, I discussed with Dr. Vernon and we will repeat debridement of the pocket, add rifampin and repeat blood culture again. Congestive heart failure, acute on chronic left ventricular systolic dysfunction, severe cardiomyopathy with ejection fraction 10 percent, ischemic cardiomyopathy, seen at with Dr. Smith, right heart catheterization at that time showed normal pressures. Patient currently wearing life vest. Staph aureus sepsis, echocardiogram did not show any vegetation. Receiving antibiotic. Repeat blood cultures negative. Continue to monitor Congestive heart failure, left ventricular systolic dysfunction, severe cardiomyopathy with ejection fraction 10 percent. Ischemic cardiomyopathy. Following with Dr. Smith at at this time. Had a right heart catheterization showing normal pressures. 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 Passive hepatic congestion with elevated LFTs, continue to monitor Diabetes mellitus, managed by primary care physician Anxiety Clinical Quality Measures DVT/VTE Risk/Contraindication: Risk Factor Score Per Nursin RFS Level Per Nursing on Admit: 4+=Very High TRACE BERMAN MD Jan 19, 2020 11:12
--- NOTE | 2020-01-19 11:51 | NUR ---
provided prayer and Communion.
[2020-01-19] MEDS ORDERED: BUP/EPI 0.5% 1:200,000 (SENSORCAINE) 30 ML VIAL ONE (13:48)
--- NOTE | 2020-01-19 15:21 | Progress Note - Surgery ---
Subjective Date Seen by a Provider: Jan 19, 2020 Time Seen by a Provider: 11:40 Subjective/Events-last exam Patient no new complaints. Still having wound irrigated and packed. Patient with some discomfort when this occurs. Blood cultures positive. Dr. Gresham requesting I take patient to or to explore left chest wound possible debridement, all other indicated procedures. Patient denies n/v fever sweats chills shortness of breath or chest pain at this time. Objective Exam Vital Signs Date Time Temp Pulse Resp B/P (MAP) Pulse Ox O2 Delivery O2 Flow Rate FiO2 01/19/20 12:42 85 01/19/20 12:00 36.5 88 16 98/67 (77) 98 Room Air 01/19/20 09:00 Room Air 01/19/20 08:00 36.8 83 16 107/71 (83) 98 Room Air 01/19/20 07:00 73 01/19/20 04:00 36.3 71 16 91/65 (74) 97 Room Air 01/19/20 01:00 77 01/19/20 00:35 36.2 77 16 98/61 (73) 98 Room Air 01/18/20 20:30 37.0 99 18 96/65 (75) 98 Room Air 01/18/20 20:15 98 Room Air 01/18/20 19:00 101 01/18/20 16:00 36.6 89 18 98/66 (77) 98 Room Air I & O 01/19/20 07:00 Intake Total 1380 ml Output Total 640 ml Balance 740 ml Capillary Refill : Less Than 3 SecondsLess Than 3 Seconds General Appearance: No Apparent Distress HEENT: PERRL/EOMI Neck: Full Range of Motion, Non Tender Respiratory: Chest Non Tender, No Accessory Muscle Use, No Respiratory Distress Cardiovascular: Regular Rate, Rhythm Gastrointestinal: non tender, soft Extremity: Normal Capillary Refill Neurologic/Psychiatric: Alert, Oriented x3 Skin: Normal Color, Warm/Dry, Other (wound good granulation tissue, slight slough) Lymphatic: No Adenopathy Results Lab Laboratory Tests 01/18/20 15:52: Glucometer 165H 01/18/20 20:24: Glucometer 105 01/19/20 05:32: Glucometer 84 01/19/20 05:55: White Blood Count 8.0, Red Blood Count 3.88L, Hemoglobin 12.1L, Hematocrit 36L, Mean Corpuscular Volume 93, Mean Corpuscular Hemoglobin 31, Mean Corpuscular Hemoglobin Concent 33, Red Cell Distribution Width 15.4H, Platelet Count 309, M rogelio Platelet Volume 9.0, Neutrophils (%) (Auto) 63, Lymphocytes (%) (Auto) 28, Monocytes (%) (Auto) 5, Eosinophils (%) (Auto) 3, Basophils (%) (Auto) 1, Neutrophils # (Auto) 5.0, Lymphocytes # (Auto) 2.3, Monocytes # (Auto) 0.4, Eosinophils # (Auto) 0.3, Basophils # (Auto) 0.0, Prothrombin Time 15.3H, INR Comment 1.2, Sodium Level 139, Potassium Level 4.0, Chloride Level 102, Carbon Dioxide Level 26, Anion Gap 11, Blood Urea Nitrogen 15, Creatinine 0.81, Estimat Glomerular Filtration Rate > 60, BUN/Creatinine Ratio 19, Glucose Level 79, Calcium Level 9.0, Phosphorus Level 3.7, Magnesium Level 2.4 01/19/20 10:53: Glucometer 103 Microbiology 01/16/20 Blood Culture - Preliminary, Resulted Staphylococcus epidermidis 01/10/20 Gram Stain - Final, Complete 01/10/20 Anaerobic Culture - Final, Complete No anaerobes isolated 01/10/20 Surgical Culture - Final, Complete Staphylococcus aureus 01/10/20 Gram Stain - Final, Complete 01/10/20 Anaerobic Culture - Final, Complete No anaerobes isolated 01/10/20 Surgical Culture - Final, Complete Staphylococcus aureus 01/10/20 MRSA Screen - Final, Complete MRSA not isolated Assessment/Plan Assessment/Plan Assessment/Plan MSSA Infected pacemaker pocket, s/p removal by Dr. Gresham patient to have BID wound irrigated and packing with iodoform gauze PICC line placed, no complications Abx changed to 2 weeks of IV nafcillin Q4H Discussed risks and benefits of Exploration Left chest wound possible debridement, all other indicated procedures. patient understands and wishes to proceed. NPO Clinical Quality Measures DVT/VTE Risk/Contraindication: Risk Factor Score Per Nursin RFS Level Per Nursing on Admit: 4+=Very High AURELIO LOVE DO Jan 19, 2020 15:21
--- NOTE | 2020-01-19 15:29 | NUR ---
Will continue to follow along for any additional discharge planning needs.
--- NOTE | 2020-01-19 15:34 | NUR ---
UNABLE TO PULL RIFAMPIN FROM [facility] AT THIS TIME, PHARMACY ON THE WAY UP TO FIX ISSUE.
[2020-01-19] MEDS: RIFAMPIN 150 MG (RIFADIN) CAP PO SCH ×3 (15:42→22:09)
[2020-01-19] MEDS ORDERED: KETAMINE/NaCl 50 MG/5 ML SYRINGE (ED ONLY) ONE (17:27)
[2020-01-19] MEDS ORDERED: PROPOFOL INJECTION 50 ML IV ONE (17:27)
[2020-01-19] MEDS ORDERED: MIDAZOLAM 2 MG/2 ML (VERSED) VIAL ONE (17:27)
--- NOTE | 2020-01-19 17:29 | NUR ---
PT TO SURGERY VIA BED
[2020-01-19] MEDS: warFARin 5 MG (COUMADIN) TAB PO SCH (17:30)
[2020-01-19] MEDS ORDERED: LACTATED RINGERS 1,000 ML IV PRN (17:44)
--- NOTE | 2020-01-19 18:28 | Anesthesia-General Post-Op ---
MAC Patient Condition Mental Status/LOC: Same as Preop Cardiovascular: Satisfactory Nausea/Vomiting: Absent Respiratory: Satisfactory Pain: Controlled Complications: Absent Post Op Complications Complications None Follow Up Care/Instructions Patient Instructions None needed. Anesthesiology Discharge Order Discharge Order Patient is doing well, no complaints, stable vital signs, no apparent adverse anesthesia problems. No complications reported per nursing. EVANGELINA SHELTON CRNA Jan 19, 2020 18:28
--- NOTE | 2020-01-19 18:51 | NUR ---
PT RETURNED FROM SURGERY
--- NOTE | 2020-01-19 20:33 | Progress Note ---
Subjective Subjective/Events-last exam No complaints from patient. Tolerating PO diet and ambulation. Review of Systems Pulmonary: No Dyspnea, No Cough Cardiovascular: No: Chest Pain, Palpitations Gastrointestinal: No: Nausea, Vomiting, Abdominal Pain Objective Exam Last Set of Vital Signs Vital Signs Date Time Temp Pulse Resp B/P (MAP) Pulse Ox O2 Delivery O2 Flow Rate FiO2 01/19/20 18:55 OxyMask 5 01/19/20 18:55 36.6 20 107/62 (77) 96 01/19/20 16:00 73 Capillary Refill : Less Than 3 SecondsLess Than 3 Seconds I&O Intake and Output 01/19/20 00:00 Intake Total 1180 ml Output Total 640 ml Balance 540 ml Intake Oral 780 ml IV Total 400 ml Output Urine Total 640 ml # Voids 5 # Bowel Movements 1 General: Alert, Oriented X3, Cooperative, No Acute Distress HEENT: Mucous Memb Moist/[place] Lungs: Clear to Auscultation, Normal Air Movement Heart: Regular Rate, No Murmurs Abdomen: Normal Bowel Sounds, Soft, No Tenderness, No Masses Extremities: No Edema, No Tenderness/Swelling Skin: Other (Left chest wound with pus) Neuro: Strength at 5/5 X4 Ext, Sensation Intact, Cranial Nerves 3-12 NL Results/Procedures Lab Laboratory Tests 01/19/20 05:32: Glucometer 84 01/19/20 05:55: White Blood Count 8.0, Red Blood Count 3.88L, Hemoglobin 12.1L, Hematocrit 36L, Mean Corpuscular Volume 93, Mean Corpuscular Hemoglobin 31, Mean Corpuscular Hemoglobin Concent 33, Red Cell Distribution Width 15.4H, Platelet Count 309, Mean Platelet Volume 9.0, Neutrophils (%) (Auto) 63, Lymphocytes (%) (Auto) 28, Monocytes (%) (Auto) 5, Eosinophils (%) (Auto) 3, Basophils (%) (Auto) 1, Neutrophils # (Auto) 5.0, Lymphocytes # (Auto) 2.3, Monocytes # (Auto) 0.4, Eosinophils # (Auto) 0.3, Basophils # (Auto) 0.0, Prothrombin Time 15.3H, INR Comment 1.2, Sodium Level 139, Potassium Level 4.0, Chloride Level 102, Carbon Dioxide Level 26, Anion Gap 11, Blood Urea Nitrogen 15, Creatinine 0.81, Estimat Glomerular Filtration Rate > 60, BUN/Creatinine Ratio 19, Glucose Level 79, Calcium Level 9.0, Phosphorus Level 3.7, Magnesium Level 2.4 01/19/20 10:53: Glucometer 103 01/19/20 15:41: Glucometer 77 Microbiology 01/16/20 Blood Culture - Preliminary, Resulted Staphylococcus epidermidis 01/10/20 Gram Stain - Final, Complete 01/10/20 Anaerobic Culture - Final, Complete No anaerobes isolated 01/10/20 Surgical Culture - Final, Complete Staphylococcus aureus 01/10/20 Gram Stain - Final, Complete 01/10/20 Anaerobic Culture - Final, Complete No anaerobes isolated 01/10/20 Surgical Culture - Final, Complete Staphylococcus aureus 01/10/20 MRSA Screen - Final, Complete MRSA not isolated Assessment/Plan Assessment/Plan (1) Pacemaker infection Status: Acute Assessment & Plan: ICD was removed, monitor for continued infection 01/19: s/p surgical irrigation today with pus removal Qualifiers: Qualified Codes: T82.7XXA - Infection and inflammatory reaction due to other cardiac and vascular devices, implants and grafts, initial encounter (2) Bacteremia Status: Acute Assessment & Plan: - Blood culture resulted 01/16 + MSSA, repeat blood culture drawn today, Must have neg blood culture prior to d/c home, will need 6 weeks IV antibiotics 01/17: Repeat culture yesterday, waiting for final report prior to d/c 01/18: Final report pending, Will start d.c plan once blood cultures are Neg 01/19: Dr Gresham has discussed case with [facility] and they recommend adding Rifampin, repeat blood cultures today and tomorrow, Will need 6 week IV antibiotics once blood cultures are negative, Patient will need HH at discharge (3) Pre-diabetes Status: Chronic Assessment & Plan: - Continue Metformin (4) MSSA (methicillin susceptible Staphylococcus aureus) (5) Cardiomyopathy Status: Chronic Assessment & Plan: - Patient following with [facility] cardiology and Dr Gresham Qualifiers: Qualified Codes: I42.0 - Dilated cardiomyopathy (6) HTN (hypertension) Status: Chronic Qualifiers: Qualified Codes: I10 - Essential (primary) hypertension (7) Acute CHF (congestive heart failure) Status: Acute Assessment & Plan: - Continue Lasix Qualifiers: Qualified Codes: I50.21 - Acute systolic (congestive) heart failure (8) Left ventricular thrombosis Status: Acute Assessment & Plan: 01/19: JET neg for thrombosis but patient needs continued anticoagulation, Start Lovenox as INR is not therapuetic, spoke with marilyn and Naficillin increases metabolism of Coumadin so patient will likely need higher dose and then will need titrated down after completion of antibiotics, recommend INR MWF with HH at discharge (9) DVT prophylaxis Status: Acute Assessment & Plan: - Coumadin Clinical Quality Measures DVT/VTE Risk/Contraindication: Risk Factor Score Per Nursin RFS Level Per Nursing on Admit: 4+=Very High NATHANIEL HENDRICKS MD Jan 19, 2020 20:33
[2020-01-19] MEDS: ENOXAPARIN 60 MG/0.6 ML (LOVENOX) SYR SC SCH (22:08)
--- NOTE | 2020-01-19 23:18 | Progress Note-Post Operative ---
Post-Operative Progess Note Surgeon (s)/Development Executive (s) Surgeon AURELIO LOVE DO Development Executive: na Pre-Operative Diagnosis left chest wound Post-Operative Diagnosis same Procedure & Operative Findings Date of Procedure 01/19/20 Procedure Performed/Findings exploration left chest wound with irrigation and packing. Anesthesia Type per manager endoscopy Estimated Blood Loss Estimated blood loss (mL): scant Specimens/Packing Specimens Removed na AURELIO LOVE DO Jan 19, 2020 23:18
[2020-01-20] VITALS (14 sets, daily range): BP systolic 90–113; BP diastolic 58–78
--- NOTE | 2020-01-20 01:17 | OPERATIVE REPORT ---
DATE OF SERVICE: 01/19/2020 PREOPERATIVE DIAGNOSIS: Left chest wound. POSTOPERATIVE DIAGNOSIS: Left chest wound. PROCEDURE: Exploration of wound of the left chest, irrigation with 4 liters of saline and wound packing. SURGEON: Aurelio Vernon DO ANESTHESIA: Per EXTERNAL GRINDER TENDER. ESTIMATED BLOOD LOSS: Scant. COMPLICATIONS: None. INDICATIONS: The patient is a 54-year-old male who had recent pacemaker and suction and had a pacemaker removed. He continued to have positive blood cultures. Dr. Gresham has asked that I take the patient to the operating room for exploration. The patient was discussed risks and benefits of procedure and wished to proceed with procedure. Consent was signed in the chart. DESCRIPTION OF PROCEDURE: The patient was taken to the operating suite, was prepped and draped in sterile fashion. Timeout was performed. Wound was inspected for good granulation tissue. No purulent pockets. There were no necrotic tissue or any abscess cavities found. Using a power director of academic, 4 liters of saline was used to irrigate the wound. No other pathology noted. The wound was then packed with Kerlix soaked in Betadine and the area was washed and dried and sterile bandage was applied. The patient tolerated the procedure well without any complications. He was taken to the recovery room in stable condition. Job ID: [id number] DocumentID: [id number] Dictated Date: 01/19/2020 23:21:37 Bread Supervisor Date: 01/20/2020 01:16:41 Dictated By: AURELIO VERNON DO
[2020-01-20] MEDS: NAFCILLIN INJECTION 2,000 MG in NS (IVPB) 100 ML IV SCH ×6 (03:32→23:12)
[2020-01-20 05:37] LABS: BASOPHILS # (AUTO) 0.1 10^3/uL (0.0-0.1); BASOPHILS % (AUTO) 1 % (0-10); EOSINOPHILS # (AUTO) 0.2 10^3/uL (0.0-0.3); EOSINOPHILS % (AUTO) 3 % (0-10); HEMATOCRIT 36 % (40-54); HEMOGLOBIN 11.8 G/DL (13.3-17.7); LYMPHOCYTES # (AUTO) 1.6 X 10^3 (1.0-4.0); LYMPHOCYTES % (AUTO) 23 % (12-44); MEAN CORPUSCULAR HEMOGLOBIN 31 PG (25-34); MEAN CORPUSCULAR HGB CONC 33 G/DL (32-36); MEAN CORPUSCULAR VOLUME 93 FL (80-99); MONOCYTES # (AUTO) 0.5 X 10^3 (0.0-1.0); MONOCYTES % (AUTO) 7 % (0-12); NEUTROPHILS # (AUTO) 4.6 X 10^3 (1.8-7.8); NEUTROPHILS % (AUTO) 66 % (42-75); PLATELET COUNT 282 10^3/uL (130-400); RED CELL DISTRIBUTION WIDTH 15.2 % (10.0-14.5); WHITE BLOOD COUNT 6.9 10^3/uL (4.3-11.0)
[2020-01-20 05:58] LABS: ALANINE AMINOTRANSFERASE 20 U/L (0-55); ALBUMIN 3.3 GM/DL (3.2-4.5); ALKALINE PHOSPHATASE 78 U/L (40-136); BILIRUBIN,TOTAL 0.7 MG/DL (0.1-1.0); BUN/CREATININE RATIO 16; CARBON DIOXIDE 26 MMOL/L (21-32); CHLORIDE 104 MMOL/L (98-107); CREATININE SERUM 0.82 MG/DL (0.60-1.30); GFR ESTIMATED > 60; GLUCOSE 82 MG/DL (70-105); MAGNESIUM 2.3 MG/DL (1.6-2.4); PHOSPHORUS 4.5 MG/DL (2.3-4.7); POTASSIUM 3.7 MMOL/L (3.6-5.0); SODIUM 142 MMOL/L (135-145); TOTAL PROTEIN 6.5 GM/DL (6.4-8.2)
[2020-01-20 06:10] LABS: INR 1.2 (0.8-1.4)
[2020-01-20] MEDS: RIFAMPIN 150 MG (RIFADIN) CAP PO SCH ×3 (06:26→21:47)
[2020-01-20] MEDS: metFORMIN XR 500 MG (GLUCOPHAGE XR) TAB PO SCH ×2 (06:26→17:39)
[2020-01-20] MEDS: KCL 10 MEQ TAB (MICRO K) PO SCH ×2 (06:26→17:38)
[2020-01-20] MEDS: ENOXAPARIN 60 MG/0.6 ML (LOVENOX) SYR SC SCH (09:15)
[2020-01-20] MEDS: lisINopril 5 MG (PRINIVIL) TABLET PO SCH (09:15)
[2020-01-20] MEDS: ASPIRIN 81 MG CHEW (CHILDREN'S ASA) PO SCH (09:17)
[2020-01-20] MEDS: SPIRONOLACTONE 25 MG (ALDACTONE) TAB PO SCH (09:18)
--- NOTE | 2020-01-20 10:14 | NUR ---
"RD ASSESSMENT PMHx: OH; cardiomyopathy; CHF; DM PT INTERACTION: Pt was awake and pleasant during nutrition follow-up. Pt states he has been eating okay since last assessment. Note avg PO intake of 95% x3d, per chart review. Pt states no issues with n/v/c/d since last assessment. Note last BM was 01/19 and pt not currently on bowel regimen per chart review. Note pt has presence of wound on chest, per chart review. ABNORMAL NUTRITION-RELATED LAB VALUES ALL LABS WNL Est. kcal needs: 4219-2633 kcal | 25-30 kcal/kg Est. Pro needs: 90-106 g Pro | 1.2-1.4 g Pro/kg PES STATEMENT: Inadequate protein intake (NI-5.6.1) related to increased protein needs as evidenced by presence of wounds (chest) INTERVENTION: Continue with current diet order of 2000mg Na diet. Add Ensure HP (vary) to meals TID. Provides 160 kcal and 16 g Pro per serving, for perceived benefit to wound healing. Will continue to follow and reassess as pt needs, intake and status change. MONITOR/EVALUATE: PO Intake; Plan of Care; Hydration Status; Weight Status; Lab Values Vidya Zhang, MS, RD, LD"
--- NOTE | 2020-01-20 10:42 | Progress Note - Surgery ---
[facility] 01/20/20 1042: Subjective Date Seen by a Provider: Jan 20, 2020 Time Seen by a Provider: 07:50 Subjective/Events-last exam pt sitting up in bed. reports minimal pain around wound, worse when dressing is changed. Denies fever, chills, weakness, myalgias, N/V, or any other sx at this time. Review of Systems General: No Chills, No Fatigue; Other (no fever) Pulmonary: No Dyspnea, No Cough Cardiovascular: No: Chest Pain, Palpitations Gastrointestinal: No: Nausea, Vomiting, Abdominal Pain Musculoskeletal: other (pain around wound); No: arm pain Objective Exam Vital Signs Date Time Temp Pulse Resp B/P (MAP) Pulse Ox O2 Delivery O2 Flow Rate FiO2 01/20/20 08:00 36.5 90 18 113/78 (90) 96 Room Air 01/20/20 07:00 84 01/20/20 04:00 36.5 76 16 91/58 (69) 96 Room Air 01/20/20 01:00 63 01/20/20 00:00 36.2 85 18 104/61 (75) 97 Room Air 01/19/20 21:00 Room Air 01/19/20 20:30 36.4 78 18 108/67 (81) 98 Room Air 01/19/20 19:00 82 01/19/20 18:55 OxyMask 5 01/19/20 18:55 36.6 20 107/62 (77) 96 Room Air 01/19/20 18:50 20 107/62 (77) 96 Room Air 01/19/20 18:50 OxyMask 5 01/19/20 18:40 22 106/72 (83) 97 Room Air 01/19/20 18:35 OxyMask 5 01/19/20 18:30 20 96/70 (79) 98 OxyMask 5 01/19/20 18:21 OxyMask 5 01/19/20 18:21 36.8 20 96/73 (81) 100 OxyMask 5 01/19/20 16:00 36.5 73 18 96/63 (74) 97 Room Air 01/19/20 12:42 85 01/19/20 12:00 36.5 88 16 98/67 (77) 98 Room Air I & O 01/20/20 07:00 Intake Total 852 ml Output Total 2650 ml Balance -1798 ml Capillary Refill : Less Than 3 SecondsLess Than 3 Seconds General Appearance: No Apparent Distress, WD/WN HEENT: PERRL/EOMI Neck: Full Range of Motion, Non Tender Respiratory: Chest Non Tender, No Accessory Muscle Use, No Respiratory Distress Cardiovascular: Regular Rate, Rhythm Gastrointestinal: non tender, soft Extremity: Normal Capillary Refill Neurologic/Psychiatric: Alert, Oriented x3 Skin: Normal Color, Warm/Dry, Other (minimal erythema around wound, no sign of infection) Lymphatic: No Adenopathy Results Lab Laboratory Tests 01/19/20 10:53: Glucometer 103 01/19/20 15:41: Glucometer 77 01/19/20 20:31: Glucometer 161H 01/20/20 05:20: Glucometer 86, White Blood Count 6.9, Red Blood Count 3.81L, Hemoglobin 11.8L, Hematocrit 36L, Mean Corpuscular Volume 93, Mean Corpuscular Hemoglobin 31, Mean Corpuscular Hemoglobin Concent 33, Red Cell Distribution Width 15.2H, Platelet Count 282, Mean Platelet Volume 9.0, Neutrophils (%) (Auto) 66, Lymphocytes (%) (Auto) 23, Monocytes (%) (Auto) 7, Eosinophils (%) (Auto) 3, Basophils (%) (Auto) 1, Neutrophils # (Auto) 4.6, Lymphocytes # (Auto) 1.6, Monocytes # (Auto) 0.5, Eosinophils # (Auto) 0.2, Basophils # (Auto) 0.1, Prothrombin Time 16.0H, INR Comment 1.2, Sodium Level 142, Potassium Level 3.7, Chloride Level 104, Carbon Dioxide Level 26, Anion Gap 12, Blood Urea Nitrogen 13, Creatinine 0.82, Estimat Glomerular Filtration Rate > 60, BUN/Creatinine Ratio 16, Glucose Level 82, Calcium Level 9.0, Corrected Calcium 9.6, Phosphorus Level 4.5, Magnesium Level 2.3, Total Bilirubin 0.7, Aspartate Amino Transf (AST/SGOT) 14, Alanine Aminotransferase (ALT/SGPT) 20, Alkaline Phosphatase 78, Total Protein 6.5, Alb umin 3.3 Microbiology 01/16/20 Blood Culture - Preliminary, Resulted Staphylococcus epidermidis 01/10/20 Gram Stain - Final, Complete 01/10/20 Anaerobic Culture - Final, Complete No anaerobes isolated 01/10/20 Surgical Culture - Final, Complete Staphylococcus aureus 01/10/20 Gram Stain - Final, Complete 01/10/20 Anaerobic Culture - Final, Complete No anaerobes isolated 01/10/20 Surgical Culture - Final, Complete Staphylococcus aureus 01/10/20 MRSA Screen - Final, Complete MRSA not isolated Assessment/Plan Assessment/Plan Assessment/Plan MSSA Infected pacemaker pocket, s/p removal by Dr. Gresham, Exploration of Left chest wound yesterday, no further debridement was done but wound was extensively irrigated PICC line placed, Staph epidermidis on cultures from picc line source, started on rifampin by dr. Gresham Also on 2 weeks of IV nafcillin Q4H Pt was evaluated by wound care nurse, he is to be set up for wound vac Will sign off Clinical Quality Measures DVT/VTE Risk/Contraindication: Risk Factor Score Per Nursin RFS Level Per Nursing on Admit: 4+=Very High AURELIO VERNON DO 01/20/20 1727: Subjective Subjective/Events-last exam no new complaints. washed out wound yesterday. Patient denies n/v fever sweats chills shortness of breath today Objective Exam General Appearance: No Apparent Distress, WD/WN HEENT: PERRL/EOMI Neck: Full Range of Motion, Non Tender Respiratory: Chest Non Tender, No Accessory Muscle Use, No Respiratory Distress Cardiovascular: Regular Rate, Rhythm Gastrointestinal: non tender, soft Extremity: Normal Capillary Refill Neurologic/Psychiatric: Alert, Oriented x3 Skin: Normal Color, Warm/Dry, Other (wound clean dry and good granulation tissue, no signs of infection) Assessment/Plan Assessment/Plan Assessment/Plan MSSA Infected pacemaker pocket, s/p removal by Dr. Gresham, Exploration of Left chest wound yesterday, no further debridement was done but wound was extensively irrigated PICC line placed, Staph epidermidis on cultures from picc line source, started on rifampin by dr. Gresham Also on 2 weeks of IV nafcillin Q4H Will have wound vac placed by wound care nurse Will sign off call if needed. Supervisory-Addendum Brief Verification & Attestation Participated in pt care: history, MDM, physical Personally performed: exam, history, MDM, supervision of care Care discussed with: Medical Student Procedures: n/a Results interpretation: Verified all documentation Verification and Attestation of Medical Student E/M Service A medical student performed and documented this service in my presence. I reviewed and verified all information documented by the medical student and made modifications to such information, when appropriate. I personally performed the physical exam and medical decision making. Aurelio Vernon, Jan 20, 2020,17:27 [facility] Jan 20, 2020 10:42 AURELIO VERNON DO Jan 20, 2020 17:27
--- NOTE | 2020-01-20 11:16 | NUR ---
NOTE THAT DONYA FROM WOUND CARE VOICED HE WOULD BE PLACING A WOUND VAC --
--- NOTE | 2020-01-20 11:40 | NUR ---
DR LOVE WAS ON FLOOR AND VOICED IT WAS OK FOR WOUND CARE TO PLACE HH WOUND VAC AND THAT HE COULD BE DISCHARGED HOME IF IT WA OK WITH DR BERMAN -- DR BERMAN WAS CALLED AND MESSAGE FORREST LEFT
--- NOTE | 2020-01-20 11:47 | NUR ---
TALKED TO DR BERMAN HE IS NOT ON DR IGNACIO IS COVERING THIS RN PAGED ROSA
--- NOTE | 2020-01-20 13:23 | NUR ---
TALKED TO DR HENDRICKS AND DR IGNACIO -- BOTH PREFER PT TO STAY THE WEEKEND -- DONYA WILL PUT FACILITY WOUND VAC ON AND DR IVAN CLAYTON MADE AWARE
[2020-01-20] MEDS: HYDROcodone/APAP 5 MG/325 MG (LORTAB) TAB PO PRN (13:39)
--- NOTE | 2020-01-20 14:48 | NUR ---
provided prayer and Communion.
--- NOTE | 2020-01-20 16:15 | NUR ---
GOT A CALL FROM ICU PT RVR -- PT HAS LIFE VEST ON AND IT SHOCKED HEART RATE BACK TO NORMAL RHYTHM -- VS 131/83,102,93% RA - ROSA WAS ON FLOOR AND ADVISED
--- NOTE | 2020-01-20 16:16 | Progress Note ---
Subjective Subjective/Events-last exam No concern per patient. Denies any chest pain or shortness of breath. Review of Systems Pulmonary: Dyspnea, Cough Cardiovascular: Chest Pain, Palpitations Gastrointestinal: No: Nausea, Vomiting, Abdominal Pain Neurological: No: Weakness, Incoordination Objective Exam Last Set of Vital Signs Vital Signs Date Time Temp Pulse Resp B/P (MAP) Pulse Ox O2 Delivery O2 Flow Rate FiO2 01/20/20 15:12 36.8 83 20 102/68 (79) 98 Room Air 01/19/20 18:55 5 Capillary Refill : Less Than 3 SecondsLess Than 3 Seconds I&O Intake and Output 01/20/20 00:00 Intake Total 952 ml Output Total 2350 ml Balance -1398 ml Intake Oral 652 ml IV Total 300 ml Output Urine Total 2350 ml # Voids 2 # Bowel Movements 1 General: Alert, Oriented X3, Cooperative, No Acute Distress HEENT: Mucous Memb Moist/[place] Lungs: Clear to Auscultation, Normal Air Movement Heart: Regular Rate, No Murmurs Abdomen: Normal Bowel Sounds, Soft, No Tenderness, No Masses Extremities: No Edema, No Tenderness/Swelling Skin: No Rashes, No Breakdown Neuro: Sensation Intact, Cranial Nerves 3-12 NL Psych/Mental Status: Mental Status NL, Mood NL Results/Procedures Lab Laboratory Tests 01/19/20 20:31: Glucometer 161H 01/20/20 05:20: Glucometer 86, White Blood Count 6.9, Red Blood Count 3.81L, Hemoglobin 11.8L, Hematocrit 36L, Mean Corpuscular Volume 93, Mean Corpuscular Hemoglobin 31, Mean Corpuscular Hemoglobin Concent 33, Red Cell Distribution Width 15.2H, Platelet Count 282, Mean Platelet Volume 9.0, Neutrophils (%) (Auto) 66, Lymphocytes (%) (Auto) 23, Monocytes (%) (Auto) 7, Eosinophils (%) (Auto) 3, Basophils (%) (Auto) 1, Neutrophils # (Auto) 4.6, Lymphocytes # (Auto) 1.6, Monocytes # (Auto) 0.5, Eosinophils # (Auto) 0.2, Basophils # (Auto) 0.1, Prothrombin Time 16.0H, INR Comment 1.2, Sodium Level 142, Potassium Level 3.7, Chloride Level 104, Carbon Dioxide Level 26, Anion Gap 12, Blood Urea Nitrogen 13, Creatinine 0.82, Estimat Glomerular Filtration Rate > 60, BUN/Creatinine Ratio 16, Glucose Level 82, Calcium Level 9.0, Corrected Calcium 9.6, Phosphorus Level 4.5, Magnesium Level 2.3, Total Bilirubin 0.7, Aspartate Amino Transf (AST/SGOT) 14, Alanine Aminotransferase (ALT/SGPT) 20, Alkaline Phosphatase 78, Total Protein 6.5, Albumin 3.3 01/20/20 11:29: Glucometer 132H 01/20/20 15:44: Glucometer 96 Microbiology 01/19/20 Blood Culture - Preliminary, Resulted No growth 01/10/20 Gram Stain - Final, Complete 01/10/20 Anaerobic Culture - Final, Complete No anaerobes isolated 01/10/20 Surgical Culture - Final, Complete Staphylococcus aureus 01/10/20 Gram Stain - Final, Complete 01/10/20 Anaerobic Culture - Final, Complete No anaerobes isolated 01/10/20 Surgical Culture - Final, Complete Staphylococcus aureus 01/10/20 MRSA Screen - Final, Complete MRSA not isolated Assessment/Plan Assessment/Plan (1) Pacemaker infection Status: Acute Assessment & Plan: ICD was removed, monitor for continued infection 01/19: s/p surgical irrigation today with pus removal 01/20: Wound vac placed today Qualifiers: Qualified Codes: T82.7XXA - Infection and inflammatory reaction due to other cardiac and vascular devices, implants and grafts, initial encounter (2) Bacteremia Status: Acute Assessment & Plan: - Blood culture resulted 01/16 + MSSA, repeat blood culture drawn today, Must have neg blood culture prior to d/c home, will need 6 weeks IV antibiotics 01/17: Repeat culture yesterday, waiting for final report prior to d/c 01/18: Final report pending, Will start d.c plan once blood cultures are Neg 01/19: Dr Gresham has discussed case with [facility] and they recommend adding Rifampin, repeat blood cultures today and tomorrow, Will need 6 week IV antibiotics once blood cultures are negative, Patient will need HH at discharge (3) Pre-diabetes Status: Chronic Assessment & Plan: - Continue Metformin (4) MSSA (methicillin susceptible Staphylococcus aureus) (5) Cardiomyopathy Status: Chronic Assessment & Plan: - Patient following with [facility] cardiology and Dr Gresham Qualifiers: Qualified Codes: I42.0 - Dilated cardiomyopathy (6) HTN (hypertension) Status: Chronic Qualifiers: Qualified Codes: I10 - Essential (primary) hypertension (7) Acute CHF (congestive heart failure) Status: Acute Assessment & Plan: - Continue Lasix Qualifiers: Qualified Codes: I50.21 - Acute systolic (congestive) heart failure (8) Left ventricular thrombosis Status: Acute Assessment & Plan: 01/19: JET neg for thrombosis but patient needs continued anticoagulation, Start Lovenox as INR is not therapuetic, spoke with marilyn and Naficillin increases metabolism of Coumadin so patient will likely need higher dose and then will need titrated down after completion of antibiotics, recommend INR MWF with HH at discharge 01/20: Repeat INR in AM (9) DVT prophylaxis Status: Acute Assessment & Plan: - Coumadin Clinical Quality Measures DVT/VTE Risk/Contraindication: Risk Factor Score Per Nursin RFS Level Per Nursing on Admit: 4+=Very High NATHANIEL HENDRICKS MD Jan 20, 2020 16:16
--- NOTE | 2020-01-20 16:17 | Progress Note - Cardiology ---
Cardiology SOAP Progress Note Subjective: In bed. No c/o CP, palpitations, dyspnea. Objective: I&O/Vital Signs Weight (Pounds): 179 Weight (Ounces): 5.0 Weight (Calculated Kilograms): 81.117449 Constitutional: AAO x 3, well-developed, well-nourished Respiratory: No accessory muscle use, No respiratory distress; chest expansion is symmetric, chest is bilaterally symmetric, lungs clear to auscultation Cardiovascular: regular rate-rhythm; No JVD; S1 and S2 Gastrointestional: No tender; soft, audible bowel sounds Extremities: no lower extremity edema bilateral Neurologic/Psychiatric: grossly intact Skin: other (wound vac in place to LACW) Results/Procedures: Labs Microbiology 01/20/20 Blood Culture - Final, Complete No growth 01/19/20 MRSA Screen - Final, Complete MRSA not isolated 01/10/20 Gram Stain - Final, Complete 01/10/20 Anaerobic Culture - Final, Complete No anaerobes isolated 01/10/20 Surgical Culture - Final, Complete Staphylococcus aureus 01/10/20 Gram Stain - Final, Complete 01/10/20 Anaerobic Culture - Final, Complete No anaerobes isolated 01/10/20 Surgical Culture - Final, Complete Staphylococcus aureus A/P: Assessment: Infected ICD pocket, single chamber ICD was extracted on January 10, 2020, culture grew Staphylococcus aureus. Maintained on nafcillin, PICC line placed, repeat blood culture grew staph again, CT of the chest abdomen and pelvis did not show any sign of embolization or abscess, JET did not show any thrombus, no vegetation, Dr. Gresham has discussed with Dr. Vernon repeat debridement of the pocket, added rifampin, wound vac in place and repeat blood culture again. Congestive heart failure, acute on chronic left ventricular systolic dysfunction, severe cardiomyopathy with ejection fraction 10 percent, ischemic cardiomyopathy, seen at with Dr. Smith, right heart catheterization at that time showed normal pressures. Patient currently wearing life vest. Staph aureus sepsis, echocardiogram did not show any vegetation. Receiving antibiotic. Repeat blood cultures negative. Continue to monitor Congestive heart failure, left ventricular systolic dysfunction, severe cardiomyopathy with ejection fraction 10 percent. Ischemic cardiomyopathy. Following with Dr. Smith at at this time. Had a right heart catheterization showing normal pressures. 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 Passive hepatic congestion with elevated LFTs, continue to monitor Diabetes mellitus, managed by primary care physician Anxiety Plan: Continue current regimen Monitor lab closely Advise continued hospitalization ROSA JACKSON Jan 20, 2020 16:16
[2020-01-20] MEDS ORDERED: AMIODARONE INJECTION 450 MG in D5W IV SOLUTION (EXCEL) 250 ML IV SCH (18:45)
--- NOTE | 2020-01-20 18:49 | Progress Note - Cardiology ---
Cardiology SOAP Progress Note Subjective: Shock from ext defib vest earlier today Gen malaise No cp or syncope No palp Chronic exertional shortness of breath No n/v/d Objective: I&O/Vital Signs 01/20/20 01/20/20 01/20/20 01/20/20 07:00 08:00 09:00 12:00 Temp 36.5 36.5 Pulse 84 90 90 Resp 18 18 B/P (MAP) 113/78 (90) 106/76 (86) Pulse Ox 96 98 O2 Delivery Room Air Room Air Room Air 01/20/20 01/20/20 01/20/20 13:00 14:10 15:12 Temp 36.5 36.8 Pulse 103 83 Resp 20 B/P (MAP) 102/68 (79) Pulse Ox 98 O2 Delivery Room Air 01/20/20 00:00 Intake Total 552 ml Output Total 2350 ml Balance -1798 ml Weight (Pounds): 179 Weight (Ounces): 5.0 Weight (Calculated Kilograms): 81.515074 Constitutional: AAO x 3, well-developed, well-nourished Respiratory: No accessory muscle use, No respiratory distress; chest expansion is symmetric, chest is bilaterally symmetric, lungs clear to auscultation Cardiovascular: regular rate-rhythm; No JVD; S1 and S2 Gastrointestional: No tender; soft, audible bowel sounds Extremities: no lower extremity edema bilateral Neurologic/Psychiatric: grossly intact Skin: other (wound vac in place to LACW) Results/Procedures: Labs Laboratory Tests 01/19/20 20:31: Glucometer 161H 01/20/20 05:20: Glucometer 86, White Blood Count 6.9, Red Blood Count 3.81L, Hemoglobin 11.8L, Hematocrit 36L, Mean Corpuscular Volume 93, Mean Corpuscular Hemoglobin 31, Mean Corpuscular Hemoglobin Concent 33, Red Cell Distribution Width 15.2H, Platelet Count 282, Mean Platelet Volume 9.0, Neutrophils (%) (Auto) 66, Lymphocytes (%) (Auto) 23, Monocytes (%) (Auto) 7, Eosinophils (%) (Auto) 3, Basophils (%) (Auto) 1, Neutrophils # (Auto) 4.6, Lymphocytes # (Auto) 1.6, Monocytes # (Auto) 0.5, Eosinophils # (Auto) 0.2, Basophils # (Auto) 0.1, Prothrombin Time 16.0H, INR Comment 1.2, Sodium Level 142, Potassium Level 3.7, Chloride Level 104, Carbon Dioxide Level 26, Anion Gap 12, Blood Urea Nitrogen 13, Creatinine 0.82, Estimat Glomerular Filtration Rate > 60, BUN/Creatinine Ratio 16, Glucose Level 82, Calcium Level 9.0, Corrected Calcium 9.6, Phosphorus Level 4.5, Magnesium Level 2.3, Total Bilirubin 0.7, Aspartate Amino Transf (AST/SGOT) 14, Alanine Aminotransferase (ALT/SGPT) 20, Alkaline Phosphatase 78, Total Protein 6.5, Albumin 3.3 01/20/20 11:29: Glucometer 132H 01/20/20 15:44: Glucometer 96 Microbiology 01/19/20 MRSA Screen - Final, Complete MRSA not isolated 01/19/20 Blood Culture - Preliminary, Resulted No growth 01/10/20 Gram Stain - Final, Complete 01/10/20 Anaerobic Culture - Final, Complete No anaerobes isolated 01/10/20 Surgical Culture - Final, Complete Staphylococcus aureus 01/10/20 Gram Stain - Final, Complete 01/10/20 Anaerobic Culture - Final, Complete No anaerobes isolated 01/10/20 Surgical Culture - Final, Complete Staphylococcus aureus Laboratory Tests 01/19/20 05:55 01/20/20 05:20 A/P: Assessment: Sustained VT treated by Life Vest on 01/20/20 Infected ICD pocket, hardware extracted on 01/10/20, culture grew Staphylococcus aureus. No evidence of endocarditis on subsequent JET Chronic systolic CHF due to severe cardiomyopathy (EF 10%) following at with Dr. 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 Card cath of April 2019: proximally occluded LAD getting collaterals from the right system Diabetes mellitus, managed by primary care physician Anxiety Plan: * iv amiodarone to be followed by oral amiodarone * Continue current antibiotic therapy * Continue current heart failure therapy * Continue wound debridement * Monitor and correct labs KIRBY INGACIO MD FACP FAC CCDS Jan 20, 2020 18:49
[2020-01-20] MEDS ORDERED: AMIODARONE FOR BOLUS 150 MG in D5W 100 ML IVPB 100 ML IV ONE (19:00)
[2020-01-20] MEDS ORDERED: AMIODARONE FOR BOLUS 150 MG in D5W 100 ML IVPB 100 ML IV NR (19:00)
[2020-01-20] MEDS: warFARin 4 MG (COUMADIN) TAB PO SCH (19:50)
[2020-01-20] MEDS: AMIODARONE INJECTION 450 MG in D5W IV SOLUTION (EXCEL) 250 ML IV SCH (19:55)
--- NOTE | 2020-01-20 20:08 | NUR ---
THIS RN ASSUMED CARE AT 1900. REPORT RECEIVED FROM KHLOE LLANOS.
--- NOTE | 2020-01-20 20:08 | NUR ---
DONYA FROM WOUND CARE CONTACTED DUE TO PT WOUND VAC ALARMING. DONYA ADVISED TO CALL SURGEON ABOUT WOUND VAC OUTPUT. DR ADAMS CALLED AND INFORMED OF 100 ML OF DARK RED BLOOD IN WOUND VAC CANISTER SINCE SHIFT CHANGE. DR ADAMS SAID THIS WAS AN EXPECTED FINDING. WILL CONTINUE TO MONITOR.
[2020-01-21] VITALS (24 sets, daily range): BP systolic 83–111; BP diastolic 58–81
[2020-01-21 02:21] LABS: BASOPHILS % (AUTO) 0 % (0-10); EOSINOPHILS # (AUTO) 0.2 10^3/uL (0.0-0.3); EOSINOPHILS % (AUTO) 2 % (0-10); HEMATOCRIT 34 % (40-54); HEMOGLOBIN 11.3 G/DL (13.3-17.7); LYMPHOCYTES # (AUTO) 1.6 X 10^3 (1.0-4.0); LYMPHOCYTES % (AUTO) 18 % (12-44); MEAN CORPUSCULAR HGB CONC 33 G/DL (32-36); MEAN CORPUSCULAR VOLUME 93 FL (80-99); MEAN PLATELET VOLUME 8.7 FL (7.4-10.4); MONOCYTES # (AUTO) 0.6 X 10^3 (0.0-1.0); MONOCYTES % (AUTO) 6 % (0-12); NEUTROPHILS # (AUTO) 6.6 X 10^3 (1.8-7.8); NEUTROPHILS % (AUTO) 73 % (42-75); PLATELET COUNT 330 10^3/uL (130-400); RED CELL DISTRIBUTION WIDTH 15.2 % (10.0-14.5)
[2020-01-21 02:22] LABS: MEAN CORPUSCULAR HEMOGLOBIN 30 PG (25-34)
[2020-01-21 02:35] LABS: INR 1.2 (0.8-1.4); PROTHROMBIN TIME PATIENT 15.5 SEC (12.2-14.7)
[2020-01-21 02:43] LABS: BUN/CREATININE RATIO 11; CALCIUM 8.9 MG/DL (8.5-10.1); CARBON DIOXIDE 24 MMOL/L (21-32); CHLORIDE 103 MMOL/L (98-107); GFR ESTIMATED > 60; GLUCOSE 100 MG/DL (70-105); MAGNESIUM 2.1 MG/DL (1.6-2.4); PHOSPHORUS 3.9 MG/DL (2.3-4.7); POTASSIUM 3.7 MMOL/L (3.6-5.0); SODIUM 140 MMOL/L (135-145)
[2020-01-21] MEDS: NAFCILLIN INJECTION 2,000 MG in NS (IVPB) 100 ML IV SCH ×5 (03:28→19:43)
[2020-01-21] MEDS: AMIODARONE INJECTION 450 MG in D5W IV SOLUTION (EXCEL) 250 ML IV SCH (03:30)
[2020-01-21] MEDS: RIFAMPIN 150 MG (RIFADIN) CAP PO SCH ×3 (05:27→20:46)
[2020-01-21] MEDS: metFORMIN XR 500 MG (GLUCOPHAGE XR) TAB PO SCH ×2 (07:22→17:41)
[2020-01-21] MEDS: SPIRONOLACTONE 25 MG (ALDACTONE) TAB PO SCH (08:41)
[2020-01-21] MEDS: lisINopril 5 MG (PRINIVIL) TABLET PO SCH (08:42)
--- NOTE | 2020-01-21 08:47 | Diagnostic Imaging Report ---
HISTORY: Infected implantable cardiac defibrillator pocket TECHNIQUE: Single frontal view of the chest COMPARISON: 01/16/2020 FINDINGS: Lung volumes are normal. Extensive leads and devices overlie the chest. No pleural effusion or pneumothorax is seen. The cardiac silhouette appears normal in size and contour. The tip of the right PICC line projects over the SVC. IMPRESSION: No acute pulmonary abnormality is seen. Dictated by: Dictated on workstation # [id number]
--- NOTE | 2020-01-21 09:25 | Progress Note - Surgery ---
Subjective Time Seen by a Provider: 08:01 Subjective/Events-last exam Pt seen and examined, events of yesterday noted. He has no complaints this morning other than they had trouble with wound VAC and it leaked. He is tolerating diet and has minimal pain. Review of Systems General: No Chills, No Night Sweats Pulmonary: No Dyspnea, No Cough Cardiovascular: Chest Pain, Palpitations Gastrointestinal: No: Nausea, Vomiting, Abdominal Pain Objective Exam Vital Signs Date Time Temp Pulse Resp B/P (MAP) Pulse Ox O2 Delivery O2 Flow Rate FiO2 01/21/20 09:00 80 18 106/78 (87) 99 Room Air 01/21/20 08:00 Room Air 96 01/21/20 08:00 79 9 110/81 (91) 97 Room Air 01/21/20 07:00 90 13 111/76 (88) 97 Room Air 01/21/20 07:00 85 01/21/20 06:00 63 12 90/66 (74) 95 Room Air 01/21/20 05:00 87 18 102/75 (84) 94 Room Air 01/21/20 04:00 96 15 99/73 (82) 96 Room Air 01/21/20 03:57 Room Air 01/21/20 03:00 61 15 95/58 (70) Room Air 01/21/20 02:00 62 17 93/65 (74) 97 Room Air 01/21/20 01:00 88 01/21/20 01:00 70 12 101/74 (83) 98 Room Air 01/21/20 00:00 82 19 83/58 (66) 97 Room Air 01/20/20 23:52 Room Air 01/20/20 23:12 36.0 01/20/20 23:00 87 17 98/70 (79) 97 Room Air 01/20/20 22:00 86 12 97/74 (82) 97 Room Air 01/20/20 21:30 95 15 95/72 (80) 98 Room Air 01/20/20 21:00 92 17 96/71 (79) 97 Room Air 01/20/20 20:45 90 15 90/69 (76) 96 Room Air 01/20/20 20:30 93 16 90/66 (74) 97 Room Air 01/20/20 20:15 93 16 93/68 (76) 97 Room Air 01/20/20 20:00 Room Air 01/20/20 20:00 100 12 93/70 (78) 98 Room Air 01/20/20 19:44 96 101/69 01/20/20 19:35 98 17 101/69 (80) 97 Room Air 01/20/20 19:00 99 01/20/20 15:12 36.8 83 20 102/68 (79) 98 Room Air 01/20/20 14:10 36.5 01/20/20 13:00 103 01/20/20 12:00 36.5 90 18 106/76 (86) 98 Room Air I & O 01/21/20 07:00 Intake Total 1482 ml Output Total 1625 ml Balance -143 ml Capillary Refill : Less Than 3 SecondsLess Than 3 Seconds General Appearance: No Apparent Distress, WD/WN HEENT: PERRL/EOMI Neck: Full Range of Motion, Non Tender Respiratory: Chest Non Tender, No Accessory Muscle Use, No Respiratory Distress Cardiovascular: Regular Rate, Rhythm Gastrointestinal: non tender, soft Extremity: Normal Capillary Refill Neurologic/Psychiatric: Alert, Oriented x3 Skin: Normal Color, Warm/Dry, Other (wound VAC in place, no leakage at this time, no signs of infection surrounding the area) Lymphatic: No Adenopathy Results Lab Laboratory Tests 01/20/20 11:29: Glucometer 132H 01/20/20 15:44: Glucometer 96 01/20/20 20:28: Glucometer 124H 01/21/20 02:13: White Blood Count 9.0, Red Blood Count 3.71L, Hemoglobin 11.3L, Hematocrit 34L, Mean Corpuscular Volume 93, Mean Corpuscular Hemoglobin 30, Mean Corpuscular Hemoglobin Concent 33, Red Cell Distribution Width 15.2H, Platelet Count 330, Mean Platelet Volume 8.7, Neutrophils (%) (Auto) 73, Lymphocytes (%) (Auto) 18, Monocytes (%) (Auto) 6, Eosinophils (%) (Auto) 2, Basophils (%) (Auto) 0, Neutrophils # (Auto) 6.6, Lymphocytes # (Auto) 1.6, Monocytes # (Auto) 0.6, Eosinophils # (Auto) 0.2, Basophils # (Auto) 0.0, Prothrombin Time 15.5H, INR Comment 1.2, Sodium Level 140, Potassium Level 3.7, Chloride Level 103, Carbon Dioxide Level 24, Anion Gap 13, Blood Urea Nitrogen 9, Creatinine 0.80, Estimat Glomerular Filtration Rate > 60, BUN/Creatinine Ratio 11, Glucose Level 100, Calcium Level 8.9, Phosphorus Level 3.9, Magnesium Level 2.1 Microbiology 01/19/20 MRSA Screen - Final, Complete MRSA not isolated 01/19/20 Blood Culture - Preliminary, Resulted No growth 01/10/20 Gram Stain - Final, Complete 01/10/20 Anaerobic Culture - Final, Complete No anaerobes isolated 01/10/20 Surgical Culture - Final, Complete Staphylococcus aureus 01/10/20 Gram Stain - Final, Complete 01/10/20 Anaerobic Culture - Final, Complete No anaerobes isolated 01/10/20 Surgical Culture - Final, Complete Staphylococcus aureus Assessment/Plan Assessment/Plan Assessment/Plan MSSA Infected pacemaker pocket Wound VAC Most recent blood culture was negative (from 01/19), prior to that it was Staph epidermidis which is most likely a contaminant. Will monitor wound vac and can replace if it leaks again. Continue ABX and will need home wound VAC prior to discharge. From surgery standpoint he can go whenever he is cleared by IM and Cardiology. Clinical Quality Measures DVT/VTE Risk/Contraindication: Risk Factor Score Per Nursin RFS Level Per Nursing on Admit: 4+=Very High KATIE ADAMS DO Jan 21, 2020 09:25
[2020-01-21 10:24] LABS: BILIRUBIN,URINE NEGATIVE (NEGATIVE); CLARITY,URINE CLEAR; COLOR,URINE ORANGE; GLUCOSE, URINE (UA) NEGATIVE (NEGATIVE); KETONES,URINE NEGATIVE (NEGATIVE); LEUKOCYTE ESTERASE ,URINE NEGATIVE (NEGATIVE); NITRITE,URINE NEGATIVE (NEGATIVE); PROTEIN,URINE NEGATIVE (NEGATIVE)
[2020-01-21 10:43] LABS: BACTERIA,URINE NEGATIVE /HPF; SQUAMOUS EPITHELIAL CELL,UR 0-2 /HPF
--- NOTE | 2020-01-21 11:20 | Progress Note - Hospitalist ---
Subjective HPI/CC On Admission Date Seen by Provider: Jan 21, 2020 Time Seen by Provider: 10:30 CC: Staph bacteremia HPI: This is a 54yoWM known to me from prior hospital stay who has a low ejection fraction who had an ICD placed a few weeks ago, came in with pustular drainage from the area and ling-cultured, placed on Vancomycin and Ancef empirically and found to have bacteremia of Staph. I initiated a dose of Gentami rossy combined with Vanc, discontinued the Ancef and noted that even the leads of the ICD was contaminated with staph. At this current time Pt denies any pain. Subjective/Events-last exam Patient doing well Hematuria noted so will inquire with Cardiology regarding Lovenox full dose while coumadin maintained Awaiting BCx Review of Systems General: Fatigue Pulmonary: Dyspnea Objective Exam Vital Signs Vital Signs Date Time Temp Pulse Resp B/P (MAP) Pulse Ox O2 Delivery O2 Flow Rate FiO2 01/21/20 16:00 85 18 101/71 (81) 98 Room Air 01/21/20 15:32 98 01/21/20 11:24 36.7 01/19/20 18:55 5 Capillary Refill : Less Than 3 SecondsLess Than 3 Seconds General Appearance: No Apparent Distress, WD/WN, Chronically ill Respiratory: Lungs Clear Cardiovascular: Regular Rate, Rhythm Neurologic/Psychiatric: Alert, Oriented x3, No Motor/Sensory Deficits, Normal Mood/Affect Results/Procedures Lab Laboratory Tests 01/21/20 02:13 Patient resulted labs reviewed. Assessment/Plan Assessment and Plan Assess & Plan/Chief Complaint Assessment: Infected ICD pocket Bacteremia Acute hematuria Cardiomyopathy Plan: BCx Hematuria management Diagnosis/Problems Diagnosis/Problems (1) Pacemaker infection Status: Acute Qualifiers: Encounter type: initial encounter Qualified Codes: T82.7XXA - Infection and inflammatory reaction due to other cardiac and vascular devices, implants and grafts, initial encounter (2) Bacteremia Status: Acute (3) Acute CHF (congestive heart failure) Status: Acute Qualifiers: Heart failure type: systolic Qualified Codes: I50.21 - Acute systolic (congestive) heart failure (4) Cardiomyopathy Status: Chronic Qualifiers: Cardiomyopathy type: dilated Qualified Codes: I42.0 - Dilated cardiomyopathy Clinical Quality Measures DVT/VTE Risk/Contraindication: Risk Factor Score Per Nursin RFS Level Per Nursing on Admit: 4+=Very High JEREMIAS RICCI DO Jan 21, 2020 11:20
--- NOTE | 2020-01-21 13:11 | Progress Note - Cardiology ---
Cardiology SOAP Progress Note Subjective: No cp or palp or syncope No further ICD discharges Gen malaise and weakness Shortness of breath with activity No n/v/d Objective: I&O/Vital Signs 01/21/20 01/21/20 01/21/20 01/21/20 02:00 03:00 03:57 04:00 Pulse 62 61 96 Resp 17 15 15 B/P (MAP) 93/65 (74) 95/58 (70) 99/73 (82) Pulse Ox 97 96 O2 Delivery Room Air Room Air Room Air Room Air 01/21/20 01/21/20 01/21/20 01/21/20 05:00 06:00 07:00 07:00 Pulse 87 63 85 90 Resp 18 12 13 B/P (MAP) 102/75 (84) 90/66 (74) 111/76 (88) Pulse Ox 94 95 97 O2 Delivery Room Air Room Air Room Air 01/21/20 01/21/20 01/21/20 01/21/20 08:00 08:00 09:00 10:00 Pulse 79 80 83 Resp 9 18 18 B/P (MAP) 110/81 (91) 106/78 (87) 106/80 (89) Pulse Ox 97 99 97 O2 Delivery Room Air Room Air Room Air Room Air FiO2 96 01/21/20 01/21/20 01/21/20 01/21/20 11:00 11:24 12:00 12:00 Temp 36.7 Pulse 93 82 Resp 32 15 B/P (MAP) 108/80 (89) 109/79 (89) Pulse Ox 98 95 O2 Delivery Room Air Room Air Room Air FiO2 96 01/21/20 12:33 Pulse 81 01/21/20 00:00 Intake Total 720 ml Output Total 900 ml Balance -180 ml Weight (Pounds): 179 Weight (Ounces): 5.0 Weight (Calculated Kilograms): 81.570576 Constitutional: AAO x 3, well-developed, well-nourished Respiratory: No accessory muscle use, No respiratory distress; chest expansion is symmetric, chest is bilaterally symmetric, lungs clear to auscultation Cardiovascular: regular rate-rhythm; No JVD; S1 and S2 Gastrointestional: No tender; soft, audible bowel sounds Extremities: no lower extremity edema bilateral Neurologic/Psychiatric: grossly intact Skin: other (wound vac in place to LACW) Results/Procedures: Labs Laboratory Tests 01/20/20 15:44: Glucometer 96 01/20/20 20:28: Glucometer 124H 01/21/20 02:13: White Blood Count 9.0, Red Blood Count 3.71L, Hemoglobin 11.3L, Hematocrit 34L, Mean Corpuscular Volume 93, Mean Corpuscular Hemoglobin 30, Mean Corpuscular Hemoglobin Concent 33, Red Cell Distribution Width 15.2H, Platelet Count 330, Mean Platelet Volume 8.7, Neutrophils (%) (Auto) 73, Lymphocytes (%) (Auto) 18, Monocytes (%) (Auto) 6, Eosinophils (%) (Auto) 2, Basophils (%) (Auto) 0, Neutrophils # (Auto) 6.6, Lymphocytes # (Auto) 1.6, Monocytes # (Auto) 0.6, Eosinophils # (Auto) 0.2, Basophils # (Auto) 0.0, Prothrombin Time 15.5H, INR Comment 1.2, Sodium Level 140, Potassium Level 3.7, Chloride Level 103, Carbon Dioxide Level 24, Anion Gap 13, Blood Urea Nitrogen 9, Creatinine 0.80, Estimat Glomerular Filtration Rate > 60, BUN/Creatinine Ratio 11, Glucose Level 100, Calcium Level 8.9, Phosphorus Level 3.9, Magnesium Level 2.1 01/21/20 10:10: Urine Color ORANGE, Urine Clarity CLEAR, Urine pH 6.0, Urine Specific [place] 1.015L, Urine Protein NEGATIVE, Urine Glucose (UA) NEGATIVE, Urine Ketones NEGATIVE, Urine Nitrite NEGATIVE, Urine Bilirubin NEGATIVE, Urine Urobilinogen 0.2, Urine Leukocyte Esterase NEGATIVE, Urine RBC (Auto) NEGATIVE, Urine RBC NONE, Urine WBC 2-5, Urine Squamous Epithelial Cells 0-2, Urine Crystals NONE, Urine Bacteria NEGATIVE, Urine Casts NONE, Urine Mucus NEGATIVE, Urine Culture Indicated NO 01/21/20 11:25: Glucometer 100 Microbiology 01/19/20 MRSA Screen - Final, Complete MRSA not isolated 01/19/20 Blood Culture - Preliminary, Resulted No growth 01/10/20 Gram Stain - Final, Complete 01/10/20 Anaerobic Culture - Final, Complete No anaerobes isolated 01/10/20 Surgical Culture - Final, Complete Staphylococcus aureus 01/10/20 Gram Stain - Final, Complete 01/10/20 Anaerobic Culture - Final, Complete No anaerobes isolated 01/10/20 Surgical Culture - Final, Complete Staphylococcus aureus Laboratory Tests 01/20/20 05:20 01/21/20 02:13 A/P: Assessment: Sustained VT treated by Life Vest on 01/20/20 Infected ICD pocket, hardware extracted on 01/10/20, culture grew Staphylococcus aureus. No evidence of endocarditis on subsequent JET Chronic systolic CHF due to severe cardiomyopathy (EF 10%) following at with Dr. 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 Card cath of April 2019: proximally occluded LAD getting collaterals from the right system Diabetes mellitus, managed by primary care physician Anxiety Plan: * I had a long and detailed discussion with him regarding his CV issues and our treatment plan and the reason for transfer to ICU yesterday * v amiodarone to be followed by oral amiodarone * Continue current antibiotic therapy * Continue current heart failure therapy * Continue wound debridement * Monitor and correct labs KIRBY IGNACIO MD FACP FACC CCDS Jan 21, 2020 13:11
[2020-01-21] MEDS: ASPIRIN 81 MG CHEW (CHILDREN'S ASA) PO SCH (13:20)
[2020-01-21] MEDS: HYDROcodone/APAP 5 MG/325 MG (LORTAB) TAB PO PRN ×2 (13:20→17:20)
[2020-01-21] MEDS: ENOXAPARIN 60 MG/0.6 ML (LOVENOX) SYR SC SCH (13:21)
[2020-01-21] MEDS: AMIODARONE 200 MG (CORDARONE) TAB PO SCH ×2 (13:21→20:46)
--- NOTE | 2020-01-21 13:58 | NUR ---
Wound vac alarming "blockage". Unable to locate blockage, tube without one. Took drsg off site in attempt to locate cause of alarm. Noted large clot under foam. Foam removed. Unable to reach Dr. Mares at this time. Text him regarding situation. Will await his response. While waiting, placed wet 4x4s (soaked in NS) over clot et placed dry 4x4s on top of those. Secured with hypafix tape.
--- NOTE | 2020-01-21 14:19 | NUR ---
Dr. Mares stated he will likely return later to replace pt wound vac. Pt notified
--- NOTE | 2020-01-21 16:33 | NUR ---
Life vest rep here applying new vest to pt
[2020-01-21] MEDS ORDERED: morphine INJ 4 MG/ML 1 ML (VIAL/SYRINGE) ONE (16:55)
[2020-01-21] MEDS ORDERED: morphine INJ 10 MG/ML 1ML (SYR OR VIAL) IVP STA (17:02)
--- NOTE | 2020-01-21 17:20 | Progress Note-Post Operative ---
Post-Operative Progess Note Surgeon (s)/Portrait Photographer (s) Surgeon KATIE ADAMS DO Portrait Photographer: na Pre-Operative Diagnosis left chest wound Post-Operative Diagnosis same Procedure & Operative Findings Date of Procedure 01/21/20 Procedure Performed/Findings Wound VAC applied, 6cm x 3cm Anesthesia Type IV morphine Estimated Blood Loss Estimated blood loss (mL): none Specimens/Packing Specimens Removed none Packing: #[id number] KATIE ADAMS DO Jan 21, 2020 17:20
--- NOTE | 2020-01-21 17:22 | NUR ---
Dr. Mares at bedside et new wound vac applied.
[2020-01-21] MEDS: warFARin 4 MG (COUMADIN) TAB PO SCH (17:41)
--- NOTE | 2020-01-21 23:06 | OPERATIVE REPORT ---
DATE OF SERVICE: 01/21/2020 PREOPERATIVE DIAGNOSIS: Left chest wound. POSTOPERATIVE DIAGNOSIS: Left chest wound. PROCEDURE: Wound VAC placement, 6 cm x 3 cm sponge applied, did have some tunneling distally. SURGEON: Grupo Mares DO. HEARING HEALTH TECHNICIAN: None. ANESTHESIA: Just some IV morphine for pain control. BLOOD LOSS: None. FLUIDS: None. SPECIMENS: None. INDICATION FOR PROCEDURE: The patient is a 54-year-old male, who had been having trouble leakage from his wound VAC. He had clot under there and the wound VAC was not working, had been removed by the nurses need to be replaced. FINDINGS: The patient had a wound VAC placed and measured about 6 cm long x about 3 cm wide. It did have some tunneling down distally in the pocket, but elected just to place sponge in the open area and hope that the wound VAC would pull down and the tunneling. PROCEDURE NOTE: Inpatient's bed in the ICU, he was given some morphine for pain control, had already taken out the old sponge, carefully cleaned the area with normal saline and then dried up and then placed occlusive dressing over the top of the skin to protect it. Cut a piece of black sponge measured about 6 x [address] this into the opening and then placed a large occlusive dressing over top of this. Cut a hole and then put the wound VAC suction device over this and then hooked it up to the VAC canister and turned the wound VAC on. The wound VAC then suctioned down very nicely, suction all this down even the chest wall. There is no drainage. There was no leak on the VAC at this point was done. The patient tolerated the procedure. Job ID: [id number] DocumentID: [id number] Dictated Date: 01/21/2020 17:20:34 Web Merchant Date: 01/21/2020 23:05:31 Dictated By: GRUPO MARES DO MTDD
[2020-01-22] VITALS (18 sets, daily range): BP systolic 83–110; BP diastolic 56–88
[2020-01-22] MEDS: NAFCILLIN INJECTION 2,000 MG in NS (IVPB) 100 ML IV SCH ×6 (00:21→22:42)
[2020-01-22 02:45] LABS: BASOPHILS # (AUTO) 0.1 10^3/uL (0.0-0.1); BASOPHILS % (AUTO) 1 % (0-10); EOSINOPHILS # (AUTO) 0.2 10^3/uL (0.0-0.3); EOSINOPHILS % (AUTO) 3 % (0-10); HEMATOCRIT 33 % (40-54); HEMOGLOBIN 10.9 G/DL (13.3-17.7); LYMPHOCYTES # (AUTO) 1.1 X 10^3 (1.0-4.0); LYMPHOCYTES % (AUTO) 14 % (12-44); MEAN CORPUSCULAR HEMOGLOBIN 31 PG (25-34); MEAN CORPUSCULAR HGB CONC 33 G/DL (32-36); MEAN CORPUSCULAR VOLUME 93 FL (80-99); MEAN PLATELET VOLUME 8.8 FL (7.4-10.4); MONOCYTES # (AUTO) 0.6 X 10^3 (0.0-1.0); MONOCYTES % (AUTO) 7 % (0-12); NEUTROPHILS # (AUTO) 5.9 X 10^3 (1.8-7.8); NEUTROPHILS % (AUTO) 75 % (42-75); PLATELET COUNT 299 10^3/uL (130-400); RED CELL DISTRIBUTION WIDTH 15.3 % (10.0-14.5); WHITE BLOOD COUNT 7.8 10^3/uL (4.3-11.0)
[2020-01-22 03:04] LABS: BUN/CREATININE RATIO 11; CALCIUM 8.7 MG/DL (8.5-10.1); CARBON DIOXIDE 27 MMOL/L (21-32); CHLORIDE 103 MMOL/L (98-107); CREATININE SERUM 1.04 MG/DL (0.60-1.30); GFR ESTIMATED > 60; GLUCOSE 89 MG/DL (70-105); PHOSPHORUS 3.8 MG/DL (2.3-4.7); POTASSIUM 3.4 MMOL/L (3.6-5.0); SODIUM 141 MMOL/L (135-145)
[2020-01-22] MEDS: metFORMIN XR 500 MG (GLUCOPHAGE XR) TAB PO SCH ×2 (06:34→17:38)
[2020-01-22] MEDS: RIFAMPIN 150 MG (RIFADIN) CAP PO SCH ×3 (06:34→20:33)
[2020-01-22] MEDS: KCL 10 MEQ TAB (MICRO K) PO SCH (06:34)
[2020-01-22 08:07] LABS: INR 1.3 (0.8-1.4); PROTHROMBIN TIME PATIENT 16.7 SEC (12.2-14.7)
--- NOTE | 2020-01-22 08:24 | Diagnostic Imaging Report ---
EXAMINATION: Chest 1 view HISTORY: Infected ICD pocket. COMPARISON: 01/21/2020 FINDINGS: Multiple cardiac leads are again noted overlying the chest. Stable configuration of the right PICC. The lung volumes are normal. No focal consolidation is seen. No large pleural effusion or pneumothorax is seen. The cardiomediastinal silhouette is normal in size and contour. No acute osseous abnormality is seen. IMPRESSION: 1. Stable appearance of the chest without evidence of focal consolidation. Dictated by: Dictated on workstation # [id number]
[2020-01-22] MEDS: ENOXAPARIN 60 MG/0.6 ML (LOVENOX) SYR SC SCH (08:34)
[2020-01-22] MEDS: ASPIRIN 81 MG CHEW (CHILDREN'S ASA) PO SCH (08:35)
[2020-01-22] MEDS: AMIODARONE 200 MG (CORDARONE) TAB PO SCH ×2 (08:35→20:32)
[2020-01-22] MEDS: lisINopril 5 MG (PRINIVIL) TABLET PO SCH (08:35)
[2020-01-22] MEDS: SPIRONOLACTONE 25 MG (ALDACTONE) TAB PO SCH (08:35)
[2020-01-22] MEDS ORDERED: ONDANSETRON 4 MG/2 ML (SDV) Z0FRAN IVP PRN (08:45)
--- NOTE | 2020-01-22 09:13 | NUR ---
Pt vomited less than 2 minutes after giving morning meds - orange emesis, same color as urine with food and medication contents. He stated he has not been hungry and his appetite feels "non-existent". Notified Dr. Feng. Order for zofran received et given to pt.
--- NOTE | 2020-01-22 11:30 | Progress Note - Surgery ---
Subjective Time Seen by a Provider: 10:59 Subjective/Events-last exam Pt seen and examined, no new complaints today. Nurse states there was no bleeding from wound VAC and no seal leaks. Review of Systems General: No Chills, No Night Sweats Pulmonary: No Dyspnea, No Cough Gastrointestinal: No: Nausea, Vomiting Objective Exam Vital Signs Date Time Temp Pulse Resp B/P (MAP) Pulse Ox O2 Delivery O2 Flow Rate FiO2 01/22/20 11:00 80 33 92/70 (77) 99 Room Air 01/22/20 10:00 65 16 86/60 (69) 93 Room Air 01/22/20 09:00 76 17 108/77 (87) 95 Room Air 01/22/20 08:02 Room Air 96 01/22/20 08:00 81 10 103/75 (84) 98 Room Air 01/22/20 07:00 89 9 104/72 (83) 98 Room Air 01/22/20 07:00 79 01/22/20 06:00 72 17 83/62 (69) 92 Room Air 01/22/20 05:00 60 17 88/57 (67) 97 Room Air 01/22/20 04:00 69 13 88/60 (69) 95 Room Air 01/22/20 03:09 Room Air 98 01/22/20 03:09 36.2 01/22/20 03:00 68 15 86/88 (87) 94 Room Air 01/22/20 02:00 69 16 91/65 (74) 96 Room Air 01/22/20 01:00 93 01/22/20 01:00 93 15 104/69 (81) 97 Room Air 01/22/20 00:00 68 16 92/62 (72) 98 Room Air 01/21/20 23:29 Room Air 98 01/21/20 23:28 36.0 01/21/20 23:00 56 14 85/64 (71) 95 Room Air 01/21/20 22:00 73 15 85/63 (70) 95 Room Air 01/21/20 21:00 69 14 91/59 (70) 97 Room Air 01/21/20 20:00 Room Air 98 01/21/20 20:00 75 14 91/62 (72) 90 Room Air 01/21/20 19:27 36.3 01/21/20 19:00 71 01/21/20 19:00 70 13 94/66 (75) 95 Room Air 01/21/20 18:00 80 16 100/73 (82) 99 Room Air 01/21/20 17:00 85 19 101/79 (86) 100 Room Air 01/21/20 16:17 36.6 01/21/20 16:00 85 18 101/71 (81) 98 Room Air 01/21/20 15:32 Room Air 98 01/21/20 15:00 71 15 105/75 (85) 97 Room Air 01/21/20 14:00 76 17 100/66 (77) 97 Room Air 01/21/20 13:00 82 14 106/78 (87) 97 Room Air 01/21/20 12:33 81 01/21/20 12:00 Room Air 96 01/21/20 12:00 82 15 109/79 (89) 95 Room Air I & O 01/22/20 07:00 Intake Total 1934 ml Output Total 1750 ml Balance 184 ml Capillary Refill : Less Than 3 SecondsLess Than 3 Seconds General Appearance: No Apparent Distress, WD/WN, Chronically ill HEENT: PERRL/EOMI Respiratory: Lungs Clear, No Accessory Muscle Use Cardiovascular: Regular Rate, Rhythm Gastrointestinal: non tender, soft Neurologic/Psychiatric: Alert, Oriented x3 Skin: Normal Color, Warm/Dry, Other (wound VAC in place, no leakage at this time, no signs of infection surrounding the area, no bleeding) Results Lab Laboratory Tests 01/21/20 16:20: Glucometer 100 01/21/20 20:46: Glucometer 99 01/22/20 02:38: White Blood Count 7.8, Red Blood Count 3.56L, Hemoglobin 10.9L, Hematocrit 33L, Mean Corpuscular Volume 93, Mean Corpuscular Hemoglobin 31, Mean Corpuscular Hemoglobin Concent 33, Red Cell Distribution Width 15.3H, Platelet Count 299, Mean Platelet Volume 8.8, Neutrophils (%) (Auto) 75, Lymphocytes (%) (Auto) 14, Monocytes (%) (Auto) 7, Eosinophils (%) (Auto) 3, Basophils (%) (Auto) 1, Neutrophils # (Auto) 5.9, Lymphocytes # (Auto) 1.1, Monocytes # (Auto) 0.6, Eosinophils # (Auto) 0.2, Basophils # (Auto) 0.1, Sodium Level 141, Potassium Level 3.4L, Chloride Level 103, Carbon Dioxide Level 27, Anion Gap 11, Blood Urea Nitrogen 11, Creatinine 1.04, Estimat Glomerular Filtration Rate > 60, BUN/Creatinine Ratio 11, Glucose Level 89, Calcium Level 8.7, Phosphorus Level 3.8, Magnesium Level 2.0 01/22/20 07:35: Prothrombin Time 16.7H, INR Comment 1.3 01/22/20 11:15: Glucometer 93 Microbiology 01/20/20 Blood Culture - Preliminary, Resulted No growth 01/19/20 MRSA Screen - Final, Complete MRSA not isolated 01/10/20 Gram Stain - Final, Complete 01/10/20 Anaerobic Culture - Final, Complete No anaerobes isolated 01/10/20 Surgical Culture - Final, Complete Staphylococcus aureus 01/10/20 Gram Stain - Final, Complete 01/10/20 Anaerobic Culture - Final, Complete No anaerobes isolated 01/10/20 Surgical Culture - Final, Complete Staphylococcus aureus Assessment/Plan Assessment/Plan Assessment/Plan MSSA Infected pacemaker pocket Wound VAC So far all PRELIMINARY blood cultures have been negative; still believe Staph epidermidis was most likely a contaminant. Will recommend wound vac change -Thursday. Continue ABX and will need home wound VAC prior to discharge. From surgery standpoint he can go whenever he is cleared by IM and Cardiology. Clinical Quality Measures DVT/VTE Risk/Contraindication: Risk Factor Score Per Nursin RFS Level Per Nursing on Admit: 4+=Very High KATIE ADAMS DO Jan 22, 2020 11:30
--- NOTE | 2020-01-22 11:52 | Progress Note - Hospitalist ---
Subjective HPI/CC On Admission Date Seen by Provider: Jan 22, 2020 Time Seen by Provider: 10:30 CC: Staph bacteremia HPI: This is a 54yoWM known to me from prior hospital stay who has a low ejection fraction who had an ICD placed a few weeks ago, came in with pustular drainage from the area and ling-cultured, placed on Vancomycin and Ancef empirically and found to have bacteremia of Staph. I initiated a dose of Gentami rossy combined with Vanc, discontinued the Ancef and noted that even the leads of the ICD was contaminated with staph. At this current time Pt denies any pain. Subjective/Events-last exam Had episode of N/V this morning now resolved and he feels better INR 1.3 Lovenox 1mg/kg Q12 BCx 01/19 NGTD Wound vac changed yesterday and now doing very well Review of Systems General: Fatigue Gastrointestinal: Nausea, Vomiting Objective Exam Vital Signs Vital Signs Date Time Temp Pulse Resp B/P (MAP) Pulse Ox O2 Delivery O2 Flow Rate FiO2 01/22/20 14:00 82 13 89/63 (72) 94 Room Air 01/22/20 12:00 96 01/22/20 12:00 36.5 01/19/20 18:55 5 Capillary Refill : Less Than 3 SecondsLess Than 3 Seconds General Appearance: No Apparent Distress, WD/WN, Chronically ill Respiratory: Chest Non Tender, Lungs Clear, Normal Breath Sounds, No Accessory Muscle Use, No Respiratory Distress Cardiovascular: Regular Rate, Rhythm, No Edema, No Gallop, No JVD, No Murmur, Normal Peripheral Pulses Neurologic/Psychiatric: Alert, Oriented x3, No Motor/Sensory Deficits, Normal Mood/Affect Results/Procedures Lab Laboratory Tests 01/22/20 02:38 Patient resulted labs reviewed. Assessment/Plan Assessment and Plan Assess & Plan/Chief Complaint Assessment: Infected ICD pocket Bacteremia Acute hematuria now resolved Lovenox and Coumadin Cardiomyopathy N/V now resolved Plan: BCx Hematuria monitoring Wound vac Diagnosis/Problems Diagnosis/Problems (1) Pacemaker infection Status: Acute Qualifiers: Encounter type: initial encounter Qualified Codes: T82.7XXA - Infection and inflammatory reaction due to other cardiac and vascular devices, implants and grafts, initial encounter (2) Bacteremia Status: Acute (3) Acute CHF (congestive heart failure) Status: Acute Qualifiers: Heart failure type: systolic Qualified Codes: I50.21 - Acute systolic (congestive) heart failure (4) Cardiomyopathy Status: Chronic Qualifiers: Cardiomyopathy type: dilated Qualified Codes: I42.0 - Dilated car diomyopathy Clinical Quality Measures DVT/VTE Risk/Contraindication: Risk Factor Score Per Nursin RFS Level Per Nursing on Admit: 4+=Very High JEREMIAS RICCI DO Jan 22, 2020 11:51
[2020-01-22] MEDS: HYDROcodone/APAP 5 MG/325 MG (LORTAB) TAB PO PRN (13:14)
--- NOTE | 2020-01-22 15:26 | NUR ---
Pt was transferred to room 414 at this time.report was given by Nedra curriculum counselor. I have reviewed Nedra's assessment and agree with it.
--- NOTE | 2020-01-22 16:23 | Progress Note - Cardiology ---
Cardiology SOAP Progress Note Subjective: He does not report any new symptoms Has gen malaise and weakness No palp or syncope or cp Has chronic exertional shortness of breath Objective: I&O/Vital Signs 01/22/20 01/22/20 01/22/20 01/22/20 05:00 06:00 07:00 07:00 Pulse 60 72 79 89 Resp 17 17 9 B/P (MAP) 88/57 (67) 83/62 (69) 104/72 (83) Pulse Ox 97 92 98 O2 Delivery Room Air Room Air Room Air 01/22/20 01/22/20 01/22/20 01/22/20 08:00 08:02 09:00 10:00 Pulse 81 76 65 Resp 10 17 16 B/P (MAP) 103/75 (84) 108/77 (87) 86/60 (69) Pulse Ox 98 95 93 O2 Delivery Room Air Room Air Room Air Room Air FiO2 96 01/22/20 01/22/20 01/22/20 01/22/20 11:00 12:00 12:00 12:00 Temp 36.5 Pulse 80 77 Resp 33 24 B/P (MAP) 92/70 (77) 88/60 (69) Pulse Ox 99 90 O2 Delivery Room Air Room Air Room Air FiO2 96 01/22/20 01/22/20 01/22/20 12:14 13:00 14:00 Pulse 71 75 82 Resp 15 13 B/P (MAP) 83/56 (65) 89/63 (72) Pulse Ox 91 94 O2 Delivery Room Air Room Air 01/22/20 00:00 Intake Total 1209 ml Output Total 700 ml Balance 509 ml Weight (Pounds): 179 Weight (Ounces): 5.0 Weight (Calculated Kilograms): 81.599217 Constitutional: AAO x 3, well-developed, well-nourished Respiratory: No accessory muscle use, No respiratory distress; chest expansion is symmetric, chest is bilaterally symmetric, lungs clear to auscultation Cardiovascular: regular rate-rhythm; No JVD; S1 and S2 Gastrointestional: No tender; soft, audible bowel sounds Extremities: no lower extremity edema bilateral Neurologic/Psychiatric: grossly intact Skin: other (wound vac in place to LACW) Results/Procedures: Labs Laboratory Tests 01/21/20 20:46: Glucometer 99 01/22/20 02:38: White Blood Count 7.8, Red Blood Count 3.56L, Hemoglobin 10.9L, Hematocrit 33L, Mean Corpuscular Volume 93, Mean Corpuscular Hemoglobin 31, Mean Corpuscular Hemoglobin Concent 33, Red Cell Distribution Width 15.3H, Platelet Count 299, Mean Platelet Volume 8.8, Neutrophils (%) (Auto) 75, Lymphocytes (%) (Auto) 14, Monocytes (%) (Auto) 7, Eosinophils (%) (Auto) 3, Basophils (%) (Auto) 1, Neutrophils # (Auto) 5.9, Lymphocytes # (Auto) 1.1, Monocytes # (Auto) 0.6, Eosinophils # (Auto) 0.2, Basophils # (Auto) 0.1, Sodium Level 141, Potassium Level 3.4L, Chloride Level 103, Carbon Dioxide Level 27, Anion Gap 11, Blood Urea Nitrogen 11, Creatinine 1.04, Estimat Glomerular Filtration Rate > 60, BUN/Creatinine Ratio 11, Glucose Level 89, Calcium Level 8.7, Phosphorus Level 3.8, Magnesium Level 2.0 01/22/20 07:35: Prothrombin Time 16.7H, INR Comment 1.3 01/22/20 11:15: Glucometer 93 01/22/20 16:04: Glucometer 100 Microbiology 01/20/20 Blood Culture - Preliminary, Resulted No growth 01/19/20 MRSA Screen - Final, Complete MRSA not isolated 01/10/20 Gram Stain - Final, Complete 01/10/20 Anaerobic Culture - Final, Complete No anaerobes isolated 01/10/20 Surgical Culture - Final, Complete Staphylococcus aureus 01/10/20 Gram Stain - Final, Complete 01/10/20 Anaerobic Culture - Final, Complete No anaerobes isolated 01/10/20 Surgical Culture - Final, Complete Staphylococcus aureus A/P: Assessment: Sustained VT treated by Life Vest on 01/20/20 Infected ICD pocket, hardware extracted on 01/10/20, culture grew Staphylococcus aureus. No evidence of endocarditis on subsequent JET Chronic systolic CHF due to severe cardiomyopathy (EF 10%) following at with Dr. 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 Card cath of April 2019: proximally occluded LAD getting collaterals from the right system Diabetes mellitus, managed by primary care physician Anxiety Plan: * Continue current regimen * Monitor and correct labs KIRBY IGNACIO MD FACP FAC CCDS Jan 22, 2020 16:23
[2020-01-22] MEDS: warFARin 4 MG (COUMADIN) TAB PO SCH (17:38)
[2020-01-23] VITALS: BP 90/58
[2020-01-23] MEDS: NAFCILLIN INJECTION 2,000 MG in NS (IVPB) 100 ML IV SCH ×4 (02:00→11:26)
[2020-01-23 04:00] VITALS: BP 92/62
[2020-01-23] MEDS: ACETAMINOPHEN 325 MG TABLET PO PRN (05:01)
[2020-01-23] MEDS: RIFAMPIN 150 MG (RIFADIN) CAP PO SCH (06:29)
[2020-01-23] MEDS: metFORMIN XR 500 MG (GLUCOPHAGE XR) TAB PO SCH (06:30)
[2020-01-23] MEDS: KCL 10 MEQ TAB (MICRO K) PO SCH (06:30)
[2020-01-23 06:42] LABS: BASOPHILS # (AUTO) 0.1 10^3/uL (0.0-0.1); BASOPHILS % (AUTO) 1 % (0-10); EOSINOPHILS # (AUTO) 0.1 10^3/uL (0.0-0.3); EOSINOPHILS % (AUTO) 2 % (0-10); HEMATOCRIT 31 % (40-54); HEMOGLOBIN 10.4 G/DL (13.3-17.7); LYMPHOCYTES # (AUTO) 1.2 X 10^3 (1.0-4.0); LYMPHOCYTES % (AUTO) 18 % (12-44); MEAN CORPUSCULAR HEMOGLOBIN 31 PG (25-34); MEAN CORPUSCULAR HGB CONC 33 G/DL (32-36); MEAN CORPUSCULAR VOLUME 94 FL (80-99); MEAN PLATELET VOLUME 8.9 FL (7.4-10.4); MONOCYTES # (AUTO) 0.4 X 10^3 (0.0-1.0); MONOCYTES % (AUTO) 6 % (0-12); NEUTROPHILS # (AUTO) 4.7 X 10^3 (1.8-7.8); NEUTROPHILS % (AUTO) 73 % (42-75); PLATELET COUNT 324 10^3/uL (130-400); RED CELL DISTRIBUTION WIDTH 15.7 % (10.0-14.5); WHITE BLOOD COUNT 6.5 10^3/uL (4.3-11.0)
[2020-01-23 06:57] LABS: INR 1.8 (0.8-1.4); PROTHROMBIN TIME PATIENT 21.3 SEC (12.2-14.7)
[2020-01-23 07:06] LABS: CALCIUM 8.7 MG/DL (8.5-10.1); CREATININE SERUM 1.37 MG/DL (0.60-1.30); MAGNESIUM 2.1 MG/DL (1.6-2.4); PHOSPHORUS 3.8 MG/DL (2.3-4.7); POTASSIUM 3.5 MMOL/L (3.6-5.0)
[2020-01-23 08:00] VITALS: BP 109/69
[2020-01-23] MEDS ORDERED: WARF4TAB PO (08:56)
[2020-01-23] MEDS ORDERED: [UNRECOGNIZED DRUG - CODE] IV (08:56)
[2020-01-23] MEDS ORDERED: RIFA150C3 PO (08:56)
--- NOTE | 2020-01-23 09:03 | D/C HH Face to Face Order ---
D/C Face to Face Orders Reconcile Patient Problems Problems Reviewed?: Yes Instructions for Patient Via [employer], Patient Instructions/FollowUp: Appointment with Dr. Gresham's office next week Appointment with Dr. Vernon in 2 weeks Appointment with [facility] in 3 days Physician to follow Patient: y Discharge Diet for Home: Cardiac Diet Patient Problems: Infected ICD device pocket Goals for Patient: Improvement of the infection Patient Data-Allergies,Ht & Wt Patient Allergies: Coded Allergies: No Known Drug Allergies (Unverified , 03/09/17) Height (Feet): 5 Height (Inches): 11.00 Weight (Pounds): 179 Weight (Ounces): 5.0 Home Health Need/Face to Face Date of Face to Face: Jan 23, 2020 Clinical Findings: Wound infection Infected wound I have seen Pt [id number]: Yes Discharged To: Home Diagnosis/Conditions: Infected ICD device Sepsis Congestive heart failure, chronic compensated left ventricular systolic dysfunction, nonischemic cardiomyopathy Ventricular tachycardia Patient is Homebound due to: Shortness of breath/distress Homebound Status Due to the above stated illness, injury or surgical procedure (medical condition or diagnosis) and associated clinical findings, the patient is homebound because of his/her inability to leave home except with aid of a supportive device and/or person AND leaving the home requires a considerable and taxing effort or is medically contraindicated. Pt req the following assistanc: Aid of another person Home Health Nursing Orders Home Health Services Order: Nursing Services, Wound Care-Eval/Treat Home Health Infusion Therapy Line Start Date: Jan 16, 2020 Home Health Lab Orders Labs (specify type/freq): CMP weakly starting next Thursday PT/INR (times/week): As needed, first INR to be done on January 26, 2020 Planned Date for 1st INR: Jan 26, 2020 Goal INR Range: 2-3 Certify Stmt I certify that this patient is under my care and that I, a nurse practitioner or a physician; a law office assistant working with me, had a face to face encounter that - meets the physician face to face encounter requirements with this patient as dated. TRACE GRESHAM MD Jan 23, 2020 09:03
[2020-01-23] MEDS ORDERED: AMIO200T4 PO (09:06)
[2020-01-23] MEDS: SPIRONOLACTONE 25 MG (ALDACTONE) TAB PO SCH (09:13)
[2020-01-23] MEDS: AMIODARONE 200 MG (CORDARONE) TAB PO SCH (09:13)
[2020-01-23] MEDS: ASPIRIN 81 MG CHEW (CHILDREN'S ASA) PO SCH (09:13)
[2020-01-23] MEDS: ENOXAPARIN 60 MG/0.6 ML (LOVENOX) SYR SC SCH (09:13)
--- NOTE | 2020-01-23 09:13 | Cardiology Discharge Summary ---
Discharge Summary Hospital Course Problems Reviewed?: Yes Problems/Diagnosis: (1) Pacemaker infection Status: Acute Assessment & Plan: ICD was removed, monitor for continued infection 01/19: s/p surgical irrigation today with pus removal 01/20: Wound vac placed today Qualifiers: Qualified Codes: T82.7XXA - Infection and inflammatory reaction due to other cardiac and vascular devices, implants and grafts, initial encounter (2) Bacteremia Status: Acute Assessment & Plan: - Blood culture resulted 01/16 + MSSA, repeat blood culture drawn today, Must have neg blood culture prior to d/c home, will need 6 weeks IV antibiotics 01/17: Repeat culture yesterday, waiting for final report prior to d/c 01/18: Final report pending, Will start d.c plan once blood cultures are Neg 01/19: Dr Gresham has discussed case with [facility] and they recommend adding Rifampin, repeat blood cultures today and tomorrow, Will need 6 week IV antibiotics once blood cultures are negative, Patient will need HH at discharge (3) Pre-diabetes Status: Chronic Assessment & Plan: - Continue Metformin (4) MSSA (methicillin susceptible Staphylococcus aureus) (5) Cardiomyopathy Status: Chronic Assessment & Plan: - Patient following with [facility] cardiology and Dr Gresham Qualifiers: Qualified Codes: I42.0 - Dilated cardiomyopathy (6) HTN (hypertension) Status: Chronic Qualifiers: Qualified Codes: I10 - Essential (primary) hypertension (7) Acute CHF (congestive heart failure) Status: Acute Assessment & Plan: - Continue Lasix Qualifiers: Qualified Codes: I50.21 - Acute systolic (congestive) heart failure (8) Left ventricular thrombosis Status: Acute Assessment & Plan: 01/19: JET neg for thrombosis but patient needs continued anticoagulation, Start Lovenox as INR is not therapuetic, spoke with marilyn and Naficillin increases metabolism of Coumadin so patient will likely need higher dose and then will need titrated down after completion of antibiotics, recommend INR MWF with HH at discharge 01/20: Repeat INR in AM (9) DVT prophylaxis Status: Acute Assessment & Plan: - Coumadin Hospital Course Date of Admission: Jan 10, 2020 at 13:48 Admission Diagnosis : Family Physician/Provider: [place] Date of Discharge: 01/23/20 Discharge Diagnosis: [ Infected ICD pocket Sepsis Congestive heart failure, chronic compensated left ventricular systolic dysfunction, nonischemic cardiomyopathy Sustained ventricular tachycardia] Hospital Course: [Infected ICD pocket, single chamber ICD was extracted on January 10, 2020, culture grew Staphylococcus aureus. Maintained on nafcillin, PICC line placed, repeat blood culture grew staph again, CT of the chest abdomen and pelvis did not show any sign of embolization or abscess, JET did not show any thrombus, no vegetation, blood culture from January 19 and January 20 were negative, will be treated with nafcillin and rifampin for 6 weeks with close monitoring to his liver enzymes Sustained ventricular tachycardia occurred on January 21, 2020, started on amiodarone loading dose. Congestive heart failure, acute on chronic left ventricular systolic dysfunction, severe cardiomyopathy with ejection fraction 10 percent, ischemic cardiomyopathy, seen at with Dr. Smith, right heart catheterization at that time showed normal pressures. Patient currently wearing life vest and receiving amiodarone Staph aureus sepsis, echocardiogram did not show any vegetation. Receiving antibiotic. Repeat blood cultures negative. Continue to monitor Congestive heart failure, left ventricular systolic dysfunction, severe cardiomyopathy with ejection fraction 10 percent. Ischemic cardiomyopathy. Following with Dr. Smith at at this time. Had a right heart catheterization showing normal pressures. Continue to monitor Thrombus in left ventricle, large, aneurysmal apex and anterior wall, has been on Coumadin, last echo did not show the thrombus in the left ventricular apex, continue on Coumadin and monitor, trying to achieve a goal of INR 2-3 Coronary artery disease, underwent cardiac catheterization April 2019 revealing totally occluded LAD proximally, getting collaterals from the right system, patient was evaluated at , managed by heart failure team in Hypertension, controlled, continue to monitor. Passive hepatic congestion with elevated LFTs, continue to monitor Diabetes mellitus, managed by primary care physician Anxiety ] Labs and Pending Lab Test: Laboratory Tests 01/22/20 20:11: Glucometer 97 01/23/20 05:18: Glucometer 82 01/23/20 06:26: White Blood Count 6.5, Red Blood Count 3.32L, Hemoglobin 10.4L, Hematocrit 31L, Mean Corpuscular Volume 94, Mean Corpuscular Hemoglobin 31, Mean Corpuscular Hemoglobin Concent 33, Red Cell Distribution Width 15.7H, Platelet Count 324, Mean Platelet Volume 8.9, Neutrophils (%) (Auto) 73, Lymphocytes (%) (Auto) 18, Monocytes (%) (Auto) 6, Eosinophils (%) (Auto) 2, Basophils (%) (Auto) 1, Neutrophils # (Auto) 4.7, Lymphocytes # (Auto) 1.2, Monocytes # (Auto) 0.4, Eosinophils # (Auto) 0.1, Basophils # (Auto) 0.1, Prothrombin Time 21.3H, INR Comment 1.8H, Sodium Level 142, Potassium Level 3.5L, Chloride Level 103, Carbon Dioxide Level 29, Anion Gap 10, Blood Urea Nitrogen 13, Creatinine 1.37H, Estimat Glomerular Filtration Rate 54, BUN/Creatinine Ratio 9, Glucose Level 91, Calcium Level 8.7, Phosphorus Level 3.8, Magnesium Level 2.1 01/23/20 10:49: Glucometer 90 Microbiology 01/20/20 Blood Culture - Preliminary, Resulted No growth 01/19/20 MRSA Screen - Final, Complete MRSA not isolated 01/10/20 Gram Stain - Final, Complete 01/10/20 Anaerobic Culture - Final, Complete No anaerobes isolated 01/10/20 Surgical Culture - Final, Complete Staphylococcus aureus 01/10/20 Gram Stain - Final, Complete 01/10/20 Anaerobic Culture - Final, Complete No anaerobes isolated 01/10/20 Surgical Culture - Final, Complete Staphylococcus aureus Home Meds Active Amiodarone HCl 200 Mg Tablet 200 Mg PO UD Take 2 tablets twice a day for one week then Take one tablet twice a day Coumadin (Warfarin Sodium) 4 Mg Tablet 8 Mg PO DAILY@1800 Rifampin 150 Mg Capsule 300 Mg PO Q8HR Nafcillin Sodium 10 Gm Vial 12 Gm IV DAILY Continuous infusion Reported Warfarin Sodium 5 Mg Tablet 7.5 Mg PO Q48H TAKES 1 & OF THE 5MG TO EQUAL 7.5MG EVERY OTHER DAY. ALTERNATES BETWEEN 5MG AND 7.5MG Lasix (Furosemide) 20 Mg Tablet 20 Mg PO DAILY PRN USE IF THERE IS MORE THEN 2LB WEIGHT GAIN OVER 48 HOURS Potassium Chloride 10 Meq Capsule.er 10 Meq PO DAILY Lisinopril 2.5 Mg Tablet 2.5 Mg PO DAILY Metformin HCl ER (Metformin HCl) 500 Mg Tab.er.24h 500 Mg PO BID Aldactone (Spironolactone) 25 Mg Tablet 25 Mg PO DAILY Metoprolol Succinate 25 Mg Tab.er.24h 12.5 Mg PO DAILY TAKES OF A 25MG TAB LAST FILLED 11-19-2019 #15/ 30 DAY SUPPLY Aspirin 81 Mg Tab.chew 81 Mg PO DAILY Assessment/Pt DC Instructions See below Discharge Diet: Cardiac Diet Discharge Physical Examination Allergies: Coded Allergies: No Known Drug Allergies (Unverified , 03/09/17) General Appearance: No Apparent Distress, WD/WN HEENT: PERRL/EOMI, TMs Normal, Normal ENT Inspection, Moist Mucous Membranes Respiratory: Chest Non Tender, Lungs Clear, Normal Breath Sounds, No Accessory Muscle Use Cardiovascular: Regular Rate, Rhythm, No Edema, No Gallop, No JVD, No Murmur Gastrointestinal: Normal Bowel Sounds, No Organomegaly, No Pulsatile Mass Extremity: Normal Capillary Refill, Normal Inspection, Normal Range of Motion, Non Tender Skin: Warm/Dry Neurologic/Psychiatric: Alert, Oriented x3, No Motor/Sensory Deficits, Normal Mood/Affect Clinical Quality Measures End of Life/Advance Care Plan: Advance Care discuss with: patient Admission Status Admission Status: Inpatient Order (span 2 midnights) Reason for Inpatient Admission: sepsis Infected ICD pocket AMI/AHF: Ejection Fraction: <40 (ELLIS/ARB Indicated) D/C Medications Addressed: Angiotension receptor kiana, Beta kiana DVT/VTE Risk/Contraindication: VTE Addressed: Yes Risk Factor Score Per Nursin RFS Level Per Nursing on Admit: 4+=Very High TRACE GRESHAM MD Jan 23, 2020 09:13
[2020-01-23] MEDS: lisINopril 5 MG (PRINIVIL) TABLET PO SCH (09:22)
--- NOTE | 2020-01-23 10:00 | NUR ---
Educated pt with use of home wound VAC. Disconnected facility wound VAC and established connection with home wound VAC. Spoke with Home health RN briefly on phone during education. Supplies and Handout given to Pt. Pt verbalized no questions or concerns at this time.
--- NOTE | 2020-01-23 10:30 | NUR ---
CM FINALIZED DISCHARGE PLAN: Patient is dismissing to home today with [facility] for Nursing- continuous daily infusion of IV Nafcillin, wound care to left anterior chest wall for wound vac changes every Thursday and Thursday, and lab draws for CMP et PT/INR's. IV Nafcillin has been set up through [facility] for 5 weeks of the IV Nafcillin.
--- NOTE | 2020-01-23 11:12 | Progress Note ---
MONIQUE JETER, MEDICAL STUDENT 01/23/20 1111: Subjective Date Seen by a Provider: Jan 23, 2020 Time Seen by a Provider: 10:30 Subjective/Events-last exam HPI: This is a 54yoWM known to me from prior hospital stay who has a low ejection fraction who had an ICD placed a few weeks ago, came in with pustular drainage from the area and ling-cultured, placed on Vancomycin and Ancef empirically and found to have bacteremia of Staph. I initiated a dose of Gentamicin combined with Vanc, discontinued the Ancef and noted that even the leads of the ICD was contaminated with staph. At this current time Pt denies any pain. Subjective/Events-last exam N/V has resolved Blood cultures negative to date Planning patient for discharge with home health Outpatient follow up with Dr. Gresham and Nhan Wound vac draining well, no new problems Objective Exam Last Set of Vital Signs Vital Signs Date Time Temp Pulse Resp B/P (MAP) Pulse Ox O2 Delivery O2 Flow Rate FiO2 01/23/20 08:00 36.9 75 20 109/69 (82) 93 Room Air 01/22/20 12:00 96 01/19/20 18:55 5 Capillary Refill : Less Than 3 SecondsLess Than 3 Seconds I&O Intake and Output 01/23/20 00:00 Intake Total 1325 ml Output Total 950 ml Balance 375 ml Intake Oral 925 ml IV Total 400 ml Output Urine Total 950 ml Drainage Total 0 ml # Bowel Movements 1 # Emeses 1 General: Alert, Oriented X3, Cooperative HEENT: Atraumatic Neck: Supple, No JVD Lungs: Clear to Auscultation Heart: Regular Rate, Normal S1, Normal S2 Abdomen: Normal Bowel Sounds, Soft Extremities: No Clubbing, No Cyanosis Neuro: Normal Gait, Normal Speech Results Lab Laboratory Tests 01/22/20 11:15: Glucometer 93 01/22/20 16:04: Glucometer 100 01/23/20 06:26: White Blood Count 6.5, Red Blood Count 3.32L, Hemoglobin 10.4L, Hematocrit 31L, Mean Corpuscular Volume 94, Mean Corpuscular Hemoglobin 31, Mean Corpuscular Hemoglobin Concent 33, Red Cell Distribution Width 15.7H, Platelet Count 324, Mean Platelet Volume 8.9, Neutrophils (%) (Auto) 73, Lymphocytes (%) (Auto) 18, Monocytes (%) (Auto) 6, Eosinophils (%) (Auto) 2, Basophils (%) (Auto) 1, Neutrophils # (Auto) 4.7, Lymphocytes # (Auto) 1.2, Monocytes # (Auto) 0.4, Eosinophils # (Auto) 0.1, Basophils # (Auto) 0.1, Prothrombin Time 21.3H, INR Comment 1.8H, Sodium Level 142, Potassium Level 3.5L, Chloride Level 103, Carbon Dioxide Level 29, Anion Gap 10, Blood Urea Nitrogen 13, Creatinine 1.37H, Estimat Glomerular Filtration Rate 54, BUN/Creatinine Ratio 9, Glucose Level 91, Calcium Level 8.7, Phosphorus Level 3.8, Magnesium Level 2.1 Microbiology 01/20/20 Blood Culture - Preliminary, Resulted No growth 01/19/20 MRSA Screen - Final, Complete MRSA not isolated 01/10/20 Gram Stain - Final, Complete 01/10/20 Anaerobic Culture - Final, Complete No anaerobes isolated 01/10/20 Surgical Culture - Final, Complete Staphylococcus aureus 01/10/20 Gram Stain - Final, Complete 01/10/20 Anaerobic Culture - Final, Complete No anaerobes isolated 01/10/20 Surgical Culture - Final, Complete Staphylococcus aureus Assessment/Plan Assessment/Plan Assess & Plan/Chief Complaint Assessment: Infected ICD pocket Bacteremia Acute hematuria now resolved Lovenox and Coumadin Cardiomyopathy N/V now resolved Plan: BCx Hematuria monitoring Wound vac Planning for discharge with home health as long as blood cultures remain negative Follow up outpatient with Dr. Gresham and Dr. Justin Clinical Quality Measures AMI/AHF: D/C Medications Addressed: Angiotension receptor kiana, Beta kiana DVT/VTE Risk/Contraindication: VTE Addressed: Yes Risk Factor Score Per Nursin RFS Level Per Nursing on Admit: 4+=Very High SYLVIA RICCI DO 01/23/20 1545: Subjective Subjective/Events-last exam Pt doing very well today. Dr. Gresham will see him every week. All discharge antibiotics and orders have been placed by Dr. Gresham. Wound vac will be managed by Dr. Mares. Nausea has been limited now, it could certainly be Amioderone, will monitor that. Review of Systems General: Fatigue Objective Exam General: Alert, Oriented X3, Cooperative, No Acute Distress HEENT: Atraumatic, PERRLA Neck: Supple, No JVD, No Thyromegaly Lungs: Clear to Auscultation, Normal Air Movement Heart: Regular Rate, Normal S1, Normal S2, No Murmurs Abdomen: Normal Bowel Sounds, Soft, No Tenderness, No Hepatosplenomegaly, No Masses Extremities: No Clubbing, No Cyanosis, No Edema, Normal Pulses, No Tenderness/Swelling Skin: No Rashes, No Breakdown, No Significant Lesion Neuro: Normal Gait, Normal Speech, Strength at 5/5 X4 Ext, Normal Tone Psych/Mental Status: Mental Status NL, Mood NL Supervisory-Addendum Brief Verification & Attestation Participated in pt care: history, MDM, physical Personally performed: exam, history, MDM, supervision of care Care discussed with: Medical Student Procedures: n/a Results interpretation: Verified all documentation Verification and Attestation of Medical Student E/M Service A medical student performed and documented this service in my presence. I reviewed and verified all information documented by the medical student and made modifications to such information, when appropriate. I personally performed the physical exam and medical decision making. Sylvia Ricci, Jan 24, 2020,06:57 MONIQUE JETER, MEDICAL STUDENT Jan 23, 2020 11:11 SYLVIA RICCI DO Jan 23, 2020 15:45
[2020-01-23 11:40] VITALS: BP 95/62
[2020-01-23 12:45] VITALS: BP 95/62
== END 2020-01-23 12:45 | disposition home health service (06) | DRG 260 ==
LOC: CSD 13:48 → ICU 01-12 11:48 → 4TH 01-15 12:03 → ICU 01-20 19:12 → 4TH 01-22 17:47
PROVIDERS: ADMIT Internal Medicine Cardiovascular Disease; ATTEND Internal Medicine
PROC: 0JPT0PZ Removal of Cardiac Rhythm Related Device from Trunk Subcutaneous Tissue and Fascia, Open Approach (ICD-10-PCS; principal; 2020-01-10)
PROC: 02PA3MZ Removal of Cardiac Lead from Heart, Percutaneous Approach (ICD-10-PCS; 2020-01-10)
PROC: 0JJT0ZZ Inspection of Trunk Subcutaneous Tissue and Fascia, Open Approach (ICD-10-PCS; 2020-01-19)
DX: T82.7XXA Infection and inflammatory reaction due to other cardiac and vascular devices, implants and grafts, initial encounter (principal); T82.847A Pain due to cardiac prosthetic devices, implants and grafts, initial encounter; A41.01 Sepsis due to Methicillin susceptible Staphylococcus aureus; I11.0 Hypertensive heart disease with heart failure; I50.23 Acute on chronic systolic (congestive) heart failure; I47.2 Ventricular tachycardia; I25.5 Ischemic cardiomyopathy; R31.9 Hematuria, unspecified; I08.1 Rheumatic disorders of both mitral and tricuspid valves; I95.9 Hypotension, unspecified; K76.1 Chronic passive congestion of liver; I25.10 Atherosclerotic heart disease of native coronary artery without angina pectoris; E11.9 Type 2 diabetes mellitus without complications; F41.9 Anxiety disorder, unspecified; I51.3 Intracardiac thrombosis, not elsewhere classified; I25.2 Old myocardial infarction
CPT/HCPCS: 33241; 33244; 36415; 36569; 71045; 71046; 71275; 74178; 76937; 80048; 80053; 80061; 81000; 82962; 83605; 83735; 84100; 85025; 85027; 85610; 85652; 85730; 87040; 87070; 87075; 87077; 87081; 87186; 87205; 93005; 93312; 93320; 93325

== ENCOUNTER 2022-08-03 23:15 | Emergency (ER) | payer MEDICARE, MEDICAID ==
[~2022-08-03] VITALS: Ht 177.8 cm; Wt 76.3 kg
[~2022-08-03 23:15] MED LIST changes: +AMIO200T65 PO; +ASPI-1238 PO; -ASPI-983 PO; -LISI-552 PO; -LISI10TA2 PO; +LISI10TA25 PO; -LISI2.5T PO; +LISI2.5T13 PO; +LISI20TA26 PO; +METF-865 PO; -METF500T19 PO; +RIFA150C7 PO; +WARF4TAB PO; -WARF5TAB PO; +WARF5TAB2 PO; +[UNRECOGNIZED DRUG - CODE] IV
--- NOTE | 2022-08-04 00:06 | ED Cough/URI ---
General Chief Complaint: COVID19 Suspect/Confirmed Stated Complaint: SORE THROAT,COUGH,CONGESTION,BODY ACHES Nursing Triage Note: Pt ambulates to ED 9. Pt reports cough, congestion and sore throat since [place] evening. Has taken OTC cold relief medications with minimal relief. Source: patient Allergies and Home Medications Allergies Coded Allergies: No Known Drug Allergies (Unverified , 03/09/17) Patient Home Medication List Amiodarone HCl (Amiodarone HCl) 200 Mg Tablet, 200 MG PO UD Prescribed by: TRACE BERMAN on 01/23/20 0906 Aspirin (Aspirin) 81 Mg Tab.chew, 81 MG PO DAILY, (Reported) Entered as Reported by: DIGNA HARRIS on 12/21/19 0852 Benzonatate (Tessalon Perles) 100 Mg Capsule, 200 MG PO TID Prescribed by: CATHLEEN NJ on 08/04/22 003 Furosemide (Lasix) 20 Mg Tablet, 20 MG PO DAILY PRN for FLUID RETENTION , (Reported) Entered as Reported by: DIGNA HARRIS on 12/21/19 0859 Lisinopril (Lisinopril) 2.5 Mg Tablet, 2.5 MG PO DAILY, (Reported) Entered as Reported by: DIGNA HARRIS on 12/21/19 0852 Metformin HCl (Metformin HCl ER) 500 Mg Tab.er.24h, 500 MG PO BID, (Reported) Entered as Reported by: DIGNA HARRIS on 12/21/19 0852 Metoprolol Succinate (Metoprolol Succinate) 25 Mg Tab.er.24h, 12.5 MG PO DAILY, (Reported) Entered as Reported by: DIGNA HARRIS on 12/21/19 0852 Molnupiravir (Molnupiravir (Eua)) 200 Mg Capsule, 800 MG PO BID Prescribed by: CATHLEEN NJ on 08/04/22 003 Nafcillin Sodium (Nafcillin Sodium) 10 Gm Vial, 12 GM IV DAILY Prescribed by: TRACE BERMAN on 01/23/20 0856 Potassium Chloride (Potassium Chloride) 10 Meq Capsule.er, 10 MEQ PO DAILY, (Reported) Entered as Reported by: DIGNA HARRIS on 12/21/19 0852 Rifampin (Rifampin) 150 Mg Capsule, 300 MG PO Q8HR Prescribed by: TRACE BERMAN on 01/23/20 0856 Spironolactone (Aldactone) 25 Mg Tablet, 25 MG PO DAILY, (Reported) Entered as Reported by: DIGNA HARRIS on 12/21/19 0852 Warfarin Sodium (Coumadin) 4 Mg Tablet, 8 MG PO DAILY@1800 Prescribed by: TRACE BERMAN on 01/23/20 0856 Past Aplmfsg-Suryhp-Bhyuph Hx Patient Social History Tobacco Use?: No Smokeless Tobacco Frequency: Never a User Use of E-Cig and/or Vaping dev: No Substance use?: No Alcohol Use?: No Pt feels they are or have been: No Immunizations Up To Date Tetanus Booster (TDap): Unknown PED Vaccines UTD: No First/Initial COVID19 Vaccinat: Dec 2021 Second COVID19 Vaccination Flavio: January 2022 COVID19 Vaccine New Grad Rn: Luisito Seasonal Allergies Seasonal Allergies: No Past Medical History Surgeries: Yes Respiratory: No Currently Using CPAP: No Currently Using BIPAP: No Cardiac: Yes Cardiomyopathy, Coronary Artery Disease, Hypertension Neurological: No Reproductive Disorders: No Sexually Transmitted Disease: No HIV/AIDS: No Genitourinary: No Gastrointestinal: No Musculoskeletal: No Endocrine: Yes Diabetes, Non-Insulin dep HEENT: No Cancer: No Psychosocial: No Integumentary: No Blood Disorders: No Adverse Reaction/Blood Tranf: No Family Medical History No Pertinent Family Hx Physical Exam Vital Signs - First Documented 08/03/22 23:29 Temp 37.5 Pulse 85 Resp 20 B/P (MAP) 118/87 (97) Pulse Ox 97 O2 Delivery Room Air Capillary Refill : Height: 5'11.00" Weight: 179lbs. 5.0oz. 81.463673ty; 24.00 BMI Method:Stated Progress/Results/Core Measures Suspected Sepsis SIRS Temperature: Pulse: 85 Respiratory Rate: 20 Blood Pressure 118 /87 Mean: 97 Results/Orders Lab Results Laboratory Tests Test 08/03/22 23:31 Range/Units Influenza Type A (RT-PCR) Not Detected Not Detecte Influenza Type B (RT-PCR) Not Detected Not Detecte SARS-CoV-2 RNA (RT-PCR) Detected H Not Detecte My Orders Orders - CATHLEEN NJ DO Covid 19 Inhouse Test (08/03/22 23:33) Influenza A And B By Pcr (08/03/22 23:33) Isolation Central Supply Req (08/03/22 23:33) Vital Signs/I&O 08/03/22 23:29 Temp 37.5 Pulse 85 Resp 20 B/P (MAP) 118/87 (97) Pulse Ox 97 O2 Delivery Room Air Capillary Refill : Blood Pressure Mean: 97 Progress Note : Progress Note PLACED IN ISOLATION ROOM PPE WORN AT ALL TIMES COVID AND FLU TESTING DONE UNEVENTFUL ER STAY NO COUGH NO DYSPNEA NO HYPOXIA NO FEVER NO HYPOTENSION OR TACHYCARDIA DUE TO MULTIPLE CO-MORBIDITIES, PT WOULD NOT BE A CANDIDATE FOR PAXLOVID DUE TO POTENTIAL DRUG INTERACTIONS, BUT WOULD BE A CANDIDATE FOR MOLNUPIRAVIR. Departure Impression Primary Impression: COVID-19 virus infection Disposition: HOME, SELF-CARE Condition: Stable Departure-Patient Inst. Decision time for Depature: 00:06 Referrals: HODAN STEVE (PCP/Family) Primary Care Physician Patient Instructions: COVID-19 Home Care/Discharge, Molnupiravir FDA Fact Sheet Add. Discharge Instructions: LOTS OF CLEAR LIQUIDS--WATER, BROTH, JELLO, GATORADE TYLENOL 1 GRAM PLUS MOTRIN 800 MG 4 TIMES A DAY NEEDED FOR PAIN OR FEVER FOLLOW UP WITH YOUR DR IN 4-5 DAYS IF NO BETTER, RETURN TO ER IF WORSE QUARANTINE FOR 10 DAYS All discharge instructions reviewed with patient and/or family. Voiced understanding. Scripts Benzonatate (TESSALON PERLES) 100 Mg Capsule 200 MG PO TID, #30 CAP Prov: ONDINACATHLEEN K DO 08/04/22 Molnupiravir (Molnupiravir (Eua)) 200 Mg Capsule 800 MG PO BID for 5 Days, #40 CAP Prov: ONDINALIZYA K DO 08/04/22 ONDINACATHLEEN K DO Aug 04, 2022 00:06
[2022-08-04] MEDS ORDERED: MOLN200C PO (00:37)
[2022-08-04] MEDS ORDERED: BENZ100C18 PO (00:37)
[2022-08-04 00:44] VITALS: BP 116/82
== END 2022-08-04 00:46 | disposition home or self-care (01) ==
LOC: EDUNIT# 23:15 → ER 23:18
DX: U07.1 COVID-19 (principal)
CPT/HCPCS: 87636; 99283